=== PATIENT | female | born 1970 | race Caucasian/White ===

== ENCOUNTER 2017-04-13 13:30 | Emergency (ER) | payer BC, OTHER ==
[~2017-04-13] VITALS: Ht 180.3 cm; Wt 165.7 kg
[~2017-04-13 13:30] MED LIST: ACET-1311 PO; BUPR-79 PO; CHOL100010 PO; CYCL10TA6 PO; EFFSR150 PO; EFFSR75 PO; GABA-113 PO; GLUCTAB7 PO; HYDR-5688 PO; LRS10 PO; LSN/10125 PO; MELO15TA3 PO
[2017-04-13 13:42] VITALS: Ht 180.3 cm; Wt 165.7 kg
[2017-04-13] MEDS ORDERED: HYDROmorphone INJ 1 MG/ML SYR IV STA (14:22)
[2017-04-13] MEDS ORDERED: ONDANSETRON INJ 2 MG/ML 2 ML VIAL IV STA (14:22)
[2017-04-13 14:41] LABS: BASO % 1.3 %; BASO ABS # 0.14 K/uL (0-0.2); COMPLETE YES; EOS % 2.4 %; HEMATOCRIT 46.9 % (37-47); IG% 0.4 %; LYMPH % 29.2 %; LYMPH ABS # 3.15 K/uL (1.2-3.4); MEAN CELL VOLUME 90.4 fL (80-100); MEAN CORPUSCULAR HEMOGLOBIN 28.1 pg (25-34); MEAN CORPUSCULAR HGB CONC 31.1 g/dl (32-36); MEAN PLATELET VOLUME 10.6 fL (7.4-10.4); MONO % 7.7 %; PLATELET COUNT 297 K/uL (130-400); RED BLOOD COUNT 5.19 M/uL (4.2-5.4); WHITE BLOOD COUNT 10.79 K/uL (4.8-10.8)
[2017-04-13 14:58] LABS: INR 0.9 (0.9-1.1)
[2017-04-13 15:00] LABS: BLOOD UREA NITROGEN 20 mg/dl (7-18); BUN/CREATININE RATIO 19.7 (10-20); CALCIUM 9.1 mg/dl (8.5-10.1); CARBON DIOXIDE 25 mmol/L (21-32); CHLORIDE 104 mmol/L (98-107); CREATININE 0.99 mg/dl (0.60-1.20); GLUCOSE 103 mg/dl (70-99); MAGNESIUM 2.3 mg/dl (1.8-2.4); POTASSIUM 4.3 mmol/L (3.5-5.1); SODIUM 138 mmol/L (136-145)
[2017-04-13 15:05] LABS: ALKALINE PHOSPHATASE 79 U/L (45-117); ALT/SGPT 52 U/L (12-78); AST/SGOT 30 U/L (15-37); CKMB/CK RATIO 0.7 (0-3.0)
[2017-04-13 15:11] LABS: PREG INTERNAL NEGATIVE QC NEG CLEAR BACKGROUND; PREG INTERNAL POSITIVE QC POS CONTROL LINE
[2017-04-13] MEDS ORDERED: ULT50 PO (16:23)
[2017-04-13] MEDS ORDERED: RANI150T2 PO (16:23)
[2017-04-13] MEDS ORDERED: EFFSR150 PO (16:23)
[2017-04-13] MEDS ORDERED: BSP/10 PO (16:23)
[2017-04-13] MEDS ORDERED: CHOL2000 PO (16:23)
[2017-04-13] MEDS ORDERED: EFFSR75 PO (16:23)
[2017-04-13] MEDS ORDERED: ACET1TAB84 PO (16:23)
[2017-04-13] MEDS ORDERED: HYDR-4313 PO (16:23)
[2017-04-13] MEDS ORDERED: BIOT300T2 PO (16:23)
[2017-04-13] MEDS ORDERED: MELO15TA4 PO (16:23)
[2017-04-13] MEDS ORDERED: WLLXL300 PO (16:23)
[2017-04-13] MEDS ORDERED: LISI-788 PO (16:23)
--- NOTE | 2017-04-13 16:47 | DIAGNOSTIC IMAGING REPORT ---
GALLBLADDER-ABD LIMITED CLINICAL HISTORY: RUQ PAIN pain. Nausea. TECHNIQUE: Ultrasound COMPARISON STUDY: 05/19/2011 FINDINGS: Trace gallbladder sludge. No shadowing gallstones. Gallbladder wall 2 mm. Common bile duct 5 mm. Area fatty infiltration of liver. Limited visibility of the pancreas due to body habitus and overlying bowel content. Right kidney is negative for hydronephrosis. IMPRESSION: Trace gallbladder sludge. Otherwise negative study. Normal caliber bile ducts. The above report was generated using voice recognition software. It may contain grammatical, syntax or spelling errors. Electronically signed by: Jayant Garcia M.D. 04/13/2017 4:46 PM Dictated Date/Time: 04/13/2017 4:43 PM
--- NOTE | 2017-04-13 17:03 | DIAGNOSTIC IMAGING REPORT ---
ABDOMEN 2VIEW W/PA CHEST RTN CLINICAL HISTORY: RUQ PAIN, NAUSEA pain. Nausea. COMPARISON STUDY: 08/04/2015 FINDINGS: The soft tissues, psoas shadows, renal outlines and intestinal gas pattern appear normal. There is no evidence for bowel obstruction. There is no evidence for free intraperitoneal air. No abnormal abdominal calcifications are seen. A frontal view of the chest was performed and is unremarkable. IMPRESSION: Normal study. The above report was generated using voice recognition software. It may contain grammatical, syntax or spelling errors. Electronically signed by: Jayant Garcia M.D. 04/13/2017 5:01 PM Dictated Date/Time: 04/13/2017 5:01 PM
--- NOTE | 2017-04-13 17:28 | EMERGENCY ROOM VISIT NOTE ---
History First contact with patient: 14:10 Chief Complaint: ABDOMINAL PAIN Stated Complaint: GALLBLADDER PAIN/STOMACH PAIN Nursing Triage Summary: Pt presents with upper abd pain and pain in back x 2 hrs. "Second episode of similar sx". Nausea. History of Present Illness Patient is a 46-year-old white female who presents emergency department for evaluation of upper abdominal pain wrapping around through to her back. Her symptoms started about 2 hours ago after eating a S[employer] one hour prior. She notes pain in a band across her upper abdomen, primarily on the right that wraps through to her back. She noted associated dizziness, sweats and nausea. She states the pain is a 6/10 presently. She did not vomit. She had an episode of pain similar to this about a month or so ago. She was seen at an urgent care center where she was evaluated. They had set up an ultrasound as an outpatient which she was unable to make due to scheduling issues. She denies any chest pain, palpitations or shortness of breath. The pain is not pleuritic in nature. She is status post gastric bypass. She has had an EGD and colonoscopy in the past. She noted some cramping in her legs last night which she thought could be related to low potassium. She drink Gatorade and took a pain pill, still notes just some slight pain in the right thigh. She denies any swelling. She denies any family history of gallbladder disease. She is postmenopausal 2 years. She is chronically incontinent of urine, denies any changes in this. She has some chronic GI issues secondary to hemorrhoids and her gastric bypass status. Bowel movements have been normal. She denies fever. Review of Systems Review of systems as per HPI. All other systems reviewed were negative. 10 systems reviewed. Past Medical/Surgical History Medical Problems: (1) Anxiety disorder (2) Depressive disorder (3) GERD (gastroesophageal reflux disease) (4) Hypertension (5) Intractable back pain (6) Lumbago (7) Morbid obesity (8) Osteoarthritis (9) Sleep apnea Surgical Problems: (1) History of gastric bypass (2) History of lumbosacral spine surgery Electronic medical records are reviewed and summarized as above/below. See Problem List. Social History Smoking Status: Never Smoker Alcohol Use: none Drug Use: none Marital Status: Housing Status: lives with family Current/Historical Medications Scheduled Acetaminophen/Hydrocodone (Hydrocodone/Acetaminophen 5-325 mg), 1 TAB PO BID Biotin (Biotin), 1 TAB PO DAILY Bupropion HCl (Bupropion HCl Xl), 1 TAB PO DAILY Buspirone HCl (Buspirone HCl), 1 TAB PO BID Cholecalciferol (Vitamin D3), 1 CAP PO DAILY Lisinopril/Hctz (Zestoretic 20MG/25MG), 0.5 TAB PO DAILY Meloxicam (Meloxicam), 1 TAB PO DAILY Ranitidine HCl (Ranitidine HCl), 1 TAB PO DAILY Venlafaxine Hcl (Effexor Extended Rel), 1 TAB PO DAILY Venlafaxine Hcl (Effexor Extended Rel), 1 TAB PO DAILY Scheduled PRN Acetaminophen (Tylenol Arthritis Ext Rel), 2 TAB PO BID PRN for Mild Pain Tramadol HCl (Tramadol HCl), 1 TAB PO Q6H PRN for Pain Allergies Coded Allergies: No Known Allergies (Verified , 04/13/17) Physical Exam Vital Signs Date Time Temp Pulse Resp B/P (MAP) Pulse Ox O2 Delivery O2 Flow Rate FiO2 04/13/17 17:53 36.6 109 18 135/107 98 04/13/17 16:03 91 18 126/78 95 04/13/17 13:42 36.6 103 16 158/102 95 Room Air Physical Exam CONSTITUTIONAL: Patient is a morbidly obese 38-year-old white female who is awake and alert and in moderate distress due to her abdominal discomfort. EYES: Pupils equal, round, reactive to light and accommodation. EOMs intact without nystagmus. Sclera are anicteric. ENT: Tympanic membranes intact, with normal landmarks. External canals are clear. Oral and nasopharynx are clear. Mucous membranes are moist, no lesions , tongue and gums appear normal. CARDIOVASCULAR: Regular rate and rhythm, with normal S1 and S2, no murmur or gallop or rub is heard. No carotid bruits auscultated. No JVD. Peripheral pulses easy to palpable. RESPIRATORY: Breath sounds equal and clear to auscultation without wheezes, rales, or rhonchi heard. Full and equal chest expansion without accessory muscle use or retractions. GI: Bowel sounds are present. Well-healed surgical scars are noted. Abdomen is soft, obese, tender in the upper abdomen, primarily in the epigastric and the right upper quadrant. No organomegaly. No pulsatile masses. No guarding or rebound. MUSCULOSKELETAL: Full range of motion of extremities x 4 with good strength. No cyanosis, edema, joint tenderness or swelling. No deformity. INTEGUMENTARY: No lesions or rash, normal skin turgor. NEUROLOGICAL: Alert, oriented, and cooperative. Cranial nerves, sensation and strength grossly intact. Pupils round, equal, and react to light, EOMs are full. LYMPH: No lymphadenopathy. Medical Decision & Procedures ER Provider Diagnostic Interpretation: GALLBLADDER-ABD LIMITED CLINICAL HISTORY: RUQ PAIN pain. Nausea. TECHNIQUE: Ultrasound COMPARISON STUDY: 05/19/2011 FINDINGS: Trace gallbladder sludge. No shadowing gallstones. Gallbladder wall 2 mm. Common bile duct 5 mm. Area fatty infiltration of liver. Limited visibility of the pancreas due to body habitus and overlying bowel content. Right kidney is negative for hydronephrosis. IMPRESSION: Trace gallbladder sludge. Otherwise negative study. Normal caliber bile ducts. ABDOMEN 2VIEW W/PA CHEST RTN CLINICAL HISTORY: RUQ PAIN, NAUSEA pain. Nausea. COMPARISON STUDY: 08/04/2015 FINDINGS: The soft tissues, psoas shadows, renal outlines and intestinal gas pattern appear normal. There is no evidence for bowel obstruction. There is no evidence for free intraperitoneal air. No abnormal abdominal calcifications are seen. A frontal view of the chest was performed and is unremarkable. IMPRESSION: Normal study. Laboratory Results 04/13/17 14:30 Red Blood Count 5.19, Mean Corpuscular Volume 90.4, Mean Corpuscular Hemoglobin 28.1, Mean Corpuscular Hemoglobin Concent 31.1, Mean Platelet Volume 10.6, Neutrophils (%) (Auto) 59.0, Lymphocytes (%) (Auto) 29.2, Monocytes (%) (Auto) 7.7, Eosinophils (%) (Auto) 2.4, Basophils (%) (Auto) 1.3, Neutrophils # (Auto) 6.37, Lymphocytes # (Auto) 3.15, Monocytes # (Auto) 0.83, Eosinophils # (Auto) 0.26, Basophils # (Auto) 0.14 04/13/17 14:30 Test 04/13/17 14:30 White Blood Count 10.79 K/uL (4.8-10.8) Red Blood Count 5.19 M/uL (4.2-5.4) Hemoglobin 14.6 g/dL (12.0-16.0) Hematocrit 46.9 % (37-47) Mean Corpuscular Volume 90.4 fL (80-100) Mean Corpuscular Hemoglobin 28.1 pg (25-34) Mean Corpuscular Hemoglobin Concent 31.1 g/dl (32-36) Platelet Count 297 K/uL (130-400) Mean Platelet Volume 10.6 fL (7.4-10.4) Neutrophils (%) (Auto) 59.0 % Lymphocytes (%) (Auto) 29.2 % Monocytes (%) (Auto) 7.7 % Eosinophils (%) (Auto) 2.4 % Basophils (%) (Auto) 1.3 % Neutrophils # (Auto) 6.37 K/uL (1.4-6.5) Lymphocytes # (Auto) 3.15 K/uL (1.2-3.4) Monocytes # (Auto) 0.83 K/uL (0.11-0.59) Eosinophils # (Auto) 0.26 K/uL (0-0.5) Basophils # (Auto) 0.14 K/uL (0-0.2) RDW Standard Deviation 52.5 fL (36.4-46.3) RDW Coefficient of Variation 15.9 % (11.5-14.5) Immature Granulocyte % (Auto) 0.4 % Immature Granulocyte # (Auto) 0.04 K/uL (0.00-0.02) Prothrombin Time 10.0 SECONDS (9.0-12.0) Prothromb Time International Ratio 0.9 (0.9-1.1) Activated Partial Thromboplast Time 25.1 SECONDS (21.0-31.0) Partial Thromboplastin Ratio 1.0 Anion Gap 9.0 mmol/L (3-11) Est Creatinine Clear Calc Drug Dose 119.3 ml/min Estimated GFR () 78.1 Estimated GFR (Non- 67.4 BUN/Creatinine Ratio 19.7 (10-20) Calcium Level 9.1 mg/dl (8.5-10.1) Magnesium Level 2.3 mg/dl (1.8-2.4) Total Bilirubin 0.3 mg/dl (0.2-1) Aspartate Amino Transf (AST/SGOT) 30 U/L (15-37) Alanine Aminotransferase (ALT/SGPT) 52 U/L (12-78) Alkaline Phosphatase 79 U/L (45-117) Total Creatine Kinase 122 U/L (26-192) Creatine Kinase MB 0.9 ng/ml (0.5-3.6) Creatine Kinase MB Ratio 0.7 (0-3.0) Troponin I < 0.015 ng/ml (0-0.045) Total Protein 7.4 gm/dl (6.4-8.2) Albumin 3.7 gm/dl (3.4-5.0) Globulin 3.6 gm/dl (2.5-4.0) Albumin/Globulin Ratio 1.0 (0.9-2) Lipase 239 U/L (73-393) Human Chorionic Gonadotropin, Qual NEG (NEG) Medications Administered Medications (Trade) Dose Ordered Sig/Becka Route Start Time Stop Time Status Last Admin Dose Admin Ondansetron HCl (Zofran Inj) 4 mg NOW STAT IV 04/13/17 14:22 04/13/17 14:27 DC 04/13/17 14:52 4 MG Hydromorphone HCl (Dilaudid Inj) 1 mg NOW STAT IV 04/13/17 14:22 04/13/17 14:27 DC 04/13/17 14:55 1 MG ECG Indication: abdominal pain Rate (beats per minute): 83 Rhythm: sinus rhythm Findings: no acute ischemic change, other (AL interval 108 ms) Change: no significant change ED Course The patient was seen and evaluated as above. Her old records were reviewed. IV lock was initiated. She was medicated with Dilaudid 1 mg IV and Zofran 4 mg IV. Laboratory studies were collected including CBC with differential, coags, cardiac enzymes, CMP and lipase. Urine dip was clear. Serum hCG was negative. Laboratory studies noted a normal white count at 10,700. No left shift. No anemia. Coags are unremarkable. Electrolytes and renal function without gross abnormality. LFTs are not elevated. Cardiac enzymes are not indicative of cardiac ischemia. Lipase is not indicative of acute pancreatitis. Acute abdominal series was obtained and was unremarkable. There was no evidence for bowel obstruction. Right upper quadrant ultrasound noted trace biliary sludge, no evidence for cholelithiasis, no gallbladder wall thickening or ductal dilatation. The patient was reassessed frequently. She had good relief of her pain with the IV medications. Patient was made aware of the results of her laboratory and diagnostic imaging studies. Differential diagnoses entertained included GERD, gastritis, esophagitis, peptic ulcer disease, pancreatitis, cholelithiasis , biliary colic, acute cholecystitis, ascending cholangitis, choledocholithiasis , bowel section, perforation, among others. Pain does not appear consistent with cardiac or pulmonary etiology. The patient was encouraged to follow a clear liquid diet and advance as tolerated, avoiding fatty/greasy foods. She may require further workup for gallbladder pathology including HIDA scan. She also may need referral to GI for endoscopy. The patient was educated on the worrisome signs or symptoms for which she should return to the emergency department. The patient reported complete resolution of her pain at discharge, and rated her discomfort a 0/10. Medication reconciliation: I attest that I have personally reviewed the patient' s current medication list. Blood pressure screening: Patient was found to have a slightly elevated blood pressure due to circumstances. I do not believe that the patient requires hypertension monitoring. Medical Decision See Emergency Department course. Impression Primary Impression: Right upper quadrant abdominal pain Departure Information Referrals No Doctor, Assigned (PCP) Patient Instructions [facility] Additional Instructions DO NOT drive, drink alcohol, operate machinery, or perform dangerous activities today. You were given medications in the ER that can affect your ability to safely function or operate a vehicle. Acetaminophen(Tylenol) may be used for fever or pain. Use 1000mg every eight hours as needed. Avoid using more than 3000mg in a 24 hour period. This is available over the counter. Rest and drink plenty of fluids as tolerated. Slow sips of water or sports drinks are recommended instead of large amounts all at once. Continue current medications. Once your stomach is settled start with a clear liquid diet (jello, soup broth, etc.) and then advance as tolerated. You should avoid full, heavy meals for about 24 hrs from the time your symptoms resolved. Avoid greasy/fatty foods which may irritate the gallbladder. Return to the ER immediately for worsening or persistent abdominal pain, vomiting, fevers, chest pains, difficulty breathing, black or bloody stools, worsening of your condition, or as needed. Follow up with your primary physician in 1-2 days for a recheck of your current condition.
[2017-04-13 17:53] VITALS: BP 135/107; PULSE 109; TEMP 36.6; O2SAT 98
[2017-04-22] MEDS ORDERED: GLUCTAB7 PO (09:48)
[2017-04-22] MEDS ORDERED: BIOT1CAP8 PO (09:48)
== END 2017-04-13 17:54 | disposition home or self-care (01) ==
LOC: C.EDB 13:31 → C.EDA 17:54
DX: R10.11 Right upper quadrant pain (principal); F41.9 Anxiety disorder, unspecified; F32.9 Major depressive disorder, single episode, unspecified; K21.9 Gastro-esophageal reflux disease without esophagitis; I10 Essential (primary) hypertension; E66.01 Morbid (severe) obesity due to excess calories; M19.90 Unspecified osteoarthritis, unspecified site; G47.30 Sleep apnea, unspecified; Z98.84 Bariatric surgery status; Z79.899 Other long term (current) drug therapy

== ENCOUNTER → 2017-04-26 | Day surgery (SDC) | payer BC ==
[2017-04-22 09:49] VITALS: Ht 180.3 cm; Wt 163.6 kg
[~2017-04-26] VITALS: Ht 180.3 cm; Wt 163.6 kg
[~2017-04-26] MED LIST changes: -ACET-1311 PO; +ACET1TAB84 PO; +BIOT1CAP8 PO; -BUPR-79 PO; -CHOL100010 PO; -CYCL10TA6 PO; +FENTANYL CITRATE INJ 50 MCG/1 ML 2 ML VIAL ONE; -GABA-113 PO; -HYDR-5688 PO; +LIDOCAINE HCL 2% 2 ML VIAL (20MG/ML) ONE; +LISI-788 PO; -LRS10 PO; -LSN/10125 PO; -MELO15TA3 PO; +MELO15TA4 PO; +PROPOFOL IV EMULSION 10 MG/ML 20 ML VIAL IV ONE; +SODIUM CHLORIDE 0.9% 500ML 500 ML IV ONE; +WLLXL300 PO
--- NOTE | 2017-04-26 09:30 | Endo History and Physical ---
History & Physical Date of Service: Apr 26, 2017. Chief Complaint: Epigastric pain Referring Physician: Johnny Gomez History of Present Illness abdominal pain Past Medical History Arthritis, Anxiety, Reflux, Sleep Apnea, Hypertension, Depression Past Surgical History Hx Cardiac Surgery: No Hx Internal Defibrillator: No Hx Pacemaker: No Hx Abdominal Surgery: Yes (GASTRIC BYPASS) Hx of Implantable Prosthesis: No Hx Post-Op Nausea and Vomiting: No Hx Cancer Surgery: No Hx Thoracic Surgery: No Hx Orthopedic: Yes (LUMBAR DISCECTOMY, LEFT LUMBAR LAMINOTOMY) Hx Urinary Tract Surgery: No Family History Colon CA Social History Smoking Status: Never Smoker Hx Substance Use: No Hx Alcohol Use: Yes (RARELY) Allergies Coded Allergies: No Known Allergies (Verified , 04/22/17) Current Medications Reported Home Medications Medications Dose Route/Sig Max Daily Dose Days Date Category Biotin 1 Mg Cap 1 Cap PO QAM 04/22/17 Reported Glucosamine Chondroitin (Njkikjxesny-Xtqbfngihbh-Dca C-) 1 Tab Tab 2 Tab PO QAM 04/22/17 Reported Zestoretic 20MG/25MG (HCTZ/Lisinopril) Tab 0.5 Tab PO QAM 04/13/17 Reported Tylenol Arthritis Ext Rel (Acetaminophen) 650 Mg Cplt 2 Tab PO BID PRN 04/13/17 Reported Meloxicam 15 Mg Tab 1 Tab PO QAM 04/13/17 Reported Bupropion HCl Xl (Bupropion HCl) 300 Mg Tabcr 1 Tab PO QAM 04/13/17 Reported Effexor Extended Rel (Venlafaxine Hcl) 150 Mg Capcr 1 Tab PO QAM 04/13/17 Reported Effexor Extended Rel (Venlafaxine Hcl) 75 Mg Capcr 1 Tab PO QAM 04/13/17 Reported Vital Signs Weight (Kilograms): 163.64 Height (Feet): 5 Height (Inches): 11 Date Time Temp Pulse Resp B/P (MAP) Pulse Ox O2 Delivery O2 Flow Rate FiO2 04/26/17 09:05 36.5 81 18 128/63 (84) 96 Room Air Physical Exam General Appearance: no apparent distress Respiratory/Chest: Auscultation: breath sounds normal Cardiovascular: Heart Auscultation: RRR Abdomen: Inspection & Palpation: soft Liver: non-tender Assessment and Plan stable for EGD
--- NOTE | 2017-04-26 09:52 | Discharge Instructions ---
Endoscopy Patient Instructions Date / Procedure(s) Performed Apr 26, 2017. EGD Allergy Information Coded Allergies: No Known Allergies (Verified , 04/22/17) Discharge Date / Findings Apr 26, 2017. normal post gastric bypass anatomy. Provider Instructions Activity Restrictions - No exercising or heavy lifting for 24 hours. - Do not drink alcohol the day of the procedure. - Do not drive a car or operate machinery until the day after the procedure. - Do not make any important decisions or sign important papers in 24 hours after the procedure. Following Day: - Return to full activity which may include returning to work/school. Diet Start your diet with liquids and light foods (jello, soup, juice, toast). Then eat your usual diet if not nauseated. Treatment For Common After Affects For mild abdominal pain, bloating, or excessive gas: - Rest - Eat lightly - Lie on right side Follow-Up Information Follow-up with Johnny Gomez as scheduled Anesthesia Information What You Should Know You have had a procedure that required some medicine to reduce anxiety and discomfort. This treatment is called moderate sedation. After receiving the treatment, you may be sleepy, but you will be able to breathe on your own. The effects of the treatment may last for several hours. Follow these instructions along with Activity/Diet recommendations noted above: * Do NOT do anything where dizziness or clumsiness would be dangerous. * Rest quietly at home today, then you can be up and about tomorrow. * Have a responsible person stay with you the rest of today. * You may have had an I.V. today. If so, you may take the dressing off later today. Recommendations Call your doctor if: * Trouble breathing * Continuous vomiting for more than 24 hours * Temperature above 101 degrees * Severe abdominal pain or bloating * Pain not relieved by pain medicine ordered * There is increased drainage or redness from any incision * A large amount of rectal bleeding greater than 2-3 tablespoons. (If you had a polyp/s removed or have hemorrhoids, a small amount of blood - from the rectum is to be expected.) * You have any unanswered questions or concerns. IN THE EVENT OF A SERIOUS EMERGENCY, GO TO THE NEAREST EMERGENCY ROOM Your discharge instructions were prepared by provider Newton Morilol. Patient Instructions Signature Page Keyona Amador Patient (or Guardian) Signature/Date: I have read and understand the instructions given to me by my caregivers. Caregiver/RN/Doctor Signature/Date: The above-named patient and/or guardian has received patient instructions on this date. + Original Patient Signature Page (only) stays with chart. Please make copy for patient.
--- NOTE | 2017-04-26 09:58 | GI REPORT ---
Procedure Date: 04/26/2017 9:05 AM Procedure: Upper GI endoscopy Indications: Epigastric abdominal pain, Anemia Medicines: See the Anesthesia note for documentation of the administered medications Complications: No immediate complications. Estimated Blood Loss: Estimated blood loss: none. Procedure: Pre-Anesthesia Assessment: - Prior to the procedure, a History and Physical was performed, and patient medications, allergies and sensitivities were reviewed. The patient's tolerance of previous anesthesia was reviewed. - The risks and benefits of the procedure and the sedation options and risks were discussed with the patient. All questions were answered and informed consent was obtained. - Patient identification and proposed procedure were verified prior to the procedure by the physician and the nurse. The procedure was verified in the pre-procedure area. - Pre-procedure physical examination revealed no contraindications to sedation. - After reviewing the risks and benefits, the patient was deemed in satisfactory condition to undergo the procedure. After obtaining informed consent, the endoscope was passed under direct vision. Throughout the procedure, the patient's blood pressure, pulse, and oxygen saturations were monitored continuously. The On-site loaner was introduced through the mouth, and advanced to the afferent and efferent jejunal loops. The upper GI endoscopy was accomplished without difficulty. The patient tolerated the procedure well. Findings: The esophagus was normal. Evidence of a gastric bypass was found. A gastric pouch with a normal size was found. The gastrojejunal anastomosis was characterized by healthy appearing mucosa. The jejunojejunal anastomosis was characterized by healthy appearing mucosa. The examined jejunum was normal. Impression: - Normal esophagus. - Gastric bypass with a normal-sized pouch. Gastrojejunal anastomosis characterized by healthy appearing mucosa. - No ulcers seen. - Normal examined jejunum. - No specimens collected. Recommendation: - Discharge patient to home. Newton Morillo M.D. Newton Morillo MD 04/26/2017 9:58:10 AM This report has been signed electronically. Note Initiated On: 04/26/2017 9:05 AM I attest to the content of the Intraoperative Record and orders documented therein, exceptions below
[2017-04-26 10:23] VITALS: BP 116/44; PULSE 85; O2SAT 95
--- NOTE | 2017-04-26 10:23 | Anesthesiology Progress Note ---
Anesthesia Post Op Note Date & Time Apr 26, 2017 at 10:22 Vital Signs Pain Intensity: 0 Vital Signs Past 12 Hours Date Time Temp Pulse Resp B/P (MAP) Pulse Ox O2 Delivery O2 Flow Rate FiO2 04/26/17 10:09 82 18 129/60 (83) 95 Room Air 04/26/17 09:54 88 18 121/75 (90) 95 Room Air 04/26/17 09:05 36.5 81 18 128/63 (84) 96 Room Air Notes Mental Status: alert / awake / arousable, participated in evaluation Pt Amnestic to Procedure: Yes Nausea / Vomiting: adequately controlled Pain: adequately controlled Airway Patency, RR, SpO2: stable & adequate BP & HR: stable & adequate Hydration State: stable & adequate Anesthetic Complications: no major complications apparent
== END | disposition home or self-care (01) ==
LOC: C.GI 08:42
PROVIDERS: ATTEND Internal Medicine Gastroenterology
DX: R10.13 Epigastric pain (principal); D64.9 Anemia, unspecified; Z98.84 Bariatric surgery status; I10 Essential (primary) hypertension; F32.9 Major depressive disorder, single episode, unspecified; M19.90 Unspecified osteoarthritis, unspecified site; G47.33 Obstructive sleep apnea (adult) (pediatric); Z90.89 Acquired absence of other organs; Z98.890 Other specified postprocedural states; E66.01 Morbid (severe) obesity due to excess calories; Z68.43 Body mass index [BMI] 50.0-59.9, adult; Z80.0 Family history of malignant neoplasm of digestive organs

== ENCOUNTER → 2017-05-16 | Day surgery (SDC) | payer BC ==
[2017-05-09 10:28] VITALS: BMI 51.0
[~2017-05-16] VITALS: Ht 180.3 cm; Wt 167.7 kg
[~2017-05-16] MED LIST changes: +ATROPINE SULFATE 0.1 MG/ML 5ML SYR IV PRN; +BUPIVACAINE 0.5 % 5 MG/1 ML MPF 30ML VIAL ONE; +CEFAZOLIN 3000MG IV PUSH 15 ML IV SCH; +CEFAZOLIN SOD 1 GM VIAL ONE; +CONRAY 60% 50 ML VIAL ONE; +CYCL10TA6 PO; +DEXAMETHASONE SOD INJ 4 MG/ML VIAL ONE; +FENTANYL CITRATE INJ 50 MCG/1 ML 2 ML VIAL IV PRN; +GLYCOPYRROLATE INJ 0.2 MG/ML VIAL ONE; +HEPARIN SOD (PORCINE) 1000 UNIT/ML 10 ML VIAL ONE; +HYDR-5688 PO; +HYDROmorphone INJ 1 MG/ML SYR ONE; +KETOROLAC TROMETHAMINE 30 MG/ML VIAL IV. PRN; +KETOROLAC TROMETHAMINE 30 MG/ML VIAL ONE; +LABETALOL HCL IV 5 MG/ML 20ML IV PRN; +LACTATED RINGER'S 1000ML 1,000 ML IV SCH; +LARYING-O-JET KIT (LTA) ONE; +LIDOCAINE HCL 1% 20 ML VIAL ONE; +MIDAZOLAM HCL 1 MG/ML 2ML VIAL ONE; +MoRPHine SULFATE 2 MG/ML CARP IV PRN; +MoRPHine SULFATE 4 MG/ML 1 ML CARP\\VIAL IV PRN; +NEOSTIGMINE METHYLSULFATE 5 MG/5 ML SYR ONE; +ONDANSETRON INJ 2 MG/ML 2 ML VIAL IV PRN; +ONDANSETRON INJ 2 MG/ML 2 ML VIAL ONE; +OXYC-57 PO; +OXYCODONE/ACETAMINOPHEN 5-325 TAB PO PRN; +ROCURONIUM BROMIDE 10 MG/ML 5 ML VIAL IV ONE; -SODIUM CHLORIDE 0.9% 500ML 500 ML IV ONE; +flonase nasal NAE
[2017-05-16 11:00] VITALS: BP 153/66; PULSE 89; TEMP 36.8; O2SAT 95; Ht 180.3 cm; Wt 167.7 kg
--- NOTE | 2017-05-16 11:39 | History & Physical Bridge Note ---
H&P Re-Evaluation Bridge Note: I have examined the patient, reviewed the History & Physical and in the interval since the performance of the History & Physical I have noted the following changes of clinical significance: No changes noted
[2017-05-16] MEDS: HYDROmorphone INJ 2 MG/ML SYR/VIAL IV PRN ×6 (15:39→16:28)
--- NOTE | 2017-05-16 15:57 | Discharge Instructions ---
Discharge Instructions Date of Service May 16, 2017. Admission Reason for Admission: Gallbladder Sludge Discharge Discharge Diagnosis / Problem: same Discharge Goals Goal(s): Decrease discomfort, Improve function Activity Recommendations Activity Limitations: as noted below No heavy lifting over 10 pounds for 2 weeks No strenuous activity until cleared by surgeon No submerging incisions underwater for 2 weeks (no bathing, swimming, or hot tubs) No driving while taking narcotic pain medication or until you are pain free . Instructions / Follow-Up Instructions / Follow-Up You may shower in 24 hours. You have surgical glue on your incisions, do not pick it off, it will come off on its own You do not need to keep incision covered with any dressings Walking and light activity is encouraged Follow-up with Dr. Rasmussen in 2 weeks, please call office at [phone] if you do not already have an appointment Current Hospital Diet Patient's current hospital diet: Discharge Diet Recommended Diet: Regular Diet Procedures Procedures Performed: Laparoscopic Cholecystectomy Pending Studies Studies pending at discharge: yes List of pending studies: pathology of gallbladder. Will be reviewed at follow-up visit Medical Emergencies . Who to Call and When: Medical Emergencies: If at any time you feel your situation is an emergency, please call 911 immediately. . Non-Emergent Contact Non-Emergency issues call your: Primary Care Provider, Surgeon Call Non-Emergent contact if: you have a fever, temperature is above 101.5, your pain is not controlled, your pain is worsening, your pain is unusual for you, wound has increased drainage, wound has increased redness, wound has increased pain . "Provider Documentation" section prepared by Urmila Johnson. . VTE Core Measure Inpt VTE Proph given/why not?: [facility] [place] Drug Monitoring Program Search Results: patient reviewed within database, no issues identified
--- NOTE | 2017-05-16 15:59 | [facility] Operative Report ---
Operative Report Operative Date May 16, 2017. Pre-Operative Diagnosis Symptomatic gallbladder sludge Post-Operative Diagnosis Symptomatic gallbladder sludge Procedure(s) Performed Laparoscopic Cholecystectomy Surgeon Tori Rasmussen MD Cafeteria Server Surgeon(s) Jayant Wan MD Estimated Blood Loss 5cc Findings Edematous gallbladder with adhesions Fluids 1000cc Specimens A: Gallbladder and contents Drains None Anesthesia GETA, 20ml 1% Lidocaine + 0.25% Marcaine (50/50% mix) local anesthetic Complication(s) None Disposition Recovery Room / PACU Indications Keyona Amador is a 46 year old woman with symptomatic gallbladder sludge. Indications, risks, benefits and potential complications of laparoscopic, possible open cholecystectomy, possible intraoperative cholangiogram were discussed at length with the patient. All questions were answered to apparent satisfaction. Patient elected to proceed with the operation and freely signed the consent form. Description of Procedure Patient was brought to the operating room and identified as Keyona Amador, 66. She was placed on the operating table in supine position. Anesthesia was induced and the patient was intubated without difficulty. The abdomen was prepped and draped in the usual sterile fashion. A time-out was held, verifying correct patient, procedure, site, allergies, pre op antibiotics , equipment available, and personnel. A 12mm incision was made just superior to the umbilicus and carried down through subcutaneous tissue. Fascia was identified and two Luis clamps were placed for upward traction; the fascia was incised. The underlying peritoneum was identified, and two hemostats were placed for upward traction. Metzenbaum scissors were used to incise the peritoneum and enter the abdomen. A 12mm balloon port was placed, and insufflation was established. A 10mm endoscope was placed and the abdomen was explored. A moderate amount of adhesions were observed in the upper midline. A 5mm port was then placed just right of midline below the xiphoid under direct vision. Two more 5mm ports were placed in the right abdomen. A grasper was placed on the dome of the gallbladder and the gallbladder was retracted cranially. The neck of the gallbladder was grasped and retracted laterally. Adhesions were taken down with gentle blunt dissection to expose the area of dissection. The cystic duct was found to be directly anterior to the cystic artery. The cystic duct was dissected circumferentially until the critical view of safety was clearly visible. The cystic duct was clipped and cut. The immediately underlying cystic artery was clipped and cut. A second posterior branch of the cystic artery was identified, clipped and cut. The gallbladder was then taken off the liver bed using electrocautery. The 10mm scope was switched for a 5mm scope, which was inserted in the subxiphoid port. The 10mm endocatch bag was placed through the umbilical port, and the gallbladder was placed in the bag. The gallbladder was removed from the abdomen, and passed off the field to be taken to pathology. The liver bed was throroughly irrigated and evacuated of irrigation fluid. The liver bed was inspected for hemostasis, and hemostasis was achieved with electrocautery. At the end of the procedure, instrument and sponge counts were verified to be correct x 2 by the nurse in charge. Ports were removed under direct vision and port sites were found to be hemostatic. Fascia was closed at the umbilical incision using 0 Vicryl. Skin was closed at all ports using 4-0 Monocryl. Dermabond was applied. Patient was awakened from anesthesia, extubated without difficulty, and was taken to PACU in stable condition, having suffered no untoward events. I attest to the content of the Intraoperative Record and any orders documented therein. Any exceptions are noted below.
[2017-05-16] MEDS: FENTANYL CITRATE INJ 50 MCG/1 ML 2 ML VIAL ONE ×2 (16:08→16:11)
--- NOTE | 2017-05-16 16:15 | Anesthesiology Progress Note ---
Anesthesia Post Op Note Date & Time May 16, 2017 at 16:15 Vital Signs Pain Intensity: 10 Vital Signs Past 12 Hours Date Time Temp Pulse Resp B/P (MAP) Pulse Ox O2 Delivery O2 Flow Rate FiO2 05/16/17 15:54 82 26 05/16/17 15:54 81 26 100 05/16/17 15:52 168/69 05/16/17 15:49 88 19 05/16/17 15:49 89 19 100 05/16/17 15:47 109/84 05/16/17 15:44 91 10 05/16/17 15:44 91 10 99 05/16/17 15:39 90 10 98 05/16/17 15:39 92 10 05/16/17 15:36 100/68 05/16/17 15:34 36.7 100 20 100/68 95 Oxymask 10 05/16/17 11:00 36.8 89 18 153/66 (95) 95 Room Air Notes Mental Status: alert / awake / arousable, participated in evaluation Pt Amnestic to Procedure: Yes Nausea / Vomiting: adequately controlled Pain: adequately controlled Airway Patency, RR, SpO2: stable & adequate BP & HR: stable & adequate Hydration State: stable & adequate Anesthetic Complications: no major complications apparent
[2017-05-16 16:45] VITALS: BP 124/65; PULSE 91; TEMP 36.6; O2SAT 95
[2017-05-16 17:15] VITALS: BP 124/60; PULSE 98; TEMP 36.6; O2SAT 95
[2017-05-16 17:45] VITALS: BP 128/56; PULSE 108; TEMP 36.6; O2SAT 97
== END | disposition home or self-care (01) ==
LOC: C.ACU 10:38
PROVIDERS: ATTEND Student in an Organized Health Care Education/Training Program
DX: K81.1 Chronic cholecystitis (principal); K82.8 Other specified diseases of gallbladder; I10 Essential (primary) hypertension; F32.9 Major depressive disorder, single episode, unspecified; Z98.84 Bariatric surgery status; Z79.899 Other long term (current) drug therapy

== ENCOUNTER 2017-07-12 09:14 | Observation (INO) | payer BC ==
[~2017-07-12] VITALS: Ht 180.3 cm; Wt 162.0 kg
[~2017-07-12 09:14] MED LIST changes: -ATROPINE SULFATE 0.1 MG/ML 5ML SYR IV PRN; -BUPIVACAINE 0.5 % 5 MG/1 ML MPF 30ML VIAL ONE; -CEFAZOLIN 3000MG IV PUSH 15 ML IV SCH; -CEFAZOLIN SOD 1 GM VIAL ONE; -CONRAY 60% 50 ML VIAL ONE; -DEXAMETHASONE SOD INJ 4 MG/ML VIAL ONE; -FENTANYL CITRATE INJ 50 MCG/1 ML 2 ML VIAL IV PRN; -FENTANYL CITRATE INJ 50 MCG/1 ML 2 ML VIAL ONE; -GLYCOPYRROLATE INJ 0.2 MG/ML VIAL ONE; -HEPARIN SOD (PORCINE) 1000 UNIT/ML 10 ML VIAL ONE; -HYDR-5688 PO; -HYDROmorphone INJ 1 MG/ML SYR ONE; -KETOROLAC TROMETHAMINE 30 MG/ML VIAL IV. PRN; -KETOROLAC TROMETHAMINE 30 MG/ML VIAL ONE; -LABETALOL HCL IV 5 MG/ML 20ML IV PRN; -LACTATED RINGER'S 1000ML 1,000 ML IV SCH; -LARYING-O-JET KIT (LTA) ONE; -LIDOCAINE HCL 1% 20 ML VIAL ONE; -LIDOCAINE HCL 2% 2 ML VIAL (20MG/ML) ONE; +MELO-83 PO; -MELO15TA4 PO; -MIDAZOLAM HCL 1 MG/ML 2ML VIAL ONE; -MoRPHine SULFATE 2 MG/ML CARP IV PRN; -MoRPHine SULFATE 4 MG/ML 1 ML CARP\\VIAL IV PRN; -NEOSTIGMINE METHYLSULFATE 5 MG/5 ML SYR ONE; -ONDANSETRON INJ 2 MG/ML 2 ML VIAL IV PRN; -ONDANSETRON INJ 2 MG/ML 2 ML VIAL ONE; -OXYCODONE/ACETAMINOPHEN 5-325 TAB PO PRN; -PROPOFOL IV EMULSION 10 MG/ML 20 ML VIAL IV ONE; -ROCURONIUM BROMIDE 10 MG/ML 5 ML VIAL IV ONE
[2017-07-12] MEDS ORDERED: AMPICILLIN/SULBACTAM SOD INJ 3,000 MG in SODIUM CHLORIDE 0.9% 100ML 100 ML IV STA (09:34)
[2017-07-12] MEDS ORDERED: KETOROLAC TROMETHAMINE 30 MG/ML VIAL IV STA (09:34)
[2017-07-12] MEDS ORDERED: DIPHTHERIA/TETANUS/PERTUSSIS 0.5 ML SYR/VIAL IM. ONE (09:45)
[2017-07-12 10:09] LABS: BASO % 0.5 %; BASO ABS # 0.07 K/uL (0-0.2); EOS % 1.3 %; EOS ABS # 0.18 K/uL (0-0.5); HEMATOCRIT 43.8 % (37-47); HEMOGLOBIN 14.4 g/dL (12.0-16.0); IG# 0.04 K/uL (0.00-0.02); LYMPH % 23.4 %; LYMPH ABS # 3.26 K/uL (1.2-3.4); MEAN CELL VOLUME 89.2 fL (80-100); MEAN CORPUSCULAR HEMOGLOBIN 29.3 pg (25-34); MEAN CORPUSCULAR HGB CONC 32.9 g/dl (32-36); MEAN PLATELET VOLUME 11.3 fL (7.4-10.4); MONO % 9.4 %; MONO ABS # 1.31 K/uL (0.11-0.59); NEUT % 65.1 %; NEUT ABS # 9.09 K/uL (1.4-6.5); PLATELET COUNT 256 K/uL (130-400); RED CELL DISTRIBUTION WIDTH CV 15.4 % (11.5-14.5); WHITE BLOOD COUNT 13.95 K/uL (4.8-10.8)
--- NOTE | 2017-07-12 10:11 | DIAGNOSTIC IMAGING REPORT ---
RIGHT HAND 3 VIEWS CLINICAL HISTORY: Right hand infection. Cat bite injury. FINDINGS: 3 views of the right hand are obtained. No prior studies are available for comparison at the time of dictation. The skeletal structures are well mineralized. No fracture is seen. There is no bony erosion or periostitis. Minimal osteoarthritic change is noted involving the interphalangeal joints. There is diffuse soft tissue edema seen in the second digit. No subcutaneous gas or radiodense foreign body is seen. IMPRESSION: 1. No acute bony abnormality is identified in the right hand. 2. Soft tissue swelling is present in the second finger. Electronically signed by: Farshad Arrington M.D. 07/12/2017 10:10 AM Dictated Date/Time: 07/12/2017 10:06 AM
[2017-07-12 10:26] LABS: CALCIUM 8.7 mg/dl (8.5-10.1); CREATININE 0.82 mg/dl (0.60-1.20); POTASSIUM 4.1 mmol/L (3.5-5.1)
[2017-07-12] MEDS ORDERED: MoRPHine SULFATE 4 MG/ML 1 ML CARP\\VIAL IV STA (10:35)
[2017-07-12] MEDS ORDERED: ONDANSETRON INJ 2 MG/ML 2 ML VIAL IV STA (10:35)
[2017-07-12] MEDS ORDERED: HYDR-5688 PO (10:39)
[2017-07-12] MEDS ORDERED: FLUT0.15 NAE (10:39)
--- NOTE | 2017-07-12 11:32 | DIAGNOSTIC IMAGING REPORT ---
CHEST ONE VIEW PORTABLE HISTORY: Atypical CHEST PAIN COMPARISON: Chest 04/06/1717. FINDINGS: The lungs are clear. Cardiac silhouette is normal in size. No pleural effusions. No pneumothorax. Low lung volumes. IMPRESSION: No acute process. Electronically signed by: Parveen Maurice M.D. 07/12/2017 11:31 AM Dictated Date/Time: 07/12/2017 11:30 AM
[2017-07-12 12:10] VITALS: O2SAT 97; Ht 180.3 cm; Wt 162.0 kg
--- NOTE | 2017-07-12 12:10 | NUR ---
A/ID: 46 year old female in ED. s/o bite left hand, index finger. Red, warm, tender. Possible admission/observation. Admission Assessment done. Code Word/Fall Agreement reviewed with patient and completed. Continued care in ED by NOLAN Johnson.
[2017-07-12] MEDS ORDERED: ACETAMINOPHEN 325 MG TAB PO PRN (12:15)
[2017-07-12] MEDS ORDERED: ONDANSETRON INJ 2 MG/ML 2 ML VIAL IV PRN (12:15)
[2017-07-12] MEDS ORDERED: IV FLUIDS COMPLETED PRN (12:30)
[2017-07-12] MEDS ORDERED: ACETAMINOPHEN 500 MG TAB PO PRN (12:30)
[2017-07-12] MEDS ORDERED: CYCLOBENZAPRINE HCL 10 MG TAB PO PRN (12:30)
[2017-07-12 12:43] VITALS: O2SAT 97
--- NOTE | 2017-07-12 13:07 | NUR ---
pt arrived to room 262-2. Alert, oriented x4. able to make needs known. reporting pain right hand 01/24. see MAR. oriented pt to hospital environment, call rogers usage. pt ambulating independently in room. voided in toilet. meal requested from dietary. all needs met at this time
[2017-07-12] MEDS: HYDROCODONE/ACETAMIN 5/325MG TAB PO PRN ×3 (13:10→22:06)
[2017-07-12 13:16] VITALS: BP 133/97; PULSE 97; TEMP 36.7; O2SAT 97
--- NOTE | 2017-07-12 13:40 | HISTORY & PHYSICAL EXAMINATION ---
DATE OF ADMISSION: 07/12/2017 PRIMARY CARE PHYSICIAN: Dr. Gomez. CHIEF COMPLAINT: Cat bite, yesterday morning. HISTORY OF PRESENT COMPLAINT: She is a 46-year-old female with significant past medical history as mentioned below, apparently has had a cat bite around 9:00 a.m. yesterday morning. The cat belongs to her uncle and she was taking care of the cats including her own cat. The cat was not ill or aggressive and bit her at the right base of Index finger while she was trying to take the cat out from the case. The cat is otherwise healthy. She did have some pain at the local area and that bite including the right forearm got red since last evening and the condition got worse this morning with increasing redness along the upper part of the right arm as well with some pain. She did have feverish feeling and took a temperature, 99.1 degrees. She did not have any other symptoms whatsoever. She received morphine for pain control in the Emergency Room, and following that, she complained some chest tightness and chest compression, but the EKG and troponin were negative. She received Unasyn intravenously and she will be observed in the hospital for at least 24 hours or so. PAST MEDICAL HISTORY: Significant for major depression, chronic rhinitis, hypertension, obesity, history of muscle spasm and lumbago, and also a history of stress incontinence. PAST SURGICAL HISTORY: Significant for gastric bypass surgery; laminectomy, left lumbar area in 1990; laparoscopic cholecystectomy, tubal ligation, and tonsillectomy as a child. FAMILY HISTORY: Mother has hypertension and bipolar disorder and father did have some gastrointestinal disorder. SOCIAL HISTORY: She is . She does not have any child. She does not smoke. She uses alcohol occasionally and she has been reasonably ambulant. ALLERGIES: NKDA. MEDICATIONS: As an outpatient, she has been on Tylenol 50 mg 2 tablets p.o. b.i.d. for pain, Biotin 1 mg daily, bupropion 300 mg in the morning, Flexeril 10 mg at night, Flonase nasal spray 1 spray daily, glucosamine 2 tablets in the morning, hydrocodone/acetaminophen 5/325 one tablet q. 4 hourly p.r.n. for knee pain, lisinopril/HCTZ 20/25 half tablet in the morning, Meloxicam 15 mg in the morning, Effexor 75 mg q.a.m. and 150 mg q.a.m. REVIEW OF SYSTEMS: CENTRAL NERVOUS SYSTEM: No headache, no blurred vision, no numbness or tingling in the extremities. RESPIRATORY: No cough or phlegm. No shortness of breath. GASTROINTESTINAL: No abdominal pain, distension. No nausea or vomiting. GENITOURINARY: No problem with urine and/or bowel habits. MUSCULOSKELETAL: Does have some pain involving the cat bite area on the right upper extremity, otherwise unremarkable. GENERAL: She does have redness involving the bite area and along the upper part of the right upper extremity but no other rash. Generally, she did not have any weakness or tiredness. PHYSICAL EXAMINATION: GENERAL: In the ER, she was not having any acute distress. VITAL SIGNS: Temperature 36.8, pulse was 87, blood pressure 173/88, saturation 96% on room air. HEENT: Unremarkable. NECK: Supple. No JVD, no bruit. CHEST: Clear to auscultate bilaterally. HEART: S1, S2 regular. ABDOMEN: Soft, benign, nontender, no organomegaly. Bowel sounds present. EXTREMITIES: Negative for any edema. Examination of the right upper extremity did show bite area at the bases of index finger and on the medial aspect with some and a small puncture wound. There is a scratch chrissy medial base of the index finger adjoining reddened area involving the forearm and part of the lower part of the arm as well with some tenderness, no regional adenopathy. CENTRAL NERVOUS SYSTEM: She was alert, awake, oriented x3 and no focal sensory and/or motor deficit appreciated. LABORATORY DATA: Noted today white count was 13.95, H&H 14.4/43.8, platelet was 256. Sodium 136, potassium 4.1, chloride 105, carbon dioxide 27, BUN 18, creatinine 0.82, random glucose 80. Lactic acid was 1.30. Troponin was less that 0.030. C-reactive protein 1.53. IMAGING DATA: X-ray of the hand: Soft tissue swelling is present in the second finger. Otherwise, negative. Chest x-ray unremarkable. EKG was in sinus rhythm, rate of 73 per minute. Normal axis and no significant ST-T wave changes. IMPRESSION AND PLAN: 1. Cat bite involving the right hand with adjoining cellulitis. The patient received Unasyn, will be admitted to medical floor, continue with intravenous Unasyn. Elevate the hand as needed, pain control as needed. If the hands get better tomorrow and no white count elevation, she can be discharged on oral Augmentin for about 10 days of course. 2. Major depression. No acute symptoms at this time. Continue with the current medication. 3. Hypertension. Continue with her current medications for blood pressure control. 4. Chronic rhinitis. Continue with nasal spray. 5. Gastrointestinal prophylaxis: Maalox, Mylanta as needed. 6. Deep venous thrombosis prophylaxis with Lovenox. 7. Code status - she will be a full code. In my clinical assessment, the beneficiary meets criteria as per CMS for 2-midnight stay in the hospital. SABRINA
--- NOTE | 2017-07-12 16:00 | NUR ---
OBS note: Pt is alert and oriented x4. VS are stable. IV is saline locked with intermittent unasyn infusions. Tolerating AHA diet without difficulty. Pain is controlled with PO pain medications. right hand is reddened, slightly swollen, and tender to touch. Discharge plans are uncertain at this time.
[2017-07-12] MEDS: AMPICILLIN/SULBACTAM SOD INJ 3,000 MG in SODIUM CHLORIDE 0.9% 100ML 100 ML IV SCH ×2 (16:01→22:05)
[2017-07-12 16:21] VITALS: BP 115/74; PULSE 87; TEMP 36.8; O2SAT 95
--- NOTE | 2017-07-12 16:53 | EMERGENCY ROOM VISIT NOTE ---
History First contact with patient: 09:27 Chief Complaint: BITE Stated Complaint: CAT BITE ON POINTER FINGER OF RIGHT HAND History of Present Illness The patient is a 46 year old female who presents to the Emergency Room with complaints of a progressively worsening infection of the right hand. The patient reports that she was bitten by her cat last evening around 9:30 PM as she was trying to keep the cat from escaping a dog crate. The cat turned around and bit her in the hand. The patient reports that she noticed redness and swelling last evening, but elected to wait overnight to see if it improved. She awoke this morning not feeling well with significantly worsening redness, swelling and pain of the hand. The patient has not taken any medicines today for the pain. The patient is uncertain of her last tetanus immunization. Her cats are strictly indoor cats, and there are no other animals in the house that go outside. The patient rates her discomfort a 5 out of 10. The patient is [id number]. Review of Systems HEENT: Denies dizziness, visual problems, hearing loss, tinnitus. Denies difficulty swallowing or oral lesions. PULMONARY: Denies cough, shortness of breath, sputum production or hemoptysis. CARDIOVASCULAR: Denies chest pain, palpitations, dyspnea on exertion, orthopnea or peripheral edema. GASTROINTESTINAL: Denies diarrhea, constipation, nausea, vomiting, or abdominal pain. GENITOURINARY: Denies dysuria, frequency, urgency or nocturia. NEUROLOGIC: Denies history of epilepsy, CVA, TIA or chronic headaches. MUSCULOSKELETAL: Denies history of joint tenderness/swelling. SKIN: Denies rashes or lesions. PSYCHIATRIC: Denies history of depression or mental illness. ENDOCRINE: Denies history of diabetes or thyroid disorders. Past Medical/Surgical History Medical Problems: (1) Anxiety disorder (2) Cat bite (3) Depressive disorder (4) GERD (gastroesophageal reflux disease) (5) Hypertension (6) Intractable back pain (7) Lumbago (8) Morbid obesity (9) Osteoarthritis (10) Right forearm cellulitis (11) Sleep apnea Surgical Problems: (1) History of gastric bypass (2) History of lumbosacral spine surgery Family History Unremarkable Social History Smoking Status: Never Smoker Alcohol Use: none Drug Use: none Marital Status: Housing Status: lives with family Current/Historical Medications Scheduled Biotin (Biotin), 1 CAP PO QAM Bupropion HCl (Bupropion HCl Xl), 1 TAB PO QAM Cyclobenzaprine Hcl (Flexeril), 10 MG PO prn Fluticasone Propionate (Nasal) (Flonase Allergy Relief), 1 SPRAY DIXON DAILY Lhibcpigzth-Ukqbaqlzall-Rey C- (Glucosamine Chondroitin), 2 TAB PO QAM Lisinopril/Hctz (Zestoretic 20MG/25MG), 0.5 TAB PO QAM Meloxicam (Meloxicam), 1 TAB PO QAM Venlafaxine Hcl (Effexor Extended Rel), 1 TAB PO QAM Venlafaxine Hcl (Effexor Extended Rel), 1 TAB PO QAM Scheduled PRN Acetaminophen (Tylenol Arthritis Ext Rel), 2 TAB PO BID PRN for Mild Pain Hydrocodone/Acetaminophen 5MG/325MG ([place] 5MG/325MG), 1 TABLET PO Q4H PRN for KNEE PAIN Physical Exam Vital Signs Date Time Temp Pulse Resp B/P (MAP) Pulse Ox O2 Delivery O2 Flow Rate FiO2 07/12/17 12:10 97 Room Air 07/12/17 12:07 87 07/12/17 11:53 88 18 173/88 96 Room Air 07/12/17 11:14 79 18 161/98 96 Room Air 07/12/17 10:47 79 18 123/69 100 Room Air 07/12/17 09:19 36.8 85 22 135/94 97 Room Air Physical Exam CONSTITUTIONAL: Healthy and well nourished. Alert and oriented X 3 with positive affect. Patient appears in mild to moderate discomfort from pain. HEENT: Normocephalic, atraumatic. Pupils equal, round and reactive. NECK: Full active range of motion without discomfort. RESPIRATORY: Clear to auscultation bilaterally with no wheezing, crackles, rhonchi or stridor. CARDIOVASCULAR: Regular rate and rhythm with no murmurs, rubs or gallops. GASTROINTESTINAL: Bowel sounds present in all quadrants. Soft and nontender to palpation. MUSCULOSKELETAL: Examination of the right hand shows significant erythema and edema of the right index finger, with erythema extending all the way to near the fingertip, and across the dorsum of the hand. She also has erythema/ lymphangitic streaking of the dorsal forearm. Range of motion of the finger causes significant discomfort. The patient has 2 puncture wounds, one over the dorsal PIP joint, and one over the radial aspect of the proximal phalanx region. No purulent drainage noted. INTEGUMENTARY: No rash or other significant dermatologic conditions noted. NEUROLOGIC: Right index fingertip is sensory intact. Medical Decision & Procedures ER Provider Diagnostic Interpretation: My interpretation of right hand x-rays does not show any obvious radiopaque foreign bodies, fractures or evidence for osteomyelitis. Radiologist report is as follows: RIGHT HAND 3 VIEWS CLINICAL HISTORY: Right hand infection. Cat bite injury. FINDINGS: 3 views of the right hand are obtained. No prior studies are available for comparison at the time of dictation. The skeletal structures are well mineralized. No fracture is seen. There is no bony erosion or periostitis. Minimal osteoarthritic change is noted involving the interphalangeal joints. There is diffuse soft tissue edema seen in the second digit. No subcutaneous gas or radiodense foreign body is seen. IMPRESSION: 1. No acute bony abnormality is identified in the right hand. 2. Soft tissue swelling is present in the second finger. My interpretation of an ECG shows a normal sinus rhythm of 73 beats per med without ST elevation or other conduction abnormalities My interpretation of a portable chest x-ray does not show any consolidations, pneumothorax or cardiac prominence. Radiologist report is as follows: CHEST ONE VIEW PORTABLE HISTORY: Atypical CHEST PAIN COMPARISON: Chest 04/06/1717. FINDINGS: The lungs are clear. Cardiac silhouette is normal in size. No pleural effusions. No pneumothorax. Low lung volumes. IMPRESSION: No acute process. Laboratory Results 07/12/17 09:49 Red Blood Count 4.91, Mean Corpuscular Volume 89.2, Mean Corpuscular Hemoglobin 29.3, Mean Corpuscular Hemoglobin Concent 32.9, Mean Platelet Volume 11.3, Neutrophils (%) (Auto) 65.1, Lymphocytes (%) (Auto) 23.4, Monocytes (%) (Auto) 9.4, Eosinophils (%) (Auto) 1.3, Basophils (%) (Auto) 0.5, Neutrophils # (Auto) 9.09, Lymphocytes # (Auto) 3.26, Monocytes # (Auto) 1.31, Eosinophils # (Auto) 0.18, Basophils # (Auto) 0.07 07/12/17 09:49 Test 07/12/17 09:49 07/12/17 09:57 07/12/17 11:21 White Blood Count 13.95 K/uL (4.8-10.8) Red Blood Count 4.91 M/uL (4.2-5.4) Hemoglobin 14.4 g/dL (12.0-16.0) Hematocrit 43.8 % (37-47) Mean Corpuscular Volume 89.2 fL (80-100) Mean Corpuscular Hemoglobin 29.3 pg (25-34) Mean Corpuscular Hemoglobin Concent 32.9 g/dl (32-36) Platelet Count 256 K/uL (130-400) Mean Platelet Volume 11.3 fL (7.4-10.4) Neutrophils (%) (Auto) 65.1 % Lymphocytes (%) (Auto) 23.4 % Monocytes (%) (Auto) 9.4 % Eosinophils (%) (Auto) 1.3 % Basophils (%) (Auto) 0.5 % Neutrophils # (Auto) 9.09 K/uL (1.4-6.5) Lymphocytes # (Auto) 3.26 K/uL (1.2-3.4) Monocytes # (Auto) 1.31 K/uL (0.11-0.59) Eosinophils # (Auto) 0.18 K/uL (0-0.5) Basophils # (Auto) 0.07 K/uL (0-0.2) RDW Standard Deviation 50.0 fL (36.4-46.3) RDW Coefficient of Variation 15.4 % (11.5-14.5) Immature Granulocyte % (Auto) 0.3 % Immature Granulocyte # (Auto) 0.04 K/uL (0.00-0.02) Erythrocyte Sedimentation Rate 13 mm/hr (0-21) Anion Gap 4.0 mmol/L (3-11) Est Creatinine Clear Calc Drug Dose 142.1 ml/min Estimated GFR () 98.1 Estimated GFR (Non- 84.6 BUN/Creatinine Ratio 22.0 (10-20) Calcium Level 8.7 mg/dl (8.5-10.1) C-Reactive Protein 1.53 mg/dl (0-0.29) Bedside Lactic Acid Venous 1.30 mmol/L (0.90-1.70) Bedside Troponin I < 0.030 ng/ml (0-0.045) The above labs were reviewed. The patient has an elevated white count. Bedside lactate is normal. C-reactive protein is markedly elevated with a normal sedimentation rate. Bedside troponin was normal. Medications Administered Medications (Trade) Dose Ordered Sig/Becka Route Start Time Stop Time Status Last Admin Dose Admin Ketorolac Tromethamine (Toradol Inj) 30 mg NOW STAT IV 07/12/17 09:34 07/12/17 09:45 DC 07/12/17 10:01 30 MG Ampicillin Sodium/ Sulbactam Sodium 3000 mg/Sodium Chloride 108 ml @ 200 mls/hr NOW STAT IV 07/12/17 09:34 07/12/17 10:06 DC 07/12/17 10:23 200 MLS/HR Diphtheria/ Pertussis/Tetanus Vacc (Adacel Inj) 0.5 ml ONCE ONCE IM. 07/12/17 09:45 07/12/17 09:46 DC 07/12/17 09:45 0.5 ML Morphine Sulfate (MoRPHine SULFATE INJ) 4 mg NOW STAT IV 07/12/17 10:35 07/12/17 10:37 DC 07/12/17 10:41 4 MG Ondansetron HCl (Zofran Inj) 4 mg NOW STAT IV 07/12/17 10:35 07/12/17 10:37 DC 07/12/17 10:42 4 MG Acetaminophen (Tylenol Tab) 650 mg Q4H PRN PO 07/12/17 12:15 08/11/17 12:14 07/12/17 14:58 650 MG ED Course Patient history and physical exam were performed. Nurse's notes were reviewed. Vital signs were reviewed, showing that the patient is afebrile. Her blood pressure is elevated at 162/86. Pulse rate is normal. IV access was established, and labs were drawn, including a bedside lactate and blood cultures 2. The patient was administered Unasyn 3 g IV infusion. Review of labs shows a mild leukocytosis. Bedside lactate and remaining labs were otherwise normal. The patient did eventually request something for pain, and was administered morphine 4 mg and Zofran 4 mg IVP. X-rays of the right hand were normal. The patient then started to develop chest discomfort. At this point, an ECG and portable chest x-ray were performed and were normal. Bedside troponin was normal. The patient reports that the discomfort did subside. The case was also discussed with Dr. Romero, ED attending physician who also evaluated the patient and agrees with hospitalist consultation and admission. The case was discussed with the [facility] hospitalist group who came to the emergency department. Please see their dictation for further treatment and final disposition. Medical Decision Patient presents to the emergency department with complaint of a progressively and quickly worsening infection of the right hand after sustaining a cat bite less than 12 hours from time of the bite to presentation to the emergency department. I do feel that the patient's condition warrants admission for IV antibiotics given the severity of the infection in location on the hand. [place] Drug Monitoring Program Search Results: patient reviewed within database, no issues identified Medication Reconcilliation Current Medication List: was personally reviewed by me Blood Pressure Screening Patient's blood pressure: Elevated blood pressure Blood pressure disposition: Elevated BP felt to be situational Impression Primary Impression: Cat bite of right hand with infection Departure Information Referrals Johnny Gomez M.D. (PCP) Patient Instructions My [facility] Problem Qualifiers Primary Impression: Cat bite of right hand with infection Encounter type: initial encounter Qualified Codes: S61.451A - Open bite of right hand, initial encounter; L08.9 - Local infection of the skin and subcutaneous tissue, unspecified; W55.01XA - Bitten by cat, initial encounter
--- NOTE | 2017-07-12 20:00 | NUR ---
OBS/ID: Pt admitted with cellulites in R Hand related to cat bite. AAO x 4, VSS on RA. Independent with ADLs. Saline locked in RAC, receiving intermittent abx. Anticipate to return home when medically stable. Verbalized no other needs. Will monitor.
[2017-07-12] MEDS ORDERED: ENOXAPARIN 40 MG/0.4 ML SYR SQ SCH (21:00)
[2017-07-12 23:25] VITALS: BP 141/83; PULSE 74; TEMP 36.6; O2SAT 96
--- NOTE | 2017-07-13 | NUR ---
OBS: Remains AAO x 4, VSS on RA. C/o pain and swelling in R Hand and index finger, see eMAR for medication administration. Saline locked in R AC. Will monitor.
[2017-07-13] MEDS: AMPICILLIN/SULBACTAM SOD INJ 3,000 MG in SODIUM CHLORIDE 0.9% 100ML 100 ML IV SCH ×3 (03:22→15:47)
[2017-07-13] MEDS: HYDROCODONE/ACETAMIN 5/325MG TAB PO PRN ×2 (03:22→15:09)
--- NOTE | 2017-07-13 04:00 | NUR ---
OBS: Pt sleeping in bed, upon assessment. AAO x 4, VSS on RA. [place] q4h for R hand pain. Saline locked in R AC, intermittent abx. Will monitor.
[2017-07-13 06:30] LABS: HEMATOCRIT 40.4 % (37-47); HEMOGLOBIN 12.7 g/dL (12.0-16.0); MEAN CELL VOLUME 91.4 fL (80-100); MEAN CORPUSCULAR HEMOGLOBIN 28.7 pg (25-34); MEAN CORPUSCULAR HGB CONC 31.4 g/dl (32-36); MEAN PLATELET VOLUME 10.6 fL (7.4-10.4); PLATELET COUNT 203 K/uL (130-400); RED CELL DISTRIBUTION WIDTH CV 15.7 % (11.5-14.5); RED CELL DISTRIBUTION WIDTH SD 52.7 fL (36.4-46.3); WHITE BLOOD COUNT 8.39 K/uL (4.8-10.8)
[2017-07-13 06:58] LABS: CALCIUM 8.4 mg/dl (8.5-10.1); CREATININE 0.77 mg/dl (0.60-1.20); POTASSIUM 4.6 mmol/L (3.5-5.1)
[2017-07-13 07:34] VITALS: BP 132/83; PULSE 83; TEMP 36.6; O2SAT 98
--- NOTE | 2017-07-13 07:59 | NUR ---
OBS Note: Pt. A&Ox4. vss. reports pain that is tolerable. saline lock intermittent IV abx as ordered. OOB independently. Tolerates a regular diet well. D/C planning uncertain. Will continue to monitor patient.
[2017-07-13] MEDS ORDERED: MELOXICAM 7.5 MG TAB PO SCH (09:00)
[2017-07-13] MEDS ORDERED: NON-FORMULARY MEDICATION (Biotin 1 CAP) PO SCH (09:00)
[2017-07-13] MEDS ORDERED: FLUTICASONE PROPIONATE NA SPR 16 GM BTL NAE SCH (09:00)
[2017-07-13] MEDS ORDERED: VENLAFAXINE HCL XR 75 MG CAPXR PO SCH (09:00)
[2017-07-13] MEDS ORDERED: VENLAFAXINE HCL XR 150 MG CAPXR PO SCH (09:00)
[2017-07-13] MEDS ORDERED: BuPROPion XL 300 MG TABCR PO SCH (09:00)
[2017-07-13] MEDS ORDERED: GLUCOSAMINE CHONDROITIN VIT C PO SCH (09:00)
[2017-07-13] MEDS ORDERED: LISINOPRIL/HCTZ 20/25MG TAB PO SCH (09:00)
--- NOTE | 2017-07-13 12:00 | NUR ---
OBS Note: Assessment unchanged from previous OBS note.
--- NOTE | 2017-07-13 16:00 | NUR ---
Obs: Pt A&Ox4. Saline lock to right AC patent, site clear. Lungs clear to auscultation bilaterally on RA. OOB independently, gait steady. Voiding in toilet without difficulty. Bowel sounds x4 quads normoactive. Tolerating a regular diet. Call rogers in reach.
[2017-07-13 16:10] VITALS: BP 143/82; PULSE 81; TEMP 36.9; O2SAT 96
[2017-07-13] MEDS ORDERED: AMOX875T PO (16:22)
--- NOTE | 2017-07-13 16:25 | Discharge Instructions ---
Discharge Instructions Date of Service Jul 13, 2017. Admission Reason for Admission: Cat Bite,Right Forearm Cellulitis Discharge Discharge Diagnosis / Problem: Cat bite, cellulitis Discharge Goals Goal(s): Diagnostic testing Activity Recommendations Activity Limitations: as noted below Lifting Limitations: gradually increase as tolerated Exercise/Sports Limitations: gradually increase as tolerated . Instructions / Follow-Up Instructions / Follow-Up Please see Dr. Chung (covering for [facility]) on July 22 at 10: 45AM for hospital follow up Current Hospital Diet Patient's current hospital diet: Regular Diet Discharge Diet Recommended Diet: Regular Diet Pending Studies Studies pending at discharge: yes List of pending studies: Blood cultures not finalized, no growth at >24 hours Laboratory Results 07/13/17 06:06 07/13/17 06:06 Test 07/13/17 06:06 Red Blood Count 4.42 M/uL (4.2-5.4) Mean Corpuscular Volume 91.4 fL (80-100) Mean Corpuscular Hemoglobin 28.7 pg (25-34) Mean Corpuscular Hemoglobin Concent 31.4 g/dl (32-36) RDW Standard Deviation 52.7 fL (36.4-46.3) RDW Coefficient of Variation 15.7 % (11.5-14.5) Mean Platelet Volume 10.6 fL (7.4-10.4) Anion Gap 2.0 mmol/L (3-11) Est Creatinine Clear Calc Drug Dose 151.3 ml/min Estimated GFR () 105.8 Estimated GFR (Non- 91.3 BUN/Creatinine Ratio 23.5 (10-20) Calcium Level 8.4 mg/dl (8.5-10.1) Magnesium Level 2.6 mg/dl (1.8-2.4) Medical Emergencies . Who to Call and When: Medical Emergencies: If at any time you feel your situation is an emergency, please call 911 immediately. . Non-Emergent Contact Non-Emergency issues call your: Primary Care Provider . . "Provider Documentation" section prepared by Kylie Corley. . VTE Core Measure Inpt VTE Proph given/why not?: Enoxaparin (Lovenox)SQ
--- NOTE | 2017-07-13 16:34 | Discharge Summary ---
Discharge Summary Date of Service Jul 13, 2017. Discharge Summary Admission Date: Jul 12, 2017 at 12:15 Discharge Date: Jul 13, 2017 Discharge Disposition: Home Principal Diagnosis: Cat bite, surrounding right hand cellulitis Pending Studies/Follow-Up: Follow up final results of blood cultures from [facility] Medication Reconciliation New Medications: Amoxicillin & Pot Clavulanate (Augmentin 875-125 mg) 1 Tab Tab 1 TAB PO BID for 9 Days, #18 TAB Continued Medications: Acetaminophen (Tylenol Arthritis Ext Rel) 650 Mg Cplt 2 TAB PO BID PRN for Mild Pain, CAP Biotin (Biotin) 1 Mg Cap 1 CAP PO QAM Bupropion HCl (Bupropion HCl Xl) 300 Mg Tabcr 1 TAB PO QAM Cyclobenzaprine Hcl (Flexeril) 10 Mg Tab 10 MG PO prn Fluticasone Propionate (Nasal) (Flonase Allergy Relief) 50 Mcg/Act Spr 1 SPRAY DIXON DAILY Pjvmrzzythd-Hsbilbkrqdk-Mah C- (Glucosamine Chondroitin) 1 Tab Tab 2 TAB PO QAM Hydrocodone/Acetaminophen 5MG/325MG ([place] 5MG/325MG) Tab 1 TABLET PO Q4H PRN for KNEE PAIN PRN PAIN Lisinopril/Hctz (Zestoretic 20MG/25MG) Tab 0.5 TAB PO QAM, TAB Meloxicam (Meloxicam) 15 Mg Tab 1 TAB PO QAM Venlafaxine Hcl (Effexor Extended Rel) 75 Mg Capcr 1 TAB PO QAM WITH 150MG CAPSULE Venlafaxine Hcl (Effexor Extended Rel) 150 Mg Capcr 1 TAB PO QAM WITH 75MG CAPSULE Admission Information HPI (per Admitting provider): CHIEF COMPLAINT: Cat bite, yesterday morning. HISTORY OF PRESENT COMPLAINT: She is a 46-year-old female with significant past medical history as mentioned below, apparently has had a cat bite around 9:00 a.m. yesterday morning. The cat belongs to her uncle and she was taking care of the cats including her own cat. The cat was not ill or aggressive and bit her at the right base of Index finger while she was trying to take the cat out from the case. The cat is otherwise healthy. She did have some pain at the local area and that bite including the right forearm got red since last evening and the condition got worse this morning with increasing redness along the upper part of the right arm as well with some pain. She did have feverish feeling and took a temperature, 99.1 degrees. She did not have any other symptoms whatsoever. She received morphine for pain control in the Emergency Room, and following that, she complained some chest tightness and chest compression, but the EKG and troponin were negative. She received Unasyn intravenously and she will be observed in the hospital for at least 24 hours or so. PAST MEDICAL HISTORY: Significant for major depression, chronic rhinitis, hypertension, obesity, history of muscle spasm and lumbago, and also a history of stress incontinence. PAST SURGICAL HISTORY: Significant for gastric bypass surgery; laminectomy, left lumbar area in 1990; laparoscopic cholecystectomy, tubal ligation, and tonsillectomy as a child. FAMILY HISTORY: Mother has hypertension and bipolar disorder and father did have some gastrointestinal disorder. SOCIAL HISTORY: She is . She does not have any child. She does not smoke. She uses alcohol occasionally and she has been reasonably ambulant. ALLERGIES: NKDA. MEDICATIONS: As an outpatient, she has been on Tylenol 50 mg 2 tablets p.o. b.i.d. for pain, Biotin 1 mg daily, bupropion 300 mg in the morning, Flexeril 10 mg at night, Flonase nasal spray 1 spray daily, glucosamine 2 tablets in the morning, hydrocodone/acetaminophen 5/325 one tablet q. 4 hourly p.r.n. for knee pain, lisinopril/HCTZ 20/25 half tablet in the morning, Meloxicam 15 mg in the morning, Effexor 75 mg q.a.m. and 150 mg q.a.m. REVIEW OF SYSTEMS: CENTRAL NERVOUS SYSTEM: No headache, no blurred vision, no numbness or tingling in the extremities. RESPIRATORY: No cough or phlegm. No shortness of breath. GASTROINTESTINAL: No abdominal pain, distension. No nausea or vomiting. GENITOURINARY: No problem with urine and/or bowel habits. MUSCULOSKELETAL: Does have some pain involving the cat bite area on the right upper extremity, otherwise unremarkable. GENERAL: She does have redness involving the bite area and along the upper part of the right upper extremity but no other rash. Generally, she did not have any weakness or tiredness. PHYSICAL EXAMINATION: GENERAL: In the ER, she was not having any acute distress. VITAL SIGNS: Temperature 36.8, pulse was 87, blood pressure 173/88, saturation 96% on room air. HEENT: Unremarkable. NECK: Supple. No JVD, no bruit. CHEST: Clear to auscultate bilaterally. HEART: S1, S2 regular. ABDOMEN: Soft, benign, nontender, no organomegaly. Bowel sounds present. EXTREMITIES: Negative for any edema. Examination of the right upper extremity did show bite area at the bases of index finger and on the medial aspect with some and a small puncture wound. There is a scratch chrissy medial base of the index finger adjoining reddened area involving the forearm and part of the lower part of the arm as well with some tenderness, no regional adenopathy. CENTRAL NERVOUS SYSTEM: She was alert, awake, oriented x3 and no focal sensory and/or motor deficit appreciated. Hospital Course Right hand Cat bite with surrounding cellulitis: -presented with erythema, swelling, and pain to right hand with erythematous streak extending proximal to the hand -on Unasyn day#2 -encourage to elevate the hand when seated/resting -pain control PRN -improved, afebrile, no WBC, can be discharged on oral Augmentin for a total of 10 days course Major depression: -no acute symptoms at this time -continue with the home medications Hypertension: -controlled -continue with her home medications, lisinopril/HCTZ Chronic rhinitis: -continue with fluticasone nasal spray PHYSICAL EXAM ON DAY OF DISCHARGE: GENERAL: Patient is in no acute distress. HEENT: No acute trauma, normocephalic, mucous membranes moist, no nasal congestion, no scleral icterus, conjunctivae clear NECK: No stridor, trachea is midline. LUNGS: Clear to auscultation bilaterally, no wheeze, no rhonchi, breath sounds equal. HEART: Without murmurs gallops or rubs, regular rate and rhythm. ABDOMEN: Soft, nontender, bowel sounds positive EXTREMITIES: No cyanosis or edema, right hand swelling across the MCP with some pain when making a fist, no red streaks noted NEUROLOGIC: Oriented x 3, no acute motor or sensory deficits, no focal weakness. SKIN: No rash, no jaundice, no diaphoresis. Total time spent on discharge = 35 This includes examination of the patient, discharge planning, medication reconciliation, and communication with other providers. Discharge Instructions See patient instructions
[2017-07-13 17:00] VITALS: BP 143/82; PULSE 81; TEMP 36.9; O2SAT 96
[2017-09-16] MEDS ORDERED: BUPR-79 PO (12:38)
[2017-09-16] MEDS ORDERED: LIDOCAINE 5% TOP (12:39)
[2017-11-16] MEDS ORDERED: MELO-83 PO (11:13)
[2017-11-16] MEDS ORDERED: ACET-1256 PO (11:13)
[2017-11-16] MEDS ORDERED: BUSP15TA70 PO (11:13)
[2017-11-16] MEDS ORDERED: HYDR-5688 PO (11:13)
== END 2017-07-13 17:25 | disposition home or self-care (01) ==
LOC: C.EDB 09:16 → C.MS2W 12:15 → ENRESERV 12:35
PROVIDERS: ADMIT Internal Medicine; ATTEND Internal Medicine
DX: S61.451A Open bite of right hand, initial encounter (principal); L08.9 Local infection of the skin and subcutaneous tissue, unspecified; W55.01XA Bitten by cat, initial encounter; Y92.009 Unspecified place in unspecified non-institutional (private) residence as the place of occurrence of the external cause; F41.9 Anxiety disorder, unspecified; F32.9 Major depressive disorder, single episode, unspecified; K21.9 Gastro-esophageal reflux disease without esophagitis; I10 Essential (primary) hypertension; E66.01 Morbid (severe) obesity due to excess calories; M19.90 Unspecified osteoarthritis, unspecified site; Z98.84 Bariatric surgery status; Z90.49 Acquired absence of other specified parts of digestive tract; Z82.49 Family history of ischemic heart disease and other diseases of the circulatory system; Z81.8 Family history of other mental and behavioral disorders

== ENCOUNTER 2017-09-21 07:09 | Inpatient (IN) | payer BC ==
[2017-09-16 12:40] VITALS: BMI 53.0
--- NOTE | 2017-09-16 12:53 | PAT Medication Instructions ---
Service Date Sep 16, 2017. Current Home Medication List Acetaminophen (Tylenol Arthritis Ext Rel), 2 TAB PO BID PRN for Mild Pain Biotin (Biotin), 1 CAP PO QAM Bupropion (Wellbutrin Sr), 30 MG PO QAM Cyclobenzaprine Hcl (Flexeril), 10 MG PO prn Fluticasone Propionate (Nasal) (Flonase Allergy Relief), 1 SPRAY DIXON DAILY PRN for PRN Zhsfzirgavm-Nuyucvlssbm-Flj C- (Glucosamine Chondroitin), 2 TAB PO QAM Hydrocodone/Acetaminophen 5MG/325MG ([place] 5MG/325MG), 1 TABLET PO Q4H PRN for KNEE PAIN Lisinopril/Hctz (Zestoretic 20MG/25MG), 0.5 TAB PO QAM Meloxicam (Meloxicam), 1 TAB PO QAM Venlafaxine Hcl (Effexor Extended Rel), 1 TAB PO QAM Venlafaxine Hcl (Effexor Extended Rel), 1 TAB PO QAM [Lidocaine 5%], 1 DOSE TOP PRN Medication Instructions For Your Scheduled Surgery - Check with surgeon for instructions: Meloxicam (Meloxicam), 1 TAB PO QAM - Hold the following medications starting 09/17/17: Qmqjhybqvtt-Pebacsjsell-Anf C- (Glucosamine Chondroitin), 2 TAB PO QAM - Hold the following medications 24 hours prior to surgery: [Lidocaine 5%], 1 DOSE TOP PRN - Hold the following medications the morning of surgery: Biotin (Biotin), 1 CAP PO QAM Cyclobenzaprine Hcl (Flexeril), 10 MG PO prn Lisinopril/Hctz (Zestoretic 20MG/25MG), 0.5 TAB PO QAM - Take the following medications the morning of surgery with a sip of water: Acetaminophen (Tylenol Arthritis Ext Rel), 2 TAB PO BID PRN for Mild Pain (okay to take up to 4 hours prior to surgery if needed) Hydrocodone/Acetaminophen 5MG/325MG ([place] 5MG/325MG), 1 TABLET PO Q4H PRN for KNEE PAIN(okay to take up to 4 hours prior to surgery if needed) Venlafaxine Hcl (Effexor Extended Rel), 1 TAB PO QAM Venlafaxine Hcl (Effexor Extended Rel), 1 TAB PO QAM Fluticasone Propionate (Nasal) (Flonase Allergy Relief), 1 SPRAY DIXON DAILY PRN for PRN (if needed) Bupropion (Wellbutrin Sr), 30 MG PO QAM - Take the following medications as scheduled the night before surgery: Acetaminophen (Tylenol Arthritis Ext Rel), 2 TAB PO BID PRN for Mild Pain (if needed) Hydrocodone/Acetaminophen 5MG/325MG ([place] 5MG/325MG), 1 TABLET PO Q4H PRN for KNEE PAIN (if needed) Fluticasone Propionate (Nasal) (Flonase Allergy Relief), 1 SPRAY DIXON DAILY PRN for PRN (if needed) Cyclobenzaprine Hcl (Flexeril), 10 MG PO prn (if needed) If you have any questions please call us at [phone] or [phone] or [phone]
[2017-09-16 12:55] LABS: BASO % 0.8 %; BASO ABS # 0.06 K/uL (0-0.2); EOS % 2.9 %; EOS ABS # 0.21 K/uL (0-0.5); HEMATOCRIT 42.1 % (37-47); HEMOGLOBIN 13.6 g/dL (12.0-16.0); IG# 0.01 K/uL (0.00-0.02); LYMPH % 34.1 %; LYMPH ABS # 2.48 K/uL (1.2-3.4); MEAN CELL VOLUME 89.8 fL (80-100); MEAN CORPUSCULAR HGB CONC 32.3 g/dl (32-36); MEAN PLATELET VOLUME 10.7 fL (7.4-10.4); MONO % 6.7 %; MONO ABS # 0.49 K/uL (0.11-0.59); NEUT % 55.4 %; NEUT ABS # 4.02 K/uL (1.4-6.5); PLATELET COUNT 236 K/uL (130-400); RED CELL DISTRIBUTION WIDTH CV 15.4 % (11.5-14.5); RED CELL DISTRIBUTION WIDTH SD 50.4 fL (36.4-46.3); WHITE BLOOD COUNT 7.27 K/uL (4.8-10.8)
[2017-09-16 13:04] LABS: PTT PATIENT 24.3 SECONDS (21.0-31.0)
--- NOTE | 2017-09-20 18:13 | HISTORY & PHYSICAL EXAMINATION ---
DATE OF ADMISSION: 09/21/2017 CHIEF COMPLAINT: Chronic right knee pain. HISTORY OF PRESENT ILLNESS: This is a 47-year-old female patient of Dr. Sweeney, complaining of chronic right knee pain, longstanding, now progressively getting worse. The patient has failed conservative treatment including physical therapy, bracing, viscosupplementation, steroid injections and the use of a cane and a walker. She has been diagnosed with end-stage osteoarthritis per clinical and radiographic exams. The patient has increased pain with weightbearing activities and her pain does interfere with her activities of daily living. PAST MEDICAL HISTORY: Hypertension, sleep apnea, anxiety, spine problems, sciatica, osteoarthritis, obesity. SOCIAL HISTORY: Nonsmoker, nondrinker. SURGICAL HISTORY: Cholecystectomy. FAMILY HISTORY: Noncontributory. REVIEW OF SYSTEMS: The patient complains of chronic right knee pain, otherwise denies any shortness of breath, chest pain, nausea, vomiting or any other joint complaints. MEDICATIONS: Effexor daily, lisinopril daily, Wellbutrin 150 mg b.i.d., Mobic 15 mg daily. ALLERGIES: No known drug allergies. PHYSICAL EXAMINATION: GENERAL: Well-developed, well-nourished 47-year-old female in no acute distress. She is alert and oriented x3 and pleasant. HEENT: Normocephalic, atraumatic. Extraocular motions are intact. Pupils are equal and reactive to light. HEART: Regular rate and rhythm, no murmurs appreciated. LUNGS: Clear. ABDOMEN: Soft and nontender. Bowel sounds are present. EXTREMITIES: Right knee reveals obesity. Range of motion is negative 20 to 100. She has a neutral alignment with multiple varicosities. She has mild effusion. NEUROLOGIC: Neurovascularly, she is intact in her right lower extremity with 4/5 strength. DIAGNOSES: Right knee end-stage osteoarthritis, hypertension, sleep apnea, anxiety, osteoarthritis, spine problems, sciatica, obesity. PLAN: The patient was advised of her diagnosis. Indications, risks, benefits, postop course have all been reviewed. The patient wishes to proceed with right total knee arthroplasty. Necessary consent forms, preoperative testing and clearances will be obtained.
[2017-09-21] VITALS (9 sets, daily range): BP systolic 112–130; BP diastolic 66–77; PULSE 83–108; TEMP 36.6–37.1; O2SAT 93–96; Ht 177.8 cm; Wt 169.0 kg
[~2017-09-21] VITALS: Ht 177.8 cm; Wt 169.0 kg
[2017-09-21] MEDS: TRANEXAMIC ACID INJ 1,000 MG x 2 Bags IV SCH ×4 (06:30→09:14)
[~2017-09-21 07:09] MED LIST changes: +ACETAMINOPHEN 500 MG TAB PO SCH; +BUPIVACAINE 0.25% 30 ML VIAL ONE; +BUPIVACAINE 0.5 % 5 MG/1 ML PF 10ML VIAL ONE; +BUPR-79 PO; +CEFAZOLIN 3000MG IV PUSH 22.5 ML IV SCH; +CeleBREX 200 MG CAP PO SCH; +DEXAMETHASONE 4 MG TAB PO SCH; +FAMOTIDINE 20 MG TAB PO SCH; +FLUT0.15 NAE; +GABAPENTIN 900 MG PO SCH; +HYDR-5688 PO; +LACTATED RINGER'S 1000ML 1,000 ML IV SCH; +LACTATED RINGER'S 1000ML 500 ML IV SCH; +LIDOCAINE 5% TOP; +METOCLOPRAMIDE HCL 10 MG TAB PO SCH; -OXYC-57 PO; +ROPIVACAINE 5MG/ML 30 ML 150 MG, BUPIVACAINE 0.5% MPF INJ 30 ML, EpINEphrine HCL INJ 0.... INFIL SCH; -WLLXL300 PO; -flonase nasal NAE
[2017-09-21] MEDS ORDERED: MIDAZOLAM HCL 1 MG/ML 2ML VIAL ONE ×2 (08:42→10:04)
[2017-09-21] MEDS ORDERED: KETAMINE HCL INJ 50 MG/ML 10 ML VIAL ONE (09:11)
[2017-09-21] MEDS ORDERED: POVIDONE-IODINE OP SOLN 30 ML BTL ONE (09:20)
[2017-09-21] MEDS ORDERED: ORTHO JOINT ANESTHETIC ONE (09:20)
[2017-09-21] MEDS ORDERED: BACITRACIN 50000 UNIT VIAL ONE (09:20)
[2017-09-21] MEDS ORDERED: ONDANSETRON INJ 2 MG/ML 2 ML VIAL ONE (10:01)
[2017-09-21] MEDS ORDERED: DiphenhydrAMINE HCL 50 MG/ML VIAL ONE (10:01)
[2017-09-21] MEDS ORDERED: PROPOFOL IV EMULSION 10 MG/ML 20 ML VIAL IV ONE (10:01)
[2017-09-21] MEDS ORDERED: ONDANSETRON INJ 2 MG/ML 2 ML VIAL IV PRN ×2 (10:15→12:15)
[2017-09-21] MEDS ORDERED: EpHEDrine SULFATE INJ 50 MG/ML AMP IV PRN (10:15)
[2017-09-21] MEDS ORDERED: ATROPINE SULFATE 0.1 MG/ML 5ML SYR IV PRN (10:15)
[2017-09-21] MEDS ORDERED: EpHEDrine SULFATE 50MG/5ML SYR ONE (10:47)
[2017-09-21] MEDS ORDERED: PHENYLEPHRINE 100MCG/ML 5ML SYR ONE (10:47)
--- NOTE | 2017-09-21 11:41 | [facility] Post Operative Brief Note ---
Immediate Operative Summary Operative Date Sep 21, 2017. Pre-Operative Diagnosis Right knee end stage osteoarthritis Post-Operative Diagnosis Same as preoperative diagnosis Procedure(s) Performed Right Total Knee Arthroplasty Surgeon Dr. Andres Garnett Fixer Surgeon(s) Jayant Babin PA-C Estimated Blood Loss 5CC Findings Consistent with Post-Op Diagnosis Specimens A: Right Knee Bone and Tissue Drains 2 hemovac Anesthesia Type MAC Spinal Regional Complication(s) none
--- NOTE | 2017-09-21 11:51 | [facility] Operative Report ---
Operative Report Operative Date Sep 21, 2017. Pre-Operative Diagnosis Right knee end stage osteoarthritis, morbid obesity Post-Operative Diagnosis Same Procedure(s) Performed Right total knee arthroplasty, increased difficulty due to morbid obesity, application superficial wound VAC Surgeon Dr. Andres Timber Cutter Surgeon(s) Jayant Babin PA-C Estimated Blood Loss 5CC Findings Tricompartmental DJD grade 4 patellofemoral and medial compartment varus knee Specimens A: Right Knee Bone and Tissue Drains 2 hemovac Anesthesia Spinal sedation adductor nerve block Complication(s) None Disposition Recovery Room / PACU Indications 47 year female with severe bilateral knee osteoarthritis. She had extensive conservative management over the years. Patient is disabled. Does have morbid obesity. She seen a dietitian and consulted with them. She is working on weight loss program. Description of Procedure The patient was taken to the operating room and anesthetized under spinal anesthetic adductor nerve block. Patient was placed supine on the the operating table. A pneumatic tourniquet was placed about the right upper thigh. The knee exam demonstrated an obese leg increased varicose veins range of motion -15-90. Right lower extremity was prepped and draped with ChloraPrep usual sterile fashion. An anterior longitudinal incision was made across the knee. Skin flaps were elevated. An incision was made into the medial retinaculum and extended up into the mid third of the quadriceps tendon and extended down to the tibial tubercle. Intra-articular findings demonstrated tricompartmental DJD grade 4 DJD patella large patellar osteophytes grade 4 DJD medial compartment [id number] with tricompartmental osteophytes. The knee was exposed by excising cruciate ligaments and menisci. The infrapatellar fat pad was resected. The fat pad over the anterior femur at the upper aspect of the articular surface was resected for placement of the component in that area. A subperiosteal peel lateral release was performed around the patella The [employer] journey 2.0 total knee arthroplasty system was utilized for the procedure. Conventional cutting guides were used. Intramedullary drill hole made an alignment lorena placed the distal femoral cut was made resecting plus 2 more of femur at a 5 valgus cut. Drill holes are made to match the epicondylar axis and femur size for a 7. The size 7, 5 in 1 cutting block was placed. The anterior posterior and chamfer cuts were made. The knee was extended and a free hand cut technique was performed to the patella. The patella with was measured and the width was reproduced using a 32 patella component. 3 drill holes are made for the patella component pegs. The tibia was then subluxed. The external alignment guide was pinned in position and the proximal tibial cut was made with the oscillating saw. The size 5 tibial trial was externally rotated in line with the tibial tubercle and pinned in position. The punch for the stem was used and the collet was placed. Tibial trials were used for the insert. The size 12 trial gave balanced ligaments through full range of motion. Patella tracking was assessed with range of motion. The patella tracked centrally. The trials were removed. The Orthomix anesthetic cocktail was injected per protocol. The cut bone surfaces and soft tissue were copiously irrigated with antibiotic solution with bacitracin. The final components were cemented with Simplex cement. The final components were 7 posterior stabilized with navicular and 2.0 Oxinium femoral component right knee and 5 tibia component with 12 mm high flex polyethylene insert and 32 patella dome component. While the cement cured the Betadine soak was used per protocol. When the cement cured the knee was copiously irrigated with pulsatile lavage antibiotic solution with bacitracin. 2 drains were brought out laterally connected to Hemovac. The quadriceps tendon and medial retinaculum were closed with interrupted [id number] #1 Vicryl sutures. The knee was taken through full range of motion and repair was secure. The subcutaneous tissues were closed with 2-0 Vicryl sutures. The skin was closed with jaylen. A superficial wound VAC was applied. The tourniquet was let down and the patient had good capillary refill to the extremity. The patient tolerated the procedure well. My physician sales service assistant Jayant SMITH assisted in the procedure including prepping draping leg positioning soft tissue retraction instrument management and assisted in the closure ,dressings application and will participate in postoperative care the patient. Also of note there was increased difficulty throughout the procedure due to her morbid obesity size the patient. I attest to the content of the Intraoperative Record and any orders documented therein. Any exceptions are noted below.
[2017-09-21] MEDS ORDERED: ESMOLOL HCL 10 MG/ML 10 ML VIAL ONE (12:00)
[2017-09-21] MEDS ORDERED: MAGNESIUM HYDROXIDE SUSP 30 ML UDC PO PRN (12:15)
[2017-09-21] MEDS ORDERED: CYCLOBENZAPRINE HCL 10 MG TAB PO PRN (12:15)
[2017-09-21] MEDS ORDERED: BISACODYL 10 MG SUPP PR PRN (12:15)
[2017-09-21] MEDS ORDERED: ZOLPIDEM TARTRATE 5 MG TAB PO PRN (12:15)
[2017-09-21] MEDS ORDERED: FLUTICASONE PROPIONATE NA SPR 16 GM BTL NAE PRN (12:15)
[2017-09-21] MEDS ORDERED: SOD PHOSPHATE/SOD BIPHOSPHATE ENEMA 132 ML BTL PR PRN (12:15)
[2017-09-21] MEDS ORDERED: METOCLOPRAMIDE HCL INJ 5 MG/ML 2 ML VIAL IV PRN (12:15)
[2017-09-21] MEDS ORDERED: MoRPHine SULFATE 2 MG/ML CARP IV PRN (12:15)
--- NOTE | 2017-09-21 12:29 | Anesthesiology Progress Note ---
Anesthesia Post Op Note Date & Time Sep 21, 2017 at 12:29 Vital Signs Pain Intensity: 0 Vital Signs Past 12 Hours Date Time Temp Pulse Resp B/P (MAP) Pulse Ox O2 Delivery O2 Flow Rate FiO2 09/21/17 12:25 92 16 123/67 98 Oxymask 2 09/21/17 12:17 36.2 93 16 133/68 99 Oxymask 8 09/21/17 07:55 37 83 18 130/72 94 Room Air Notes Mental Status: alert / awake / arousable, participated in evaluation Pt Amnestic to Procedure: Yes Nausea / Vomiting: adequately controlled Pain: adequately controlled Airway Patency, RR, SpO2: stable & adequate BP & HR: stable & adequate Hydration State: stable & adequate Neuraxial Anesthesia: was administered, sensory block is resolving Anesthetic Complications: no major complications apparent
--- NOTE | 2017-09-21 12:40 | DIAGNOSTIC IMAGING REPORT ---
R KNEE 2 VIEWS ROUTINE CLINICAL HISTORY: Degenerative arthritis COMPARISON: None. DISCUSSION: There are postsurgical changes of a total right knee arthroplasty and patellar resurfacing. The femoral and tibial components appear well seated. Overlying skin jaylen and surgical drains are evident. There is air within the soft tissues consistent with recent surgery. IMPRESSION: Postsurgical changes of a total right knee arthroplasty Electronically signed by: Roland Pleitez M.D. 09/21/2017 12:39 PM Dictated Date/Time: 09/21/2017 12:38 PM
[2017-09-21] MEDS ORDERED: FENTANYL CITRATE INJ 50 MCG/1 ML 2 ML VIAL ONE (12:41)
[2017-09-21] MEDS ORDERED: FENTANYL CITRATE INJ 50 MCG/1 ML 2 ML VIAL IV PRN (12:45)
[2017-09-21] MEDS ORDERED: HYDROmorphone INJ 1 MG/ML SYR IV PRN (12:45)
[2017-09-21] MEDS ORDERED: WLLXL300 PO (13:49)
[2017-09-21] MEDS: D5W AND 1/2NSS + 20MEQ KCL 1,000 ML IV SCH ×2 (14:32→23:24)
[2017-09-21] MEDS: OXYCODONE HCL IR 5 MG TAB (IMMEDIATE RELEASE) PO PRN ×2 (14:32→20:09)
[2017-09-21] MEDS: ACETAMINOPHEN 500 MG TAB PO SCH ×2 (14:33→21:34)
[2017-09-21] MEDS: CEFAZOLIN IV 2,000 MG in SYRINGE 0 ML IV SCH ×2 (16:20→23:23)
[2017-09-21] MEDS: TRAMADOL HCL 50 MG TAB PO PRN ×2 (17:16→23:24)
[2017-09-21] MEDS: RIVAROXABAN 10 MG TAB PO SCH (20:43)
[2017-09-21] MEDS: DOCUSATE SODIUM 100 MG CAP PO SCH (20:43)
[2017-09-21] MEDS: CeleBREX 200 MG CAP PO SCH (20:43)
[2017-09-22 04:15] VITALS: BP 115/72; PULSE 72; TEMP 36.6; O2SAT 94
[2017-09-22] MEDS: OXYCODONE HCL IR 5 MG TAB (IMMEDIATE RELEASE) PO PRN ×4 (04:17→19:34)
[2017-09-22] MEDS: ACETAMINOPHEN 500 MG TAB PO SCH ×3 (05:29→22:19)
[2017-09-22 06:00] LABS: HEMOGLOBIN 10.9 g/dL (12.0-16.0); MEAN CELL VOLUME 87.2 fL (80-100); MEAN CORPUSCULAR HEMOGLOBIN 27.9 pg (25-34); MEAN CORPUSCULAR HGB CONC 32.1 g/dl (32-36); MEAN PLATELET VOLUME 10.3 fL (7.4-10.4); PLATELET COUNT 190 K/uL (130-400); RED CELL DISTRIBUTION WIDTH CV 15.1 % (11.5-14.5); RED CELL DISTRIBUTION WIDTH SD 48.3 fL (36.4-46.3); WHITE BLOOD COUNT 11.47 K/uL (4.8-10.8)
[2017-09-22 06:35] LABS: CALCIUM 8.3 mg/dl (8.5-10.1); CREATININE 0.76 mg/dl (0.60-1.20); POTASSIUM 4.2 mmol/L (3.5-5.1)
[2017-09-22 07:38] VITALS: BP 119/74; PULSE 77; TEMP 36.6; O2SAT 96
--- NOTE | 2017-09-22 07:55 | Anesthesiology Progress Note ---
Anesthesia Post Op Note Date & Time Sep 22, 2017 at 07:55 Vital Signs Pain Intensity: 8.0 Vital Signs Past 12 Hours Date Time Temp Pulse Resp B/P (MAP) Pulse Ox O2 Delivery O2 Flow Rate FiO2 09/22/17 07:38 36.6 77 16 119/74 (89) 96 Room Air 09/22/17 04:15 36.6 72 18 115/72 (86) 94 Room Air 09/21/17 23:16 Room Air 09/21/17 23:10 36.7 98 18 129/66 (87) 95 Room Air Notes Mental Status: alert / awake / arousable, participated in evaluation Pt Amnestic to Procedure: Yes Nausea / Vomiting: adequately controlled Pain: adequately controlled Airway Patency, RR, SpO2: stable & adequate BP & HR: stable & adequate Hydration State: stable & adequate Neuraxial Anesthesia: was administered, sensory block resolved Anesthetic Complications: no major complications apparent
[2017-09-22] MEDS: PANTOprazole SOD 40 MG TAB PO SCH (08:14)
[2017-09-22] MEDS: VENLAFAXINE HCL XR 150 MG CAPXR PO SCH (08:14)
[2017-09-22] MEDS: VENLAFAXINE HCL XR 75 MG CAPXR PO SCH (08:16)
[2017-09-22] MEDS: MULTIVITAMIN TAB PO SCH (08:16)
[2017-09-22] MEDS: BuPROPion XL 300 MG TABCR PO SCH (08:16)
[2017-09-22] MEDS: CeleBREX 200 MG CAP PO SCH ×2 (08:16→20:34)
[2017-09-22] MEDS: DOCUSATE SODIUM 100 MG CAP PO SCH ×2 (08:17→20:34)
[2017-09-22] MEDS ORDERED: LIDODERM (LIDOCAINE) PATCH 5% TD PRN (09:00)
[2017-09-22] MEDS ORDERED: NON-FORMULARY MEDICATION (Biotin 1 CAP) PO SCH (09:00)
[2017-09-22] MEDS ORDERED: LISINOPRIL/HCTZ 20/25MG TAB PO SCH (09:00)
[2017-09-22] MEDS: D5W AND 1/2NSS + 20MEQ KCL 1,000 ML IV SCH (09:43)
[2017-09-22 11:42] VITALS: BP 107/67; PULSE 76; TEMP 36.9; O2SAT 98
[2017-09-22] MEDS: TRAMADOL HCL 50 MG TAB PO PRN ×2 (11:49→18:00)
--- NOTE | 2017-09-22 14:55 | Orthopedic Progress Note ---
Orthopedic Progress Note Date of Service Sep 22, 2017. Subjective Post OP Day: 1 Reports: feeling well, pain controlled w PO medications, Denies: complaints, chest pain, SOB, nausea / vomiting, light headedness, calf pain Objective calves soft nontender, N/V intact, capillary refill less than 2 sec., dressing C /D/I, A&O x3, toes mobile + PRovena Date Time Temp Pulse Resp B/P (MAP) Pulse Ox O2 Delivery O2 Flow Rate FiO2 09/22/17 11:42 36.9 76 16 107/67 (80) 98 09/22/17 08:00 Room Air 09/22/17 07:38 36.6 77 16 119/74 (89) 96 Room Air 09/22/17 04:15 36.6 72 18 115/72 (86) 94 Room Air 09/21/17 23:16 Room Air 09/21/17 23:10 36.7 98 18 129/66 (87) 95 Room Air 09/21/17 19:07 37.0 98 20 112/71 (85) 93 Room Air 09/21/17 16:13 37.1 98 18 117/71 (86) 93 Room Air 09/21/17 15:30 Room Air 09/21/17 15:21 37.0 108 20 123/77 (92) 95 Room Air Laboratory Results 24 Hours: Test 09/22/17 05:44 Hematocrit 34.0 % Hemoglobin 10.9 g/dL Assessment & Plan Assessment: POD #1, Right TKA Plan: PT/ OT DVT proph- Xarelto D/C planning- Home w OPPT As per medicine Inhouse Planning Pain Management: Celebrex, Ultram, Morphine, PO Tylenol, Oxy IR DVT Prophylaxis: TEDs, SCDs, Xarelto Discharge Planning Discharge Planning: home with oppt Pain Management: Celebrex, Ultram, PO Tylenol, Oxy IR DVT Prophylaxis: TEDs, Xarelto Therapy: Physical Therapy, Occupational Therapy
[2017-09-22 15:42] VITALS: BP 112/70; PULSE 80; TEMP 36.8; O2SAT 95
[2017-09-22] MEDS: MoRPHine SULFATE 4 MG/ML 1 ML CARP\\VIAL IV PRN ×3 (19:03→23:49)
--- NOTE | 2017-09-22 19:44 | Medical Consult ---
Consultation Date of Consultation: Sep 22, 2017. Attending Physician: Isaias Andres M.D. Reason for Consultation: medical consult History of Present Illness Pt is 47 y/o F with PMH obesity, s/p gastric bypass, depression, HTN, OA seen in medical consult. Pt s/p R TKA by Dr Andres yesterday. Pt reports pain controlled, denies numbness/tingling to extremity. No BM yet today, is passing gas. Reports eating and drinking well. no N/V. Denies fever/chills, diaphoresis , N/V/D/C, QUINTEROS, dizziness, syncope, vision changes, neck pain, CP, SOB, orthopnea , palpitations, cough, sore throat, choking, otalgia, rhinorrhea, abdominal pain , paresthesias, extremity edema, rashes, urinary symptoms. Past Medical/Surgical History Medical Problems: (1) Anxiety disorder Status: Chronic (2) Cat bite of right hand with infection Status: Resolved (3) Depressive disorder Status: Chronic (4) GERD (gastroesophageal reflux disease) Status: Chronic (5) Hypertension Status: Chronic (6) Intractable back pain Status: Resolved (7) Lumbago Status: Chronic (8) Morbid obesity Status: Chronic (9) Osteoarthritis Status: Chronic (10) Right upper quadrant abdominal pain Status: Resolved (11) Sleep apnea Status: Chronic Surgical Problems: (1) History of gastric bypass Status: Resolved (2) History of lumbosacral spine surgery Status: Resolved (3) Hx of cholecystectomy Status: Resolved (4) Hx of gastric bypass Status: Resolved (5) Hx of tonsillectomy Status: Resolved Family History FH: colon cancer FH: ovarian cancer Hypertension Social History Smoking Status: Never Smoker Smokeless Tobacco Use: No Alcohol Use: occasionally Drug Use: none Marital Status: Housing Status: lives with family Allergies Coded Allergies: No Known Allergies (Verified , 09/21/17) Current Inpatient Medications Current Inpatient Medications Medications (Trade) Dose Ordered Sig/Becka Route Start Time Stop Time Status Last Admin Dose Admin Bupropion HCl (Wellbutrin-Xl Tab) 300 mg QAM PO 09/22/17 09:00 10/22/17 08:59 09/22/17 08:16 300 MG Cyclobenzaprine HCl (Flexeril Tab) 10 mg DAILY PRN PO 09/21/17 12:15 10/21/17 12:14 Fluticasone Propionate (Flonase Nasal [place]) 1 sprays DAILY PRN DIXON 09/21/17 12:15 10/21/17 12:14 HCTZ/Lisinopril (Prinzide 20-25MG Tab) 0.5 tab QAM PO 09/22/17 09:00 10/22/17 08:59 09/22/17 08:15 0.5 TAB Venlafaxine HCl (effeXOR EXTENDED REL CAP) 75 mg QAM PO 09/22/17 09:00 10/22/17 08:59 09/22/17 08:16 75 MG Venlafaxine HCl (effeXOR EXTENDED REL CAP) 150 mg QAM PO 09/22/17 09:00 10/22/17 08:59 09/22/17 08:14 150 MG Lidocaine (Lidoderm Patch 5%) 1 patch DAILY PRN TD 09/22/17 09:00 10/22/17 08:59 Potassium Chloride/Dextrose/ Sod Cl 1,000 ml @ 100 mls/hr Q10H IV 09/21/17 14:00 09/22/17 13:59 09/22/17 09:43 100 MLS/HR Celecoxib (CeleBREX CAP) 200 mg BID PO 09/21/17 21:00 10/21/17 20:59 09/22/17 08:16 200 MG Oxycodone HCl (Roxicodone Immediate Rel Tab) 1 TABLET FOR PAIN RATING... Q4H PRN PO 09/21/17 12:15 10/05/17 12:14 09/22/17 08:14 10 MG Morphine Sulfate (MoRPHine SULFATE INJ) 2 mg Q2H PRN IV 09/21/17 12:15 10/05/17 12:14 Acetaminophen (Tylenol Tab) 1,000 mg Q8 PO 09/21/17 15:00 10/21/17 14:59 09/22/17 05:29 1,000 MG Magnesium Hydroxide (Milk Of Magnesia Susp) 30 ml Q6H PRN PO 09/21/17 12:15 10/21/17 12:14 Bisacodyl (Dulcolax Supp) 10 mg DAILY PRN PA 09/21/17 12:15 10/21/17 12:14 Sodium Biphosphate/ Sodium Phosphate (Fleet Enema) 132 ml DAILY PRN PA 09/21/17 12:15 10/21/17 12:14 Docusate Sodium (coLACE CAP) 100 mg BID PO 09/21/17 21:00 10/21/17 20:59 09/22/17 08:17 100 MG Diphenhydramine HCl (Benadryl Cap) 25 mg Q8H PRN PO 09/21/17 12:15 10/21/17 12:14 Zolpidem Tartrate (Ambien Tab) 5 mg HSZ PRN PO 09/21/17 12:15 10/21/17 12:14 Multivitamins (Multivitamin Tab) 1 tab QAM PO 09/22/17 09:00 10/22/17 08:59 09/22/17 08:16 1 TAB Ondansetron HCl (Zofran Inj) 4 mg Q6H PRN IV 09/21/17 12:15 10/21/17 12:14 Metoclopramide HCl (Reglan Inj) 10 mg Q6H PRN IV 09/21/17 12:15 10/21/17 12:14 Pantoprazole Sodium (Protonix Tab) 40 mg QAM PO 09/22/17 09:00 09/25/17 09:01 09/22/17 08:14 40 MG Tramadol HCl (Ultram Tab) 1 tablet for pain rating... Q4H PRN PO 09/21/17 12:15 10/21/17 12:14 09/21/17 23:24 100 MG Rivaroxaban (Xarelto Tab) 10 mg Q24H PO 09/21/17 21:00 10/02/17 21:01 09/21/17 20:43 10 MG Morphine Sulfate (MoRPHine SULFATE INJ) 4 mg Q2H PRN IV 09/21/17 14:15 10/05/17 14:14 Review of Systems See HPI for pertinent positives & negatives. All other systems reviewed and were otherwise negative Physical Exam Date Time Temp Pulse Resp B/P (MAP) Pulse Ox O2 Delivery O2 Flow Rate FiO2 09/22/17 08:00 Room Air 09/22/17 07:38 36.6 77 16 119/74 (89) 96 Room Air 09/22/17 04:15 36.6 72 18 115/72 (86) 94 Room Air 09/21/17 23:16 Room Air 09/21/17 23:10 36.7 98 18 129/66 (87) 95 Room Air 09/21/17 19:07 37.0 98 20 112/71 (85) 93 Room Air 09/21/17 16:13 37.1 98 18 117/71 (86) 93 Room Air 09/21/17 15:30 Room Air 09/21/17 15:21 37.0 108 20 123/77 (92) 95 Room Air 09/21/17 14:18 104 18 113/71 (85) 96 Nasal Cannula 2.0 09/21/17 13:52 37.0 104 20 113/74 (87) 95 Nasal Cannula 2.0 107 09/21/17 13:15 95 Nasal Cannula 2.0 09/21/17 13:15 95 Nasal Cannula 2.0 09/21/17 13:13 36.6 104 15 120/74 (89) 96 Nasal Cannula 2.0 09/21/17 13:00 103 20 123/70 96 Oxymask 2 09/21/17 12:50 97 17 128/64 95 Oxymask 2 09/21/17 12:35 36.4 98 16 127/71 97 Oxymask 2 09/21/17 12:25 92 16 123/67 98 Oxymask 2 09/21/17 12:17 36.2 93 16 133/68 99 Oxymask 8 General Appearance: no apparent distress, + obese Head: normocephalic, atraumatic Eyes: normal inspection, PERRL, EOMI, sclerae normal ENT: hearing grossly normal, pharynx normal, + pertinent finding (mucous membranes moist) Neck: supple, no JVD, trachea midline Respiratory/Chest: lungs clear, normal breath sounds, no respiratory distress Cardiovascular: regular rate, rhythm, no murmur, normal peripheral pulses Abdomen/GI: normal bowel sounds, non tender, soft Extremities/Musculoskelatal: no calf tenderness, normal capillary refill, no pedal edema, + pertinent finding (R knee with dressing in place, limited active flexion, remaining extremities with ROM intact, non-tender. distal pulses intact , sensation to light touch intact) Neurologic/Psych: alert, normal mood/affect, oriented x 3 Skin: normal color, warm/dry Laboratory Results Last 24 Hours Test 09/22/17 05:44 White Blood Count 11.47 K/uL Red Blood Count 3.90 M/uL Hemoglobin 10.9 g/dL Hematocrit 34.0 % Mean Corpuscular Volume 87.2 fL Mean Corpuscular Hemoglobin 27.9 pg Mean Corpuscular Hemoglobin Concent 32.1 g/dl RDW Standard Deviation 48.3 fL RDW Coefficient of Variation 15.1 % Platelet Count 190 K/uL Mean Platelet Volume 10.3 fL Sodium Level 137 mmol/L Potassium Level 4.2 mmol/L Chloride Level 105 mmol/L Carbon Dioxide Level 28 mmol/L Anion Gap 4.0 mmol/L Blood Urea Nitrogen 15 mg/dl Creatinine 0.76 mg/dl Est Creatinine Clear Calc Drug Dose 153.7 ml/min Estimated GFR () 106.8 Estimated GFR (Non- 92.1 BUN/Creatinine Ratio 20.0 Random Glucose 159 mg/dl Calcium Level 8.3 mg/dl Assessment & Plan Pt post op day# 1 S/P R TKA by Dr Andres -pain management per ortho -wound management per ortho -PT/OT as appropriate -DVT prophylaxis per ortho -incentive spirometry -monitor H&H for acute blood loss anemia HTN stable -continue lisinopril DEPRESSION -continue wellbutrin, effexor DVT Prophylaxis -per ortho Disposition admitted med/surg Full Code Follows with Dr Gomez for routine care Pt was seen with Dr Stevens. See addendum ATTENDING ADDENDUM care coordinated with SARAH Espinoza please refer to her notes for full details, I agree with her notes patient seen and examined, records reviewed by myself as well on exam, patient seen resting in bed, states knee pain is increased today denies chest pain, dyspnea, palpitations, dizziness no other symptoms VS noted and reviewed oriented x 3 , not in distress, speaks in sentences with no effort nor accessory muscle use normal rate, regular rhythm, no murmurs clear breath sounds bilaterally non distended, soft, nontender no bipedal edema, erythema, warmth no neuro deficits Hg 10 ASSESSMENT/PLAN> RIGHT KNEE SURGERY stable overall HTN continue Lisinopril other diagnoses and plan of care as per SARAH Stevens MD
[2017-09-22] MEDS: RIVAROXABAN 10 MG TAB PO SCH (20:34)
[2017-09-22] MEDS ORDERED: NURSING VERBAL MED ORDER ONE (21:45)
[2017-09-22] MEDS ORDERED: KETOROLAC TROMETHAMINE 15 MG/ML VIAL IV. PRN (22:00)
[2017-09-22] MEDS ORDERED: KETOROLAC TROMETHAMINE 30 MG/ML VIAL IV. ONE (22:00)
[2017-09-22 23:10] VITALS: BP 107/66; PULSE 94; TEMP 36.8; O2SAT 95
[2017-09-23] MEDS: OXYCODONE HCL IR 5 MG TAB (IMMEDIATE RELEASE) PO PRN ×2 (03:37→08:53)
[2017-09-23] MEDS: MoRPHine SULFATE 4 MG/ML 1 ML CARP\\VIAL IV PRN (04:28)
[2017-09-23] MEDS: ACETAMINOPHEN 500 MG TAB PO SCH (05:27)
[2017-09-23 06:30] VITALS: BP 101/65; PULSE 94; TEMP 36.6; O2SAT 94
[2017-09-23 06:45] LABS: HEMOGLOBIN 9.9 g/dL (12.0-16.0); MEAN CELL VOLUME 88.6 fL (80-100); MEAN CORPUSCULAR HEMOGLOBIN 28.3 pg (25-34); MEAN CORPUSCULAR HGB CONC 31.9 g/dl (32-36); MEAN PLATELET VOLUME 10.9 fL (7.4-10.4); PLATELET COUNT 162 K/uL (130-400); RED CELL DISTRIBUTION WIDTH CV 15.5 % (11.5-14.5)
[2017-09-23 07:20] LABS: CALCIUM 8.2 mg/dl (8.5-10.1); CREATININE 0.8 mg/dl (0.60-1.20); POTASSIUM 4.2 mmol/L (3.5-5.1)
--- NOTE | 2017-09-23 08:39 | Orthopedic Progress Note ---
Orthopedic Progress Note Date of Service Sep 23, 2017. Subjective Post OP Day: 2 Reports: feeling well, pain controlled w PO medications, Denies: complaints, chest pain, SOB, nausea / vomiting, light headedness, calf pain Objective calves soft nontender, N/V intact, capillary refill less than 2 sec., dressing C /D/I, A&O x3, toes mobile [place] in tact. Date Time Temp Pulse Resp B/P (MAP) Pulse Ox O2 Delivery O2 Flow Rate FiO2 09/23/17 06:30 36.6 94 20 101/65 (77) 94 Room Air 09/22/17 23:38 Room Air 09/22/17 23:10 36.8 94 20 107/66 (80) 95 Room Air 09/22/17 15:50 Room Air 09/22/17 15:42 36.8 80 20 112/70 (84) 95 Room Air 09/22/17 11:42 36.9 76 16 107/67 (80) 98 Laboratory Results 24 Hours: Test 09/23/17 06:12 Hematocrit 31.0 % Hemoglobin 9.9 g/dL Assessment & Plan Assessment: POD #2, Right TKA Plan: PT/ OT DVT proph- Xarelto D/C planning- Home w OPPT today As per medicine Inhouse Planning Pain Management: Celebrex, Ultram, Morphine, PO Tylenol, Oxy IR DVT Prophylaxis: TEDs, SCDs, Xarelto Discharge Planning Discharge Planning: home with oppt Pain Management: Celebrex, Ultram, PO Tylenol, Oxy IR DVT Prophylaxis: TEDs, Xarelto Therapy: Physical Therapy, Occupational Therapy
[2017-09-23] MEDS ORDERED: XRL10 PO (08:42)
[2017-09-23] MEDS ORDERED: RXC5 PO (08:42)
[2017-09-23] MEDS ORDERED: CLB200 PO (08:42)
[2017-09-23] MEDS ORDERED: ACET-24 PO (08:42)
--- NOTE | 2017-09-23 08:44 | Discharge Instructions ---
Discharge Instructions Date of Service Sep 23, 2017. Admission Reason for Admission: Right Knee Degenerative Joint Disease Discharge Discharge Diagnosis / Problem: Right TKA Discharge Goals Goal(s): Improve function Activity Recommendations Activity Limitations: as noted below . Instructions / Follow-Up Instructions / Follow-Up ACTIVITY RECOMMENDATIONS: SELF CARE INSTRUCTIONS AFTER TOTAL KNEE REPLACEMENT A. You may need to continue a physical therapy program after discharge from the hospital. There are several options available to you. Your doctor will assist you in selecting the best one for you. 1. An out-patient facility 2 to 3 times a week for therapy or home therapy. 2. Continue working on all exercises taught to you in the hospital. Your goals should be to increase bending of your knee to 90 degrees and beyond and to fully straighten your knee. B. You may progress at your own pace from walking with a walker or crutches to a cane; then to no assistive devices. C. Make walking a part of your daily routine. Be up as much as comfortable with rest periods throughout the day. Rest with leg elevation is very important. Use the ice wrap frequently for the first 3-4 weeks. D. There are no restrictions on activities. You may ride in a car, shop, participate in well digger and all social activities. E. Wear the long elastic stockings (JAYANT hose) 20 hours a day for 2 weeks after surgery. They can be removed several times a day for laundering and for a bath. F. You may shower, no tub baths until cleared by your doctor. SPECIAL CARE INSTRUCTIONS: VERY IMPORTANT TO READ AND REVIEW A. There are a few signs you need to watch for after you are home. Call [facility] if you notice any of the followin. Increased severe knee pain. Some pain is expected especially when you exercise. 2. Increased swelling in your leg or knee; pain or swelling of the calf muscle in either lower leg. 3. Any fluid drainage from the incision. 4. Shortness of breath or chest pain. B. Please call [facility] at if you have any concerns or questions about your operation or recovery. The doctor or his nurse will return your call promptly. C. You must take antibiotics before dental work, bladder, bowel or other surgery. Your doctor will provide you with a permanent care to carry describing this precaution. IMPORTANT: * REMEMBER TO TAKE ASPIRIN, 81 MG, TWICE DAILY FOR 4 WEEKS UNLESS OTHERWISE DIRECTED. THIS IS YOUR BLOOD THINNER. * HIGH RISK PATIENTS MAY BE PRESCRIBED A STRONGER BLOOD THINNER. THIS WILL BE PROVIDED AT DISCHARGE. * CALL IF INCREASED PAIN, REDNESS, DRAINAGE OR FEVER GREATER THAT 101. * WEAR JAYANT HOSE 20 HOURS PER DAY FOR 2 WEEKS. * YOU MAY HAVE A LARGE BAND-AID LIKE DRESSING (SILVERON). THIS WILL REMAIN ON YOUR INCISION FOR 7 DAYS, THEN CAN BE REMOVED. IF INCISION IS LEAKING THROUGH DRESSING, CALL THE OFFICE . FOLLOW UP VISIT: If appointment is not already scheduled: Please call [facility] to make a follow-up appointment for 2 weeks after your surgery at . YOU HAVE A WOUND VAC OVER YOUR INCISION, REMOVE ALL PARTS AND DISCARD POST OP DAY #7, THEN REPLACE W STERILE DRESSINGS DAILY UNTIL FOLLOW UP. Current Hospital Diet Patient's current hospital diet: AHA Diet (Heart Healthy) Discharge Diet Recommended Diet: Regular Diet Procedures Procedures Performed: Right Total Knee Arthroplasty Pending Studies Studies pending at discharge: no Medical Emergencies . Who to Call and When: Medical Emergencies: If at any time you feel your situation is an emergency, please call [phone] immediately. . Non-Emergent Contact Non-Emergency issues call your: Primary Care Provider . "Provider Documentation" section prepared by Jayant Babin. . [place] Drug Monitoring Program Search Results: patient reviewed within database, no issues identified
[2017-09-23] MEDS: CeleBREX 200 MG CAP PO SCH (08:53)
[2017-09-23] MEDS: VENLAFAXINE HCL XR 150 MG CAPXR PO SCH (08:53)
[2017-09-23] MEDS: MULTIVITAMIN TAB PO SCH (08:53)
[2017-09-23] MEDS: DOCUSATE SODIUM 100 MG CAP PO SCH (08:53)
[2017-09-23] MEDS: VENLAFAXINE HCL XR 75 MG CAPXR PO SCH (08:53)
[2017-09-23] MEDS: BuPROPion XL 300 MG TABCR PO SCH (08:53)
[2017-09-23] MEDS: PANTOprazole SOD 40 MG TAB PO SCH (08:53)
[2017-09-23] MEDS ORDERED: LISINOPRIL 20 MG TAB PO SCH (09:00)
[2017-09-23] MEDS ORDERED: BuPROPion XL 300 MG TABCR PO SCH (09:00)
[2017-09-23 10:38] VITALS: BP 101/65; PULSE 94; TEMP 36.6; O2SAT 94
[2017-09-23] MEDS: TRAMADOL HCL 50 MG TAB PO PRN (11:19)
== END 2017-09-23 12:13 | disposition home health service (06) | DRG 470 ==
LOC: C.ACU 07:09 → C.3E 09:08 → ENRESERV 12:23
PROVIDERS: ADMIT Orthopaedic Surgery Sports Medicine; ATTEND Orthopaedic Surgery Sports Medicine
PROC: 0SRT0J9 Replacement of Right Knee Joint, Femoral Surface with Synthetic Substitute, Cemented, Open Approach (ICD-10-PCS; principal; 2017-09-21 09:30)
DX: M17.11 Unilateral primary osteoarthritis, right knee (principal); Z68.43 Body mass index [BMI] 50.0-59.9, adult; I10 Essential (primary) hypertension; G47.30 Sleep apnea, unspecified; F41.9 Anxiety disorder, unspecified; E66.01 Morbid (severe) obesity due to excess calories; Z90.49 Acquired absence of other specified parts of digestive tract

== ENCOUNTER 2018-02-23 09:39 | Emergency (ER) | payer BC ==
[~2018-02-23] VITALS: Ht 180.3 cm; Wt 167.2 kg
[~2018-02-23 09:39] MED LIST changes: +ACET-1256 PO; -ACET1TAB84 PO; -ACETAMINOPHEN 500 MG TAB PO SCH; -BUPIVACAINE 0.25% 30 ML VIAL ONE; -BUPIVACAINE 0.5 % 5 MG/1 ML PF 10ML VIAL ONE; -BUPR-79 PO; +BUSP15TA70 PO; -CEFAZOLIN 3000MG IV PUSH 22.5 ML IV SCH; -CeleBREX 200 MG CAP PO SCH; -DEXAMETHASONE 4 MG TAB PO SCH; -FAMOTIDINE 20 MG TAB PO SCH; -GABAPENTIN 900 MG PO SCH; -LACTATED RINGER'S 1000ML 1,000 ML IV SCH; -LACTATED RINGER'S 1000ML 500 ML IV SCH; -LISI-788 PO; -METOCLOPRAMIDE HCL 10 MG TAB PO SCH; -ROPIVACAINE 5MG/ML 30 ML 150 MG, BUPIVACAINE 0.5% MPF INJ 30 ML, EpINEphrine HCL INJ 0.... INFIL SCH; +WLLXL300 PO
[2018-02-23 09:43] VITALS: TEMP 36.8; Ht 180.3 cm; Wt 167.2 kg
[2018-02-23 10:00] VITALS: O2SAT 98
[2018-02-23] MEDS ORDERED: ONDANSETRON INJ 2 MG/ML 2 ML VIAL IV STA (10:38)
[2018-02-23] MEDS ORDERED: DiphenhydrAMINE HCL 50 MG/ML VIAL IV STA (10:38)
[2018-02-23] MEDS ORDERED: KETOROLAC TROMETHAMINE 30 MG/ML VIAL IV STA (10:38)
[2018-02-23] MEDS ORDERED: SODIUM CHLORIDE 0.9% 1000ML 1,000 ML IV STA (10:38)
[2018-02-23 11:00] LABS: BASO % 0.9 %; BASO ABS # 0.07 K/uL (0-0.2); EOS % 3.4 %; EOS ABS # 0.25 K/uL (0-0.5); HEMATOCRIT 39.3 % (37-47); LYMPH % 21.5 %; MEAN CELL VOLUME 81.7 fL (80-100); MEAN CORPUSCULAR HEMOGLOBIN 24.9 pg (25-34); MEAN CORPUSCULAR HGB CONC 30.5 g/dl (32-36); MONO % 7.9 %; MONO ABS # 0.59 K/uL (0.11-0.59); NEUT % 66.3 %; NEUT ABS # 4.92 K/uL (1.4-6.5); PLATELET COUNT 223 K/uL (130-400); RED CELL DISTRIBUTION WIDTH SD 53.4 fL (36.4-46.3); WHITE BLOOD COUNT 7.43 K/uL (4.8-10.8)
[2018-02-23 11:19] LABS: ALBUMIN 3.4 gm/dl (3.4-5.0); ALKALINE PHOSPHATASE 84 U/L (45-117); ALT/SGPT 41 U/L (12-78); AST/SGOT 26 U/L (15-37); BLOOD UREA NITROGEN 18 mg/dl (7-18); CALCIUM 8.1 mg/dl (8.5-10.1); CARBON DIOXIDE 27 mmol/L (21-32); CREATININE 0.78 mg/dl (0.60-1.20); GLUCOSE 94 mg/dl (70-99); POTASSIUM 4.5 mmol/L (3.5-5.1); SODIUM 138 mmol/L (136-145); TOTAL PROTEIN 6.8 gm/dl (6.4-8.2)
--- NOTE | 2018-02-23 11:32 | DIAGNOSTIC IMAGING REPORT ---
HEAD CT NONCONTRAST CT DOSE: 729.78 mGycm HISTORY: Altered mental status. Evaluate for hemorrhage or pathology TECHNIQUE: Multiaxial CT images of the head were performed without the use of intravenous contrast. Automated exposure control was utilized for this study. A dose lowering technique was utilized adhering to the principles of ALARA. Comparison: Head CT 03/25/2010. Findings: The paranasal sinuses and mastoid air cells are clear. The calvarium and skull base are intact. The ventricles and sulci are within normal limits. There is no mass, hematoma, midline shift, or acute infarct. Impression: No acute intracranial abnormality. Electronically signed by: Parveen Maurice M.D. 02/23/2018 11:31 AM Dictated Date/Time: 02/23/2018 11:27 AM
[2018-02-23] MEDS ORDERED: IBUP200C80 PO (11:38)
[2018-02-23] MEDS ORDERED: LDDP5 TOP (11:38)
--- NOTE | 2018-02-23 11:41 | DIAGNOSTIC IMAGING REPORT ---
CHEST ONE VIEW PORTABLE CLINICAL HISTORY: 47 years-old Female presenting with chest pain and headache. TECHNIQUE: Portable upright AP view of the chest was obtained. COMPARISON: 07/12/2017. FINDINGS: Cardiac silhouette mildly enlarged with mild pulmonary vascular prominence. Elevation of the bilateral hemidiaphragms. Mildly low lung volumes. No focal opacity. No large effusion or pneumothorax. Degenerative changes of the thoracic spine. Upper abdomen normal. IMPRESSION: 1. Mild volume overload overload suggested with mildly low lung volumes. Otherwise no convincing evidence of acute cardiopulmonary disease. Electronically signed by: Rodrigue Barboza M.D. 02/23/2018 11:40 AM Dictated Date/Time: 02/23/2018 11:39 AM
[2018-02-23] MEDS ORDERED: DEXAMETHASONE SOD INJ 4 MG/ML VIAL IV STA (12:00)
[2018-02-23] MEDS ORDERED: ACETAMINOPHEN IV 100 ML IV STA (12:00)
[2018-02-23] MEDS ORDERED: OPTIRAY 320 IV PRN (12:15)
--- NOTE | 2018-02-23 12:47 | DIAGNOSTIC IMAGING REPORT ---
(CHEST FOR PE) ANGIO WITH CLINICAL HISTORY: 47 years-old Female presenting with ^head ache, chest pain, recent surgery, elevated ddimer. TECHNIQUE: Multidetector CT angiography of the chest was performed after administration of intravenous contrast. 3-D volumetric and/or maximum intensity projection (MIP) images were subsequently reconstructed for review. IV contrast: 115 mL of Optiray 320. A dose lowering technique was used consistent with the principles of ALARA (as low as reasonably achievable). COMPARISON: Chest x-ray from 02/23/2018. CT DOSE (mGy.cm): The estimated cumulative dose is 733.23 mGy.cm. FINDINGS: Draw String Knotter topogram: Cholecystectomy clips noted. Pulmonary vasculature: The study is adequate for assessment of the pulmonary vascular tree. No filling defect within the pulmonary arteries to suggest embolus. Main pulmonary artery is not enlarged. No flattening of the interventricular septum. No intracardiac filling defect. No reflux of contrast into the hepatic veins. Remaining chest: On soft tissue windows, normal thyroid and thoracic inlet. Mediastinal and bilateral hilar lymphadenopathy. The right hilum contains a greater number of enlarged lymph nodes in comparison to the left. Normal aorta. Normal heart size. Coronary artery calcification. No pericardial or pleural effusion. Cholecystectomy clips noted. Post-surgical changes of antecolic Jayda-en-Y gastric bypass. On lung windows, minimal dependent changes likely atelectasis. No other focal nodule or infiltrate. Airways patent. On bone windows, degenerative changes of the spine. IMPRESSION: 1. No evidence of pulmonary embolus. 2. Mediastinal and hilar lymphadenopathy. In the setting of known malignancy, this raises concern for metastatic disease. Alternatively, this could represent sarcoidosis or lymphoproliferative disease. Correlate with patient's clinical history and consider endobronchial biopsy as appropriate. Electronically signed by: Rodrigue Barboza M.D. 02/23/2018 12:46 PM Dictated Date/Time: 02/23/2018 12:38 PM
[2018-02-23 13:24] VITALS: BP 146/76; PULSE 79; O2SAT 98
--- NOTE | 2018-02-24 06:17 | EMERGENCY ROOM VISIT NOTE ---
ED Visit Note First contact with patient: 09:55 Chief Complaint: Headache. History of Present Illness: Ms. Amador is a 47-year-old white female who ambulates into the ED complaining of a severe headache. Historically patient reports she has a history of lumbar back pain with lumbago and degenerative disc disease. She also reports she has a history of hypertension in which she was treated for until August when she was taken off her antihypertensive medicine by her PCP; no follow-up for her hypertension has taken place since August. Patient reports that she has been having and on going global headache that started approximately 1 week ago. She reports initially it was mild has gradually increased in severity; patient denies headache history. Since that time her pain has been constant. She describes a pressure and throbbing sensation throughout her head without a prominent location. She rates her discomfort 9/10. The pain is radiating down through her cervical spine and into her chest and into her thoracic back. Her pain worsens with all head movement. She has not identified any alleviating factors related to the pain. She reports she has been using her prescribed her prescribed narcotics and anti- inflammatory medications for her chronic back pain; hydrocodone and meloxicam, as well as hepf-rxy-kymzlky acetaminophen without relief of her discomfort. Associated with her pain she reports she is lightheadedness, she is having dizziness; room spinning sensation, tinnitus; ear fullness sensation, light sensitivity with prominence in the left eye and "seeing stars." As her discomfort radiates inferiorly into her neck her pain becomes an achiness sensation. She also rates this discomfort 9/10. Her discomfort worsens with head movements. She has had no relief from her medications. She denies chris stiffness and has not had any recent upper respiratory tract symptoms or fevers. She reports this is not the worst headache of her life. She reports she has had one previously that was more severe than her current. Additionally she complains of severe chest pain. Her pain started at 7 AM this morning while eating. She describes this as an achy over the anterior chest. She rates this discomfort 9/10. The pain is "shooting into the back". Her discomfort increases with palpation. She has not identified any alleviating factors related to the pain. Associated with the pain she reports she is feeling short of breath and is having intermittent palpitations. Historically she reports she had knee arthroplasty in September of this year. She does report this morning she took her medications including her narcotics and anti-inflammatory medications, drove to see her first client and her symptoms exacerbated. She then drove to the our office and reports that 1 of the nurses checked her blood pressure and it was 194/100; she does feel her symptoms are related to hypertension. She denies fevers, chills, sweats, skin eruptions, skin color changes, recent head trauma, difficulty speaking, difficulty ambulating/coordinating body movements, neck stiffness, upper respiratory tract symptoms, sore throat, voice changes, drooling, painful talking, cough, wheezing, hemoptysis, previous clots , claudication, abdominal pain, nausea, vomiting, diarrhea, constipation, urinary symptoms, hematuria, genital paresthesias, bowel and bladder dysfunction , upper and lower extremity weakness/numbness/tingling. Review of Systems: As noted above in history of present illness. All body systems were reviewed and found to be negative as noted above. Past Medical History: As noted above and anxiety, cat bite cellulitis, depression, GERD, obesity, osteoarthritis, sleep apnea, status post gastric bypass, unspecified spinal surgery, cholecystectomy, tonsillectomy. Current Medications: Medications Dose Route/Sig Max Daily Dose Days Date Category Dose Instructions Ibuprofen 200 Mg Cap 1 Dose PO UD PRN 02/23/18 Reported Lidocaine 1 Patch Tdsy 1 Patch TOP DAILY 02/23/18 Reported Buspar (Buspirone Hcl) 15 Mg Tab 15 Mg PO BID PRN 11/16/17 Reported Meloxicam 15 Mg Tab 15 Mg PO DAILY 11/16/17 Reported [place] 5MG/325MG (Acetaminophen/Hydrocodone Bitart) Tab 1 Tablet PO QD-BID PRN 11/16/17 Reported PRN PAIN Tylenol (Acetaminophen) 500 Mg Tab 1,000 Mg PO Q6 PRN 11/16/17 Reported Bupropion HCl Xl (Bupropion HCl) 300 Mg Tabcr 300 Mg PO DAILY 09/21/17 Reported Flonase Allergy Relief (Fluticasone Propionate (Nasal)) 50 Mcg/Act Spr 1 [place] DIXON DAILY PRN 07/12/17 Reported Flexeril (Cyclobenzaprine Hcl) 10 Mg Tab 10 Mg PO Q8 PRN 05/16/17 Reported Biotin 1 Mg Cap 1 Cap PO QAM 04/22/17 Reported Effexor Extended Rel (Venlafaxine Hcl) 150 Mg Capcr 1 Tab PO QAM 04/13/17 Reported WITH 75MG CAPSULE Effexor Extended Rel (Venlafaxine Hcl) 75 Mg Capcr 1 Tab PO QAM 04/13/17 Reported WITH 150MG CAPSULE Allergies to Medications: Patient denies. Social History: Patient is currently employed; she feels safe in her home environment; Physical Examination: Vital Signs: Date Time Temp Pulse Resp B/P (MAP) Pulse Ox O2 Delivery O2 Flow Rate FiO2 02/23/18 13:24 79 20 146/76 98 02/23/18 12:47 79 20 150/70 96 Room Air 02/23/18 12:02 147/68 02/23/18 12:00 90 20 100 Room Air 02/23/18 11:32 74 16 144/74 100 Room Air 02/23/18 11:12 70 20 104/59 98 Room Air 02/23/18 10:07 75 02/23/18 10:01 79 155/101 89 127/87 99 123/91 02/23/18 10:00 98 Room Air 02/23/18 09:43 36.8 82 20 151/82 98 Room Air GENERAL: 47-year-old female in mild to moderate distress due to symptoms, nontoxic-appearing, afebrile and hemodynamically stable. NEUROLOGICAL: Awake, alert and oriented to person, place and time. Answering questions appropriately and following commands. Normal gait. Good hand eye coordination. No focal motor or sensory deficits. Cranial nerves II through XII grossly intact. Normal rapid alternating movements of the hands and fingers. Normal heel garcía test. Good short-term and long-term recall. SKIN: Warm, dry and pink. No soft tissue eruptions or trauma noted. HEENT: Atraumatic and normocephalic. No tenderness or erythema over the frontal or maxillary sinuses. External ears are nontender. Auditory canals are pink and patent. Tympanic membranes were not erythematous or edematous. PERRLA. EOMI without nystagmus. Funduscopic examination was deferred due to light sensitivity. Sclera white and conjunctiva pink without drainage. No drainage from naris without audible congestion. Oral cavity moist and pink. Airway is patent. Uvula is midline and no abscesses were seen. Pharynx is nonerythematous or edematous. Speech normal and clear. No lymphadenopathy. Trachea midline. No jugular venous distention. No carotid bruits. BACK: No tenderness over the bony cervical and thoracic spine. Mild tenderness throughout the cervical length paramusculature without spasm. Full range of motion of the cervical spine. No CVA tenderness. THORAX: Lungs sounds are clear to auscultation and equal bilaterally with symmetrical chest wall. No wheezing, rales or rhonchi. Mild tenderness throughout the anterior chest wall without bony deformity, bony crepitus, swelling, erythema or subcutaneous air. No increased respiratory effort or rate. HEART: Regular rate and rhythm. No gallops, rubs or murmurs are appreciated. PMI was not displaced. ABDOMEN: Obese, soft and nontender. Positive bowel sounds in all quadrants. No guarding, rigidity or organomegaly. EXTREMITIES: Moves all extremities well on command and with purpose. All distal neurovascular statuses are intact and equal bilaterally. No calf tenderness or cords. 4/5 muscle strength in all movements of the upper and lower extremity joints. Minimal dependent edema. ED Course: Patient is assessed as noted above. Patient's medication list was reviewed. Laboratory Testing: Test 02/23/18 10:10 02/23/18 11:15 Range/Units White Blood Count 7.43 4.8-10.8 K/uL Red Blood Count 4.81 4.2-5.4 M/uL Hemoglobin 12.0 12.0-16.0 g/dL Hematocrit 39.3 37-47 % Mean Corpuscular Volume 81.7 80-100 fL Mean Corpuscular Hemoglobin 24.9 25-34 pg Mean Corpuscular Hemoglobin Concent 30.5 32-36 g/dl Platelet Count 223 130-400 K/uL Mean Platelet Volume 11.0 7.4-10.4 fL Neutrophils (%) (Auto) 66.3 % Lymphocytes (%) (Auto) 21.5 % Monocytes (%) (Auto) 7.9 % Eosinophils (%) (Auto) 3.4 % Basophils (%) (Auto) 0.9 % Neutrophils # (Auto) 4.92 1.4-6.5 K/uL Lymphocytes # (Auto) 1.60 1.2-3.4 K/uL Monocytes # (Auto) 0.59 0.11-0.59 K/uL Eosinophils # (Auto) 0.25 0-0.5 K/uL Basophils # (Auto) 0.07 0-0.2 K/uL RDW Standard Deviation 53.4 36.4-46.3 fL RDW Coefficient of Variation 18.0 11.5-14.5 % Immature Granulocyte % (Auto) 0.0 % Immature Granulocyte # (Auto) 0.00 0.00-0.02 K/uL Erythrocyte Sedimentation Rate 9 0-21 mm/hr D-Dimer 690 0-500 ug/L FEU Sodium Level 138 136-145 mmol/L Potassium Level 4.5 3.5-5.1 mmol/L Chloride Level 110 98-107 mmol/L Carbon Dioxide Level 27 21-32 mmol/L Anion Gap 1.0 3-11 mmol/L Blood Urea Nitrogen 18 7-18 mg/dl Creatinine 0.78 0.60-1.20 mg/dl Est Creatinine Clear Calc Drug Dose 150.6 ml/min Estimated GFR () 103.5 Estimated GFR (Non- 89.3 BUN/Creatinine Ratio 23.0 10-20 Random Glucose 94 70-99 mg/dl Calcium Level 8.1 8.5-10.1 mg/dl Total Bilirubin 0.5 0.2-1 mg/dl Direct Bilirubin 0.2 0-0.2 mg/dl Aspartate Amino Transf (AST/SGOT) 26 15-37 U/L Alanine Aminotransferase (ALT/SGPT) 41 12-78 U/L Alkaline Phosphatase 84 45-117 U/L Troponin I < 0.015 0-0.045 ng/ml Total Protein 6.8 6.4-8.2 gm/dl Albumin 3.4 3.4-5.0 gm/dl Thyroid Stimulating Hormone (TSH) 1.480 0.300-4.500 uIu/ml Human Chorionic Gonadotropin, Qual NEG NEG Lyme Disease IgG Antibody NEG NEG Lyme Disease IgM Antibody NEG NEG Urine Color YELLOW Urine Appearance CLOUDY CLEAR Urine pH 5.0 4.5-7.5 Urine Specific [place] 1.033 1.000-1.030 Urine Protein NEG NEG Urine Glucose (UA) NEG NEG Urine Ketones NEG NEG Urine Occult Blood NEG NEG Urine Nitrite NEG NEG Urine Bilirubin NEG NEG Urine Urobilinogen NEG NEG Urine Leukocyte Esterase NEG NEG Urine WBC (Auto) 1-5 0-5 /hpf Urine RBC (Auto) 0-4 0-4 /hpf Urine Hyaline Casts (Auto) 5-10 0-5 /lpf Urine Epithelial Cells (Auto) >30 0-5 /lpf Urine Bacteria (Auto) NEG NEG Urine Opiates Screen POS NEG Urine Methadone, Qualitative NEG NEG Urine Barbiturates NEG NEG Urine Phencyclidine (PCP) Level NEG NEG Ur Amphetamine/Methamphetamine NEG NEG MDMA (Ecstasy) Screen POS NEG Urine Benzodiazepines Screen NEG NEG Urine Cocaine Metabolite NEG NEG Urine Marijuana (THC) NEG NEG EKG: Was read by myself and shows normal sinus rhythm with a ventricular rate of 74 bpm. Normal axis, intervals and complexes. No acute ST changes indicating ischemia, injury or infarction. This was compared to a previous from June 2017 no acute changes were noted. Chest X-Ray: Was read by myself and the radiologist showing no acute infiltrates , effusions or pneumothorax. There was mild enlargement of the cardiac silhouette and mild pulmonary vascular prominence. Also radiologist noted that there was a mild low lung volume and degenerative changes to the thoracic spine. Head CT: Was reviewed by myself and read by the radiologist showing no acute intracranial abnormalities, skull fractures, masses, midline shift, acute infarction. Paranasal sinuses and mastoid air cells are clear. Chest CTA: Was reviewed by myself and read by the radiology showing no evidence of pulmonary emboli and mediastinal and hilar lymphadenopathy of questionable etiology. Radiologist also notes cholecystectomy clips present, normal- appearing thyroid normal heart size, coronary artery calcification, no pericardial or pleural effusion and postsurgical changes related to gastric bypass. Degenerative changes to the thoracic spine was also noted. Patient was hydrated with normal saline and she received 30 mg of Toradol IV, 4 mg of Zofran IV and 50 mg of Benadryl IV for her symptoms. Patient was reassessed multiple times and on secondary evaluation she reported she had mild relief of her headache but still rated her discomfort 7/10 and she was given 1 g of acetaminophen IV Decadron IV. Patient's case was reviewed with Dr. Dawson; we agreed on diagnostic approach, treatment, disposition and plan. Patient was educated about today's findings and instructed on her treatment plan ; she verbalized understanding and agreement with this plan. Clinical Impression: Severe headache. Chest pain. Mediastinum and hilar lymphadenopathy. Hypertension. Decision-Making: Initially my differential diagnosis for her headache I considered intracranial bleed, sinusitis, CVA, intracranial mass, mass-effect and others. For her chest pain I considered acute coronary syndrome, thoracic aneurysm, pneumothorax, pneumonia, pulmonary embolism, musculoskeletal disorder and other causes. Disposition: Patient discharged home in stable condition accompanied by her ; prior to departure she was reassessed and she reported resolution of her chest discomfort but still was having a headache that she rated 4/10. Plan: Patient was encouraged to continue your current medications as prescribed. Patient was encouraged to contact your family physician and request follow-up care and treatment for your symptoms tonight and referral to specialist for your lymphadenopathy. Patient was encouraged to return to the ED for worsening symptoms, fevers, shortness of breath, coughing up blood, worsening headaches, any new abnormal neurological symptoms or any new/concerning symptoms.
== END 2018-02-23 13:26 | disposition home or self-care (01) ==
LOC: C.EDB 09:41
DX: R51 Headache (principal); R07.9 Chest pain, unspecified; R59.0 Localized enlarged lymph nodes; I10 Essential (primary) hypertension; Z98.84 Bariatric surgery status; F41.9 Anxiety disorder, unspecified; F32.9 Major depressive disorder, single episode, unspecified; K21.9 Gastro-esophageal reflux disease without esophagitis; E66.9 Obesity, unspecified; M19.90 Unspecified osteoarthritis, unspecified site; G47.30 Sleep apnea, unspecified; Z79.899 Other long term (current) drug therapy

== ENCOUNTER 2018-03-03 08:06 | Emergency (ER) | payer BC ==
[~2018-03-03] VITALS: Ht 180.3 cm; Wt 147.7 kg
[~2018-03-03 08:06] MED LIST changes: -GLUCTAB7 PO; +IBUP200C80 PO; +LDDP5 TOP; -LIDOCAINE 5% TOP
[2018-03-03 08:23] VITALS: TEMP 36.5; Ht 180.3 cm; Wt 147.7 kg
[2018-03-03] MEDS ORDERED: LISI-788 PO (08:53)
[2018-03-03] MEDS ORDERED: PRED10TA PO (08:53)
[2018-03-03] MEDS ORDERED: ULT50 PO (08:53)
[2018-03-03] MEDS ORDERED: DEXAMETHASONE SOD INJ 4 MG/ML VIAL IV STA (08:55)
[2018-03-03] MEDS ORDERED: DiphenhydrAMINE HCL 50 MG/ML VIAL IV STA (08:55)
[2018-03-03] MEDS ORDERED: KETOROLAC TROMETHAMINE 30 MG/ML VIAL IV STA (08:55)
[2018-03-03] MEDS ORDERED: PROMETHAZINE HCL INJ 25 MG/ML 1 ML VIAL IV STA (08:55)
[2018-03-03] MEDS ORDERED: MoRPHine SULFATE 10 MG/ML CARP/VIAL IV STA (10:35)
[2018-03-03] MEDS ORDERED: MECLIZINE HCL 25 MG TAB PO STA (10:35)
[2018-03-03] MEDS ORDERED: ALUMINUM/MAGNESIUM SUSP 30 ML UDC PO STA (12:01)
[2018-03-03] MEDS ORDERED: LIDOCAINE HCL 2% VISC SOLN 20 ML UDC PO STA (12:01)
--- NOTE | 2018-03-03 12:52 | EMERGENCY ROOM VISIT NOTE ---
History First contact with patient: 08:21 Chief Complaint: HEADACHE Stated Complaint: 2 WEEK HEADACHE,HERE LAST TUESDAY FOR SAME THING History of Present Illness The patient is a 47 year old female who presents to the Emergency Room with complaints of a headache which she has had for the last 2 weeks. The patient states that she was seen here last for the same thing. She states that her headache has never gone away. States that she takes hydrocodone and may take it down to 5 but then goes right back up again. She describes the pain as being in in the back of her head sometimes is in the neck. She also admits to some photophobia. She denies any other visual changes. She denies any dizziness. The patient does admit to some nausea. The patient was seen at her family doctor 2 days ago and she was placed on steroids. The patient states that she did not set her up with a neurologist. The patient does admit to having a history of migraines years ago. She states she is currently not on any migraine medication. The patient is being seen by pulmonology this week for abnormal findings on a chest CT last week. Review of Systems 10 system review was performed and was negative unless stated otherwise history of present illness. 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 (13) Right upper quadrant abdominal pain (14) Sleep apnea Surgical Problems: (1) History of gastric bypass (2) History of lumbosacral spine surgery (3) Hx of cholecystectomy (4) Hx of gastric bypass (5) Hx of tonsillectomy Family History FH: colon cancer FH: ovarian cancer Hypertension Social History Smoking Status: Never Smoker Alcohol Use: none Drug Use: none Marital Status: Housing Status: lives with family Current/Historical Medications Scheduled Biotin (Biotin), 1 CAP PO QAM Bupropion HCl (Bupropion HCl Xl), 300 MG PO DAILY Lidocaine (Lidocaine), 1 PATCH TOP DAILY Lisinopril/Hctz (Zestoretic 20MG/25MG), 1 TAB PO DAILY Meloxicam (Meloxicam), 15 MG PO DAILY Prednisone (Prednisone), 1 DOSE PO UD Venlafaxine Hcl (Effexor Extended Rel), 1 TAB PO QAM Venlafaxine Hcl (Effexor Extended Rel), 1 TAB PO QAM Scheduled PRN Acetaminophen (Tylenol), 1,000 MG PO Q6 PRN for Pain Buspirone Hcl (Buspar), 15 MG PO BID PRN for UNDECIDED Cyclobenzaprine Hcl (Flexeril), 10 MG PO Q8 PRN for Muscle Spasms Hydrocodone/Acetaminophen 5MG/325MG ([place] 5MG/325MG), 1 TABLET PO qd-bid PRN for Pain Ibuprofen (Ibuprofen), 1 DOSE PO UD PRN for Pain Tramadol HCl (Tramadol HCl), 50 MG PO UD PRN for Pain Physical Exam Vital Signs Date Time Temp Pulse Resp B/P (MAP) Pulse Ox O2 Delivery O2 Flow Rate FiO2 03/03/18 12:23 80 16 118/72 03/03/18 08:23 36.5 124 17 147/72 97 Room Air Physical Exam GENERAL: 47-year-old female appears uncomfortable secondary to headache. MENTAL Status: Alert and oriented 3. EYES: PERRLA. EOMs intact. EARS: Canals clear. TMs without fluid level noted. NECK: Supple, no lymphadenopathy noted. No carotid bruits noted. LUNGS: Clear auscultation without wheezes rales or rhonchi. CARDIAC: Regular rate and rhythm without murmur. Pulses is full and equal throughout. NEURO:Cranial nerves two through 12 intact. Cerebellar function intact with [id number]. Fine motor intact with alternating finger motions. Medical Decision & Procedures Medications Administered Medications (Trade) Dose Ordered Sig/Becka Route Start Time Stop Time Status Last Admin Dose Admin Promethazine HCl (Phenergan Inj) 25 mg NOW STAT IV 03/03/18 08:55 03/03/18 08:58 DC 03/03/18 09:13 25 MG Diphenhydramine HCl (Benadryl Inj) 50 mg NOW STAT IV 03/03/18 08:55 03/03/18 08:58 DC 03/03/18 09:17 50 MG Dexamethasone Sodium Phosphate (Decadron Inj) 10 mg NOW STAT IV 03/03/18 08:55 03/03/18 08:58 DC 03/03/18 09:13 10 MG Ketorolac Tromethamine (Toradol Inj) 30 mg NOW STAT IV 03/03/18 08:55 03/03/18 08:58 DC 03/03/18 09:17 30 MG Meclizine HCl (Antivert Tab) 25 mg NOW STAT PO 03/03/18 10:35 03/03/18 10:36 DC 03/03/18 10:47 25 MG Morphine Sulfate (MoRPHine SULFATE INJ) 6 mg NOW STAT IV 03/03/18 10:35 03/03/18 10:36 DC 03/03/18 10:47 6 MG Lidocaine HCl (Viscous Lidocaine 2% Soln) 10 ml NOW STAT PO 03/03/18 12:01 03/03/18 12:03 DC 03/03/18 12:22 10 ML Al Hydroxide/Mg Hydroxide (Maalox Susp) 30 ml NOW STAT PO 03/03/18 12:01 03/03/18 12:03 DC 03/03/18 12:22 30 ML ED Course The patient was evaluated. The patient's EMR medication list were reviewed. The patient had CT of her head last week which did not reveal any abnormality. I do not feel that we have to repeat the CAT scan since this is a continued headache. IV access was obtained. The patient was given Phenergan 25 mg IV, Toradol 30 mg IV, Decadron 10 mg IV and Benadryl 50 mg IV. Patient was reevaluated and stated that her headache was still a 7 out of 10 and she was very dizzy. She was given meclizine 25 mg p.o. and morphine 6 mg IV. The patient was reevaluated and stated that the morphine was given giving her chest pains which it has done in the past but she did not inform the nurse prior to her receiving the morphine. The patient was reevaluated once again and stated that the pain was better in the chest but now she had epigastric pain. Her she states that her headache was tolerable and rated it at a 5 out of 10. The patient was given a GI cocktail. The patient was reevaluated was feeling better. The patient was discharged home with a family member driving. Medical Decision Differential includes: Acute intracranial bleed, trauma, meningitis, encephalitis, increased intracranial pressure, mass or mass effect, facial or dental infection, temporal arteritis, CVA, TIA, acute hypertensive emergency, sinusitis, carbon monoxide exposure. [place] Drug Monitoring Program Search Results: patient reviewed within database Medication Reconcilliation Current Medication List: was personally reviewed by me Blood Pressure Screening Patient's blood pressure: Elevated blood pressure Blood pressure disposition: Elevated BP felt to be situational Impression Primary Impression: Migraine Departure Information Dispostion Home / Self-Care Condition GOOD Referrals Johnny Gomez M.D. (PCP) Alexi Koenig M.D. (MEDICINE) Forms HOME CARE DOCUMENTATION FORM, IMPORTANT VISIT INFORMATION Patient Instructions ED Headache Migraine, [facility] Additional Instructions Home and rest in a dark room for the remainder of the day. Do not drive for the remainder of the day. Call Dr. Koenig for follow-up appointment. Continue prednisone as prescribed. Problem Qualifiers Primary Impression: Migraine Migraine type: with aura Status migrainosus presence: without status migrainosus Intractability: intractable Qualified Codes: G43.119 - Migraine with aura, intractable, without status migrainosus
[2018-03-03 13:04] VITALS: BP 119/68; PULSE 98; O2SAT 98
== END 2018-03-03 13:05 | disposition home or self-care (01) ==
LOC: C.EDB 08:08
DX: G43.119 Migraine with aura, intractable, without status migrainosus (principal); F41.9 Anxiety disorder, unspecified; F32.9 Major depressive disorder, single episode, unspecified; K21.9 Gastro-esophageal reflux disease without esophagitis; I10 Essential (primary) hypertension; E66.9 Obesity, unspecified; M19.90 Unspecified osteoarthritis, unspecified site; G47.30 Sleep apnea, unspecified; Z79.899 Other long term (current) drug therapy

== ENCOUNTER 2019-02-07 10:29 | Observation (INO) ==
--- OUTSIDE RECORDS SUMMARY | 2019-02-07 10:33 | External Medical Summary | Continuity of Care Document ---
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) Lumbago (724.2) (M54.5) Muscle spasm (728.85) (M62.838) Nonallergic rhinitis (472.0) (J31.0) Morbid obesity with BMI of 50.0-59.9, adult (278.01) (E66.01 ) Primary localized osteoarthritis of knees, bilateral (715.16 ) (M17.0) Generalized anxiety disorder (300.02) (F41.1) Rebound headache (339.3) (G44.40) Mediastinal adenopathy (785.6) (R59.0) Flu-like symptoms (780.99) (R68.89) Hilar adenopathy (785.6) (R59.0) Sarcoidosis (135) (D86.9) Dyspnea (786.09) (R06.00) Allergies and Adverse Reactions No Known Allergies (Allergy) Medications predniSONE 10 MG Oral Tablet; Take 5 tab s for 3 days then 4 tabs for 3 days then 3 tabs for 3 days then 2 tabs for 3 days then 1 tab for 3 days then stop. JUANITA Amador Start: 08-Mar-2018 Quantity: 45 Refills: 1 Symbicort 160-4.5 MCG/ACT Inhalation Aer osol; INHALE 1 PUFF TWICE DAILY. RINSE MOUTH AFTER USE JUANITA Amador Start: 18-Apr-2018 Quantity: 2 10.2 GM Inhaler Refills: 0 Effexor XR 75 MG Oral Capsule Extended R elease 24 Hour; TAKE 1 CAP PO DAILY WITH 150MG FOR TOTAL DOSE OF 225MG. Start: 08-Mar-2018 Refills: 0 Effexor XR 150 MG Oral Capsule Extended Release 24 Hour; TAKE 1 CAP PO ONCE DAILY ALONG WITH 75MG DOSE Start: 08-Mar-2018 Refills: 0 Lisinopril-hydroCHLOROthiazide 20-25 MG Oral Tablet; TAKE 0. 5 TABS PO DAILY. Start: 08-Mar-2018 Refills: 0 Virtussin A/C 100-10 MG/5ML Oral Solutio n; TAKE 5 - 10 ML EVERY 4 TO 6 HOURS NEEDED FOR COUGH. JUANITA Amador Start: 09-Aug-2018 Quantity: 1 473 ML Bottle Refills: 0 Iron TABS Refills: 0 Magnesium TABS Refills: 0 predniSONE 10 MG Oral Tablet; Take 5 pil ls daily for 3 weeks to start and then will slowly taper as dependent on response. JUANITA Amador Start: Quantity: 150 Refills: 2 Meloxicam 15 MG Oral Tablet; TAKE 1 TABLET DAILY. Start: 08-Mar-2018 Refills: 0 Acetaminophen 325 MG Oral Tablet; TAKE 2 TAB PO EVERY 8 HRS PRN FEVER Start: 08-Mar-2018 Refills: 0 Glucosamine Chondr 1500 Complx Oral Capsule; TAKE 1 TAB PO 2 TIMES A DAY Start: 08-Mar-2018 Refills: 0 Biotin 5000 MCG Oral Capsule; Take 1 PO Daily Start: 08-Mar-2018 Refills: 0 Lidocaine 5 % External Patch; APPLY 1 PATCH TO EACH KNEE TALIA LY Start: 08-Mar-2018 Refills: 0 Wellbutrin XL 300 MG Oral Tablet Extended Release 24 H our; TAKE 1 TABLET DAILY. Start: 08-Mar-2018 Refills: 0 traMADol HCl - 50 MG Oral Tablet; TAKE 1 TABLET 4 TIMES DAILY NEEDED FOR PAIN. Start: 08-Mar-2018 Refills: 0 HYDROcodone-Acetaminophen 5-325 MG Oral Tablet; TAKE 1 TABLET EVERY 4 TO 6 HOURS NEEDED FOR PAIN. Start: 08-Mar-2018 Refills: 0 Cyclobenzaprine HCl - 10 MG Oral Tablet; TAKE 1 TABLET 3 TIMES DAILY NEEDED. Start: 08-Mar-2018 Refills: 0 Procedures History of knee replacement Status: Comp leted History of Colonoscopy (Fiberoptic) Stat us: Completed History of Oral Surgery Tooth Extraction Status: Completed History of esophagogastroduodenoscopy St atus: Completed History of gastric bypass surgery Status : Completed History of Spinal Laminotomy Status: Com pleted History of Cholecystectomy Laparoscopic Status: Completed History of Tonsillectomy Status: Complet ed History of Mediastinoscopy Status: Compl eted 11-Apr-2018 0:00 Immunizations Fluzone Quadrivalent 0.5 ML Intramuscular Suspension On: 2-O 11:34 Lot #: [id number], [employer] Family History Mother Family history of hypertension (V17.49) (Z82.49) Status: Act gautam Family history of diabetes mellitus (V18.0) (Z83.3) Status: Active Grandmother Family history of hypertension (V17.49) (Z82.49) Status: Act gautam Family history of musculoskeletal disease (V17.89) (Z82.69) Status: Active aunt Family history of obesity (V18.19) (Z83.49) Status: Active Family history of mental disorder (V17.0) (Z81.8) Status: Ac tive Family history of malignant neoplasm of colon (V16.0) (Z80.0 ) Status: Active Father Family history of gastrointestinal disorder (V18.59) (Z83.79 ) Status: Active Family history of malignant neoplasm (V16.9) (Z80.9) Status: Active Unknown Family Member Family history of malignant neoplasm of colon Status: Active Comments: Family History (V16.0) (Z80.0) Grandfather Family history of malignant neoplasm of colon (V16.0) (Z80.0 ) Status: Active Grandfather Family history of malignant neoplasm of colon (V16.0) (Z80.0 ) Status: Active Social History - Smoking Status Never smoker Plan of Treatment Planned Observations Planned Goals not documented Results No Known Results Results not documented Encounters Appointment; Tello Amador PA-C 30-Aug-2018 14:30 Encounter Diagnosis: Problem not documented Appointment; Tello Amador PA-C 11-Aug-2018 11:00 Encounter Diagnosis: Problem not documented Appointment; Tello Amador PA-C 09-Aug-2018 8:45 Encounter Diagnosis: Problem not documented Appointment; Tello Amador PA-C 21-Jun-2018 8:45 Encounter Diagnosis: Problem not documented Appointment; Tello Amador PA-C 11-May-2018 10:00 Encounter Diagnosis: Problem not documented Appointment; Tello Amador PA-C 18-Apr-2018 9:15 Encounter Diagnosis: Problem not documented Appointment; Sacha Quinones M.D. 17-Apr-2018 9:30 Encounter Diagnosis: Problem not documented Appointment; Sacha Quinones M.D. 11-Apr-2018 13:00 Encounter Diagnosis: Problem not documented Appointment; Tello Amador PA-C 04-Apr-2018 15:45 Encounter Diagnosis: Problem not documented Appointment; Pulmonary, Funct Testing 04-Apr-2018 15:00 Encounter Diagnosis: Problem not documented Appointment; Sacha Quinones M.D. 04-Apr-2018 10:15 Encounter Diagnosis: Problem not documented Appointment; Tello Amador PA-C 09-Mar-2018 8:30 Encounter Diagnosis: Problem not documented
[2019-02-07] MEDS ORDERED: ACETAMINOPHEN 325 MG TAB PO STA (11:01)
[2019-02-07] MEDS ORDERED: SODIUM CHLORIDE 0.9% 1000ML 1,000 ML IV SCH (11:15)
[2019-02-07 11:20] LABS: Basophils # (auto) 0.06 K/uL (0-0.2); Basophils % (auto) 0.6 %; Eosinophils # (auto) 0.11 K/uL (0-0.5); Hematocrit (blood only) 47.1 % (37-47); Hemoglobin 15.5 g/dL (12.0-16.0); Immature Granulocytes # (auto) 0.03 K/uL (0.00-0.02); Immature Granulocytes % (auto) 0.3 %; Lymphocytes # (auto) 1.11 K/uL (1.2-3.4); Lymphocytes % (auto) 10.3 %; Mean Corpuscular Hgb Conc 32.9 g/dL (32-36); Mean Corpuscular Volume 88.4 fL (80-100); Mean Platelet Volume 11.3 fL (7.4-10.4); Monocytes % (auto) 4.6 %; Neutrophils # (auto) 8.97 K/uL (1.4-6.5); Neutrophils % (auto) 83.2 %; Platelet Count 272 K/uL (130-400); RDW Coefficient of Variation 15.9 % (11.5-14.5); RDW Standard Deviation 50.9 fL (36.4-46.3); Red Blood Count 5.33 M/uL (4.2-5.4); White Blood Count 10.78 K/uL (4.8-10.8)
--- NOTE | 2019-02-07 11:23 | XRay Report ---
XR chest 1V portable HISTORY: chest tightness COMPARISON: Chest 04/11/2018. FINDINGS: There are low lung volumes. No pleural effusions. No pneumothorax. The heart is normal in s ize. The lungs are clear. IMPRESSION: No significant change compared to the prior study. No acute process. Electronically signed by: Parveen Maurice M.D. 02/07/2019 11:21 AM
[2019-02-07 11:27] LABS: Albumin Level 3.9 gm/dl (3.4-5.0); Blood Urea Nitrogen 25 mg/dl (7-18); Carbon Dioxide 25 mmol/L (21-32); Chloride 106 mmol/L (98-107); Est GFR (Non-African American) 44.9; Glucose 106 mg/dl (70-99); Magnesium 2.1 mg/dl (1.8-2.4); Potassium 4.2 mmol/L (3.5-5.1); Sodium 139 mmol/L (136-145)
--- NOTE | 2019-02-07 11:29 | Emergency Department Note ---
History of Present Illness General Chief complaint: Cardiac Assessment Stated complaint: HEADACHE,SOB, CHEST TIGHTNESS Time Seen by Provider: 02/07/19 10:54 History of Present Illness Maximum Pain Intensity: 7 This is a 48-year-old female with a history of sarcoidosis that presents to the emergency department via private vehicle with complaints of "headache, shortness of breath, chest tightness". The patient states that for the past several days she has been experiencing a headache, neck pain, pain around the ears, back of the neck and into the chest. She states that there is also some shortness of breath. She rates the overall discomfort currently as a 7/10. She notes that she experienced similar symptoms about a year ago when she was diagnosed with sarcoidosis. She states that steroids generally help her for this. She denies any cardiac history personally. She does note a history of hypertension as well as family history of heart issues. No history of blood clots that she is aware of. Home Medications Home Medications Medication Instructions Recorded Confirmed Type biotin 5,000 mcg SUBLINGUAL QAM 04/06/18 02/07/19 History cyclobenzaprine 10 mg PO TID PRN 04/06/18 02/07/19 History hydrocodone-acetaminophen 1 tab PO Q6H PRN 04/06/18 02/07/19 History lisinopril-hydrochlorothiazide 0.5 tab PO QAM 04/06/18 02/07/19 History meloxicam 15 mg PO QAM 04/06/18 02/07/19 History venlafaxine [Effexor XR] 75 mg PO QAM 04/06/18 02/07/19 History venlafaxine [Effexor XR] 150 mg PO QAM 04/06/18 02/07/19 History tramadol [Ultram] 50 mg PO QID PRN #15 tab 04/11/18 02/07/19 Rx acetaminophen [Tylenol Arthritis 650 mg PO Q12H PRN 10/23/18 02/07/19 History Pain] buspirone 15 mg PO DAILY 10/23/18 02/07/19 History ferrous sulfate [Iron (ferrous 325 mg PO QAM 10/23/18 02/07/19 History sulfate)] fluticasone propionate [Flonase 2 spray INTRANASAL DAILY PRN 10/23/18 02/07/19 History Allergy Relief] lidocaine [Lidoderm] 1 patch TOPICAL DAILY PRN 10/23/18 02/07/19 History magnesium oxide 400 mg PO QAM 10/23/18 02/07/19 History metoclopramide HCl [Reglan] 10 mg PO Q8 PRN 10/23/18 02/07/19 History bupropion HCl 300 mg PO DAILY 02/07/19 02/07/19 History Allergies Allergy/AdvReac Type Severity Reaction Status Date / Time No Known Allergies Allergy Verified 10/30/18 09:18 Past Med/Surg History Medical History Anxiety (Chronic) Depression (Chronic) Pulmonary sarcoidosis (Chronic) Osteoarthritis (Chronic) Fatty liver (Chronic) Obesity (Chronic) Hypertension (Chronic) Surgical History S/P tonsillectomy (Chronic) H/O vein stripping (Chronic) History of cholecystectomy (Chronic) History of laminectomy (Chronic) History of total right knee replacement (Chronic) History of gastric bypass (Chronic) Family History Mother Family history of diabetes mellitus Grandfather (Paternal) Family hx of colon cancer Social History Preferred Language: Moldovan Communication Ability: Effective Beliefs That Will Affect Care: None Current Living Situation: Spouse Feels Safe at Home: Yes Smoking Status: Never smoker Second Hand Exposure: Yes (parents smoked) Hx Alcohol Use: Yes Alcohol type: beer, wine and hard liquor Alcohol Intake Frequency: Rarely Hx Substance Use: No Review of Systems A total of 10 systems reviewed and were otherwise negative Physical Exam Vital Signs Vital Signs - 24 hr 02/07/19 10:37 02/07/19 10:53 02/07/19 10:56 Temperature 36.5 C Temperature Source Oral Sepsis Recent Fever Within 48 Hours No Sepsis New/Unexplained Change in Mental Status No Sepsis Action Taken by Nursing No Action Required Pulse Rate 92 H 86 94 H Pulse Rate [Left Finger] Pulse Rate from SpO2 Sensor 86 88 Pulse Rhythm Pulse Rhythm [Left Finger] Pulse Strength [Left Finger] Respiratory Rate 16 17 21 Respiratory Effort / Characteristics Respiratory Depth Respiratory Pattern Blood Pressure 133/84 125/71 Blood Pressure [Right Arm] Blood Pressure Mean 100 89 Blood Pressure Mean [Right Arm] Blood Pressure Position [Right Arm] Pulse Oximetry 98 95 97 Oxygen Delivery Method Room Air 02/07/19 11:00 02/07/19 11:01 02/07/19 11:10 Temperature Temperature Source Sepsis Recent Fever Within 48 Hours Sepsis New/Unexplained Change in Mental Status Sepsis Action Taken by Nursing Pulse Rate 88 90 92 H Pulse Rate [Left Finger] Pulse Rate from SpO2 Sensor 78 88 92 H Pulse Rhythm Pulse Rhythm [Left Finger] Pulse Strength [Left Finger] Respiratory Rate 16 14 21 Respiratory Effort / Characteristics Respiratory Depth Respiratory Pattern Blood Pressure 129/77 Blood Pressure [Right Arm] Blood Pressure Mean 94 Blood Pressure Mean [Right Arm] Blood Pressure Position [Right Arm] Pulse Oximetry 95 93 97 Oxygen Delivery Method 02/07/19 11:20 02/07/19 11:30 02/07/19 11:31 Temperature Temperature Source Sepsis Recent Fever Within 48 Hours Sepsis New/Unexplained Change in Mental Status Sepsis Action Taken by Nursing Pulse Rate 89 86 90 Pulse Rate [Left Finger] Pulse Rate from SpO2 Sensor 78 86 78 Pulse Rhythm Pulse Rhythm [Left Finger] Pulse Strength [Left Finger] Respiratory Rate 23 28 H 21 Respiratory Effort / Characteristics Respiratory Depth Respiratory Pattern Blood Pressure 136/81 Blood Pressure [Right Arm] Blood Pressure Mean 99 Blood Pressure Mean [Right Arm] Blood Pressure Position [Right Arm] Pulse Oximetry 91 92 92 Oxygen Delivery Method 02/07/19 11:38 02/07/19 11:40 02/07/19 11:50 Temperature Temperature Source Sepsis Recent Fever Within 48 Hours Sepsis New/Unexplained Change in Mental Status Sepsis Action Taken by Nursing Pulse Rate 110 H 94 H Pulse Rate [Left Finger] Pulse Rate from SpO2 Sensor 85 Pulse Rhythm Pulse Rhythm [Left Finger] Pulse Strength [Left Finger] Respiratory Rate 23 17 Respiratory Effort / Characteristics Respiratory Depth Respiratory Pattern Blood Pressure Blood Pressure [Right Arm] Blood Pressure Mean Blood Pressure Mean [Right Arm] Blood Pressure Position [Right Arm] Pulse Oximetry 99 92 Oxygen Delivery Method Room Air 02/07/19 12:00 02/07/19 12:01 02/07/19 12:10 Temperature Temperature Source Sepsis Recent Fever Within 48 Hours Sepsis New/Unexplained Change in Mental Status Sepsis Action Taken by Nursing Pulse Rate 87 90 88 Pulse Rate [Left Finger] Pulse Rate from SpO2 Sensor 84 92 H 88 Pulse Rhythm Pulse Rhythm [Left Finger] Pulse Strength [Left Finger] Respiratory Rate 17 19 19 Respiratory Effort / Characteristics Respiratory Depth Respiratory Pattern Blood Pressure Blood Pressure [Right Arm] Blood Pressure Mean 99 Blood Pressure Mean [Right Arm] Blood Pressure Position [Right Arm] Pulse Oximetry 95 96 93 Oxygen Delivery Method 02/07/19 12:20 02/07/19 12:30 02/07/19 12:31 Temperature Temperature Source Sepsis Recent Fever Within 48 Hours Sepsis New/Unexplained Change in Mental Status Sepsis Action Taken by Nursing Pulse Rate 89 87 93 H Pulse Rate [Left Finger] Pulse Rate from SpO2 Sensor 88 88 92 H Pulse Rhythm Pulse Rhythm [Left Finger] Pulse Strength [Left Finger] Respiratory Rate 19 17 17 Respiratory Effort / Characteristics Respiratory Depth Respiratory Pattern Blood Pressure 158/88 H Blood Pressure [Right Arm] Blood Pressure Mean 111 Blood Pressure Mean [Right Arm] Blood Pressure Position [Right Arm] Pulse Oximetry 96 96 96 Oxygen Delivery Method 02/07/19 13:00 02/07/19 13:30 02/07/19 13:54 Temperature Temperature Source Sepsis Recent Fever Within 48 Hours Sepsis New/Unexplained Change in Mental Status Sepsis Action Taken by Nursing Pulse Rate 85 87 82 Pulse Rate [Left Finger] Pulse Rate from SpO2 Sensor 83 87 82 Pulse Rhythm Pulse Rhythm [Left Finger] Pulse Strength [Left Finger] Respiratory Rate 18 14 16 Respiratory Effort / Characteristics Respiratory Depth Respiratory Pattern Blood Pressure 136/57 L Blood Pressure [Right Arm] Blood Pressure Mean 83 Blood Pressure Mean [Right Arm] Blood Pressure Position [Right Arm] Pulse Oximetry 97 95 98 Oxygen Delivery Method 02/07/19 13:57 02/07/19 14:00 02/07/19 14:01 Temperature Temperature Source Sepsis Recent Fever Within 48 Hours Sepsis New/Unexplained Change in Mental Status Sepsis Action Taken by Nursing Pulse Rate 80 80 Pulse Rate [Left Finger] 80 Pulse Rate from SpO2 Sensor 81 81 Pulse Rhythm Pulse Rhythm [Left Finger] Regular Pulse Strength [Left Finger] Normal Respiratory Rate 20 14 15 Respiratory Effort / Characteristics Non-Labored Spontaneous Respiratory Depth Normal Respiratory Pattern Regular Blood Pressure 145/57 H Blood Pressure [Right Arm] 136/57 L Blood Pressure Mean 86 Blood Pressure Mean [Right Arm] 83 Blood Pressure Position [Right Arm] Sitting Pulse Oximetry 96 98 98 Oxygen Delivery Method Room Air 02/07/19 14:30 02/07/19 14:31 02/07/19 15:00 Temperature Temperature Source Sepsis Recent Fever Within 48 Hours Sepsis New/Unexplained Change in Mental Status Sepsis Action Taken by Nursing Pulse Rate 82 82 82 Pulse Rate [Left Finger] Pulse Rate from SpO2 Sensor 78 82 83 Pulse Rhythm Pulse Rhythm [Left Finger] Pulse Strength [Left Finger] Respiratory Rate 14 12 15 Respiratory Effort / Characteristics Respiratory Depth Respiratory Pattern Blood Pressure 166/108 H 143/88 H Blood Pressure [Right Arm] Blood Pressure Mean 127 106 Blood Pressure Mean [Right Arm] Blood Pressure Position [Right Arm] Pulse Oximetry 99 98 97 Oxygen Delivery Method 02/07/19 15:30 Temperature Temperature Source Sepsis Recent Fever Within 48 Hours Sepsis New/Unexplained Change in Mental Status Sepsis Action Taken by Nursing Pulse Rate 74 Pulse Rate [Left Finger] Pulse Rate from SpO2 Sensor Pulse Rhythm Regular Pulse Rhythm [Left Finger] Pulse Strength [Left Finger] Respiratory Rate Respiratory Effort / Characteristics Respiratory Depth Respiratory Pattern Blood Pressure Blood Pressure [Right Arm] Blood Pressure Mean Blood Pressure Mean [Right Arm] Blood Pressure Position [Right Arm] Pulse Oximetry 97 Oxygen Delivery Method Room Air VITAL SIGNS - Vital signs and nursing notes were reviewed. Stable and afebrile. GENERAL -48-year-old female appearing his stated age who is in no acute distress. Communicates well with provider and answers questions appropriately. SKIN - Without rashes. HEAD - NC/AT. EYES - PERRL with EOMI bilaterally. Sclera anicteric. EARS - No deformities of external structures noted on gross examination bilaterally. NOSE - Midline and without cyanosis. No epistaxis or purulent drainage noted. MOUTH/OROPHARYNX - Without perioral cyanosis. NECK - Neck with FROM. Supple to palpation. No nuchal rigidity. LUNGS - Chest wall symmetric without accessory muscle use, intercostals retractions, or central cyanosis. Normal vesicular breath sounds CTA B/L. No wheezes, rales, or rhonchi appreciated. CARDIAC - RRR with S1/S2. No murmur, rubs, or gallops appreciated. ABDOMEN - Abdominal contour normal without pulsations or visible masses. BS normoactive all four quadrants. No tenderness, palpable masses, hepatosplenomegaly, or ascites noted. EXTREMITIES - No clubbing or peripheral cyanosis. No pretibial edema present. +5/5 strength noted in UE/LE bilaterally. NEUROLOGIC - Cranial nerves II through XII grossly intact. PSYCH - A&Ox3 and cooperates fully with examiner. Pt is very pleasant and interacts well with examiner. Course Administered Medications Ioversol (Optiray 320 125ml) 118 ml IV ONCE PRN PRN Reason: Interaction Checking Stop: 02/11/19 12:43 Last Admin: 02/07/19 12:48 Dose: 118 ml Documented by: [id number] Discontinued Medications Acetaminophen (Tylenol) 650 mg PO NOW STA Stop: 02/07/19 11:02 Last Admin: 02/07/19 11:35 Dose: 650 mg Documented by: [id number] Sodium Chloride (Nss 1000ml) 1,000 mls @ 999 mls/hr IV .Q1H1M NAVI Stop: 02/07/19 12:15 Last Infusion: 02/07/19 12:39 Dose: 0 mls/hr Documented by: [id number] Admin: 02/07/19 11:36 Dose: 999 mls/hr Documented by: [id number] Methylprednisolone (Solumedrol) 40 mg IV NOW STA Stop: 02/07/19 16:00 Last Admin: 02/07/19 16:09 Dose: Not Given Documented by: [id number] Methylprednisolone (Solumedrol) Confirm Administered Dose 40 mg .ROUTE .STK-MED ONE Stop: 02/07/19 16:05 Last Admin: 02/07/19 16:06 Dose: 40 mg Documented by: [id number] Morphine Sulfate (Morphine Sulfate) 4 mg IV NOW STA Stop: 02/07/19 16:00 Last Admin: 02/07/19 16:09 Dose: Not Given Documented by: [id number] Morphine Sulfate (Morphine Sulfate) Confirm Administered Dose 4 mg .ROUTE .STK- MED ONE Stop: 02/07/19 16:05 Last Admin: 02/07/19 16:06 Dose: 4 mg Documented by: [id number] Medical Decision Making Laboratory Data Result diagrams: 02/07/19 10:54 02/07/19 10:54 Lab Results 02/07/19 02/07/19 02/07/19 Range/Units 10:54 10:54 11:41 WBC 10.78 (4.8-10.8) K/uL RBC 5.33 (4.2-5.4) M/uL Hgb 15.5 (12.0-16.0) g/dL Hct 47.1 H (37-47) % MCV 88.4 (80-100) fL MCH 29.1 (25-34) pg MCHC 32.9 (32-36) g/dL RDW Std Deviation 50.9 H (36.4-46.3) fL RDW Coeff of Wally 15.9 H (11.5-14.5) % Plt Count 272 (130-400) K/uL MPV 11.3 H (7.4-10.4) fL Immature Gran % (Auto) 0.3 % Neut % (Auto) 83.2 % Lymph % (Auto) 10.3 % Hyde % (Auto) 4.6 % Eos % (Auto) 1.0 % Baso % (Auto) 0.6 % Immature Gran # (Auto) 0.03 H (0.00-0.02) K/uL Neut # (Auto) 8.97 H (1.4-6.5) K/uL Lymph # (Auto) 1.11 L (1.2-3.4) K/uL Hyde # (Auto) 0.50 (0.11-0.59) K/uL Eos # (Auto) 0.11 (0-0.5) K/uL Baso # (Auto) 0.06 (0-0.2) K/uL Sodium 139 (136-145) mmol/L Potassium 4.2 (3.5-5.1) mmol/L Chloride 106 (98-107) mmol/L Carbon Dioxide 25 (21-32) mmol/L Anion Gap 8.0 (3-11) BUN 25 H (7-18) mg/dl Creatinine 1.37 H (0.6-1.2) mg/dl Est Cr Clr Drug Dosing 86.0 ml/min Est GFR ( Amer) 52.0 Est GFR (Non-Af Amer) 44.9 BUN/Creatinine Ratio 18.0 (10-20) Glucose 106 H (70-99) mg/dl Calcium 9.0 (8.5-10.1) mg/dl Magnesium 2.1 (1.8-2.4) mg/dl Total Bilirubin 0.3 (0.2-1) mg/dl AST 27 (15-37) U/L ALT 39 (12-78) U/L Alkaline Phosphatase 92 (45-117) U/L Troponin I < 0.015 (0-0.045) ng/ml Total Protein 7.5 (6.4-8.2) gm/dl Albumin 3.9 (3.4-5.0) gm/dl Globulin 3.6 (2.5-4.0) gm/dl Albumin/Globulin Ratio 1.1 (0.9-2) Lipase 165 (73-393) U/L TSH 1.590 (0.300-4.500) uIu/ml Urine Color Yellow Urine Appearance Cloudy A (Clear) Urine pH 5.0 (4.5-7.5) Ur Specific Mobile 1.024 (1.000-1.030) Urine Protein Negative (Negative) Urine Glucose (UA) Negative (Negative) Urine Ketones 2+ H (Negative) Urine Blood Negative (Negative) Urine Nitrite Negative (Negative) Urine Bilirubin Negative (Negative) Urine Urobilinogen Negative (Negative) Ur Leukocyte Esterase Negative (Negative) Urine WBC (Auto) 5-10 H (0-5) /hpf Urine RBC (Auto) 10-30 H (0-4) /hpf U Hyaline Cast (Auto) 5-10 H (0-5) /lpf U Epithel Cells (Auto) >30 H (0-5) /lpf Urine Bacteria (Auto) Negative (Negative) POC Ur Test (NEG) 02/07/19 02/07/19 Range/Units 11:48 14:53 WBC (4.8-10.8) K/uL RBC (4.2-5.4) M/uL Hgb (12.0-16.0) g/dL Hct (37-47) % MCV (80-100) fL MCH (25-34) pg MCHC (32-36) g/dL RDW Std Deviation (36.4-46.3) fL RDW Coeff of Wally (11.5-14.5) % Plt Count (130-400) K/uL MPV (7.4-10.4) fL Immature Gran % (Auto) % Neut % (Auto) % Lymph % (Auto) % Hyde % (Auto) % Eos % (Auto) % Baso % (Auto) % Immature Gran # (Auto) (0.00-0.02) K/uL Neut # (Auto) (1.4-6.5) K/uL Lymph # (Auto) (1.2-3.4) K/uL Hyde # (Auto) (0.11-0.59) K/uL Eos # (Auto) (0-0.5) K/uL Baso # (Auto) (0-0.2) K/uL Sodium (136-145) mmol/L Potassium (3.5-5.1) mmol/L Chloride (98-107) mmol/L Carbon Dioxide (21-32) mmol/L Anion Gap (3-11) BUN (7-18) mg/dl Creatinine (0.6-1.2) mg/dl Est Cr Clr Drug Dosing ml/min Est GFR ( Amer) Est GFR (Non-Af Amer) BUN/Creatinine Ratio (10-20) Glucose (70-99) mg/dl Calcium (8.5-10.1) mg/dl Magnesium (1.8-2.4) mg/dl Total Bilirubin (0.2-1) mg/dl AST (15-37) U/L ALT (12-78) U/L Alkaline Phosphatase (45-117) U/L Troponin I < 0.015 (0-0.045) ng/ml Total Protein (6.4-8.2) gm/dl Albumin (3.4-5.0) gm/dl Globulin (2.5-4.0) gm/dl Albumin/Globulin Ratio (0.9-2) Lipase (73-393) U/L TSH (0.300-4.500) uIu/ml Urine Color Urine Appearance (Clear) Urine pH (4.5-7.5) Ur Specific Mobile (1.000-1.030) Urine Protein (Negative) Urine Glucose (UA) (Negative) Urine Ketones (Negative) Urine Blood (Negative) Urine Nitrite (Negative) Urine Bilirubin (Negative) Urine Urobilinogen (Negative) Ur Leukocyte Esterase (Negative) Urine WBC (Auto) (0-5) /hpf Urine RBC (Auto) (0-4) /hpf U Hyaline Cast (Auto) (0-5) /lpf U Epithel Cells (Auto) (0-5) /lpf Urine Bacteria (Auto) (Negative) POC Ur Test NEG (NEG) Imaging Data Radiologist's Impression: XR chest 1V portable HISTORY: chest tightness COMPARISON: Chest 04/11/2018. FINDINGS: There are low lung volumes. No pleural effusions. No pneumothorax. The heart is normal in size. The lungs are clear. IMPRESSION: No significant change compared to the prior study. No acute process. Electronically signed by: Parveen Maurice M.D. 02/07/2019 11:[address] angio chest PE protocol CT DOSE: 901.74 mGy.cm HISTORY: 48 years-old Female with chest discomfort, hx sarcoid. Acute chest discomfort was history of sarcoidosis TECHNIQUE: Multiple CTA images of the chest were obtained after the intravenous administration of 118 ml Optiray 320. Coronal and sagittal MIPS were obtained from the axial data set and were submitted for review. All measurements were obtained according to NASCET criteria. A dose lowering technique was utilized adhering to the principles of ALARA. COMPARISON: CTA of the chest 02/23/2018 FINDINGS: CTA: Heart is normal in size without pericardial effusion. Mitral annular and mild coronary arterial calcifications are noted. There is no thoracic aortic aneurysm or dissection. There is patency of the imaged great vessels. There is suboptimal contrast opacification of the pulmonary arterial tree secondary to contrast bolus timing. No central pulmonary emboli identified. CT CHEST: No focal thyroid nodule identified. Mildly enlarged mediastinal and hilar lymph nodes redemonstrated. Subcarinal lymph nodes are seen measuring up to 1.1 x 2.6 cm., Slightly decreased from comparison. Right hilar lymph nodes measure up to 1.3 cm in short axis, previously 1.7 cm. Right paratracheal lymph nodes measure up to 1.1 cm, previously 1.5 cm. No new or progressive adenopathy. Inferior lung bases are excluded from the [id number]. No pneumothorax, pleural effusion, overt pulmonary edema or focal airspace consolidation typical for pneumonia. There are no suspicious pulmonary nodules or masses. 6 mm fissural nodule on the right on image 129 series 4 is suggestive of a probable lymph node, unchanged. Central airways appear patent. Prior gastric bypass. Hepatic steatosis. Soft tissues are unremarkable. Bones appear intact. Multilevel spondylitic spurring of the spine. IMPRESSION: 1. Suboptimal opacification of the pulmonary tree all tree secondary to contrast bolus timing. No central pulmonary emboli identified. 2. Mildly decreased size of the mediastinal and hilar adenopathy. 3. Coronary arterial calcifications. 4. Hepatic steatosis. 5. Prior gastric bypass. The above report was generated using voice recognition software. It may contain grammatical, syntax or spelling errors. Electronically signed by: Paul Garcia M.D. 02/07/2019 1:05 PM MDM Narrative Patient was seen and evaluated as above in room C8. Review was performed of nursing notes and vital signs. After obtaining a thorough history and physical examination the above work up was performed. She presents to us today with a headache, shortness of breath and chest tightness. She has a history of sarcoidosis. She is nontoxic on exam. IV access was established. Chest x-ray with results as above. This was negative. Decision was made to obtain a CTA given the patient's presentation here today with results as above as well. This was essentially negative and there was mild decrease in size of the mediastinal and hilar adenopathy. There is coronary artery calcifications. CBC reveals no leukocytosis or anemia. No emergent metabolic abnormality other than an interval elevation of her BUN and creatinine. Fluids were ordered. Troponin negative x1. Urinalysis suggest contaminated sample. UPT negative. Patient has a heart score of at least 3 given her presentation here today. I did discuss this with the on-call net maker, Dr. Slaughter. Through discussion of the case with him he was it recommended to have the patient observed here rather than discharge home which I agree with noting the patient has an elevated BMI 52.6, history of hypertension, coronary artery calcifications on the CTA, family history of heart problems and her subjective complaints today. She is certainly at risk for possible heart etiology. I presented the patient with the recommendation but also noted that if she would like to be discharged we could arrange that. She was in agreement with observation here in the hospital for further evaluation and management of her chest discomfort. This will be for cardiac rule out. In addition, I would like to start steroids given her history of sarcoidosis and certainly likely could be causing some of her symptoms here today. I discussed this with Dr. Ford, hospice home care coordinator. While here in the hospital we will start Solu-Medrol 40 mg IV every 12 and then she can be trans itioned to either 20 or 40 mg of prednisone in the outpatient setting with prompt follow-up with pulmonology for potential tapering of this. Case then discussed with the hospitalist. Please refer to further documentation regarding her stay. Case was discussed with the attending physician. GCS: 15 In the evaluation and treatment of this patient, the following differential diagnoses were considered: IA, ASC, Dysrhythmia, Angina, Mediastinitis, GERD, Esophagitis, PE, Pneumonia, Bronchitis, Costochondritis, Rib Fracture, Zoster. Impression & Plan Chest pain, JOHN (acute kidney injury), Sarcoidosis Discharge Plan Visit Data Chief Complaint: Cardiac Assessment Stated Complaint: HEADACHE,SOB, CHEST TIGHTNESS ED Provider: Farshad Romero ED Midlevel Provider: Shane Messina Discharge Problem: Chest pain, JOHN (acute kidney injury), Sarcoidosis Patient Disposition: Admitted As Inpatient Condition: Good Forms Stand Alone Forms: [facility], Important Visit Information Prescriptions Prescriptions: No Action venlafaxine [Effexor XR] 75 mg Capsule,Extended Release 24hr 75 mg PO QAM RF: 0 hydrocodone-acetaminophen 5-325 mg Tablet 1 tab PO Q6H PRN (Reason: Pain) RF: 0 meloxicam 15 mg Tablet 15 mg PO QAM RF: 0 venlafaxine [Effexor XR] 150 mg Capsule,Extended Release 24hr 150 mg PO QAM RF: 0 biotin 5,000 mcg Tablet, Sublingual 5,000 mcg Sublingual QAM RF: 0 cyclobenzaprine 10 mg Tablet 10 mg PO TID PRN (Reason: Pain) RF: 0 lisinopril-hydrochlorothiazide 20-25 mg Tablet 0.5 tab PO QAM RF: 0 tramadol [Ultram] 50 mg tablet 50 mg PO QID PRN (Reason: pain) Qty: 15 RF: 0 acetaminophen [Tylenol Arthritis Pain] 650 mg Tablet Extended Release 650 mg PO Q12H PRN (Reason: Pain) RF: 0 ferrous sulfate [Iron (ferrous sulfate)] 325 mg (65 mg iron) Tablet 325 mg PO QAM RF: 0 lidocaine [Lidoderm] 5 % Adhesive Patch,Medicated 1 patch TOPICAL DAILY PRN (Reason: Pain) RF: 0 fluticasone propionate [Flonase Allergy Relief] 50 mcg/actuation [place],Suspension 2 spray INTRANASAL DAILY PRN (Reason: Nasal Congestion) RF: 0 metoclopramide HCl [Reglan] 10 mg Tablet 10 mg PO Q8 PRN (Reason: Nausea) RF: 0 buspirone 15 mg Tablet 15 mg PO DAILY RF: 0 magnesium oxide 400 mg Capsule 400 mg PO QAM RF: 0 bupropion HCl 300 mg tablet extended release 24 hr 300 mg PO DAILY RF: 0 Referrals Referrals: Johnny Gomez MD [Primary Care Provider] -
[2019-02-07 11:38] LABS: Alanine Aminotransferase 39 U/L (12-78); Albumin Globulin Ratio 1.1 (0.9-2); Alkaline Phosphatase 92 U/L (45-117); Aspartate Aminotransferase 27 U/L (15-37); Bilirubin,Total 0.3 mg/dl (0.2-1); Globulin 3.6 gm/dl (2.5-4.0); Total Protein 7.5 gm/dl (6.4-8.2); Troponin I < 0.015 ng/ml (0-0.045)
[2019-02-07 11:55] LABS: Appearance Urine Cloudy (Clear); Bacteria Urine Automated Negative (Negative); Bilirubin Urine Negative (Negative); Color Urine Yellow; Epithelial Cell Urine Auto >30 /lpf (0-5); Glucose Urine UA Negative (Negative); Ketones Urine 2+ (Negative); Leukocyte Esterase Urine Negative (Negative); Nitrite Urine Negative (Negative); Protein Urine Negative (Negative); Specific Gravity Urine 1.024 (1.000-1.030); Urobilinogen Urine Negative (Negative)
[2019-02-07] MEDS ORDERED: OPTIRAY 320 125ml IV PRN (12:44)
--- NOTE | 2019-02-07 13:06 | CT Scan Report ---
CT angio chest PE protocol CT DOSE: 901.74 mGy.cm HISTORY: 48 years-old Female with chest discomfort, hx sarcoid. Acute chest discomfort was history of sarcoidosis TECHNIQUE: Multiple CTA images of the chest were obtained after the intravenous administration of 118 ml Optiray 320. Coronal and sagittal MIPS were obtained from the axial data set and were submitted for review. All measurements were obtained according to NASCET criteria. A dose lowering technique w as utilized adhering to the principles of ALARA. COMPARISON: CTA of the chest 02/23/2018 FINDINGS: CTA: Heart is normal in size without pericardial effusion. Mitral annular and mild coronary arterial calci fications are noted. There is no thoracic aortic aneurysm or dissection. There is patency of the imag ed great vessels. There is suboptimal contrast opacification of the pulmonary arterial tree secondary to contrast bolus timing. No central pulmonary emboli identified. CT CHEST: No focal thyroid nodule identified. Mildly enlarged mediastinal and hilar lymph nodes redemonstrated. Subcarinal lymph nodes are seen measuring up to 1.1 x 2.6 cm., Slightly decreased from comparison. R ight hilar lymph nodes measure up to 1.3 cm in short axis, previously 1.7 cm. Right paratracheal lymp h nodes measure up to 1.1 cm, previously 1.5 cm. No new or progressive adenopathy. Inferior lung base s are excluded from the [id number]. No pneumothorax, pleural effusion, overt pulmonary edema or fo rosalba airspace consolidation typical for pneumonia. There are no suspicious pulmonary nodules or masses . 6 mm fissural nodule on the right on image 129 series 4 is suggestive of a probable lymph node, unc hanged. Central airways appear patent. Prior gastric bypass. Hepatic steatosis. Soft tissues are unremarkable. Bones appear intact. Multilev el spondylitic spurring of the spine. IMPRESSION: 1. Suboptimal opacification of the pulmonary tree all tree secondary to contrast bolus timing. No kylie tral pulmonary emboli identified. 2. Mildly decreased size of the mediastinal and hilar adenopathy. 3. Coronary arterial calcifications. 4. Hepatic steatosis. 5. Prior gastric bypass. The above report was generated using voice recognition software. It may contain grammatical, syntax o r spelling errors. Electronically signed by: Paul Garcia M.D. 02/07/2019 1:05 PM
[2019-02-07] MEDS ORDERED: MoRPHine SULFATE 4 MG/ML 1 ML CARP\\VIAL IV STA (15:59)
[2019-02-07] MEDS ORDERED: MoRPHine SULFATE 4 MG/ML 1 ML CARP\\VIAL ONE (16:04)
--- NOTE | 2019-02-07 16:30 | History & Physical Report ---
Date of Service February 07, 2019 Assessment & Plan (1) Chest pain: (2) Pulmonary sarcoidosis: -Admit to [facility] w/ telemetry -Patient presenting from home with reports of left-sided headache, exertional shortness of breath, chest tightness -In the ED, initial troponin negative and EKG without acute ST changes -CTA chest negative for pulmonary embolism however does show coronary artery calcifications -Suspect that symptoms are due to flare of pulmonary sarcoidosis however will observe overnight to r/o ACS -Risk factors: HTN, obesity; will check lipid panel and Hgb A1c with morning labs -Serial cardiac enzymes, resting echo -ED discussed with Dr. Ford recommendations for pulmonary sarcoidosis flare - he recommends Solu-Medrol 40 mg every 12 hours while inpatient and discharged home on prednisone 20 to 40 mg daily with pulmonary follow-up (3) JOHN (acute kidney injury): -Mild, creatinine 1.3 -Likely prerenal nature -IVF, hold home lisinopril/hydrochlorothiazide, meloxicam (4) Hypertension: -BP intermittently and mildly elevated, likely situational -Holding lisinopril/hydrochlorothiazide for now due to JOHN -Monitor BP, provide alternative antihypertensive if needed (5) Depression: (6) Anxiety: -Continue bupropion, venlafaxine, buspirone (7) DVT prophylaxis: -SQ Lovenox History of Present Illness Chief Complaint: Chest pain, headache Primary Care Provider: Johnny Gomez MD 48-year-old female who presents to the ED with complaints of headache and chest pain. Patient reports that a couple of days ago, she noted that she started to develop some exertional shortness of breath. Patient has history of pulmonary sarcoidosis and reports this is typically how her flares have presented in the past. Yesterday, she developed a left-sided headache that was radiating into her jaw, neck, shoulder, left axilla. She also reports some associated chest tightness. She also reports that her entire trunk is aching from her hips up. She reports that in the past, she has not had the jaw or left axilla pain. Today, she reports she felt chilled however did not take her temperature. She denies lightheadedness, dizziness, diaphoresis, syncopal events. Reports some nausea from the headache however denies abdominal pain, vomiting, diarrhea. No urinary symptoms. In the ED, initial troponin is negative and EKG does not show any acute ST changes. Negative for pulmonary embolism however showing coronary artery calcifications. Labs show a mildly elevated creatinine at 1.3 but are otherwise unremarkable. She was given IVF and Tylenol. Allergies Allergy/AdvReac Type Severity Reaction Status Date / Time No Known Allergies Allergy Verified 10/30/18 09:18 Home Medications Home Medications Medication Instructions Recorded Confirmed Type biotin 5,000 mcg SUBLINGUAL QAM 04/06/18 02/07/19 History cyclobenzaprine 10 mg PO TID PRN 04/06/18 02/07/19 History hydrocodone-acetaminophen 1 tab PO Q6H PRN 04/06/18 02/07/19 History lisinopril-hydrochlorothiazide 0.5 tab PO QAM 04/06/18 02/07/19 History meloxicam 15 mg PO QAM 04/06/18 02/07/19 History venlafaxine [Effexor XR] 75 mg PO QAM 04/06/18 02/07/19 History venlafaxine [Effexor XR] 150 mg PO QAM 04/06/18 02/07/19 History tramadol [Ultram] 50 mg PO QID PRN #15 tab 04/11/18 02/07/19 Rx acetaminophen [Tylenol Arthritis 650 mg PO Q12H PRN 10/23/18 02/07/19 History Pain] buspirone 15 mg PO DAILY 10/23/18 02/07/19 History ferrous sulfate [Iron (ferrous 325 mg PO QAM 10/23/18 02/07/19 History sulfate)] fluticasone propionate [Flonase 2 spray INTRANASAL DAILY PRN 10/23/18 02/07/19 History Allergy Relief] lidocaine [Lidoderm] 1 patch TOPICAL DAILY PRN 10/23/18 02/07/19 History magnesium oxide 400 mg PO QAM 10/23/18 02/07/19 History metoclopramide HCl [Reglan] 10 mg PO Q8 PRN 10/23/18 02/07/19 History bupropion HCl 300 mg PO DAILY 02/07/19 02/07/19 History Past Med/Surg History Medical History Anxiety (Chronic) Depression (Chronic) Pulmonary sarcoidosis (Chronic) Osteoarthritis (Chronic) Fatty liver (Chronic) Obesity (Chronic) Hypertension (Chronic) Surgical History S/P tonsillectomy (Chronic) H/O vein stripping (Chronic) History of cholecystectomy (Chronic) History of laminectomy (Chronic) History of total right knee replacement (Chronic) History of gastric bypass (Chronic) Family History Mother Family history of diabetes mellitus Grandfather (Paternal) Family hx of colon cancer Social History Preferred Language: Yakut Communication Ability: Effective Beliefs That Will Affect Care: None Current Living Situation: Spouse Feels Safe at Home: Yes Smoking Status: Never smoker Second Hand Exposure: Yes (parents smoked) Hx Alcohol Use: Yes Alcohol type: beer, wine and hard liquor Alcohol Intake Frequency: Rarely Hx Substance Use: No Review of Systems Review of Systems: ROS per HPI, all other systems reviewed and negative Physical Exam Constitutional: WD/WN, vitals as above + obese Eyes: PERRL, conjunctivae normal, anicteric sclerae ENMT: external ear and nose normal, oropharynx normal Respiratory: normal respiratory effort; no respiratory distress Auscultation: + diminished lung sounds Cardiovascular: Rate/Rhythm: regular rate and regular rhythm Vessels: normal peripheral pulses Extremities: no edema Gastrointestinal (Abdomen): normal bowel sounds, soft, nontender, no hepatosplenomegaly Musculoskeletal: no cyanosis or clubbing, extremities motor strength 5/5 Skin: no rashes, warm and dry Neurologic: PERRL, EOMI, accommodation nl, no face palsy, no dysarthria Psychiatric: A+Ox3, euthymic affect Results & Data Vital Signs (Past 12 Hours) Vital Signs Temp Pulse Pulse Resp BP BP Pulse Ox 02/07/19 15:30 74 97 02/07/19 15:00 82 15 143/88 H 97 02/07/19 14:31 82 12 166/108 H 98 02/07/19 14:30 82 14 99 02/07/19 14:01 80 15 98 02/07/19 14:00 80 14 145/57 H 98 02/07/19 13:57 80 20 136/57 L 96 02/07/19 13:54 82 16 136/57 L 98 02/07/19 13:30 87 14 95 02/07/19 13:00 85 18 97 02/07/19 12:31 93 H 17 96 02/07/19 12:30 87 17 158/88 H 96 02/07/19 12:20 89 19 96 02/07/19 12:10 88 19 93 02/07/19 12:01 90 19 96 02/07/19 12:00 87 17 95 02/07/19 11:50 94 H 17 92 02/07/19 11:40 110 H 23 02/07/19 11:38 99 02/07/19 11:31 90 21 92 02/07/19 11:30 86 28 H 136/81 92 02/07/19 11:20 89 23 91 02/07/19 11:10 92 H 21 97 02/07/19 11:01 90 14 93 02/07/19 11:00 88 16 129/77 95 02/07/19 10:56 94 H 21 97 02/07/19 10:53 86 17 125/71 95 02/07/19 10:37 36.5 C 92 H 16 133/84 98 Laboratory Results Short CBC 02/07/19 Range/Units 10:54 WBC 10.78 (4.8-10.8) K/uL Hgb 15.5 (12.0-16.0) g/dL Hct 47.1 H (37-47) % Plt Count 272 (130-400) K/uL BMP 02/07/19 10:54 Sodium 139 Potassium 4.2 Chloride 106 Carbon Dioxide 25 BUN 25 H Creatinine 1.37 H Glucose 106 H Calcium 9.0 Cardiac Enzymes 02/07/19 02/07/19 Range/Units 10:54 14:53 Troponin I < 0.015 < 0.015 (0-0.045) ng/ml Liver Function 02/07/19 Range/Units 10:54 Total Bilirubin 0.3 (0.2-1) mg/dl AST 27 (15-37) U/L ALT 39 (12-78) U/L Alkaline Phosphatase 92 (45-117) U/L Albumin 3.9 (3.4-5.0) gm/dl Urine 02/07/19 Range/Units 11:41 Urine Color Yellow Urine Appearance Cloudy A (Clear) Urine pH 5.0 (4.5-7.5) Ur Specific [place] 1.024 (1.000-1.030) Urine Protein Negative (Negative) Urine Glucose (UA) Negative (Negative) Diagnostic Findings CXR IMPRESSION: No significant change compared to the prior study. No acute process. CTA CHEST IMPRESSION: 1. Suboptimal opacification of the pulmonary tree all tree secondary to contrast bolus timing. No central pulmonary emboli identified. 2. Mildly decreased size of the mediastinal and hilar adenopathy. 3. Coronary arterial calcifications. 4. Hepatic steatosis. 5. Prior gastric bypass. Code Status & VTE Plan VTE Prophylaxis Plan VTE Prophylaxis will be ordered: Yes Supervising Physician Co-Signing Physician Notes I saw this patient with the Nurse Practitioner, I participated in the history, physical, review of systems, and physical exam. I reviewed the medications with the patient and the Nurse Practitioner and helped reconcile the medications. I helped take a detailed family and social history as well. I formulated the assessment and plan personally with the Nurse Practitioner went over it with the patient. ROS-No Headache, No Visual Changes, No Nausea, No Vomiting, No Fever, No Chills, No Neck Pain or Stiffness, No Chest Pain, No Palpitations, + SOB, + SU, No Cough, No Sputum, No Wheezing, No Abdominal Pain, No Diarrhea, No Hematemesis, No Hemoptysis, No Unexpected Weight Loss, No Flank pain, No Melena, No Hematochezia, No Frequency, No Urgency, No Burning, No Hematuria, No Rashes, No Diaphoresis. Appetite is Normal Physical Exam Gen-AAO x 3, NAD, Afebrile, Obese Head-NCAT, EOMI, PERRLA, Anicteric Sclera, No Posterior Pharyngeal Erythema Neck-Supple, No JVD, No Thyromegaly, No Masses, No LAD, No Bruits Lungs-Clear to Auscultation Bilaterally, No Rales, No Rhonchi, No Wheezing, No Crepitus Chest-No S4, +S1, +S2, No S3, No Murmurs, No Rubs, No Gallops, No Ectopy Abdomen-Soft, Bowel Sounds Present, Non Tender, Non Distended, No Hepatomegaly, No Splenomegaly, No Palpable Masses, No Rebound, No Rigidity, No Guarding Musculoskeletal-Full Range of Motion Bilaterally, No CVAT Extremities-No Cyanosis, No Clubbing, No Edema Nuero-Cranial Nerves II-XII grossly intact, Motor WNL, DTRs WNL, Strength WNL, Non Focal Psych-Normal Mood
[2019-02-07] MEDS ORDERED: ACETAMINOPHEN 325 MG TAB PO PRN (17:59)
[2019-02-07] MEDS ORDERED: CYCLOBENZAPRINE HCL 10 MG TAB PO PRN (17:59)
[2019-02-07] MEDS ORDERED: MoRPHine SULFATE 4 MG/ML 1 ML CARP\\VIAL IV PRN (17:59)
[2019-02-07] MEDS ORDERED: ENOXAPARIN INJ 40 MG/0.4 ML SYR SQ SCH ×2 (17:59→21:00)
[2019-02-07] MEDS ORDERED: HYDROCODONE/ACETAMOPHEN 5/325MG TAB PO PRN (17:59)
[2019-02-07] MEDS ORDERED: TRAMADOL HCL 50 MG TABLET ONE (18:15)
[2019-02-07] MEDS: TRAMADOL HCL 50 MG TABLET PO PRN (18:16)
[2019-02-07] MEDS: SODIUM CHLORIDE 0.9% 1000ML 1,000 ML IV SCH (19:12)
[2019-02-07 20:31] LABS: Partial Thromboplastin Time 27.3 Seconds (21.0-31.0); Prothrombin Time 10.3 Seconds (9.0-12.0)
[2019-02-08 02:51] LABS: Hematocrit (blood only) 42.2 % (37-47); Hemoglobin 13.8 g/dL (12.0-16.0); Mean Corpuscular Hgb Conc 32.7 g/dL (32-36); Mean Corpuscular Volume 86.5 fL (80-100); Mean Platelet Volume 11.4 fL (7.4-10.4); Platelet Count 237 K/uL (130-400); RDW Coefficient of Variation 15.8 % (11.5-14.5); RDW Standard Deviation 50.2 fL (36.4-46.3); Red Blood Count 4.88 M/uL (4.2-5.4); White Blood Count 6.13 K/uL (4.8-10.8)
[2019-02-08 03:19] LABS: Blood Urea Nitrogen 13 mg/dl (7-18); Calcium 8.6 mg/dl (8.5-10.1); Carbon Dioxide 24 mmol/L (21-32); Chloride 107 mmol/L (98-107); Creatinine Clr Calc Pharmacy 178.5 ml/min; Est GFR (African American) 119.4; Glucose 125 mg/dl (70-99); Potassium 4.3 mmol/L (3.5-5.1); Sodium 138 mmol/L (136-145)
[2019-02-08 03:28] LABS: Chol HDL Ratio 3; Cholesterol 150 mg/dl (0-200); HDL Cholesterol 52 mg/dl; LDL Cholesterol Calculated 87 mg/dl; Triglycerides 53 mg/dl (0-150); Troponin I < 0.015 ng/ml (0-0.045); VLDL Cholesterol 11 mg/dl
[2019-02-08] MEDS ORDERED: methylPREDNISolone 40 MG in SYRINGE 0 ML IV SCH (04:00)
[2019-02-08] MEDS: SODIUM CHLORIDE 0.9% 1000ML 1,000 ML IV SCH (05:09)
[2019-02-08 08:18] LABS: Estimated Average Glucose 120 mg/dl
[2019-02-08] MEDS ORDERED: MAGNESIUM OXIDE 400 MG TAB PO SCH (09:00)
[2019-02-08] MEDS ORDERED: BusPIRone 15 MG TAB PO SCH (09:00)
[2019-02-08] MEDS ORDERED: BuPROPion XL 300 MG TABCR PO SCH (09:00)
[2019-02-08] MEDS ORDERED: VENLAFAXINE HCL XR 150 MG CAPXR PO SCH (09:00)
[2019-02-08] MEDS ORDERED: FERROUS SULFATE 325 MG TAB PO SCH (09:00)
[2019-02-08] MEDS ORDERED: NON-FORMULARY MEDICATION (Biotin 5,000 MCG) SL SCH (09:00)
[2019-02-08] MEDS ORDERED: VENLAFAXINE HCL XR 75 MG CAPXR PO SCH (09:00)
--- NOTE | 2019-02-08 09:15 | Hospitalist Progress Note ---
Date of Service February 08, 2019 Assessment & Plan (1) Chest pain: (2) Pulmonary sarcoidosis: Patient presenting from home with reports of left-sided headache, exertional shortness of breath x 2 days which felt like her sarcoidosis flare. Had an episode of chest tightness yesterday which brought her to ED. Does have hx of pulmonary sarcoidosis but not on steroids at baseline and CT shows decrease in size of mediastinal and hilar adenopathy -D/D : Cardiac etiology less likely given presentation, EKGno acute ischemic changes, troponin x3-negative -ED physician discussed with Dr. Ford about recommendationsrecommended IV Solu-Medrol 40 mg every 12 hours while inpatient and discharged home on prednisone 20 mg daily with pulmonary follow-up. -Work up-CTA chestno central PE, mildly decreased size of mediastinal and hilar adenopathy, hemoglobin A1c5.8, LDL 87 (3) JOHN (acute kidney injury): Mild, creatinine 1.3 on presentation Resolved -Likely prerenal nature -IVF - Discontinue -Held home lisinopril/hydrochlorothiazide, meloxicam--> Ok to resume today (4) Hypertension: -BP intermittently and mildly elevated, likely situational -Holding lisinopril/hydrochlorothiazide due to JOHN- Ok to restart (5) Depression: (6) Anxiety: -Continue bupropion, venlafaxine, buspirone (7) DVT prophylaxis: -SQ Lovenox Disposition Okay to discharge home today Subjective Patient did have some shortness of breath 2 days ago, mainly on exertion and per her it felt like her sarcoidosis flare. Yesterday she had an episode of chest tightness associated with worsening of shortness of breath which resolved by the time she came to ED. Shortness of breath has improved after steroids. Denies any significant cough, fever, chills. Saturating 97% on room air. Tolerating activity better today. Denies any wheezing Physical Exam Physical Exam: GENERAL- AAOX3, No acute distress, OBESE NECK- Supple, no JVD LUNGS- Air entry bilaterally equal. No rales, rhonchi, crackles, wheezes heard. HEART- Regular rate and rhythm. No murmurs ABDOMEN- Soft, non tender, non distended, Bowel sounds heard. EXTREMITIES- Good peripheral pulses, no edema NEUROMUSCULAR- AAOX3, Grossly no focal deficits Results & Data Vital Signs (Past 12 Hours) Vital Signs Temp Pulse Pulse Resp BP Pulse Ox 02/08/19 09:01 78 02/08/19 08:15 36.5 C 81 18 137/83 97 02/08/19 04:00 36.5 C 75 20 127/65 95 02/08/19 00:00 36.5 C 86 20 123/68 93
[2019-02-08] MEDS: TRAMADOL HCL 50 MG TABLET PO PRN (10:37)
--- NOTE | 2019-02-08 11:47 | Discharge Summary ---
Date of Service February 08, 2019 Admission HPI Per Admitting Provider 48-year-old female who presents to the ED with complaints of headache and chest pain. Patient reports that a couple of days ago, she noted that she started to develop some exertional shortness of breath. Patient has history of pulmonary sarcoidosis and reports this is typically how her flares have presented in the past. Yesterday, she developed a left-sided headache that was radiating into her jaw, neck, shoulder, left axilla. She also reports some associated chest tightness. She also reports that her entire trunk is aching from her hips up. She reports that in the past, she has not had the jaw or left axilla pain. Today, she reports she felt chilled however did not take her temperature. She denies lightheadedness, dizziness, diaphoresis, syncopal events. Reports some nausea from the headache however denies abdominal pain, vomiting, diarrhea. No urinary symptoms. In the ED, initial troponin is negative and EKG does not show any acute ST changes. Negative for pulmonary embolism however showing coronary artery calcifications. Labs show a mildly elevated creatinine at 1.3 but are otherwise unremarkable. She was given IVF and Tylenol. Principal Diagnosis 1. Pulmonary sarcoidosis flare 2. Mild acute kidney injury, resolved Secondary diagnoses on discharge 1. Hypertension 2. Depression 3. Anxiety 4. Obesity Discharge Exam GENERAL- AAOX3, No acute distress, OBESE NECK- Supple, no JVD LUNGS- Air entry bilaterally equal. No rales, rhonchi, crackles, wheezes heard. HEART- Regular rate and rhythm. No murmurs ABDOMEN- Soft, non tender, non distended, Bowel sounds heard. EXTREMITIES- Good peripheral pulses, no edema NEUROMUSCULAR- AAOX3, Grossly no focal deficits Discharge Data Allergies Allergy/AdvReac Type Severity Reaction Status Date / Time No Known Allergies Allergy Verified 10/30/18 09:18 Consultations 02/07/19 15:15 ED Decision to Admit Stat Ordered Studies 02/07/19 12:20 CT angio chest PE protocol Stat Hospital Course (1) Chest pain: (2) Pulmonary sarcoidosis: Patient presenting from home with reports of left-sided headache, exertional shortness of breath x 2 days which felt like her sarcoidosis flare. Had an episode of chest tightness yesterday which brought her to ED. Does have hx of pulmonary sarcoidosis but not on steroids at baseline and CT shows decrease in size of mediastinal and hilar adenopathy -D/D : Cardiac etiology less likely given presentation, EKGno acute ischemic changes, troponin x3-negative -ED physician discussed with Dr. Ford about recommendationsrecommended IV Solu-Medrol 40 mg every 12 hours while inpatient and discharged home on predn isone 20 mg daily with pulmonary follow-up. -Work up-CTA chestno central PE, mildly decreased size of mediastinal and hilar adenopathy, hemoglobin A1c5.8, LDL 87 (3) JOHN (acute kidney injury): Mild, creatinine 1.3 on presentation Resolved -Likely prerenal nature -IVF - Discontinue -Held home lisinopril/hydrochlorothiazide, meloxicam--> Ok to resume today (4) Hypertension: -BP intermittently and mildly elevated, likely situational -Holding lisinopril/hydrochlorothiazide due to JOHN- Ok to restart (5) Depression: (6) Anxiety: -Continue bupropion, venlafaxine, buspirone (7) DVT prophylaxis: -SQ Lovenox Disposition Okay to discharge home today Total Time Total Time Spent Total Time Spent (In Minutes): 35 minutes Discharge Plan Discharge Items Patient Disposition: Home - Self-Care Reason For Visit: CHEST PAIN Discharge Diagnosis: Pulmonary sarcoidosis flare Acute kidney injury Condition: Good Discharge Goals: Improve disease control Activity: Resume your previous activity Non-emergency contact: Primary Care Provider Call non-emergency contact if: your symptoms worsen Follow-up/Referrals: Franchesca Chung [Other] [facility] [Provider Group] - 02/13/19 12:45 pm Ismael Ford MD [Physician] - (Please call for appt follow up within 7 days ) Diet: Low Fat Addtl Provider Instructions: MEDICATION CHANGES New medication- prednisone 20 mg daily till you follow up with Pulmonary outpatient. New medication- Omeprazole while you are on prednisone Prescriptions: New prednisone 20 mg tablet 20 mg PO DAILY 11 Days Qty: 11 RF: 0 omeprazole 20 mg capsule,delayed release(DR/EC) 20 mg PO DAILY Qty: 30 RF: 0 Continued venlafaxine [Effexor XR] 75 mg Capsule,Extended Release 24hr 75 mg PO QAM RF: 0 hydrocodone-acetaminophen 5-325 mg Tablet 1 tab PO Q6H PRN (Reason: Pain) RF: 0 meloxicam 15 mg Tablet 15 mg PO QAM RF: 0 venlafaxine [Effexor XR] 150 mg Capsule,Extended Release 24hr 150 mg PO QAM RF: 0 biotin 5,000 mcg Tablet, Sublingual 5,000 mcg Sublingual QAM RF: 0 cyclobenzaprine 10 mg Tablet 10 mg PO TID PRN (Reason: Pain) RF: 0 lisinopril-hydrochlorothiazide 20-25 mg Tablet 0.5 tab PO QAM RF: 0 tramadol [Ultram] 50 mg tablet 50 mg PO QID PRN (Reason: pain) Qty: 15 RF: 0 acetaminophen [Tylenol Arthritis Pain] 650 mg Tablet Extended Release 650 mg PO Q12H PRN (Reason: Pain) RF: 0 ferrous sulfate [Iron (ferrous sulfate)] 325 mg (65 mg iron) Tablet 325 mg PO QAM RF: 0 lidocaine [Lidoderm] 5 % Adhesive Patch,Medicated 1 patch TOPICAL DAILY PRN (Reason: Pain) RF: 0 fluticasone propionate [Flonase Allergy Relief] 50 mcg/actuation [place],Suspension 2 spray INTRANASAL DAILY PRN (Reason: Nasal Congestion) RF: 0 metoclopramide HCl [Reglan] 10 mg Tablet 10 mg PO Q8 PRN (Reason: Nausea) RF: 0 buspirone 15 mg Tablet 15 mg PO DAILY RF: 0 magnesium oxide 400 mg Capsule 400 mg PO QAM RF: 0 bupropion HCl 300 mg tablet extended release 24 hr 300 mg PO DAILY RF: 0 Stand-Alone Forms: [facility], Work/School Release (Inpt) Discharge Orders: Discharge Order (Routine); Ordered 02/08/19 Ordered By: Eugenia Resendez Admission Data Admit Date/Time: 02/07/19 16:10 Attending Provider: Eugenia Resendez Admit Provider: Giovani Pitts Primary Care Provider: Johnny Gomez Other Providers: Giovani Pitts Service: Telemetry Medical
== END 2019-02-08 12:56 | disposition home or self-care (01) ==
LOC: ED 10:29 → 2N 10:29

== ENCOUNTER 2019-03-13 23:02 | Inpatient (IN) ==
[2019-03-13] MEDS ORDERED: ONDANSETRON INJ 2 MG/ML 2 ML VIAL IV STA (23:36)
[2019-03-13] MEDS ORDERED: DAPTOmycin 600 MG in SYRINGE 0 ML IV STA (23:36)
[2019-03-13] MEDS ORDERED: ACETAMINOPHEN 500 MG TAB PO STA (23:36)
[2019-03-13] MEDS ORDERED: PIPERACILLIN/TAZOBACTAM 4.5 GM/120 ML BAG IV STA (23:36)
[2019-03-13] MEDS ORDERED: SODIUM CHLORIDE 0.9% 1000ML 1,000 ML IV STA (23:36)
[2019-03-13] MEDS ORDERED: SODIUM CHLORIDE 0.9% 1000ML 1,000 ML IV SCH (23:45)
[2019-03-14 00:03] LABS: Basophils # (auto) 0.04 K/uL (0-0.2); Basophils % (auto) 0.3 %; Eosinophils # (auto) 0.08 K/uL (0-0.5); Eosinophils % (auto) 0.7 %; Hematocrit (blood only) 42.4 % (37-47); Hemoglobin 13.9 g/dL (12.0-16.0); Immature Granulocytes # (auto) 0.03 K/uL (0.00-0.02); Immature Granulocytes % (auto) 0.3 %; Lymphocytes # (auto) 1.09 K/uL (1.2-3.4); Lymphocytes % (auto) 9.4 %; Mean Corpuscular Hemoglobin 28.5 pg (25-34); Mean Corpuscular Hgb Conc 32.8 g/dL (32-36); Mean Corpuscular Volume 86.9 fL (80-100); Mean Platelet Volume 10.8 fL (7.4-10.4); Monocytes # (auto) 0.93 K/uL (0.11-0.59); Monocytes % (auto) 8.1 %; Neutrophils # (auto) 9.37 K/uL (1.4-6.5); Neutrophils % (auto) 81.2 %; Platelet Count 205 K/uL (130-400); RDW Coefficient of Variation 16.7 % (11.5-14.5); RDW Standard Deviation 52.8 fL (36.4-46.3); Red Blood Count 4.88 M/uL (4.2-5.4); White Blood Count 11.54 K/uL (4.8-10.8)
[2019-03-14] MEDS: HYDROmorphone INJ 0.5 MG/0.5 ML SYR IV PRN ×4 (00:16→23:31)
[2019-03-14 00:27] LABS: Alanine Aminotransferase 49 U/L (12-78); Albumin Level 3.5 gm/dl (3.4-5.0); Alkaline Phosphatase 78 U/L (45-117); BUN Creatinine Ratio 22.6 (10-20); Bilirubin,Total 0.5 mg/dl (0.2-1); Blood Urea Nitrogen 20 mg/dl (7-18); Carbon Dioxide 28 mmol/L (21-32); Chloride 104 mmol/L (98-107); Est GFR (African American) 86.4; Est GFR (Non-African American) 74.6; Globulin 3.7 gm/dl (2.5-4.0); Glucose 114 mg/dl (70-99); Sodium 137 mmol/L (136-145); Total Protein 7.2 gm/dl (6.4-8.2)
[2019-03-14] MEDS ORDERED: OPTIRAY 320 125ml IV PRN (01:03)
[2019-03-14 01:04] LABS: Potassium 3.8 mmol/L (3.5-5.1)
[2019-03-14] MEDS ORDERED: KETOROLAC TROMETHAMINE 15 MG/ML VIAL IV ONE (01:12)
[2019-03-14 01:46] LABS: Appearance Urine Cloudy (Clear); Bacteria Urine Automated Negative (Negative); Bilirubin Urine Negative (Negative); Blood Urine Negative (Negative); Color Urine Yellow; Epithelial Cell Urine Auto 20-30 /lpf (0-5); Glucose Urine UA Negative (Negative); Ketones Urine Negative (Negative); Leukocyte Esterase Urine Trace (Negative); Nitrite Urine Negative (Negative); Protein Urine Negative (Negative); RBC Urine Automated 0-4 /hpf (0-4); Specific Gravity Urine 1.024 (1.000-1.030); Urobilinogen Urine Negative (Negative)
--- NOTE | 2019-03-14 03:07 | Emergency Department Note ---
Entered by Sonam Vergara acting as a scribe for Alexi Rush MD ED Provider Note CHIEF COMPLAINT: Abdominal wall infection HISTORY OF PRESENT ILLNESS: The patient is a 48 year old female who presents to the Emergency Room with complaints of abdominal pain that started this morning afte bending over. The patient believes she had a cyst on her abdomen, and when she bent over it popped. She states that more symptoms appeared around 30 minutes after the incident, including fever, chills, lightheadedness, headache, cough and ringing in the ears. She rates the pain at an 8. The patient has no history of abscesses or boils on her skin. She has a medical history of sarcoidosis. Pt denies LOC, diaphoresis, visual changes, neck pain, chest pain, breathing difficulties, nausea, vomiting, back pain, melena, hematochezia, urinary symptoms, numbness, lymphadenopathy, rash, or other complaints. REVIEW OF SYSTEMS: See HPI for pertinent positives and negatives. A total of ten systems were reviewed and were otherwise negative. PMHx/PSHx: Sarcoidosis Anxiety SOCIAL HISTORY: Patient lives at home. PHYSICAL EXAM: GENERAL: Awake, alert, uncomfortable-appearing, mild distress HENT: Normocephalic, atraumatic. Oropharynx unremarkable. EYES: PERRL. Normal conjunctiva. Sclera non-icteric. NECK: Inspection normal. Non-tender. Supple. No nuchal rigidity. FROM. No masses. RESPIRATORY: Clear to auscultation. No wheezes. No rales. Normal respiratory effort. CARDIAC: Tachycardic. Normal rhythm. No murmurs. No rubs. Extremities warm and well perfused. Pulses equal. No JVD. GI: Redness and induration to the lower central abdominal wall in the suprapubic region. Right lower quadrant tenderness. Right CVA tenderness. Soft, non- distended. No rebound or guarding. No masses. RECTAL: Deferred. MUSCULOSKELETAL: Atraumatic. Chest examination reveals no tenderness. The back is symmetrical on inspection without obvious abnormality. There is no CVA tenderness to palpation. No joint edema. LOWER EXTREMITIES: Calves are equal size bilaterally and non-tender. No edema. No discoloration. NEURO: Normal sensorium. No sensory or motor deficits noted. SKIN: No rash or jaundice noted. EMERGENCY DEPARTMENT COURSE: 2335: The patient was evaluated in room B02, and a complete history and physical examination were performed. MEDICAL DECISION MAKING: B2 Prior records/ancillary studies reviewed. Triage Nursing notes reviewed and agree them. Additional history obtained from the family. The patient's history was concerning for possible infection. Differential diagnosis: Etiologies such as cellulitis, abscess, panniculitis, sepsis, UTI, pneumonia, electrolyte abnormalities, cardiac sources, intracerebral event, toxicologic, neurologic, as well as others were entertained. Physical examination: Concerning for abdominal wall cellulitis in the lower pannus. ER treatment provided: IV normal saline Oral Tylenol Blood cultures Antibiotics: IV Zosyn and IV daptomycin IV Dilaudid IV Zofran IV Toradol On reassessment the patient had an increase of her temperature. She was still tachycardic. Diagnostics interpretation by me: The labs revealed a leukocytosis on CBC. Chemistry panel and LFTs unremarkable. Lactate at the high end of normal. Imaging studies: CT scan of the abdomen pelvis was performed as noted below. Abdominal wall cellulitis. Questionable deep fluid collection as well as a very superficial fluid collection. Consultation: A consultation was placed with the hospitalist. The case was discussed and diagnostics were reviewed. The patient was evaluated in the ER for further treatment. IMPRESSION: Sepsis Abdominal wall cellulitis Abdominal wall abscess Leukocytosis PLAN: Admit The scribe's documentation has been prepared under my direction and personally reviewed by me in its entirety. I confirm that the note above accurately reflects all work, treatment, procedures, and medical decision making performed by me. Impression & Plan Sepsis, Abdominal wall cellulitis, Abdominal wall abscess, Leukocytosis Past Med/Surg History Medical History Anxiety (Chronic) Depression (Chronic) Pulmonary sarcoidosis (Chronic) Osteoarthritis (Chronic) Fatty liver (Chronic) Obesity (Chronic) Hypertension (Chronic) Surgical History S/P tonsillectomy (Chronic) H/O vein stripping (Chronic) History of cholecystectomy (Chronic) History of laminectomy (Chronic) History of total right knee replacement (Chronic) History of gastric bypass (Chronic) Family History Mother Family history of diabetes mellitus Grandfather (Paternal) Family hx of colon cancer Social History Preferred Language: Azeri Communication Ability: Effective Material Planning Analyst Required: No Beliefs That Will Affect Care: None Current Living Situation: Spouse Feels Safe at Home: Yes Smoking Status: Never smoker Second Hand Exposure: Yes (parents smoked) ; Hx Alcohol Use: Yes Alcohol type: beer, wine and hard liquor Alcohol Intake Frequency: Rarely Hx Substance Use: No Results & Data Vital Signs Vital Signs - 24 hr 03/13/19 23:06 03/14/19 00:44 03/14/19 01:34 Temperature 38.3 C H 39.3 C H Temperature Source Oral Oral Sepsis Recent Fever Within 48 Hours Yes Sepsis New/Unexplained Change in Mental Status No Sepsis Action Taken by Nursing No Action Required Pulse Rate 123 H Pulse Rate [Apical] 115 H Pulse Rhythm [Apical] Regular Pulse Strength [Apical] Normal Respiratory Rate 20 24 Respiratory Effort / Characteristics Non-Labored Respiratory Depth Normal Blood Pressure 118/61 Blood Pressure [Left Arm] Blood Pressure Mean 80 Blood Pressure Mean [Left Arm] Blood Pressure Position Sitting Pulse Oximetry 98 94 Oxygen Delivery Method Room Air Room Air 03/14/19 01:35 03/14/19 02:51 Temperature 39.3 C H 38.7 C H Temperature Source Oral Oral Sepsis Recent Fever Within 48 Hours Sepsis New/Unexplained Change in Mental Status Sepsis Action Taken by Nursing Pulse Rate Pulse Rate [Apical] 118 H 109 H Pulse Rhythm [Apical] Pulse Strength [Apical] Respiratory Rate 22 20 Respiratory Effort / Characteristics Non-Labored Non-Labored Spontaneous Respiratory Depth Normal Normal Blood Pressure Blood Pressure [Left Arm] 133/71 121/67 Blood Pressure Mean Blood Pressure Mean [Left Arm] 91 85 Blood Pressure Position Pulse Oximetry 93 95 Oxygen Delivery Method Room Air Room Air Home Medications Current Medication List: was personally reviewed by me Laboratory Data Attestation: I reviewed the patient's lab results. Result diagrams: 03/13/19 23:47 03/14/19 00:37 Lab Results 03/13/19 03/13/19 03/14/19 Range/Units 23:47 23:47 00:00 WBC 11.54 H (4.8-10.8) K/uL RBC 4.88 (4.2-5.4) M/uL Hgb 13.9 (12.0-16.0) g/dL Hct 42.4 (37-47) % MCV 86.9 (80-100) fL MCH 28.5 (25-34) pg MCHC 32.8 (32-36) g/dL RDW Std Deviation 52.8 H (36.4-46.3) fL RDW Coeff of Wally 16.7 H (11.5-14.5) % Plt Count 205 (130-400) K/uL MPV 10.8 H (7.4-10.4) fL Immature Gran % (Auto) 0.3 % Neut % (Auto) 81.2 % Lymph % (Auto) 9.4 % [place] % (Auto) 8.1 % Eos % (Auto) 0.7 % Baso % (Auto) 0.3 % Immature Gran # (Auto) 0.03 H (0.00-0.02) K/uL Neut # (Auto) 9.37 H (1.4-6.5) K/uL Lymph # (Auto) 1.09 L (1.2-3.4) K/uL [place] # (Auto) 0.93 H (0.11-0.59) K/uL Eos # (Auto) 0.08 (0-0.5) K/uL Baso # (Auto) 0.04 (0-0.2) K/uL Sodium 137 (136-145) mmol/L Potassium (3.5-5.1) mmol/L Chloride 104 (98-107) mmol/L Carbon Dioxide 28 (21-32) mmol/L Anion Gap 6.0 (3-11) BUN 20 H (7-18) mg/dl Creatinine 0.90 (0.6-1.2) mg/dl Est Cr Clr Drug Dosing Not Reportable Est GFR ( Amer) 86.4 Est GFR (Non-Af Amer) 74.6 BUN/Creatinine Ratio 22.6 H (10-20) Glucose 114 H (70-99) mg/dl POC Lactic Acid Yosvany 1.64 (0.90-1.70) mmol/L Calcium 9.0 (8.5-10.1) mg/dl Total Bilirubin 0.5 (0.2-1) mg/dl AST (15-37) U/L ALT 49 (12-78) U/L Alkaline Phosphatase 78 (45-117) U/L Total Protein 7.2 (6.4-8.2) gm/dl Albumin 3.5 (3.4-5.0) gm/dl Globulin 3.7 (2.5-4.0) gm/dl Albumin/Globulin Ratio 1.0 (0.9-2) Urine Color Urine Appearance (Clear) Urine pH (4.5-7.5) Ur Specific [place] (1.000-1.030) Urine Protein (Negative) Urine Glucose (UA) (Negative) Urine Ketones (Negative) Urine Blood (Negative) Urine Nitrite (Negative) Urine Bilirubin (Negative) Urine Urobilinogen (Negative) Ur Leukocyte Esterase (Negative) Urine WBC (Auto) (0-5) /hpf Urine RBC (Auto) (0-4) /hpf U Hyaline Cast (Auto) (0-5) /lpf U Epithel Cells (Auto) (0-5) /lpf Urine Bacteria (Auto) (Negative) Urine Crystals Other Crystals (None Prsent) 03/14/19 03/14/19 Range/Units 00:37 01:15 WBC (4.8-10.8) K/uL RBC (4.2-5.4) M/uL Hgb (12.0-16.0) g/dL Hct (37-47) % MCV (80-100) fL MCH (25-34) pg MCHC (32-36) g/dL RDW Std Deviation (36.4-46.3) fL RDW Coeff of Wally (11.5-14.5) % Plt Count (130-400) K/uL MPV (7.4-10.4) fL Immature Gran % (Auto) % Neut % (Auto) % Lymph % (Auto) % [place] % (Auto) % Eos % (Auto) % Baso % (Auto) % Immature Gran # (Auto) (0.00-0.02) K/uL Neut # (Auto) (1.4-6.5) K/uL Lymph # (Auto) (1.2-3.4) K/uL [place] # (Auto) (0.11-0.59) K/uL Eos # (Auto) (0-0.5) K/uL Baso # (Auto) (0-0.2) K/uL Sodium (136-145) mmol/L Potassium 3.8 (3.5-5.1) mmol/L Chloride (98-107) mmol/L Carbon Dioxide (21-32) mmol/L Anion Gap (3-11) BUN (7-18) mg/dl Creatinine (0.6-1.2) mg/dl Est Cr Clr Drug Dosing Est GFR ( Amer) Est GFR (Non-Af Amer) BUN/Creatinine Ratio (10-20) Glucose (70-99) mg/dl POC Lactic Acid Yosvany (0.90-1.70) mmol/L Calcium (8.5-10.1) mg/dl Total Bilirubin (0.2-1) mg/dl AST 20 (15-37) U/L ALT (12-78) U/L Alkaline Phosphatase (45-117) U/L Total Protein (6.4-8.2) gm/dl Albumin (3.4-5.0) gm/dl Globulin (2.5-4.0) gm/dl Albumin/Globulin Ratio (0.9-2) Urine Color Yellow Urine Appearance Cloudy A (Clear) Urine pH 5.0 (4.5-7.5) Ur Specific [place] 1.024 (1.000-1.030) Urine Protein Negative (Negative) Urine Glucose (UA) Negative (Negative) Urine Ketones Negative (Negative) Urine Blood Negative (Negative) Urine Nitrite Negative (Negative) Urine Bilirubin Negative (Negative) Urine Urobilinogen Negative (Negative) Ur Leukocyte Esterase Trace H (Negative) Urine WBC (Auto) 1-5 (0-5) /hpf Urine RBC (Auto) 0-4 (0-4) /hpf U Hyaline Cast (Auto) 1-5 (0-5) /lpf U Epithel Cells (Auto) 20-30 H (0-5) /lpf Urine Bacteria (Auto) Negative (Negative) Urine Crystals Not Reportable Other Crystals [place] (None Prsent) Administered Medications Hydromorphone HCl (Dilaudid) 0.5 mg IV Q15M PRN PRN Reason: Pain Stop: 03/27/19 23:35 Last Admin: 03/14/19 02:45 Dose: 0.5 mg Documented by: [id number] Admin: 03/14/19 00:16 Dose: 0.5 mg Documented by: [id number] Sodium Chloride (Nss 1000ml) 1,000 mls @ 125 mls/hr IV .Q8H STA Stop: 03/14/19 07:35 Last Admin: 03/14/19 01:47 Dose: 125 mls/hr Documented by: [id number] Ioversol (Optiray 320 125ml) 125 ml IV ONCE PRN PRN Reason: Interaction Checking Stop: 03/18/19 01:02 Last Admin: 03/14/19 01:03 Dose: 93 ml Documented by: [id number] Discontinued Medications Acetaminophen (Tylenol) 1,000 mg PO ONE STA Stop: 03/13/19 23:37 Last Admin: 03/14/19 00:22 Dose: 1,000 mg Documented by: [id number] Daptomycin 600 mg/ Syringe 12 mls @ 0 mls/min IV NOW STA; Protocol Stop: 03/13/19 23:37 Last Admin: 03/14/19 01:25 Dose: 2 mls/min Documented by: [id number] Piperacillin Sod/Tazobactam Sod (Zosyn) 4.5 gm in 120 mls @ 200 mls/hr IV NOW STA Stop: 03/14/19 00:11 Last Infusion: 03/14/19 01:36 Dose: 0 mls/hr Documented by: [id number] Admin: 03/14/19 00:15 Dose: 200 mls/hr Documented by: [id number] Sodium Chloride (Nss 1000ml) 1,000 mls @ 999 mls/hr IV .Q1H1M NAVI Stop: 03/14/19 00:45 Last Infusion: 03/14/19 01:47 Dose: 0 mls/hr Documented by: [id number] Admin: 03/14/19 00:15 Dose: 999 mls/hr Documented by: [id number] Ketorolac Tromethamine (Toradol) 10 mg IV NOW ONE Stop: 03/14/19 01:13 Last Admin: 03/14/19 01:25 Dose: 10 mg Documented by: [id number] Ondansetron HCl (Zofran) 4 mg IV NOW STA Stop: 03/13/19 23:37 Last Admin: 03/14/19 00:16 Dose: 4 mg Documented by: [id number] Imaging Data Radiologist's Impression: Radiology results as stated below per my review and the radiologist's interpretation: CT ABDOMEN & PELVIS WITH CONTRAST: No priors In the ventral body ball in region of pannus underlying skin markers is a small subcutaneous fluid collection measuring about 3 cm transverse and 1.5 cm AP image 460/3. This may represent a small abscess. Additional area of focal fluid is in the deeper subcutaneous fa image 441/3. May also represent a small abscess. The transverse dimensionofthis focal area of fluid is about 4.6 cm, but it is very thin in AP dimension measuring about 1 cm. Difficult to tell whether this deeper area of focal fluid is a discrete collection or focal area of edema with some artifcat on the exam limiting evaluation. More diffuse skin thickening and subcutaneous infiltration in the ventral body wall/pannus may represent cellulitis. Focused ultrasound could be obtained to evaluate for drainable collection, as indicated. No intra-abdominal or intrapelvic collections. Fatty involution of thte pancreas. No evidence for acute pancreatitis. No appendicitis. No bowel obstruction. Postop changes with gastric bypass. Suspected hepatic steatosis, cholecystectomy and other incidental findings. Radiologist: Anupam Shi M.D. Study read at 01:07 and initial results transmitted at 01:37 Blood Pressure Blood Pressure Findings: Elevated blood pressure Blood Pressure Disposition: further management by hospitalist Discharge Plan Visit Data Chief Complaint: Wound Stated Complaint: CYST/SORE UNDER BELLY BROKE, CHILLS,PAIN NEAR SORE ED Provider: Alexi Rush Discharge Problem: Sepsis, Abdominal wall cellulitis, Abdominal wall abscess, Leukocytosis Forms Stand Alone Forms: [facility] Prescriptions Prescriptions: No Action venlafaxine [Effexor XR] 75 mg Capsule,Extended Release 24hr 75 mg PO QAM RF: 0 hydrocodone-acetaminophen 5-325 mg Tablet 1 tab PO Q6H PRN (Reason: Pain) RF: 0 meloxicam 15 mg Tablet 15 mg PO QAM RF: 0 venlafaxine [Effexor XR] 150 mg Capsule,Extended Release 24hr 150 mg PO QAM RF: 0 biotin 5,000 mcg Tablet, Sublingual 5,000 mcg Sublingual QAM RF: 0 cyclobenzaprine 10 mg Tablet 10 mg PO TID PRN (Reason: Pain) RF: 0 lisinopril-hydrochlorothiazide 20-25 mg Tablet 0.5 tab PO QAM RF: 0 tramadol [Ultram] 50 mg tablet 50 mg PO QID PRN (Reason: pain) Qty: 15 RF: 0 acetaminophen [Tylenol Arthritis Pain] 650 mg Tablet Extended Release 650 mg PO Q12H PRN (Reason: Pain) RF: 0 ferrous sulfate [Iron (ferrous sulfate)] 325 mg (65 mg iron) Tablet 325 mg PO QAM RF: 0 lidocaine [Lidoderm] 5 % Adhesive Patch,Medicated 1 patch TOPICAL DAILY PRN (Reason: Pain) RF: 0 fluticasone propionate [Flonase Allergy Relief] 50 mcg/actuation [place],Suspension 2 spray INTRANASAL DAILY PRN (Reason: Nasal Congestion) RF: 0 metoclopramide HCl [Reglan] 10 mg Tablet 10 mg PO Q8 PRN (Reason: Nausea) RF: 0 buspirone 15 mg Tablet 15 mg PO DAILY RF: 0 bupropion HCl 300 mg tablet extended release 24 hr 300 mg PO DAILY RF: 0 omeprazole 20 mg capsule,delayed release(DR/EC) 20 mg PO DAILY Qty: 30 RF: 0 Discharge Problem: Sepsis Qualifiers: Sepsis type: sepsis due to unspecified organism Sepsis acute organ dysfunction status: unspecified Qualified Code(s): A41.9 - Sepsis, unspecified organism Leukocytosis Qualifiers: Leukocytosis type: unspecified Qualified Code(s): D72.829 - Elevated white blood cell count, unspecified The scribe's documentation has been prepared under my direction and personally reviewed by me in its entirety. I confirm that the note above accurately reflec ts all work, treatment, procedures, and medical decision making performed by me.
[2019-03-14] MEDS ORDERED: ONDANSETRON INJ 2 MG/ML 2 ML VIAL IV PRN (04:35)
[2019-03-14] MEDS ORDERED: CYCLOBENZAPRINE HCL 10 MG TAB PO PRN (04:35)
[2019-03-14] MEDS ORDERED: NITROGLYCERIN SL 0.4 MG/TAB TAB SL PRN (04:35)
[2019-03-14] MEDS ORDERED: PIPERACILL/TAZOBAC CONSULT ACTIVE PRN (04:35)
[2019-03-14] MEDS ORDERED: POLYETHYLENE (MIRALAX) 17 GM PACK PO PRN (04:35)
[2019-03-14] MEDS ORDERED: LIDOCAINE 5% 1 PATCH TD PRN (04:35)
[2019-03-14] MEDS ORDERED: FLUTICASONE PROPIONATE NA SPR 16 GM BTL PRN (04:35)
[2019-03-14] MEDS ORDERED: DAPTOMYCIN CONSULT ACTIVE PRN (04:42)
[2019-03-14] MEDS: SODIUM CHLORIDE 0.9% 1000ML 1,000 ML IV SCH ×3 (04:48→23:26)
[2019-03-14] MEDS: HYDROCODONE/ACETAMOPHEN 5/325MG TAB PO PRN ×2 (04:50→11:05)
--- NOTE | 2019-03-14 05:17 | History and Physical Report ---
DATE OF ADMISSION: 03/13/2019 CHIEF COMPLAINT: Abdominal wall infection. HISTORY OF PRESENT ILLNESS: A 48-year-old female with past medical history significant for morbid obesity, fatty liver, post-gastric surgery syndrome, hypertension, allergic rhinitis, osteoarthritis of both knees, sarcoidosis, depression, generalized anxiety disorder, family history of colon cancer, presents with abdominal wall infection. The patient says she started to notice pimple like thing on her pannus about a week ago. It seemed to become bigger and painful, so she went to see a family doctor, they tried to valdo the lesion, but when she bent down, it spontaneously opened up though didnot draining much, her PCP prescribed Keflex, but she did start to develop chills, not feeling well, so she came to the ER. In the ER, she spiked temperatures, recorded T-max 39.3, required Tylenol and also given Toradol. Currently sweating, seems to be temperature coming down and she was tachycardic. White count 11,000. Point of lactic acid was 1.64. CAT scan of the abdomen and pelvis was done which showed cellulitis and possible superficial versus deep, small amount of fluid collection, official report pending. The patient was given Zosyn and daptomycin in the ER. Currently hemodynamically stable, has some headache, some blurred visions. Denies any runny nose, some sore throat from dryness of the mouth. No cough, no chest pain, no shortness of breath. No nausea, has abdominal pain around the lesion. Appetite is okay. Lives with her . Ambulates okay, sleeping okay. No diarrhea or constipation. Denies any blood in stools or black stools. No hematuria or dysuria. No swelling in the legs, no rash. ALLERGIES: No known drug allergies. PAST MEDICAL HISTORY: As mentioned above. PAST SURGICAL HISTORY: Right total knee arthroplasty, colonoscopy with biopsy, EGD with biopsy, gastric bypass for obesity, lumbar spine injections, left lumbar single laminectomy, laparoscopic cholecystectomy, ligation and stripping of the right lower leg veins, tonsillectomy. MEDICATIONS: The patient is on venlafaxine XR 225 mg p.o. daily, hydrocodone/acetaminophen 5/325 mg one tablet every 4-6 hours p.r.n., lisinopril/hydrochlorothiazide 20/12.5 0.5 tablets daily, Wellbutrin-XL 300 mg p.o. daily, cyclobenzaprine 10 mg p.o. t.i.d. p.r.n., tramadol 50 mg p.o. q. 6 hours p.r.n., oxybutynin 5 mg p.o. daily, ferrous sulfate 325 mg p.o. daily with breakfast, buspirone 15 mg p.o. daily, Flonase 2 sprays into each nostril daily, magnesium oxide 400 mg p.o. daily, biotin 5000 mcg daily, lidocaine patch to each knee daily, Tylenol ER 650 mg p.o. 8 hours p.r.n., meloxicam 15 mg p.o. daily for pain. FAMILY HISTORY: Significant for: Aunt had colon cancer, bipolar disorder, obesity. Paternal grandfather had colon cancer. Father had benign colonic polyps. Mother has hypertension. SOCIAL HISTORY: , lives with her . No smoking, alcohol rarely. No drug use. REVIEW OF SYMPTOMS: As per HPI. Rest of review of systems is negative. PHYSICAL EXAMINATION: GENERAL: The patient is morbidly obese, currently not in acute distress. VITAL SIGNS: Temperature 13.3, pulse 180, respiratory rate 22, blood pressure 121/67, oxygen 93% room air. HEENT: No pallor, no icterus. Pupils equal, round, reactive to light. NECK: No JVD, no neck masses, no carotid bruits. CARDIOVASCULAR: S1, S2, regular rate and rhythm. Tachycardia. No murmurs. RESPIRATORY SYSTEM: Normal AP diameter. No accessory muscle use. No wheezing, no crackles. ABDOMEN: Soft, bowel sounds present. Open wounds seen in the pannus and also swelling and erythematous changes around the open wound. Mild guarding, no rigidity. CENTRAL NERVOUS SYSTEM: Cranial nerves II-XII grossly nonfocal. EXTREMITIES: No edema, no erythema. LABORATORY DATA: WBC 11.5, hemoglobin 13.9, hematocrit 42.4, platelets 205. Sodium 137, potassium 3.8, chloride 104, bicarbonate 28, BUN 20, creatinine 0.9, serum glucose 114. Point of lactic acid 1.64, calcium 9, total bilirubin 0.5, AST 20, ALT 49, alkaline phosphatase 78. Urinalysis, cloudy, trace leukocyte esterase. Chest x-ray, no acute findings seen. ASSESSMENT AND PLAN: This is a 48-year-old female who presents with abdominal wall infection, possible sepsis. 1. Panniculitis CAT scan showing small amount of fluid collection, possible abscess. The open wound in the pannus with erythematous changes surrounding, which started as a pimple about a week ago and rapidly progressed, possible early sepsis with tachycardia, temperature spike and white count, point of lactic acid is normal. Blood pressure is okay. In the ER, was given daptomycin and Zosyn, which we will continue. We will follow the wound cultures. We will consult surgery for possible role of I and D. We will keep her n.p.o. until seen by surgery. We will continue IV normal saline at 125 mL per hour. Closely monitor in the med/surg tele. 2. History of hypertension. Continue her home medication of lisinopril/hydrochlorothiazide with holding parameters. 3. History of morbid obesity, status post gastric bypass surgery, fatty liver. Needs counseling. 4. History of depression. Continue Wellbutrin and Effexor XR. 5. History of generalized anxiety disorder. Continue BuSpar. 6. History of osteoarthritis of both knees. Continue her home pain medications and lidocaine patch. 7. Deep venous thrombosis prophylaxis, sequential compression devices for now. 8. Disposition: Close monitoring in the med/surg tele. Level 1 full code. Social Service to help with discharge planning. MTDD
[2019-03-14] MEDS: PIPERACILLIN/TAZOBACTAM 4.5 GM in DEXTROSE 5% 100 ML IV SCH ×3 (05:26→22:42)
[2019-03-14] MEDS ORDERED: SODIUM CHLORIDE 0.9% 500 ML IV SCH (06:45)
--- NOTE | 2019-03-14 07:01 | XRay Report ---
XR chest 1V portable CLINICAL HISTORY: fever dyspnea COMPARISON STUDY: 02/07/2019 FINDINGS: The bones soft tissues and hemidiaphragms are normal. The cardiomediastinal silhouette is n ormal. The lungs are clear. The pulmonary vasculature is normal. IMPRESSION: Negative chest. The above report was generated using voice recognition software. It may contain grammatical, syntax or spelling errors. Electronically signed by: Jayant Garcia M.D. 03/14/2019 7:00 AM
--- NOTE | 2019-03-14 07:22 | CT Scan Report ---
CT abd pelvis IV con only CLINICAL HISTORY: 48 years-old Female presenting with lower abd wall cellulitis vs abscess. Right fl ank. TECHNIQUE: Multidetector CT of the abdomen and pelvis was performed after the administration of intra venous contrast. IV contrast: 93 mL of Optiray 320. One or more dose lowering techniques were used co nsistent with the principles of ALARA (as low as reasonably achievable), including automatic exposure control, mA or kV adjustment to individual patient size, and/or use of iterative reconstruction. COMPARISON: None. CT DOSE (mGy.cm): The estimated cumulative dose is 2502.55 mGy.cm. FINDINGS: Brim Molder topogram: Cholecystectomy clips. Lung bases: Normal heart size. Coronary artery calcification. No pericardial or pleural effusion. Min imal dependent changes likely atelectasis. Liver: Normal morphology. Density suggestive of hepatic steatosis. No focal lesion. Patent hepatic va sculature. Biliary: No intrahepatic or extrahepatic biliary ductal dilatation. Gallbladder surgically absent. Pancreas: Moderate parenchymal atrophy. Spleen: Normal. Adrenal glands: Normal. Kidneys and ureters: Subcentimeter macroscopic fat-containing lesion in the anterior aspect of the in terpolar region of the left kidney consistent with angiomyolipoma. Renal parenchyma otherwise normal. No nephrolithiasis or hydronephrosis. Ureters nondistended. Bladder: Normal. Pelvic organs: Uterus and ovaries normal. Bowel: Normal appendix. No bowel obstruction. Postsurgical changes of antecolic Jayda-en-Y gastric byp ass. Widely patent distal anastomosis. Peritoneal cavity: No free fluid or intraperitoneal gas. Lymph nodes: No enlarged lymph nodes in the abdomen or pelvis. Vasculature: Aorta and IVC patent and normal in caliber. Abdominal wall: Skin thickening and subcutaneous infiltration in the lower right anterior abdominal w all. A marker is in place at the site. There is poorly delineated fluid and infiltration subjacent to the marker associated with the cutis (series 3 image 461). A laminar deeper poorly defined fluid and inflammatory region is noted slightly more superiorly (series 3 images 438). No well-defined rim-enh ancing fluid collection. Musculoskeletal: Degenerative changes of the spine. IMPRESSION: 1. Inflammatory changes of the skin and subcutaneous fat in the right lower anterior abdominal wall compatible with cellulitis. The poorly delineated fluid and inflammatory change associated with the c utis and separately in the slightly deeper subcutaneous tissue consistent with phlegmon. No drainable abscess evident. 2. No acute intra-abdominal pathology. 3. Jayda-en-Y gastric bypass. 4. Hepatic steatosis. Electronically signed by: Rodrigue Barboza M.D. 03/14/2019 7:21 AM
[2019-03-14] MEDS: BuPROPion XL 300 MG TABCR PO SCH (07:56)
[2019-03-14] MEDS: PANTOprazole 40 MG TAB PO SCH (07:56)
[2019-03-14] MEDS: ACETAMINOPHEN 325 MG TAB PO PRN ×2 (07:56→17:54)
[2019-03-14] MEDS: VENLAFAXINE HCL XR 75 MG CAPXR PO SCH (07:57)
[2019-03-14] MEDS: BusPIRone 15 MG TAB PO SCH (07:57)
[2019-03-14] MEDS: LISINOPRIL/HCTZ 20/25MG 1 TAB PO SCH (07:57)
[2019-03-14] MEDS: FERROUS SULFATE 325 MG TAB PO SCH (07:57)
[2019-03-14] MEDS: VENLAFAXINE HCL XR 150 MG CAPXR PO SCH (07:57)
[2019-03-14] MEDS ORDERED: DAPTOmycin 500 MG VIAL IV SCH (09:00)
[2019-03-14] MEDS ORDERED: NON-FORMULARY MEDICATION (Biotin 5,000 MCG) SL SCH (09:00)
--- NOTE | 2019-03-14 10:29 | Surgery Consultation ---
Date of Consultation March 14, 2019 Assessment & Plan (1) Sepsis: pt is a 48 year old female who was admitted to hospital for sepsis with lower abdominal infection with abscess, IMP: sepsis, lower abdominal wall cellulitis with abscess, Plan, I recommend to do I/D lower abdominal wall abscess. D/W benefits, risks and alternatives of the surgery, the risks - infection, bleeding, unhealing wound, sepsis, pt understood, she agrees with the surgery, I answered all questions, (2) Abdominal wall cellulitis: History of Present Illness Attending Physician: Natalie Solorio DO CHIEF COMPLAINT: Abdominal wall infection. HISTORY OF PRESENT ILLNESS: A 48-year-old female with past medical history significant for morbid obesity, fatty liver, post-gastric surgery syndrome, hypertension, allergic rhinitis, osteoarthritis of both knees, sarcoidosis, depression, generalized anxiety disorder, family history of colon cancer, presents with abdominal wall infection. The patient says she started to notice pimple like thing on her pannus about a week ago. It seemed to become bigger and painful, so she went to see a family doctor, they tried to valdo the lesion, but when she bent down, it spontaneously opened up though didnot draining much, her PCP prescribed Keflex, but she did start to develop chills, not feeling well, so she came to the ER. In the ER, she spiked temperatures, recorded T-max 39.3, required Tylenol and also given Toradol. Currently sweating, seems to be temperature coming down and she was tachycardic. White count 11,000. Point of lactic acid was 1.64. CAT scan of the abdomen and pelvis was done which showed cellulitis and possible superficial versus deep, small amount of fluid collection, official report pending. The patient was given Zosyn and daptomycin in the ER. Currently hemodynamically stable, has some headache, some blurred visions. Denies any runny nose, some sore throat from dryness of the mouth. No cough, no chest pain, no shortness of breath. No nausea, has abdominal pain around the lesion. Appetite is okay. Lives with her . Ambulates okay, sleeping okay. No diarrhea or constipation. Denies any blood in stools or black stools. No hematuria or dysuria. No swelling in the legs, no rash. I ( Britton Luis MD ) got a call for consult abdominal wall infection/abscess, I reviewed pt's H/P with pt, pt is still feel chill, and lower abdominal wall pain with drainage, Allergies Allergy/AdvReac Type Severity Reaction Status Date / Time No Known Allergies Allergy Verified 03/13/19 23:46 Home Medications Home Medications Medication Instructions Recorded Confirmed Type biotin 5,000 mcg SUBLINGUAL QAM 04/06/18 03/13/19 History cyclobenzaprine 10 mg PO TID PRN 04/06/18 03/13/19 History hydrocodone-acetaminophen 1 tab PO Q6H PRN 04/06/18 03/13/19 History lisinopril-hydrochlorothiazide 0.5 tab PO QAM 04/06/18 03/13/19 History meloxicam 15 mg PO QAM 04/06/18 03/13/19 History venlafaxine [Effexor XR] 75 mg PO QAM 04/06/18 03/13/19 History venlafaxine [Effexor XR] 150 mg PO QAM 04/06/18 03/13/19 History tramadol [Ultram] 50 mg PO QID PRN #15 tab 04/11/18 03/13/19 Rx acetaminophen [Tylenol Arthritis 650 mg PO Q12H PRN 10/23/18 03/13/19 History Pain] buspirone 15 mg PO DAILY 10/23/18 03/13/19 History ferrous sulfate [Iron (ferrous 325 mg PO QAM 10/23/18 03/13/19 History sulfate)] fluticasone propionate [Flonase 2 spray INTRANASAL DAILY PRN 10/23/18 03/13/19 History Allergy Relief] lidocaine [Lidoderm] 1 patch TOPICAL DAILY PRN 10/23/18 03/13/19 History metoclopramide HCl [Reglan] 10 mg PO Q8 PRN 10/23/18 03/13/19 History bupropion HCl 300 mg PO DAILY 02/07/19 03/13/19 History omeprazole 20 mg PO DAILY #30 cap 02/08/19 03/13/19 Rx Patient History Medical History Anxiety (Chronic) Depression (Chronic) Pulmonary sarcoidosis (Chronic) Osteoarthritis (Chronic) Fatty liver (Chronic) Obesity (Chronic) Hypertension (Chronic) Surgical History S/P tonsillectomy (Chronic) H/O vein stripping (Chronic) History of cholecystectomy (Chronic) History of laminectomy (Chronic) History of total right knee replacement (Chronic) History of gastric bypass (Chronic) Family History Mother Family history of diabetes mellitus Grandfather (Paternal) Family hx of colon cancer Social History Preferred Language: [place]otho Communication Ability: Effective Torch Burner Required: No Beliefs That Will Affect Care: None Current Living Situation: Spouse Other Information That Helps Us Care for You: No Feels Safe at Home: Yes Safety Concerns: Feels Safe At This Time Smoking Status: Never smoker Second Hand Exposure: Yes (parents smoked) ; Hx Alcohol Use: Yes Alcohol type: beer, wine and hard liquor Alcohol Intake Frequency: Rarely Hx Substance Use: No Review of Systems Review of Systems: All systems reviewed & are unremarkable except as noted in HPI & below Physical Exam Constitutional: WD/WN, vitals as above well developed and well nourished ENMT: external ear and nose normal, oropharynx normal Neck: trachea midline, no thyromegaly Respiratory: normal respiratory effort, lungs clear to auscultation Cardiovascular: RRR, no murmur, no edema Rate/Rhythm: regular rate and regular rhythm Gastrointestinal (Abdomen): Percussion/Palpation: abdomen soft some redness, tenderness with drainage on lower abdominal wall, Musculoskeletal: no cyanosis or clubbing, extremities motor strength 5/5 Skin: some redness tenderness and drainage on lower abdominal wall, the redness size about 3x4cm, some pus drainage from infected wound Neurologic: patellar DTR's 2+ bilat, sensation intact Psychiatric: A+Ox3, euthymic affect Orientation: alert and oriented x 3 Results & Data Vital Signs (Past 12 Hours) Vital Signs Temp Pulse Pulse Resp BP BP Pulse Ox 03/14/19 07:14 36.7 C 99 H 18 101/65 95 03/14/19 04:43 36.8 C 117 H 24 98/67 L 96 03/14/19 03:42 37.6 C H 114 H 20 129/50 L 92 03/14/19 02:51 38.7 C H 109 H 20 121/67 95 03/14/19 01:35 39.3 C H 118 H 22 133/71 93 03/14/19 01:34 39.3 C H 03/14/19 00:44 115 H 24 94 03/13/19 23:06 38.3 C H 123 H 20 118/61 98 Laboratory Results Abnormal lab results 03/13/19 03/13/19 03/14/19 Range/Units 23:47 23:47 01:15 WBC 11.54 H (4.8-10.8) K/uL RDW Std Deviation 52.8 H (36.4-46.3) fL RDW Coeff of Wally 16.7 H (11.5-14.5) % MPV 10.8 H (7.4-10.4) fL Immature Gran # (Auto) 0.03 H (0.00-0.02) K/uL Neut # (Auto) 9.37 H (1.4-6.5) K/uL Lymph # (Auto) 1.09 L (1.2-3.4) K/uL Real # (Auto) 0.93 H (0.11-0.59) K/uL BUN 20 H (7-18) mg/dl BUN/Creatinine Ratio 22.6 H (10-20) Glucose 114 H (70-99) mg/dl Urine Appearance Cloudy A (Clear) Ur Leukocyte Esterase Trace H (Negative) U Epithel Cells (Auto) 20-30 H (0-5) /lpf Diagnostic Findings CT abd pelvis IV con only CLINICAL HISTORY: 48 years-old Female presenting with lower abd wall cellulitis vs abscess. Right flank. TECHNIQUE: Multidetector CT of the abdomen and pelvis was performed after the administration of intravenous contrast. IV contrast: 93 mL of Optiray 320. One or more dose lowering techniques were used consistent with the principles of ALARA (as low as reasonably achievable), including automatic exposure control, mA or kV adjustment to individual patient size, and/or use of iterative reconstruction. COMPARISON: None. CT DOSE (mGy.cm): The estimated cumulative dose is 2502.55 mGy.cm. FINDINGS: Curriculum Coordinator topogram: Cholecystectomy clips. Lung bases: Normal heart size. Coronary artery calcification. No pericardial or pleural effusion. Minimal dependent changes likely atelectasis. Liver: Normal morphology. Density suggestive of hepatic steatosis. No focal lesion. Patent hepatic vasculature. Biliary: No intrahepatic or extrahepatic biliary ductal dilatation. Gallbladder surgically absent. Pancreas: Moderate parenchymal atrophy. Spleen: Normal. Adrenal glands: Normal. Kidneys and ureters: Subcentimeter macroscopic fat-containing lesion in the anterior aspect of the interpolar region of the left kidney consistent with angiomyolipoma. Renal parenchyma otherwise normal. No nephrolithiasis or hydronephrosis. Ureters nondistended. Bladder: Normal. Pelvic organs: Uterus and ovaries normal. Bowel: Normal appendix. No bowel obstruction. Postsurgical changes of antecolic Jayda-en-Y gastric bypass. Widely patent distal anastomosis. Peritoneal cavity: No free fluid or intraperitoneal gas. Lymph nodes: No enlarged lymph nodes in the abdomen or pelvis. Vasculature: Aorta and IVC patent and normal in caliber. Abdominal wall: Skin thickening and subcutaneous infiltration in the lower right anterior abdominal wall. A marker is in place at the site. There is poorly delineated fluid and infiltration subjacent to the marker associated with the cutis (series 3 image 461). A laminar deeper poorly defined fluid and inflammatory region is noted slightly more superiorly (series 3 images 438). No well-defined rim-enhancing fluid collection. Musculoskeletal: Degenerative changes of the spine. IMPRESSION: 1. Inflammatory changes of the skin and subcutaneous fat in the right lower anterior abdominal wall compatible with cellulitis. The poorly delineated fluid and inflammatory change associated with the cutis and separately in the slightly deeper subcutaneous tissue consistent with phlegmon. No drainable abscess evident. 2. No acute intra-abdominal pathology. 3. Jayda-en-Y gastric bypass. 4. Hepatic steatosis. (1) Sepsis Sepsis acute organ dysfunction status: unspecified Sepsis type: sepsis due to unspecified organism Qualified Code(s): A41.9 - Sepsis, unspecified organism
[2019-03-14] MEDS ORDERED: DEXAMETHASONE SOD INJ 4 MG/ML VIAL ONE (12:30)
[2019-03-14] MEDS ORDERED: GLYCOPYRROLATE 0.2 MG/ML VIAL ONE (12:30)
[2019-03-14] MEDS ORDERED: PROPOFOL IV EMULSION 10 MG/ML 20 ML VIAL IV ONE (12:30)
[2019-03-14] MEDS ORDERED: ONDANSETRON INJ 2 MG/ML 2 ML VIAL ONE (12:30)
[2019-03-14] MEDS ORDERED: NEOSTIGMINE METHYLSULFATE 5 MG/5 ML SYR ONE (12:30)
[2019-03-14] MEDS ORDERED: PHENYLEPHRINE HCL 10 MG/ML VIAL ONE (12:30)
[2019-03-14] MEDS ORDERED: MIDAZOLAM HCL 1 MG/ML 2ML VIAL ONE (12:30)
[2019-03-14] MEDS ORDERED: SUCCINYLCHOLINE CHLORIDE 20 MG/ML 10 ML VIAL ONE (12:30)
[2019-03-14] MEDS ORDERED: LIDOCAINE HCL 2% 2 ML VIAL/AMP(20MG/ML) INFIL ONE (12:30)
[2019-03-14] MEDS ORDERED: ePHEDrine sulfate 50 MG/ML AMP ONE (12:30)
[2019-03-14] MEDS ORDERED: fentaNYL citrate 100 MCG/2 ML VIAL ONE ×2 (12:31→13:48)
--- NOTE | 2019-03-14 12:40 | Anesthesiology Consultation ---
Date of Service March 14, 2019 Assessment & Plan (1) Encounter for pre-operative examination: Chart Review Chart Review: Acceptable Risk for Surgery and Patient NOT seen in Pre Admission Testing Consults Requested none History Surgery Operation Date: 03/14/19 10:10 Proposed Procedures p Incision and Drainage Abdominal Wall Abscess - Britton Luis MD Height/Weight Height: 5 ft 11 in Weight: 174 kg Allergies Allergy/AdvReac Type Severity Reaction Status Date / Time No Known Allergies Allergy Verified 03/13/19 23:46 Medications Home Medications Medication Instructions Recorded Confirmed Last Taken biotin 5,000 mcg SUBLINGUAL QAM 04/06/18 03/13/19 02/07/19 cyclobenzaprine 10 mg PO TID PRN 04/06/18 03/13/19 10/16/18 hydrocodone-acetaminophen 1 tab PO Q6H PRN 04/06/18 03/13/19 03/13/19 17:30 2 tabs lisinopril-hydrochlorothiazide 0.5 tab PO QAM 04/06/18 03/13/19 02/07/19 meloxicam 15 mg PO QAM 04/06/18 03/13/19 10/29/18 09:00 venlafaxine [Effexor XR] 75 mg PO QAM 04/06/18 03/13/19 10/29/18 09:00 venlafaxine [Effexor XR] 150 mg PO QAM 04/06/18 03/13/19 10/29/18 09:00 tramadol [Ultram] 50 mg PO QID PRN #15 tab 04/11/18 03/13/19 Unknown acetaminophen [Tylenol Arthritis 650 mg PO Q12H PRN 10/23/18 03/13/19 10/23/18 Pain] buspirone 15 mg PO DAILY 10/23/18 03/13/19 Unknown ferrous sulfate [Iron (ferrous 325 mg PO QAM 10/23/18 03/13/19 10/29/18 09:00 sulfate)] fluticasone propionate [Flonase 2 spray INTRANASAL DAILY PRN 10/23/18 03/13/19 Unknown Allergy Relief] lidocaine [Lidoderm] 1 patch TOPICAL DAILY PRN 10/23/18 03/13/19 Unknown metoclopramide HCl [Reglan] 10 mg PO Q8 PRN 10/23/18 03/13/19 Unknown bupropion HCl 300 mg PO DAILY 02/07/19 03/13/19 Unknown omeprazole 20 mg PO DAILY #30 cap 02/08/19 03/13/19 Unknown Active Medications Generic Name Dose Route Start Last Admin Trade Name Freq PRN Reason Stop Dose Admin Acetaminophen 650 mg 03/14/19 04:35 03/14/19 07:56 Tylenol PO 04/13/19 04:34 650 mg Q4H PRN Administration Pain or Fever Hydrocodone Bitart/Acetaminophen 1 tab 03/14/19 04:35 03/14/19 11:05 [place] 5/325 PO 03/28/19 04:34 1 tab Q6H PRN Administration Pain Bupropion HCl 300 mg 03/14/19 09:00 03/14/19 07:56 Wellbutrin-Xl PO 04/13/19 08:59 300 mg DAILY NAVI Administration Buspirone HCl 15 mg 03/14/19 09:00 03/14/19 07:57 Buspar PO 04/13/19 08:59 15 mg DAILY NAVI Administration Ferrous Sulfate 325 mg 03/14/19 09:00 03/14/19 07:57 Feosol PO 04/13/19 08:59 325 mg QAM NAVI Administration Lisinopril/HCTZ 0.5 tab 03/14/19 09:00 03/14/19 07:57 Prinzide 20/25mg PO 04/13/19 08:59 0.5 tab QAM NAVI Administration Sodium Chloride 1,000 mls @ 125 mls/hr 03/14/19 04:35 03/14/19 04:48 Nss 1000ml IV 04/13/19 04:34 125 mls/hr .Q8H NAVI Administration Piperacillin Sod/Tazobactam 120 mls @ 30 mls/hr 03/14/19 06:00 03/14/19 09:26 Sod 4.5 gm/ Dextrose IV 03/24/19 05:59 Infused Q8H NAVI Infusion Protocol Pantoprazole Sodium 40 mg 03/14/19 09:00 03/14/19 07:56 Protonix PO 04/13/19 08:59 40 mg DAILY NAVI Administration Venlafaxine HCl 75 mg 03/14/19 09:00 03/14/19 07:57 Effexor Extended Release PO 04/13/19 08:59 75 mg QAM NAVI Administration Venlafaxine HCl 150 mg 03/14/19 09:00 03/14/19 07:57 Effexor Extended Release PO 04/13/19 08:59 150 mg QAM NAVI Administration NPO Date Last Intake of Fluids: 03/14/19 Time Last Intake of Fluids: 00:00 Date Last Intake of Solids: 03/14/19 Time Last Intake of Solids: 00:00 Past Medical History Medical History Sepsis (Acute) Abdominal wall cellulitis (Acute) Anxiety (Chronic) Depression (Chronic) Pulmonary sarcoidosis (Chronic) Osteoarthritis (Chronic) Fatty liver (Chronic) Obesity (Chronic) Hypertension (Chronic) Past Family History Family History Mother Family history of diabetes mellitus Grandfather (Paternal) Family hx of colon cancer Past Surgical History Surgical History S/P tonsillectomy (Chronic) H/O vein stripping (Chronic) History of cholecystectomy (Chronic) History of laminectomy (Chronic) History of total right knee replacement (Chronic) History of gastric bypass (Chronic) Social History Smoking Status: Never smoker Hx Alcohol Use: Yes Alcohol type: beer, wine and hard liquor alcohol intake frequency: holidays/special occasions only Hx Substance Use: No substance use type: does not use Physical Exam Vital Signs Last Vital Signs Temp 37.3 C 03/14/19 11:04 Pulse 103 H 03/14/19 11:04 Resp 20 03/14/19 11:04 BP 104/68 03/14/19 11:04 Pulse Ox 98 03/14/19 11:04 Testing Laboratory Results 03/13/19 23:47 03/14/19 00:37 Urine Color Yellow 03/14/19 01:15 Urine Appearance Cloudy (Clear) A 03/14/19 01:15 Urine pH 5.0 (4.5-7.5) 03/14/19 01:15 Ur Specific [place] 1.024 (1.000-1.030) 03/14/19 01:15 Urine Protein Negative (Negative) 03/14/19 01:15 Urine Glucose (UA) Negative (Negative) 03/14/19 01:15 Urine Ketones Negative (Negative) 03/14/19 01:15 Urine Nitrite Negative (Negative) 03/14/19 01:15 Ur Leukocyte Esterase Trace (Negative) H 03/14/19 01:15 Urine WBC (Auto) 1-5 /hpf (0-5) 03/14/19 01:15 Urine RBC (Auto) 0-4 /hpf (0-4) 03/14/19 01:15 U Hyaline Cast (Auto) 1-5 /lpf (0-5) 03/14/19 01:15 U Epithel Cells (Auto) 20-30 /lpf (0-5) H 03/14/19 01:15 Urine Bacteria (Auto) Negative (Negative) 03/14/19 01:15 03/14/19 04:42 Gram Stain - Final Abdomen
--- NOTE | 2019-03-14 12:52 | History & Physical Bridge Note ---
Date of Service March 14, 2019 History & Physical Bridge Note I have examined the patient, reviewed the History & Physical and in the interval since the performance of the History & Physical I have noted the following changes of clinical significance: no changes noted
[2019-03-14] MEDS ORDERED: ePHEDrine sulfate 50 MG/ML AMP IV PRN (12:54)
[2019-03-14] MEDS ORDERED: ATROPINE SULFATE 0.1 MG/ML 10ML SYR IV PRN (12:54)
[2019-03-14] MEDS ORDERED: CEFAZOLIN 2000MG 2,000 MG/15 ML SYR IV ONE (13:13)
[2019-03-14] MEDS ORDERED: CEFAZOLIN 2,000 MG/15 ML IV PUSH IV ONE (13:18)
[2019-03-14] MEDS ORDERED: BUPIVACAINE 0.5 % 5 MG/1 ML MPF 30ML VIAL ONE (13:22)
[2019-03-14] MEDS ORDERED: LIDOCAINE HCL 1% 20 ML VIAL ONE (13:22)
[2019-03-14] MEDS ORDERED: BACITRACIN OINT 15 GM TUBE ONE (13:50)
[2019-03-14] MEDS ORDERED: BACITRACIN INJ 50,000 UNIT VIAL ONE (13:50)
--- NOTE | 2019-03-14 14:02 | Post Operative Brief Note ---
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
[2019-03-14] MEDS: HYDROmorphone INJ 2 MG/ML SYR/VIAL IV PRN ×3 (14:23→15:03)
[2019-03-14] MEDS ORDERED: ACETAMINOPHEN 1000 MG/100 ML IV IV ONE (14:48)
[2019-03-14] MEDS ORDERED: ACETAMINOPHEN 1,000 MG/100 ML VIAL IV STA (14:48)
--- NOTE | 2019-03-14 15:10 | Operative Report ---
DATE OF OPERATION: 03/14/2019 PREOPERATIVE DIAGNOSIS: Lower abdominal wall abscess. POSTOPERATIVE DIAGNOSIS: Lower abdominal wall abscess. PROCEDURE: I and D lower abdominal wall abscess. SURGEON: Britton Luis MD. ANESTHESIA: General. ESTIMATED BLOOD LOSS: About 5 mL. FINDINGS: Lower abdominal wall abscess size about 10 x 15 cm, 10 mL pus come out. Wound culture sent packing the wound. COMPLICATIONS: None. INDICATIONS FOR THE PROCEDURE: This is a 48-year-old female who was admitted to hospital for sepsis and lower abdominal wound cellulitis with abscess and the patient will be required to do the I and D lower abdominal wall abscess. I did talk to the patient about the benefit and risk, alternate procedure. I indicated the risks may include but not limited such as bleeding, infection, recurrence, sepsis and healing wound. The patient understands. She signed informed consent and I answered all questions. DETAILS OF PROCEDURE: We brought the patient to the OR, put the patient in the supine position. The patient received SCD on bilateral legs to prevent DVT. Also, patient received 2 grams Ancef IV for prophylactic antibiotic. The patient received general anesthesia without difficulty. The abdomen was appropriately draped in routine sterile fashion. After timeout, to make incision to open wound on the lower abdomen to open wound size about 1 x 2 cm. There was some drainage of pus came out and then we made an incision a bit larger about 4 cm incision transverse on the wound and there was some pus come out immediately. Then we dissected the abscess, found the patient had at least 10 x 15 cm abscess. We had 10 mL of pus come out, so we used the normal saline with bacitracin to flush the abscess and hemostasis obtained, and packing quarter inch Kerlix packing the wound. No active bleeding. Then we put the dressing on. The patient tolerated the procedure well. We also sent the wound culture during procedure. All instrument, needle, sponge count were correct x2 at the end of the case. The patient transferred to recovery room in stable condition. I attest to the content of the Intraoperative Record and any orders documented therein. Any exceptions are noted below. MTDD
[2019-03-14] MEDS ORDERED: TRAMADOL HCL 50 MG TABLET PO PRN (15:38)
[2019-03-14] MEDS ORDERED: METOCLOPRAMIDE HCL 10 MG TABLET PO PRN (15:38)
[2019-03-14] MEDS ORDERED: NON-FORMULARY MEDICATION (Acetaminophen [Tylenol Arthritis Pain] 650 MG) PO PRN (15:38)
--- NOTE | 2019-03-14 15:53 | Hospitalist Progress Note ---
Date of Service March 14, 2019 Assessment & Plan (1) Sepsis: 2/2 abscess with source control after I&D today. Cont broad spectrum antibiotics pending culture results and clinical improvement. (2) Abdominal wall abscess: s/p I&D by general surgery today. Post-op wound management per surgery. (3) HTN (hypertension): controlled, cont Lis/HCTZ per home regimen. (4) Morbid obesity: (5) Depression: h/o depression and anxiety. Cont home medication including Effexor and Buspar. (6) DVT prophylaxis: SCDs in light of procedure today. Full Code Dispo-plan home when medically stable. Natalie Osmin, DO [facility] Hospitalist Subjective 48 yo F with sepsis after manipulating a "pimple" on her abdomen. Has large pannus. She is s/p I&D of 10 x 15 cm abscess in her abdominal soft tissue today. She is lucid and recovering well. She is slightly warm and diaphoretic and just received some Tylenol. Denies nausea, uncontrolled pain, shortness of breath or other issue at this time. Review of Systems Review of Systems: All systems reviewed & are unremarkable except as noted in HPI & below Physical Exam Physical Exam: CONSTITUTIONAL: obese, vitals as above, generally well- appearing EYES: normal conjunctivae, no scleral icterus ENT: MMM RESPIRATORY: clear to auscultation bilaterally, no crackles, rales or wheezes, normal respiratory effort CARDIOVASCULAR: regular rate and rhythm, S1 and 2 heard without murmurs, gallops or rubs, no JVD, no peripheral edema GASTROINTESTINAL: large pannus, multiple abdominal folds, incision site covered with gauze that has expected bloody drainage. No drain in place. Soft, nondistended MUSCULOSKELETAL: head is normocephalic and atraumatic SKIN: warm and dry with some sweating on back of neck area. NEUROLOGIC: CN 2-12 grossly intact, normal cognition, no gross focal deficits. PSYCHIATRIC: alert cooperative and oriented to person, place and time. Results & Data Vital Signs (Past 12 Hours) Vital Signs Temp Pulse Pulse Resp BP Pulse Ox 03/14/19 15:40 37.1 C 96 H 20 121/77 95 03/14/19 15:10 98 H 18 115/74 96 03/14/19 15:00 99 H 12 131/66 95 03/14/19 14:50 104 H 21 134/63 97 03/14/19 14:40 105 H 22 111/53 L 91 03/14/19 14:30 109 H 21 121/67 94 03/14/19 14:20 107 H 16 125/81 98 03/14/19 14:14 36.8 C 113 H 18 128/63 98 03/14/19 12:46 37.7 C H 101 H 20 114/57 L 94 03/14/19 11:04 37.3 C 103 H 20 104/68 98 03/14/19 07:14 36.7 C 99 H 18 101/65 95 03/14/19 04:43 36.8 C 117 H 24 98/67 L 96 Laboratory Results Short CBC 03/13/19 Range/Units 23:47 WBC 11.54 H (4.8-10.8) K/uL Hgb 13.9 (12.0-16.0) g/dL Hct 42.4 (37-47) % Plt Count 205 (130-400) K/uL BMP 03/13/19 03/14/19 23:47 00:37 Sodium 137 Potassium 3.8 Chloride 104 Carbon Dioxide 28 BUN 20 H Creatinine 0.90 Glucose 114 H Calcium 9.0 Liver Function 03/13/19 03/14/19 Range/Units 23:47 00:37 Total Bilirubin 0.5 (0.2-1) mg/dl AST 20 (15-37) U/L ALT 49 (12-78) U/L Alkaline Phosphatase 78 (45-117) U/L Albumin 3.5 (3.4-5.0) gm/dl Urine 03/14/19 Range/Units 01:15 Urine Color Yellow Urine Appearance Cloudy A (Clear) Urine pH 5.0 (4.5-7.5) Ur Specific [place] 1.024 (1.000-1.030) Urine Protein Negative (Negative) Urine Glucose (UA) Negative (Negative) Diagnostic Findings CT abd pelvis IV con only CLINICAL HISTORY: 48 years-old Female presenting with lower abd wall cellulitis vs abscess. Right flank. TECHNIQUE: Multidetector CT of the abdomen and pelvis was performed after the administration of intravenous contrast. IV contrast: 93 mL of Optiray 320. One or more dose lowering techniques were used consistent with the principles of ALARA (as low as reasonably achievable), including automatic exposure control, mA or kV adjustment to individual patient size, and/or use of iterative reconstruction. COMPARISON: None. CT DOSE (mGy.cm): The estimated cumulative dose is 2502.55 mGy.cm. FINDINGS: [employer] topogram: Cholecystectomy clips. Lung bases: Normal heart size. Coronary artery calcification. No pericardial or pleural effusion. Minimal dependent changes likely atelectasis. Liver: Normal morphology. Density suggestive of hepatic steatosis. No focal lesion. Patent hepatic vasculature. Biliary: No intrahepatic or extrahepatic biliary ductal dilatation. Gallbladder surgically absent. Pancreas: Moderate parenchymal atrophy. Spleen: Normal. Adrenal glands: Normal. Kidneys and ureters: Subcentimeter macroscopic fat-containing lesion in the anterior aspect of the interpolar region of the left kidney consistent with angiomyolipoma. Renal parenchyma otherwise normal. No nephrolithiasis or hydronephrosis. Ureters nondistended. Bladder: Normal. Pelvic organs: Uterus and ovaries normal. Bowel: Normal appendix. No bowel obstruction. Postsurgical changes of antecolic Jayda-en-Y gastric bypass. Widely patent distal anastomosis. Peritoneal cavity: No free fluid or intraperitoneal gas. Lymph nodes: No enlarged lymph nodes in the abdomen or pelvis. Vasculature: Aorta and IVC patent and normal in caliber. Abdominal wall: Skin thickening and subcutaneous infiltration in the lower right anterior abdominal wall. A marker is in place at the site. There is poorly delineated fluid and infiltration subjacent to the marker associated with the cutis (series 3 image 461). A laminar deeper poorly defined fluid and inflammatory region is noted slightly more superiorly (series 3 images 438). No well-defined rim-enhancing fluid collection. Musculoskeletal: Degenerative changes of the spine. IMPRESSION: 1. Inflammatory changes of the skin and subcutaneous fat in the right lower anterior abdominal wall compatible with cellulitis. The poorly delineated fluid and inflammatory change associated with the cutis and separately in the slightly deeper subcutaneous tissue consistent with phlegmon. No drainable abscess evident. 2. No acute intra-abdominal pathology. 3. Jayda-en-Y gastric bypass. 4. Hepatic steatosis. Medications Administered Current Inpatient Medications Acetaminophen (Tylenol) 650 mg PO Q4H PRN PRN Reason: Pain or Fever Stop: 04/13/19 04:34 Last Admin: 03/14/19 07:56 Dose: 650 mg Documented by: Hydrocodone Bitart/Acetaminophen ([place] 5/325) 1 tab PO Q6H PRN PRN Reason: Pain Stop: 03/28/19 04:34 Last Admin: 03/14/19 11:05 Dose: 1 tab Documented by: Bupropion HCl (Wellbutrin-Xl) 300 mg PO DAILY [facility] Stop: 04/13/19 08:59 Last Admin: 03/14/19 07:56 Dose: 300 mg Documented by: Buspirone HCl (Buspar) 15 mg PO DAILY [facility] Stop: 04/13/19 08:59 Last Admin: 03/14/19 07:57 Dose: 15 mg Documented by: Cyclobenzaprine HCl (Flexeril) 10 mg PO TID PRN PRN Reason: Pain Stop: 04/13/19 04:34 Ferrous Sulfate (Feosol) 325 mg PO QAM [facility] Stop: 04/13/19 08:59 Last Admin: 03/14/19 07:57 Dose: 325 mg Documented by: Fluticasone Propionate (Flonase) 2 sprays NA DAILY PRN PRN Reason: Nasal Congestion Stop: 04/13/19 04:34 Lisinopril/HCTZ (Prinzide 20/25mg) 0.5 tab PO QAM [facility] Stop: 04/13/19 08:59 Last Admin: 03/14/19 07:57 Dose: 0.5 tab Documented by: Hydromorphone HCl (Dilaudid) 0.5 mg IV Q4H PRN PRN Reason: Pain Stop: 03/28/19 04:34 Sodium Chloride (Nss 1000ml) 1,000 mls @ 125 mls/hr IV .Q8H [facility] Stop: 04/13/19 04:34 Last Admin: 03/14/19 15:42 Dose: 125 mls/hr Documented by: Piperacillin Sod/Tazobactam (Sod 4.5 gm/ Dextrose) 120 mls @ 30 mls/hr IV Q8H [facility]; Protocol Stop: 03/24/19 05:59 Last Admin: 03/14/19 15:50 Dose: 30 mls/hr Documented by: Daptomycin 450 mg/ Syringe 9 mls @ 4.5 mls/min IV Q24H [facility]; Protocol Stop: 03/24/19 00:59 Lidocaine (Lidoderm 5%) 1 patch TD DAILY PRN PRN Reason: Pain Stop: 04/13/19 04:34 Meloxicam (Mobic) 15 mg PO QAM [facility] Stop: 04/14/19 08:59 Metoclopramide HCl (Reglan) 10 mg PO Q8 PRN PRN Reason: Nausea Stop: 04/13/19 15:37 Miscellaneous (Remove Lidoderm Patch) 1 ea N/A DAILY@2100 [facility] Stop: 04/13/19 20:59 Miscellaneous Information (Consult) 1 ea N/A UD PRN PRN Reason: Consult Stop: 04/13/19 04:41 Miscellaneous Information (Consult) 1 ea N/A UD PRN PRN Reason: Consult Stop: 04/13/19 04:34 Nitroglycerin (Nitrostat) 0.4 mg SL UD PRN PRN Reason: Chest Pain Stop: 04/13/19 04:34 Ondansetron HCl (Zofran) 4 mg IV Q6H PRN PRN Reason: Nausea Stop: 04/13/19 04:34 Pantoprazole Sodium (Protonix) 40 mg PO DAILY [facility] Stop: 04/13/19 08:59 Last Admin: 03/14/19 07:56 Dose: 40 mg Documented by: Polyethylene Glycol (Miralax Powder Packet) 17 gm PO DAILY PRN PRN Reason: Constipation Stop: 04/13/19 04:34 Tramadol HCl (Ultram) 50 mg PO QID PRN PRN Reason: pain Stop: 04/13/19 15:37 Venlafaxine HCl (Effexor Extended Release) 75 mg PO QAM [facility] Stop: 04/13/19 08:59 Last Admin: 03/14/19 07:57 Dose: 75 mg Documented by: Venlafaxine HCl (Effexor Extended Release) 150 mg PO QAM [facility] Stop: 04/13/19 08:59 Last Admin: 03/14/19 07:57 Dose: 150 mg Documented by: (1) Sepsis Sepsis acute organ dysfunction status: unspecified Sepsis type: sepsis due to unspecified organism Qualified Code(s): A41.9 - Sepsis, unspecified organism
--- NOTE | 2019-03-14 15:55 | Anesthesiology Progress Note ---
Date of Service March 14, 2019 Anesthesia Post Procedure Vital Signs Vital Signs: Temp Pulse Pulse Pulse Resp BP BP 03/14/19 15:40 37.1 C 96 H 20 121/77 03/14/19 15:10 98 H 18 115/74 03/14/19 15:00 99 H 12 131/66 03/14/19 14:50 104 H 21 134/63 03/14/19 14:40 105 H 22 111/53 L 03/14/19 14:30 109 H 21 121/67 03/14/19 14:20 107 H 16 125/81 03/14/19 14:14 36.8 C 113 H 18 128/63 03/14/19 12:46 37.7 C H 101 H 20 114/57 L 03/14/19 11:04 37.3 C 103 H 20 104/68 03/14/19 07:14 36.7 C 99 H 18 101/65 03/14/19 04:43 36.8 C 117 H 24 98/67 L 03/14/19 03:42 37.6 C H 114 H 20 129/50 L 03/14/19 02:51 38.7 C H 109 H 20 121/67 03/14/19 01:35 39.3 C H 118 H 22 133/71 03/14/19 01:34 39.3 C H 03/14/19 00:44 115 H 24 03/13/19 23:06 38.3 C H 123 H 20 118/61 Pulse Ox 03/14/19 15:40 95 03/14/19 15:10 96 03/14/19 15:00 95 03/14/19 14:50 97 03/14/19 14:40 91 03/14/19 14:30 94 03/14/19 14:20 98 03/14/19 14:14 98 03/14/19 12:46 94 03/14/19 11:04 98 03/14/19 07:14 95 03/14/19 04:43 96 03/14/19 03:42 92 03/14/19 02:51 95 03/14/19 01:35 93 03/14/19 01:34 03/14/19 00:44 94 03/13/19 23:06 98 Pain Intensity Bilateral Lower Abdomen: Pain Intensity: 5 Head: Pain Intensity: 6 Transfer of Care Handoff Completed per policy Notes Mental Status: alert / awake / arousable Patient Amnestic to Procedure: Yes Nausea / Vomiting: adequately controlled Pain: adequately controlled Airway Patency, RR, SpO2: stable & adequate BP & HR: stable & adequate Hydration State: stable & adequate Anesthetic Complications: no major complications apparent and Pt Satisfied with anesthetic care
[2019-03-15] MEDS: DAPTOmycin 450 MG in SYRINGE 0 ML IV SCH (00:34)
[2019-03-15] MEDS: HYDROmorphone INJ 0.5 MG/0.5 ML SYR IV PRN ×2 (04:35→09:53)
[2019-03-15] MEDS: PIPERACILLIN/TAZOBACTAM 4.5 GM in DEXTROSE 5% 100 ML IV SCH ×3 (05:04→22:18)
[2019-03-15] MEDS ORDERED: Nursing to Pharmacy Communication ONE (05:12)
[2019-03-15 05:38] LABS: Basophils # (auto) 0.02 K/uL (0-0.2); Basophils % (auto) 0.2 %; Eosinophils # (auto) 0.01 K/uL (0-0.5); Eosinophils % (auto) 0.1 %; Hemoglobin 12.5 g/dL (12.0-16.0); Immature Granulocytes # (auto) 0.04 K/uL (0.00-0.02); Immature Granulocytes % (auto) 0.3 %; Lymphocytes # (auto) 0.83 K/uL (1.2-3.4); Lymphocytes % (auto) 7.2 %; Mean Corpuscular Hemoglobin 28.2 pg (25-34); Mean Corpuscular Hgb Conc 32.1 g/dL (32-36); Mean Corpuscular Volume 87.8 fL (80-100); Mean Platelet Volume 10.6 fL (7.4-10.4); Monocytes # (auto) 1.01 K/uL (0.11-0.59); Monocytes % (auto) 8.8 %; Neutrophils # (auto) 9.61 K/uL (1.4-6.5); Neutrophils % (auto) 83.4 %; Platelet Count 191 K/uL (130-400); RDW Coefficient of Variation 16.6 % (11.5-14.5); RDW Standard Deviation 53.4 fL (36.4-46.3); Red Blood Count 4.44 M/uL (4.2-5.4); White Blood Count 11.52 K/uL (4.8-10.8)
[2019-03-15 06:10] LABS: BUN Creatinine Ratio 13.9 (10-20); Calcium 8.4 mg/dl (8.5-10.1); Creatinine Clr Calc Pharmacy 154.7 ml/min; Est GFR (African American) 104.3; Magnesium 2.2 mg/dl (1.8-2.4); Potassium 3.8 mmol/L (3.5-5.1)
[2019-03-15] MEDS: PANTOprazole 40 MG TAB PO SCH (07:12)
[2019-03-15] MEDS: LISINOPRIL/HCTZ 20/25MG 1 TAB PO SCH (07:12)
[2019-03-15] MEDS: BuPROPion XL 300 MG TABCR PO SCH (07:12)
[2019-03-15] MEDS: SODIUM CHLORIDE 0.9% 1000ML 1,000 ML IV SCH ×3 (07:12→23:40)
[2019-03-15] MEDS: VENLAFAXINE HCL XR 75 MG CAPXR PO SCH (07:13)
[2019-03-15] MEDS: VENLAFAXINE HCL XR 150 MG CAPXR PO SCH (07:13)
[2019-03-15] MEDS: FERROUS SULFATE 325 MG TAB PO SCH (07:13)
[2019-03-15] MEDS: MELOXICAM 7.5 MG TAB PO SCH (07:13)
[2019-03-15] MEDS: BusPIRone 15 MG TAB PO SCH (07:13)
--- NOTE | 2019-03-15 07:53 | Anesthesiology Progress Note ---
Date of Service March 15, 2019 Anesthesia Post Procedure Vital Signs Vital Signs: Temp Pulse Pulse Pulse Resp BP BP 03/15/19 07:03 36.7 C 80 18 102/57 L 03/15/19 03:16 37.0 C 76 20 107/66 03/15/19 00:15 82 03/14/19 23:46 36.8 C 85 16 119/67 03/14/19 18:45 36.9 C 103 H 20 121/87 03/14/19 17:51 37.6 C H 95 H 20 99/57 L 03/14/19 17:19 37.0 C 91 H 20 121/66 03/14/19 17:00 37.1 C 93 H 20 131/79 03/14/19 16:52 92 H 03/14/19 16:08 37.8 C H 93 H 18 107/57 L 03/14/19 15:56 37.5 C 95 H 18 109/71 03/14/19 15:40 37.1 C 96 H 20 121/77 03/14/19 15:10 98 H 18 115/74 03/14/19 15:00 99 H 12 131/66 03/14/19 14:50 104 H 21 134/63 03/14/19 14:40 105 H 22 111/53 L 03/14/19 14:30 109 H 21 121/67 03/14/19 14:20 107 H 16 125/81 03/14/19 14:14 36.8 C 113 H 18 128/63 03/14/19 12:46 37.7 C H 101 H 20 114/57 L 03/14/19 11:04 37.3 C 103 H 20 104/68 Pulse Ox 03/15/19 07:03 98 03/15/19 03:16 96 03/15/19 00:15 03/14/19 23:46 96 03/14/19 18:45 94 03/14/19 17:51 92 03/14/19 17:19 94 03/14/19 17:00 93 03/14/19 16:52 03/14/19 16:08 91 03/14/19 15:56 93 03/14/19 15:40 95 03/14/19 15:10 96 03/14/19 15:00 95 03/14/19 14:50 97 03/14/19 14:40 91 03/14/19 14:30 94 03/14/19 14:20 98 03/14/19 14:14 98 03/14/19 12:46 94 03/14/19 11:04 98 Pain Intensity Bilateral Lower Abdomen: Pain Intensity: 8 Head: Pain Intensity: 6 Notes Mental Status: alert / awake / arousable and participated in evaluation Patient Amnestic to Procedure: Yes Nausea / Vomiting: adequately controlled Pain: adequately controlled Airway Patency, RR, SpO2: stable & adequate BP & HR: stable & adequate Hydration State: stable & adequate Anesthetic Complications: no major complications apparent and Pt Satisfied with anesthetic care
--- NOTE | 2019-03-15 10:29 | Surgery Progress Note ---
Date of Service March 15, 2019 Assessment & Plan (1) Sepsis: POD # 1 s/p I&D of lower abdominal wall abscess - vitals stable, afebrile - pain improved, post op pain controlled - leukocytosis stable Plan: Wound nurse to see patient today for wound care and follow-up Continue IV antibiotics consider transition to oral antibiotics once sensitivities come back Continue dressing changes as needed Follow-up with wound care center Follow with Dr. Luis prn Our services signing off, please call with questions or concerns Dr. Luis has seen patient, agrees with above Subjective feeling better this morning, pain better controlled burning sensation especially when up and moving no fever last night no n/v dressing changed this morning, packing was not removed Physical Exam Constitutional: WD/WN, vitals as above + morbidly obese; no acute distress and not ill appearing Respiratory: no respiratory distress Gastrointestinal (Abdomen): Inspection/Auscultation: abdomen normal to inspection lower abdominal dressing clean and dry (just changed) dressing not removed , no surrounding erythema tender to palpation at incision site, appropriate Skin: no rashes, warm and dry Psychiatric: A+Ox3, euthymic affect Results & Data Vital Signs (Past 12 Hours) Vital Signs Temp Pulse Pulse Resp BP Pulse Ox 03/15/19 07:03 36.7 C 80 18 102/57 L 98 03/15/19 03:16 37.0 C 76 20 107/66 96 03/15/19 00:15 82 03/14/19 23:46 36.8 C 85 16 119/67 96 Laboratory Results 03/15/19 03/15/19 Range/Units 05:26 05:26 WBC 11.52 H (4.8-10.8) K/uL RBC 4.44 (4.2-5.4) M/uL Hgb 12.5 (12.0-16.0) g/dL Hct 39.0 (37-47) % MCV 87.8 (80-100) fL MCH 28.2 (25-34) pg MCHC 32.1 (32-36) g/dL RDW Std Deviation 53.4 H (36.4-46.3) fL RDW Coeff of Wally 16.6 H (11.5-14.5) % Plt Count 191 (130-400) K/uL MPV 10.6 H (7.4-10.4) fL Immature Gran % (Auto) 0.3 % Neut % (Auto) 83.4 % Lymph % (Auto) 7.2 % [place] % (Auto) 8.8 % Eos % (Auto) 0.1 % Baso % (Auto) 0.2 % Immature Gran # (Auto) 0.04 H (0.00-0.02) K/uL Neut # (Auto) 9.61 H (1.4-6.5) K/uL Lymph # (Auto) 0.83 L (1.2-3.4) K/uL [place] # (Auto) 1.01 H (0.11-0.59) K/uL Eos # (Auto) 0.01 (0-0.5) K/uL Baso # (Auto) 0.02 (0-0.2) K/uL Sodium 141 (136-145) mmol/L Potassium 3.8 (3.5-5.1) mmol/L Chloride 106 (98-107) mmol/L Carbon Dioxide 29 (21-32) mmol/L Anion Gap 6.0 (3-11) BUN 11 (7-18) mg/dl Creatinine 0.77 (0.6-1.2) mg/dl Est Cr Clr Drug Dosing 154.7 ml/min Est GFR ( Amer) 104.3 Est GFR (Non-Af Amer) 90.0 BUN/Creatinine Ratio 13.9 (10-20) Glucose 129 H (70-99) mg/dl Calcium 8.4 L (8.5-10.1) mg/dl Magnesium 2.2 (1.8-2.4) mg/dl e Diagnostic Findings Gram Stain Final 03/15/19 Gram Stain Result Few Polys No Organisms Seen Aero/Doreen Cult Preliminary 03/15/19845 Organism 1 Gram negative bacilli Quantity Rare Sens No Sensitivities to Follow (1) Sepsis Sepsis acute organ dysfunction status: unspecified Sepsis type: sepsis due to unspecified organism Qualified Code(s): A41.9 - Sepsis, unspecified organism
[2019-03-15] MEDS ORDERED: HYDROmorphone INJ 0.5 MG/0.5 ML SYR IV STA (11:27)
[2019-03-15] MEDS ORDERED: HYDROmorphone INJ 0.5 MG/0.5 ML SYR IV PRN (11:27)
--- NOTE | 2019-03-15 15:07 | Hospitalist Progress Note ---
Date of Service March 15, 2019 Assessment & Plan (1) Sepsis: 2/2 abscess with source control after I&D today. Cont broad spectrum antibiotics pending culture results and clinical improvement. (2) Abdominal wall abscess: s/p I&D by general surgery today. Post-op wound management per surgery with placement of wound vac today. (3) HTN (hypertension): controlled, cont Lis/HCTZ per home regimen. Surgeon started daily Mobic 15mg. will monitor BMP. (4) Morbid obesity: (5) Depression: h/o depression and anxiety. Cont home medication including Effexor and B uspar. (6) DVT prophylaxis: Lovenox Full Code Dispo-plan home when medically stable. Natalie Solorio DO [facility] Hospitalist Subjective Clinically improved today. Wound VAC was applied which caused significant periprocedural pain, but she is improved from a pain standpoint overall. She is tolerating food. She denies any fevers or chills overnight. Some soreness and tenderness present at surgical site, which is expected. Review of Systems Review of Systems: All systems reviewed & are unremarkable except as noted in HPI & below Physical Exam Physical Exam: CONSTITUTIONAL: obese, vitals as above, generally well- appearing EYES: normal conjunctivae, no scleral icterus ENT: MMM RESPIRATORY: clear to auscultation bilaterally, no crackles, rales or wheezes, normal respiratory effort CARDIOVASCULAR: regular rate and rhythm, S1 and 2 heard without murmurs, gallops or rubs, no JVD, no peripheral edema GASTROINTESTINAL: large pannus, multiple abdominal folds, wound vac in place without surrounding erythema. Soft, nondistended. TTP in surgical site and off to the RLQ MUSCULOSKELETAL: head is normocephalic and atraumatic SKIN: warm and dry NEUROLOGIC: CN 2-12 grossly intact, normal cognition, no gross focal deficits. PSYCHIATRIC: alert cooperative and oriented to person, place and time. Results & Data Vital Signs (Past 12 Hours) Vital Signs Temp Pulse Resp BP Pulse Ox 03/15/19 11:46 36.7 C 83 17 112/60 96 03/15/19 07:03 36.7 C 80 18 102/57 L 98 03/15/19 03:16 37.0 C 76 20 107/66 96 Laboratory Results Short CBC 03/15/19 Range/Units 05:26 WBC 11.52 H (4.8-10.8) K/uL Hgb 12.5 (12.0-16.0) g/dL Hct 39.0 (37-47) % Plt Count 191 (130-400) K/uL [facility] 03/15/19 05:26 Sodium 141 Potassium 3.8 Chloride 106 Carbon Dioxide 29 BUN 11 Creatinine 0.77 Glucose 129 H Calcium 8.4 L Medications Administered Current Inpatient Medications Acetaminophen (Tylenol) 650 mg PO Q4H PRN PRN Reason: Pain or Fever Stop: 04/13/19 04:34 Last Admin: 03/14/19 17:54 Dose: 650 mg Documented by: Hydrocodone Bitart/Acetaminophen ([place] 5/325) 2 tab PO Q6H PRN PRN Reason: Pain Stop: 03/28/19 04:34 Bupropion HCl (Wellbutrin-Xl) 300 mg PO DAILY [facility] Stop: 04/13/19 08:59 Last Admin: 03/15/19 07:12 Dose: 300 mg Documented by: Buspirone HCl (Buspar) 15 mg PO DAILY [facility] Stop: 04/13/19 08:59 Last Admin: 03/15/19 07:13 Dose: 15 mg Documented by: Cyclobenzaprine HCl (Flexeril) 10 mg PO TID PRN PRN Reason: Pain Stop: 04/13/19 04:34 Ferrous Sulfate (Feosol) 325 mg PO QAM [facility] Stop: 04/13/19 08:59 Last Admin: 03/15/19 07:13 Dose: 325 mg Documented by: Fluticasone Propionate (Flonase) 2 sprays NA DAILY PRN PRN Reason: Nasal Congestion Stop: 04/13/19 04:34 Lisinopril/HCTZ (Prinzide 20/25mg) 0.5 tab PO QAM [facility] Stop: 04/13/19 08:59 Last Admin: 03/15/19 07:12 Dose: 0.5 tab Documented by: Hydromorphone HCl (Dilaudid) 0.5 mg IV Q4H PRN PRN Reason: Pain Stop: 03/28/19 04:34 Last Admin: 03/15/19 09:53 Dose: 0.5 mg Documented by: Hydromorphone HCl (Dilaudid) 0.5 mg IV Q1H PRN PRN Reason: Severe Pain Stop: 03/29/19 11:26 Sodium Chloride (Nss 1000ml) 1,000 mls @ 125 mls/hr IV .Q8H [facility] Stop: 04/13/19 04:34 Last Admin: 03/15/19 07:12 Dose: 125 mls/hr Documented by: Piperacillin Sod/Tazobactam (Sod 4.5 gm/ Dextrose) 120 mls @ 30 mls/hr IV Q8H [facility]; Protocol Stop: 03/24/19 05:59 Last Admin: 03/15/19 13:37 Dose: 30 mls/hr Documented by: Daptomycin 450 mg/ Syringe 9 mls @ 4.5 mls/min IV Q24H [facility]; Protocol Stop: 03/24/19 00:59 Last Admin: 03/15/19 00:34 Dose: 4.5 mls/min Documented by: Lidocaine (Lidoderm 5%) 1 patch TD DAILY PRN PRN Reason: Pain Stop: 04/13/19 04:34 Meloxicam (Mobic) 15 mg PO QAM [facility] Stop: 04/14/19 08:59 Last Admin: 03/15/19 07:13 Dose: 15 mg Documented by: Metoclopramide HCl (Reglan) 10 mg PO Q8 PRN PRN Reason: Nausea Stop: 04/13/19 15:37 Miscellaneous (Remove Lidoderm Patch) 1 ea N/A DAILY@2100 [facility] Stop: 04/13/19 20:59 Last Admin: 03/14/19 22:10 Dose: Not Given Documented by: Miscellaneous Information (Consult) 1 ea N/A UD PRN PRN Reason: Consult Stop: 04/13/19 04:41 Miscellaneous Information (Consult) 1 ea N/A UD PRN PRN Reason: Consult Stop: 04/13/19 04:34 Nitroglycerin (Nitrostat) 0.4 mg SL UD PRN PRN Reason: Chest Pain Stop: 04/13/19 04:34 Ondansetron HCl (Zofran) 4 mg IV Q6H PRN PRN Reason: Nausea Stop: 04/13/19 04:34 Pantoprazole Sodium (Protonix) 40 mg PO DAILY [facility] Stop: 04/13/19 08:59 Last Admin: 03/15/19 07:12 Dose: 40 mg Documented by: Polyethylene Glycol (Miralax Powder Packet) 17 gm PO DAILY PRN PRN Reason: Constipation Stop: 04/13/19 04:34 Tramadol HCl (Ultram) 50 mg PO QID PRN PRN Reason: pain Stop: 04/13/19 15:37 Venlafaxine HCl (Effexor Extended Release) 75 mg PO QAM [facility] Stop: 04/13/19 08:59 Last Admin: 03/15/19 07:13 Dose: 75 mg Documented by: Venlafaxine HCl (Effexor Extended Release) 150 mg PO QAM [facility] Stop: 04/13/19 08:59 Last Admin: 03/15/19 07:13 Dose: 150 mg Documented by: (1) Sepsis Sepsis acute organ dysfunction status: unspecified Sepsis type: sepsis due to unspecified organism Qualified Code(s): A41.9 - Sepsis, unspecified organism
[2019-03-15] MEDS: HYDROCODONE/ACETAMOPHEN 5/325MG TAB PO PRN (19:56)
[2019-03-16] MEDS: DAPTOmycin 450 MG in SYRINGE 0 ML IV SCH (00:11)
[2019-03-16] MEDS: PIPERACILLIN/TAZOBACTAM 4.5 GM in DEXTROSE 5% 100 ML IV SCH (05:02)
[2019-03-16] MEDS: SODIUM CHLORIDE 0.9% 1000ML 1,000 ML IV SCH (07:54)
[2019-03-16] MEDS: MELOXICAM 7.5 MG TAB PO SCH (07:56)
[2019-03-16] MEDS: VENLAFAXINE HCL XR 150 MG CAPXR PO SCH (07:56)
[2019-03-16] MEDS: VENLAFAXINE HCL XR 75 MG CAPXR PO SCH (07:56)
[2019-03-16] MEDS: PANTOprazole 40 MG TAB PO SCH (07:56)
[2019-03-16] MEDS: BusPIRone 15 MG TAB PO SCH (07:57)
[2019-03-16] MEDS: LISINOPRIL/HCTZ 20/25MG 1 TAB PO SCH (07:57)
[2019-03-16] MEDS: FERROUS SULFATE 325 MG TAB PO SCH (07:58)
[2019-03-16] MEDS: BuPROPion XL 300 MG TABCR PO SCH (07:59)
[2019-03-16] MEDS ORDERED: ENOXAPARIN INJ 40 MG/0.4 ML SYR SQ SCH (09:00)
[2019-03-16] MEDS: HYDROmorphone INJ 0.5 MG/0.5 ML SYR IV PRN (09:19)
[2019-03-16] MEDS: HYDROCODONE/ACETAMOPHEN 5/325MG TAB PO PRN (11:20)
--- NOTE | 2019-03-16 15:28 | Discharge Summary ---
Date of Service March 16, 2019 Admission HPI Per Admitting Provider A 48-year-old female with past medical history significant for morbid obesity, fatty liver, post-gastric surgery syndrome, hypertension, allergic rhinitis, osteoarthritis of both knees, sarcoidosis, depression, generalized anxiety disorder, family history of colon cancer, presents with abdominal wall infection. The patient says she started to notice pimple like thing on her pannus about a week ago. It seemed to become bigger and painful, so she went to see a family doctor, they tried to valdo the lesion, but when she bent down, it spontaneously opened up though didnot draining much, her PCP prescribed Keflex, but she did start to develop chills, not feeling well, so she came to the ER. In the ER, she spiked temperatures, recorded T-max 39.3, required Tylenol and also given Toradol. Currently sweating, seems to be temperature coming down and she was tachycardic. White count 11,000. Point of lactic acid was 1.64. CAT scan of the abdomen and pelvis was done which showed cellulitis and possible superficial versus deep, small amount of fluid collection, official report pending. The patient was given Zosyn and daptomycin in the ER. Currently hemodynamically stable, has some headache, some blurred visions. Denies any runny nose, some sore throat from dryness of the mouth. No cough, no chest pain, no shortness of breath. No nausea, has abdominal pain around the lesion. Appetite is okay. Lives with her . Ambulates okay, sleeping okay. No diarrhea or constipation. Denies any blood in stools or black stools. No hematuria or dysuria. No swelling in the legs, no rash. Admission Exam Per Admitting Provider PHYSICAL EXAMINATION: GENERAL: The patient is morbidly obese, currently not in acute distress. VITAL SIGNS: Temperature 13.3, pulse 180, respiratory rate 22, blood pressure 121/67, oxygen 93% room air. HEENT: No pallor, no icterus. Pupils equal, round, reactive to light. NECK: No JVD, no neck masses, no carotid bruits. CARDIOVASCULAR: S1, S2, regular rate and rhythm. Tachycardia. No murmurs. RESPIRATORY SYSTEM: Normal AP diameter. No accessory muscle use. No wheezing, no crackles. ABDOMEN: Soft, bowel sounds present. Open wounds seen in the pannus and also swelling and erythematous changes around the open wound. Mild guarding, no rigidity. CENTRAL NERVOUS SYSTEM: Cranial nerves II-XII grossly nonfocal. EXTREMITIES: No edema, no erythema. Principal Diagnosis Abdominal abscess s/p I&D with associated cellulitis and sepsis Discharge Data Allergies Allergy/AdvReac Type Severity Reaction Status Date / Time No Known Allergies Allergy Verified 03/13/19 23:46 Consultations 03/14/19 08:00 Consult General Surgery Routine 03/15/19 10:10 Consult Case Management - Discharge Planning Routine Procedures Performed Operation Date: 03/14/19 10:10 Actual Procedures p Incision and Drainage Abdominal Wall Abscess(Not Applicable) - Britton Luis MD Ordered Studies 03/14/19 00:30 CT abd pelvis IV con only Urgent Hospital Course (1) Sepsis: (2) Abdominal wall abscess: 48-year-old female presented to the ER after an outpatient lancing of an area of fluctuance. Not much drainage returned and her primary care provider prescribed Keflex. However, she started to develop chills and malaise and so presented to the ER. She had a temperature of 39.3 and was sweating and appeared to be developing sepsis. She was hospitalized and placed on IV antibiotics with subsequent deterioration the following morning. General surgery was consulted for incision and drainage of a large abscess that was seen on imaging, the driving force of her sepsis. She was taken to the operating room and a 10 x 15 cm abdominal wall abscess was drained under general anesthesia. She returned [facility] and a wound VAC was placed to the area. IV antibiotics were continued pending culture and sensitivities. On postop day 2 she was transition to Augmentin and discharged in stable condition with improvement in postoperative pain and resolution of sepsis. She was discharged with home health for continued management of her wound VAC pending clinical improvement. At time of discharge she was hemodynamically stable and afebrile and mentating and ambulating at baseline. She was tolerating p.o. Physical exam was unremarkable outside of morbid obesity and surgical wound which appear to be healing well. Close primary care follow-up was recommended. Close general surgery follow-up was recommended for continued postoperative management. Total Time Total Time Spent Total Time Spent (In Minutes): 60 Total Time Includes: Examination of the Patient, Discharge Planning, Medication Reconciliation, Communication With Other Providers and Other (arranged follow- up) Discharge Plan Discharge Items Patient Disposition: Home - Home Health Services Reason For Visit: ABDOMINAL WOUND Discharge Diagnosis: Abdominal abscess s/p I&D with associated cellulitis and sepsis Condition: Good Discharge Goals: Decrease discomfort and Improve function Activity: Per 'Additional Instructions' section Non-emergency contact: Primary Care Provider and Surgeon Call non-emergency contact if: you have any medication questions, your symptoms worsen, your pain is not controlled, your pain is worsening, your pain is unusual for you, your pain is concerning for you and you have a fever Follow-up/Referrals: Johnny Gomez MD [Primary Care Provider] - Britton Luis MD [Physician] - Diet: Regular Addtl Provider Instructions: Please take all medications as instructed. You are being given Augmentin to take as an antibiotic for your infection. Please take with food and complete the entire course. You have the following appointment with wound care: 03/21 @ 1pm You have a primary care appointment on: 03/26/2019 1:20 PM Johnny Gomez MD [facility] It is recommended that you followup with General Surgery within 1-2 weeks for a post-operative evaluation. You will be receiving Home Health nursing services to manage and change the wound vac until discontinued by your physician. It was a pleasure taking care of you! Please call if you have any questions or problems. You can reach a [facility] hospitalist on duty at [facility] 24 hours a day by calling [phone]. Take care of yourself. Natalie Solorio, DO [facility] Hospitalist Prescriptions: New amoxicillin-pot clavulanate 875-125 mg Tablet 1 tab PO BIDM 10 Days Qty: 20 RF: 0 hydrocodone-acetaminophen 5-325 mg Tablet 1 tab PO Q6H PRN (Reason: Pain) Qty: 10 RF: 0 Continued venlafaxine [Effexor XR] 75 mg Capsule,Extended Release 24hr 75 mg PO QAM RF: 0 meloxicam 15 mg Tablet 15 mg PO QAM RF: 0 venlafaxine [Effexor XR] 150 mg Capsule,Extended Release 24hr 150 mg PO QAM RF: 0 biotin 5,000 mcg Tablet, Sublingual 5,000 mcg Sublingual QAM RF: 0 cyclobenzaprine 10 mg Tablet 10 mg PO TID PRN (Reason: Pain) RF: 0 tramadol [Ultram] 50 mg tablet 50 mg PO QID PRN (Reason: pain) Qty: 15 RF: 0 acetaminophen [Tylenol Arthritis Pain] 650 mg Tablet Extended Release 650 mg PO Q12H PRN (Reason: Pain) RF: 0 ferrous sulfate [Iron (ferrous sulfate)] 325 mg (65 mg iron) Tablet 325 mg PO QAM RF: 0 lidocaine [Lidoderm] 5 % Adhesive Patch,Medicated 1 patch TOPICAL DAILY PRN (Reason: Pain) RF: 0 fluticasone propionate [Flonase Allergy Relief] 50 mcg/actuation [place],Suspension 2 spray INTRANASAL DAILY PRN (Reason: Nasal Congestion) RF: 0 metoclopramide HCl [Reglan] 10 mg Tablet 10 mg PO Q8 PRN (Reason: Nausea) RF: 0 buspirone 15 mg Tablet 15 mg PO DAILY RF: 0 bupropion HCl 300 mg tablet extended release 24 hr 300 mg PO DAILY RF: 0 omeprazole 20 mg capsule,delayed release(DR/EC) 20 mg PO DAILY Qty: 30 RF: 0 lisinopril-hydrochlorothiazide 20-25 mg Tablet 0.5 tab PO QAM Qty: 30 RF: 0 Stand-Alone Forms: [facility] Discharge Orders: Discharge Order (Routine); Ordered 03/16/19 Ordered By: Natalie Solorio Admission Data Admit Date/Time: 03/14/19 12:42 Attending Provider: Natalie Solorio Admit Provider: Dane Palmer Primary Care Provider: Johnny Gomez Other Providers: Jayant Wan Service: Telemetry Medical Other Interventions: Discharge Summary Assessment (RN) Last Done: 03/16/19 15:49 DC Date/Time DO NOT enter until pt leaves facility: 03/16/19 17:45
[2019-03-16] MEDS ORDERED: AMOXICILLIN/CLAVULANATE 875 MG TAB PO SCH (17:00)
== END 2019-03-16 17:45 | disposition home health service (06) | DRG 854 ==
LOC: ED 23:02 → 2W 03-14 02:47 → INTOOBSV 03-14 02:47 → 2W 03-14 04:17

== ENCOUNTER 2021-10-21 11:19 | Inpatient (IN) ==
--- NOTE | 2021-10-06 14:07 | PAT Medication Instructions ---
Medication Instructions Date of Service October 06, 2021 Home Medications Medication Instructions Recorded tramadol 50 mg tablet (Ultram) 50 mg PO QID PRN #15 tab 04/11/18 lisinopril 20 0.5 tab PO QAM #30 tab 03/16/19 mg-hydrochlorothiazide 25 mg tablet ipratropium 0.5 mg-albuterol 3 mg 3 ml INHALATION Q4H PRN #360 ml 02/27/20 (2.5 mg base)/3 mL nebulization soln cyclobenzaprine 10 mg tablet 10 mg PO TID PRN meloxicam 15 mg tablet 15 mg PO QAM venlafaxine 150 mg capsule,extended release 24 hr (Effexor XR) 150 mg PO QAM tramadol 50 mg tablet (Ultram) 50 mg PO QID PRN acetaminophen 650 mg tablet,extended release (Tylenol Arthritis Pain) 650 mg PO Q12H PRN fluticasone propionate 50 mcg/actuation nasal spray,suspension (Flonase Allergy Relief) 2 spray INTRANASAL DAILY PRN bupropion HCl 300 mg 24 hr tablet, extended release 300 mg PO QAM lisinopril 20 mg-hydrochlorothiazide 25 mg tablet 0.5 tab PO QAM aripiprazole 5 mg tablet (Abilify) 5 mg PO 2XWK ipratropium 0.5 mg-albuterol 3 mg (2.5 mg base)/3 mL nebulization soln 3 ml INH ALATION Q4H PRN venlafaxine 75 mg capsule,extended release 24 hr (Effexor XR) 75 mg PO QAM biotin 1 mg tablet 1 mg PO QAM furosemide 40 mg tablet 40 mg PO Q OTHER DAY PRN gabapentin 300 mg tablet 300 mg PO TID hydrocodone 10 mg-acetaminophen 325 mg tablet 1 tab PO Q6H PRN Continue as directed aripiprazole 5 mg tablet (Abilify) 5 mg PO 2XWK ASK your surgeon for instructions meloxicam 15 mg tablet 15 mg PO QAM DO NOT take the morning of surgery cyclobenzaprine 10 mg tablet 10 mg PO TID PRN lisinopril 20 mg-hydrochlorothiazide 25 mg tablet 0.5 tab PO QAM biotin 1 mg tablet 1 mg PO QAM furosemide 40 mg tablet 40 mg PO Q OTHER DAY PRN Take morning of surgery With a small sip of water, OTHERWISE NOTHING TO EAT OR DRINK AFTER MIDNIGHT: venlafaxine 150 mg capsule,extended release 24 hr (Effexor XR) 150 mg PO QAM tramadol 50 mg tablet (Ultram) 50 mg PO QID PRN (okay to take up to 4 hours prior to surgery if needed) acetaminophen 650 mg tablet,extended release (Tylenol Arthritis Pain) 650 mg PO Q12H PRN (okay to take up to 4 hours prior to surgery if needed) fluticasone propionate 50 mcg/actuation nasal spray,suspension (Flonase Allergy Relief) 2 spray INTRANASAL DAILY PRN (if needed) bupropion HCl 300 mg 24 hr tablet, extended release 300 mg PO QAM ipratropium 0.5 mg-albuterol 3 mg (2.5 mg base)/3 mL nebulization soln 3 ml INHALATION Q4H PRN (if needed) venlafaxine 75 mg capsule,extended release 24 hr (Effexor XR) 75 mg PO QAM gabapentin 300 mg tablet 300 mg PO TID hydrocodone 10 mg-acetaminophen 325 mg tablet 1 tab PO Q6H PRN (okay to take up to 4 hours prior to surgery if needed) Take evening before surgery cyclobenzaprine 10 mg tablet 10 mg PO TID PRN (if needed) tramadol 50 mg tablet (Ultram) 50 mg PO QID PRN (if needed) acetaminophen 650 mg tablet,extended release (Tylenol Arthritis Pain) 650 mg PO Q12H PRN (if needed) fluticasone propionate 50 mcg/actuation nasal spray,suspension (Flonase Allergy Relief) 2 spray INTRANASAL DAILY PRN (if needed) ipratropium 0.5 mg-albuterol 3 mg (2.5 mg base)/3 mL nebulization soln 3 ml INHALATION Q4H PRN (if needed) furosemide 40 mg tablet 40 mg PO Q OTHER DAY PRN (if needed) gabapentin 300 mg tablet 300 mg PO TID hydrocodone 10 mg-acetaminophen 325 mg tablet 1 tab PO Q6H PRN (if needed) Other Notes If you have any questions please call us at [phone] or [phone] or [phone] or [phone]
--- NOTE | 2021-10-07 11:43 | Anesthesiology Consultation ---
Date of Service October 07, 2021 Assessment & Plan (1) Encounter for pre-operative examination: - COVID screening: Per assessment on 10/07: Travel screen negative, no known COVID-19 positive contacts or current COVID-19 related symptoms. Patient price gamino. Surgeon arranging preop COVID testing. Awaiting results. - Check test AM DOS - S/P Abdominal I&D (03/14/19): Grade 1 view, MAC#3, ETT 7.5 at [facility] - Pulmonary office visit (03/26/21): "patient is a 50-year-old female who is here today for a follow-up on her sarcoid, dyspnea, possible asthma, and morbid obesity. She was last here several weeks ago where she was having exacerbation. She was treated initially just with steroids. She states that she did see improvement. however, she continues to have some tightness. We were discussing this and she did admit to having some difficulties with food going and getting stuck in her esophagus that she would have to regurgitate to get the esophagus clear. I question if there is a component reflux to her breathing difficulties. Also, her BMI is over 54. I do suspect that this is part of her breathing as well. She does have a history of gastric bypass. It was recommended that she get labs done to evaluate this that she has not had B12 or folate level checked in several years and I can find.. continue medications as they are.. we will put a referral in for speech therapy video swallow.. patient does need to try and decrease her weight. This would help her breathing. Consider referral to bariatric.. recommend that she have lab work done to evaluate her B12 folate as well as any other metabolic panels and need evaluated secondary to her gastric bypass surgery.. contact the office if there is any problems or questions." Patient subsequently seen at [facility] 10/07/21. She states that her flare resolved and no current issues since losing weight. Chart Review Chart Review: Acceptable Risk for Surgery and Patient seen in Pre Admission Testing Teaching & Discussion Pre-Anesthesia Teaching/Discussion Notes: Instructed NPO after midnight before surgery,except medications with 15 cc of water. Medication instructions provided according to the [facility] guidelines. History Surgery Operation Date: 10/21/21 07:45 Proposed Procedures p L3-L4 Decompression Fusion Spinal Cord Monitoring - Brett Yeung, Height/Weight Height: 5 ft 11 in Weight: 163.8 kg Allergies Allergy/AdvReac Type Severity Reaction Status Date / Time No Known Allergies Allergy Verified 10/06/21 12:22 Medications Home Medications Medication Instructions Recorded Confirmed Last Taken cyclobenzaprine 10 mg tablet 10 mg PO TID PRN 04/06/18 10/06/21 10/16/18 meloxicam 15 mg tablet 15 mg PO QAM 04/06/18 10/06/21 10/29/18 09:00 venlafaxine 150 mg 150 mg PO QAM 04/06/18 10/06/21 10/29/18 09:00 capsule,extended release 24 hr (Effexor XR) tramadol 50 mg tablet (Ultram) 50 mg PO QID PRN #15 tab 04/11/18 10/06/21 Unknown acetaminophen 650 mg 650 mg PO Q12H PRN 10/23/18 10/06/21 10/23/18 tablet,extended release (Tylenol Arthritis Pain) fluticasone propionate 50 2 spray INTRANASAL DAILY PRN 10/23/18 10/06/21 Unknown mcg/actuation nasal spray,suspension (Flonase Allergy Relief) bupropion HCl 300 mg 24 hr tablet, 300 mg PO QAM 02/07/19 10/06/21 Unknown extended release lisinopril 20 0.5 tab PO QAM #30 tab 03/16/19 10/06/21 Unknown mg-hydrochlorothiazide 25 mg tablet aripiprazole 5 mg tablet (Abilify) 5 mg PO 2XWK 02/27/20 10/06/21 Unknown ipratropium 0.5 mg-albuterol 3 mg 3 ml INHALATION Q4H PRN #360 ml 02/27/20 10/06/21 Unknown (2.5 mg base)/3 mL nebulization soln venlafaxine 75 mg capsule,extended 75 mg PO QAM 02/27/20 10/06/21 Unknown release 24 hr (Effexor XR) biotin 1 mg tablet 1 mg PO QAM 08/14/20 10/06/21 Unknown furosemide 40 mg tablet 40 mg PO Q OTHER DAY PRN 08/14/20 10/06/21 Unknown gabapentin 300 mg tablet 300 mg PO TID 10/06/21 10/06/21 Unknown hydrocodone 10 mg-acetaminophen 1 tab PO Q6H PRN 10/06/21 10/06/21 Unknown 325 mg tablet Past Medical History Medical History Anxiety Depression Diverticulosis Enlargement of spleen Fatty liver GERD (gastroesophageal reflux disease) Herniated disc History of COVID-19 04/2020; fever, body aches, congestion, cough, sob, loss of taste/smell; resolved. Hypertension Morbid obesity with BMI of 50.0-59.9, adult Osteoarthritis Pancreatic cyst [facility] monitoring Pulmonary sarcoidosis follows with [place] [facility] (stable, no recent issues) Spinal stenosis Urinary incontinence Exercise / Class Metabolic Activity II 4-5 Yardwork/Stairs/Walk up hill (one FS (no CP, no SOB)) Past Family History Family History Mother Family history of diabetes mellitus Grandfather (Paternal) Family hx of colon cancer Other No family history of adverse response to anesthesia Past Surgical History Surgical History H/O vein stripping History of cholecystectomy History of colonoscopy History of esophagogastroduodenoscopy (EGD) History of gastric bypass History of incision and drainage Abdominal I&D (03/14/19): Grade 1 view, MAC#3, ETT 7.5 at [facility] History of laminectomy History of lymph node biopsy History of total right knee replacement S/P tonsillectomy Past Anesthesia History No Hx of Anesthesia Complications and No Family Hx of Anesthesia Complications History of PONV No Hx of PONV and No Hx of Motion Sickness Social History Smoking Status: Never smoker Do You Dip or Chew Tobacco: No Hx Alcohol Use: Yes Alcohol type: beer, wine and hard liquor alcohol intake frequency: holidays/special occasions only Hx Substance Use: No substance use type: does not use Review of Systems Patient denies chest pain, shortness of breath, dyspnea on exertion, fever, chills, cough, wheezing, palpitations. Physical Exam Vital Signs VITALS BP 109/72 P 87 TEMP 97.7 SP02 94%RA RESP 16 PHYSICAL Full cervical extension range of motion. Full TMJ range of motion. TMD 3 finger breaths Mallampati Score 1 Dentition: upper right side "broken" tooth Lungs: clear throughout to auscultation Cardiac: regular rate and rhythm, no murmurs noted Spine: normal Carotid arteries: negative bruit Extremities: no edema Lab Results Anesthesia Preop Results Results Anesthesia Widget: WBC 6.10 K/uL (4.8-10.8) 10/07/21 Hgb 14.4 g/dL (12.0-16.0) 10/07/21 Hct 44.5 % (37-47) 10/07/21 Plt 248 K/uL (130-400) 10/07/21 Na 140 mmol/L (136-145) 10/07/21 K 4.9 mmol/L (3.5-5.1) 10/07/21 Cl 104 mmol/L (98-107) 10/07/21 CO2 31 mmol/L (21-32) 10/07/21 BUN 23 mg/dl (6-23) 10/07/21 Creat 0.76 mg/dl (0.6-1.2) 10/07/21 Glucose Level 73 mg/dl (70-99(Fasting)) 10/07/21 PT 10.7 Seconds (9.0-12.0) 10/07/21 PTT 27.1 Seconds (21.0-31.0) 10/07/21 INR 1.0 (0.9-1.1) 10/07/21 Urine Color Dark Yellow 10/07/21 Urine Appearance Clear (Clear) 10/07/21 Urine pH 5.5 (4.5-7.5) 10/07/21 Urine Specific [place] 1.026 (1.000-1.030) 10/07/21 Urine Protein Negative (Negative) 10/07/21 Urine Glucose (UA) Negative (Negative) 10/07/21 Urine Ketones Negative (Negative) 10/07/21 Urine Blood Negative (Negative) 10/07/21 Urine Nitrite Negative (Negative) 10/07/21 Urine Bilirubin Negative (Negative) 10/07/21 Urine Urobilinogen Negative (Negative) 10/07/21 Urine Leukocyte Esterase Negative (Negative) 10/07/21 Blood Type A Positive 10/07/21 Antibody Screen NEGATIVE 10/07/21 Testing Electrocardiogram Date: 10/07/21 Findings: + NSR @ (76) Stress Test Date: 04/14/20 Type: exercise Negative exercise stress echo/ECG for ischemia at 83%MPHR. Poor exercise tolerance. 4.6 METS. Mild LVH. Grade I DD. Mild RV dilatation. Mild RV systolic dysfunction. No significant valvular disease. Borderline line atrial dilatation. EF 65%. Other Testing Chest CT (03/25/21): No new focal lung consolidations to suggest pneumonia. Subcentimeter mediastinal and hilar lymph nodes do not meet CT criteria for pathologic involvement. Stable scattered subcentimeter pulmonary nodules. These are likely benign. Mild hepatic steatosis, unchanged.
[~2021-10-21 11:19] MED LIST changes: -ACET-1256 PO; +ACETAMINOPHEN 500 MG TAB PO SCH; -BIOT1CAP8 PO; -BUSP15TA70 PO; -CYCL10TA6 PO; +CeleBREX 200 MG CAP PO SCH; +DEXAMETHASONE SOD INJ 4 MG/ML VIAL ONE; -EFFSR150 PO; -EFFSR75 PO; -FLUT0.15 NAE; +GABAPENTIN 900 MG DOSE PO SCH; -HYDR-5688 PO; -IBUP200C80 PO; +KETAMINE 50 MG/5 ML SYRINGE ONE; -LDDP5 TOP; +LIDOCAINE 2% 2 ML VIAL/AMP(20MG/ML) INFIL ONE; +LR 15ML/HR IV SCH; -MELO-83 PO; +MIDAZOLAM HCL 1 MG/ML 2ML VIAL ONE; +ONDANSETRON INJ 2 MG/ML 2 ML VIAL ONE; +PROPOFOL IV EMULSION 10 MG/ML 20 ML VIAL IV ONE; +ROCURONIUM BROMIDE 10 MG/ML 5 ML VIAL IV ONE; -WLLXL300 PO; +fentaNYL citrate 100 MCG/2 ML VIAL ONE
[2021-10-21] MEDS ORDERED: ePHEDrine sulfate 50 MG/ML AMP IV PRN (13:33)
[2021-10-21] MEDS ORDERED: ATROPINE SULFATE 0.1 MG/ML 10ML SYR IV PRN (13:33)
[2021-10-21] MEDS ORDERED: ONDANSETRON INJ 2 MG/ML 2 ML VIAL IV PRN ×2 (13:33→19:24)
--- NOTE | 2021-10-21 13:38 | History & Physical Bridge Note ---
Date of Service October 21, 2021 History & Physical Bridge Note I have examined the patient, reviewed the History & Physical and in the interval since the performance of the History & Physical I have noted the following changes of clinical significance: no changes noted
--- NOTE | 2021-10-21 13:39 | History & Physical Report ---
Date of Service October 21, 2021 Assessment & Plan (1) Neurogenic claudication due to lumbar spinal stenosis: Plan: L3-L4 decompression fusion History of Present Illness Chief Complaint: Back and leg pain Primary Care Provider: Johnny Gomez MD This is a 51-year-old female presents with chronic persistent back and leg pain. Failing course of nonoperative care she is here for surgical invention. Allergies Allergy/AdvReac Type Severity Reaction Status Date / Time No Known Allergies Allergy Verified 10/21/21 11:38 Home Medications Medication Instructions Recorded Confirmed Type cyclobenzaprine 10 mg tablet 10 mg PO TID PRN 04/06/18 10/21/21 History meloxicam 15 mg tablet 15 mg PO QAM 04/06/18 10/21/21 History venlafaxine 150 mg 150 mg PO QAM 04/06/18 10/21/21 History capsule,extended release 24 hr (Effexor XR) tramadol 50 mg tablet (Ultram) 50 mg PO QID PRN #15 tab 04/11/18 10/21/21 Rx acetaminophen 650 mg 650 mg PO Q12H PRN 10/23/18 10/21/21 History tablet,extended release (Tylenol Arthritis Pain) fluticasone propionate 50 2 spray INTRANASAL DAILY PRN 10/23/18 10/21/21 History mcg/actuation nasal spray,suspension (Flonase Allergy Relief) bupropion HCl 300 mg 24 hr tablet, 300 mg PO QAM 02/07/19 10/21/21 History extended release lisinopril 20 0.5 tab PO QAM #30 tab 03/16/19 10/21/21 Rx mg-hydrochlorothiazide 25 mg tablet aripiprazole 5 mg tablet (Abilify) 5 mg PO 2XWK 02/27/20 10/21/21 History ipratropium 0.5 mg-albuterol 3 mg 3 ml INHALATION Q4H PRN #360 ml 02/27/20 10/21/21 Rx (2.5 mg base)/3 mL nebulization soln venlafaxine 75 mg capsule,extended 75 mg PO QAM 02/27/20 10/21/21 History release 24 hr (Effexor XR) biotin 1 mg tablet 1 mg PO QAM 08/14/20 10/21/21 History furosemide 40 mg tablet 40 mg PO Q OTHER DAY PRN 08/14/20 10/21/21 History gabapentin 300 mg tablet 300 mg PO TID 10/06/21 10/21/21 History hydrocodone 10 mg-acetaminophen 1 tab PO Q6H PRN 10/06/21 10/21/21 History 325 mg tablet Past Med/Surg History Medical History Anxiety Depression Diverticulosis Enlargement of spleen Fatty liver GERD (gastroesophageal reflux disease) Herniated disc History of COVID-19 04/2020; fever, body aches, congestion, cough, sob, loss of taste/smell; resolved. Hypertension Morbid obesity with BMI of 50.0-59.9, adult Osteoarthritis Pancreatic cyst [facility] monitoring Pulmonary sarcoidosis follows with [place] [facility] (stable, no recent issues) Spinal stenosis Urinary incontinence Surgical History H/O vein stripping History of cholecystectomy History of colonoscopy History of esophagogastroduodenoscopy (EGD) History of gastric bypass History of incision and drainage Abdominal I&D (03/14/19): Grade 1 view, MAC#3, ETT 7.5 at [facility] History of laminectomy History of lymph node biopsy History of total right knee replacement S/P tonsillectomy Family History Mother Family history of diabetes mellitus Grandfather (Paternal) Family hx of colon cancer Other No family history of adverse response to anesthesia Social History Smoking Status: Never smoker Second Hand Exposure: Yes (parents smoked); Do You Dip or Chew Tobacco: No; Hx Alcohol Use: Yes Alcohol type: beer, wine and hard liquor Hx Substance Use: No Preferred Language: [place] Communication Ability: Effective Visual Impairment: No Limitations Taste Tester Required: No Beliefs That Will Affect Care: None marital status: Current Living Situation: Spouse Feels Safe at Home: Yes Safety Concerns: Feels Safe At This Time Assistive Devices: None Physical Exam 2 Physical Exam: Patient is alert and oriented Heart regular rhythm Lungs clear Results & Data ([facility]) Vital Signs (Past 12 Hours) Vital Signs Temp Pulse Resp BP Pulse Ox 10/21/21 11:45 37.1 C 98 H 20 129/71 95
[2021-10-21] MEDS ORDERED: BUPIVACAINE/EPINEPHRINE 0.25% 1:200,000 30 ML VIAL ONE (13:51)
[2021-10-21] MEDS ORDERED: ceFAZolin 330 MG/ML 1 GM VIAL ONE (13:52)
[2021-10-21] MEDS ORDERED: fentaNYL citrate 100 MCG/2 ML VIAL ONE (14:36)
[2021-10-21] MEDS ORDERED: ROCURONIUM BROMIDE 10 MG/ML 5 ML VIAL IV ONE (15:01)
[2021-10-21] MEDS ORDERED: FLOSEAL HEMOSTATIC MATRIX 10ML TOP ONE (15:20)
[2021-10-21] MEDS ORDERED: GLYCOPYRROLATE 0.2 MG/ML VIAL ONE (15:24)
[2021-10-21] MEDS ORDERED: NEOSTIGMINE METHYLSULFATE 1 MG/ML 10ML VIAL ONE (15:24)
--- NOTE | 2021-10-21 16:04 | Operative Report ---
Post Operative Report Pre & Post Diagnosis Operation Date: 10/21/21 12:55 Pre-Op Diagnosis: Lumbar spinal stenosis with radiculopathy Morbid obesity Post-Op Diagnosis: Same I identified the patient and participated in the time-out.: Yes Procedure Operation Date: 10/21/21 12:55 Actual Procedures #1 lumbar decompression bilateral medial facetectomies and foraminotomies L2-L3 L3-L4. #2 posterior spinal fusion L3-L4. #3 placement posterior instrumentation L3-L4 per #4 interbody fusion L3-L4. #5 placement of Spira 11 x 26 mm cage at L3-4. #6 placement locally harvested morselized autograft in the posterior gutters. #7 placement of I factor combined with V toss in the interbody space and posterior gutters. Surgeon Brett Yeung, DO Licensed Electrician Doris Betancourt Estimated Blood Loss 100 Findings See Below The patient is 5 foot 11 inches tall weighing over 160 kg with a BMI in excess of 49. The patient's body habitus did contribute to significant technical difficulty required deepest retractors and longest instruments in order to perform her procedure. This at least 50% increase to the operative time. Specimens None Indications This is a 51-year-old female that had an injury at work and subsequently has been experiencing significant radiculopathy. After failing course of nonoperative care she is here for the above-mentioned procedure. Description of Procedure Patient was met with identified informed consent obtained. Patient was then samina en to the operative suite underwent a patient placed in a prone position the Rene table top Herberth frame. All bony prominences well-padded eyes inspected to ensure no external pressure placed upon the. This point the lumbar spine was prepped and draped no sterile fashion. Sharp dissection with assistance of Bovie cautery performed down to and exposing the lamina transverse processes of L3-L4. From caudal cephalad fashion complete laminectomy of L3 pars laminectomy of L2 was performed including bilateral medial facetectomies and foraminotomies. Particular left noted mass amounts of disc material and bony overgrowth along the L3 nerve root as it exited. This was decompressed completely. Pedicle screws were then placed in L3 and L4 bilaterally with assistance of fluoroscopy and properly sized lorena placed. By way of a transforaminal portion left complete discectomy of L3-L4 was performed endplates curetted to subcortical bleeding bone and a 11 x 26 mm titanium cage filled I factor tapped in position. The rods were then compressed locked in final position bilaterally. The transverse processes of L3 and L4 burred to subcortically bone. I factor combined with V toss and locally harvested morselized autograft was placed in the posterior gutters. 15 round MARYELLEN drain inserted. The incision was then closed with 1 Vicryl fascia 2-0 Vicryl subcutaneously and 4 Monocryl for final skin closure. Steri-Strips dressings placed. Patient waken taken PACU stable condition. Please note spinal cord monitoring was utilized at the procedure no changes noted. Lastly Doris Betancourt was present at the entire surgery and while the patient positioning complex portions of the surgery and final skin closure. I attest to the content of the Intraoperative Record and any orders documented therein. Any exceptions are noted below.
[2021-10-21] MEDS: fentaNYL citrate 100 MCG/2 ML VIAL IV PRN ×4 (16:35→16:50)
--- NOTE | 2021-10-21 16:38 | Fluoroscopy Report ---
FL lumbar spine 2-3V CLINICAL HISTORY: Discectomy and fusion. COMPARISON STUDY: Lumbar spine MRI March 04, 2016. FLUOROSCOPY TIME: 8 sac. FLUOROSCOPIC IMAGES: 2 FINDINGS: Exact localization on these images is not possible given suboptimal penetration and partial visualization of the lumbar spine. A 1 level discectomy is noted with a posterior decompression and bilateral pedicle screw fusion at 2 adjacent levels. IMPRESSION: Fluoroscopy provided during discectomy, posterior decompression and pedicle screw fusion . ACT 112: Negative or not required by law. Electronically signed by: Ede Rivera M.D. 10/21/2021 4:37 PM
[2021-10-21] MEDS: HYDROmorphone INJ 1 MG/ML SYRINGE IV PRN ×11 (16:50→17:46)
[2021-10-21] MEDS ORDERED: HYDROmorphone INJ 0.5 MG/0.5 ML SYR IV STA (17:27)
[2021-10-21] MEDS ORDERED: ACETAMINOPHEN 1,000 MG/100 ML VIAL IV STA (18:00)
[2021-10-21] MEDS ORDERED: LORazepam 2 MG/1 ML VIAL IV STA (18:00)
--- NOTE | 2021-10-21 18:24 | Anesthesiology Progress Note ---
Date of Service October 21, 2021 Anesthesia Post Procedure Vital Signs Vital Signs: Temp Pulse Pulse Resp BP Pulse Ox 10/21/21 18:15 80 15 115/46 L 96 10/21/21 18:05 84 14 110/52 L 96 10/21/21 17:55 89 15 128/77 98 10/21/21 17:45 95 H 14 133/82 93 10/21/21 17:35 89 14 123/76 95 10/21/21 17:25 87 19 106/72 95 10/21/21 17:15 80 16 124/72 93 10/21/21 17:05 88 20 128/79 94 10/21/21 16:55 84 13 126/82 95 10/21/21 16:45 83 12 119/88 97 10/21/21 16:35 95 H 12 118/81 97 10/21/21 16:29 36.0 C L 93 H 15 132/93 97 10/21/21 11:45 37.1 C 98 H 20 129/71 95 Pain Intensity Lower Back: Pain Intensity: 7 Transfer of Care Handoff Completed per policy Notes Mental Status: alert / awake / arousable and participated in evaluation Patient Amnestic to Procedure: Yes Nausea / Vomiting: adequately controlled Pain: adequately controlled Airway Patency, RR, SpO2: stable & adequate BP & HR: stable & adequate Hydration State: stable & adequate Anesthetic Complications: no major complications apparent and Pt Satisfied with anesthetic care
[2021-10-21] MEDS ORDERED: LORazepam 2 MG/1 ML VIAL IV PRN (19:24)
[2021-10-21] MEDS ORDERED: HYDROmorphone INJ 0.5 MG/0.5 ML SYR IV PRN (19:24)
[2021-10-21] MEDS ORDERED: FUROSEMIDE 40 MG TAB PO PRN (19:24)
[2021-10-21] MEDS ORDERED: bisacodyL 10 MG SUPP PR PRN (19:24)
[2021-10-21] MEDS ORDERED: ACETAMINOPHEN 1,000 MG/100 ML VIAL IV PRN (19:24)
[2021-10-21] MEDS ORDERED: DO NOT ADMINISTER PNEUMOCOCCAL VACCINE PRN (19:24)
[2021-10-21] MEDS ORDERED: diphenhydrAMINE Capsule 25 MG CAP PO PRN (19:24)
[2021-10-21] MEDS ORDERED: SODIUM CHLORIDE 0.9% 1000ML 1,000 ML IV SCH (19:24)
[2021-10-21] MEDS ORDERED: FAMOTIDINE 20 MG TAB PO PRN (19:24)
[2021-10-21] MEDS ORDERED: PROMETHAZINE HCL 12.5 MG in SODIUM CHLORIDE 0.9% 50 ML IV PRN (19:24)
[2021-10-21] MEDS ORDERED: ACETAMINOPHEN 500 MG TAB PO PRN (19:24)
[2021-10-21] MEDS ORDERED: HYDROmorphone INJ 1 MG/ML SYRINGE IV PRN (19:24)
[2021-10-21] MEDS ORDERED: DO NOT ADMINISTER FLU VACCINE PRN (19:24)
[2021-10-21] MEDS ORDERED: METOCLOPRAMIDE HCL INJ 5 MG/ML 2 ML VIAL IV PRN (19:24)
[2021-10-21] MEDS ORDERED: ONDANSETRON 4 MG OD TAB PO PRN (19:24)
[2021-10-21] MEDS ORDERED: MAGNESIUM HYDROXIDE SUSP 30 ML UDC PO PRN (19:24)
[2021-10-21] MEDS ORDERED: ALUMINUM/MAGNESIUM SUSP 30 ML UDC PO PRN (19:24)
[2021-10-21] MEDS ORDERED: NALOXONE HCL 0.4 MG/1 ML VIAL/CARP IV PRN (19:24)
[2021-10-21] MEDS ORDERED: traMADol HCL 50 MG TABLET PO PRN (19:24)
[2021-10-21] MEDS ORDERED: hydrOXYzine HCl 25 MG TAB PO PRN (19:24)
[2021-10-21] MEDS ORDERED: SOD PHOSPHATE/SOD BIPHOSPHATE ENEMA 132 ML BTL PR PRN (19:24)
[2021-10-21] MEDS: DOCUSATE SODIUM/SENNA 50/8.6MG TAB PO SCH (20:10)
[2021-10-21] MEDS: oxyCODONE HCL IR 5 MG TAB (IMMEDIATE RELEASE) PO PRN (20:10)
[2021-10-21] MEDS: GABAPENTIN 300 MG CAP PO SCH (20:11)
[2021-10-21] MEDS ORDERED: SODIUM CHLORIDE 0.9% 1000ML 1,000 ML IV ONE (20:23)
--- NOTE | 2021-10-21 21:04 | Hospitalist Consultation ---
Date of Consultation October 21, 2021 Assessment & Plan (1) Neurogenic claudication due to lumbar spinal stenosis: Final Assessment and Recommendations as follows : LSS sp surgery Clinically well hypertension, BP on the lower side pulmonary sarcoidosis, stable as of outpatient [facility]ology follow-up late last year Anxiety/mood disorder, at baseline Resume home lisinopril in a.m. if BP and AM renal function stable (RE top normal serum potassium from preop labs last month) Hold for sedation confusion parameters for RTC neuropsychotropic. DVT prophylaxis. SCDs as per postop orders Thank you very much for this consultation. Dr. Xiong will follow patient's progress. Text document was generated using [employer] voice recognition software. It may contain grammatical or spelling errors. Kindly contact undersigned for clarification of any documentation item in question. History of Present Illness Reason for Consultation: Medical management Requesting Physician: Dr. Yeung Attending Physician: Brett Yeung, DO History of Present Illness PCP : Dr. Gomez History obtained from patient and records. Medical history significant for hypertension, pulmonary sarcoidosis, anxiety/mood disorder. Patient underwent lumbar decompression surgery for L SS today. Currently comfortable. Denies chest pain, S OB. 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 Allergies Allergy/AdvReac Type Severity Reaction Status Date / Time No Known Allergies Allergy Verified 10/21/21 11:38 Home Medications Medication Instructions Recorded Confirmed Type cyclobenzaprine 10 mg tablet 10 mg PO TID PRN 04/06/18 10/21/21 History meloxicam 15 mg tablet 15 mg PO QAM 04/06/18 10/21/21 History venlafaxine 150 mg 150 mg PO QAM 04/06/18 10/21/21 History capsule,extended release 24 hr (Effexor XR) tramadol 50 mg tablet (Ultram) 50 mg PO QID PRN #15 tab 04/11/18 10/21/21 Rx acetaminophen 650 mg 650 mg PO Q12H PRN 10/23/18 10/21/21 History tablet,extended release (Tylenol Arthritis Pain) fluticasone propionate 50 2 spray INTRANASAL DAILY PRN 10/23/18 10/21/21 History mcg/actuation nasal spray,suspension (Flonase Allergy Relief) bupropion HCl 300 mg 24 hr tablet, 300 mg PO QAM 02/07/19 10/21/21 History extended release lisinopril 20 0.5 tab PO QAM #30 tab 03/16/19 10/21/21 Rx mg-hydrochlorothiazide 25 mg tablet aripiprazole 5 mg tablet (Abilify) 5 mg PO 2XWK 02/27/20 10/21/21 History ipratropium 0.5 mg-albuterol 3 mg 3 ml INHALATION Q4H PRN #360 ml 02/27/20 10/21/21 Rx (2.5 mg base)/3 mL nebulization soln venlafaxine 75 mg capsule,extended 75 mg PO QAM 02/27/20 10/21/21 History release 24 hr (Effexor XR) biotin 1 mg tablet 1 mg PO QAM 08/14/20 10/21/21 History furosemide 40 mg tablet 40 mg PO Q OTHER DAY PRN 08/14/20 10/21/21 History gabapentin 300 mg tablet 300 mg PO TID 10/06/21 10/21/21 History hydrocodone 10 mg-acetaminophen 1 tab PO Q6H PRN 10/06/21 10/21/21 History 325 mg tablet Patient History Medical History Anxiety Depression Diverticulosis Enlargement of spleen Fatty liver GERD (gastroesophageal reflux disease) Herniated disc History of COVID-19 04/2020; fever, body aches, congestion, cough, sob, loss of taste/smell; resolved. Hypertension Morbid obesity with BMI of 50.0-59.9, adult Osteoarthritis Pancreatic cyst [facility] GI monitoring Pulmonary sarcoidosis follows with [facility] (stable, no recent issues) Spinal stenosis Urinary incontinence Surgical History H/O vein stripping History of cholecystectomy History of colonoscopy History of esophagogastroduodenoscopy (EGD) History of gastric bypass History of incision and drainage Abdominal I&D (03/14/19): Grade 1 view, MAC#3, ETT 7.5 at [facility] History of laminectomy History of lymph node biopsy History of total right knee replacement S/P tonsillectomy Family History Mother Family history of diabetes mellitus Grandfather (Paternal) Family hx of colon cancer Other No family history of adverse response to anesthesia Social History Smoking Status: Never smoker Second Hand Exposure: Yes (parents smoked); Do You Dip or Chew Tobacco: No; Hx Alcohol Use: Yes Alcohol type: beer, wine and hard liquor Hx Substance Use: No Preferred Language: Tanzanian Communication Ability: Effective Visual Impairment: No Limitations Law Researcher Required: No Beliefs That Will Affect Care: None marital status: Current Living Situation: Spouse Feels Safe at Home: Yes Safety Concerns: Feels Safe At This Time Assistive Devices: None Review of Systems Review of Systems: As per HPI, all 10 systems reviewed, all other ROS negative Physical Exam Physical Exam: GENERAL: Comfortable, morbidly obese, no respiratory distress SKIN: Normal color, warm HEENT: Bespectacled, Surrency palpebral conjunctivae, no ptosis, dry buccal mucosa NECK : Supple, short neck, no tenderness CHEST : Decreased breath sounds, no tenderness HEART : RRR, no obvious murmurs ABDOMEN: Some distention, nontender EXTREMITIES : Minimal LE swelling, no LE tenderness, no other conspicuous deformities noted NEUROLOGIC : Coherent, no facial asymmetry, no other gross focality Results & Data Results & Data ([facility]) Vital Signs (Past 12 Hours) Vital Signs Temp Pulse Pulse Resp BP Pulse Ox Pulse Ox 10/21/21 21:00 36.5 C 96 H 16 105/57 L 95 10/21/21 20:05 36.4 C L 87 18 119/74 94 10/21/21 20:04 94 10/21/21 19:30 36.4 C L 87 16 134/77 95 10/21/21 19:00 36.5 C 87 14 121/70 96 10/21/21 18:35 79 12 133/62 95 10/21/21 18:25 36.4 C L 85 12 117/52 L 94 10/21/21 18:15 80 15 115/46 L 96 10/21/21 18:05 84 14 110/52 L 96 10/21/21 17:55 89 15 128/77 98 10/21/21 17:45 95 H 14 133/82 93 04/06/22 17:35 89 14 123/76 95 10/21/21 17:25 87 19 106/72 95 10/21/21 17:15 80 16 124/72 93 10/21/21 17:05 88 20 128/79 94 10/21/21 16:55 84 13 126/82 95 10/21/21 16:45 83 12 119/88 97 10/21/21 16:35 95 H 12 118/81 97 10/21/21 16:29 36.0 C L 93 H 15 132/93 97 10/21/21 11:45 37.1 C 98 H 20 129/71 95 Laboratory Results Laboratory Results POC Ur Test NEG (NEG) 10/21/21 11:27 SARS-CoV-2, RNA, NAAT NEGATIVE (NEGATIVE) 10/21/21 Unknown Impressions Lumbar Spine X-Ray 10/21/21 12:55 [place] lumbar spine 2-3V CLINICAL HISTORY: Discectomy and fusion. COMPARISON STUDY: Lumbar spine MRI March 04, 2016. FLUOROSCOPY TIME: 8 sac. FLUOROSCOPIC IMAGES: 2 FINDINGS: Exact localization on these images is not possible given suboptimal penetration and partial visualization of the lumbar spine. A 1 level discectomy is noted with a posterior decompression and bilateral pedicle screw fusion at 2 adjacent levels. IMPRESSION: Fluoroscopy provided during discectomy, posterior decompression and pedicle screw fusion. ACT 112: Negative or not required by law. Electronically signed by: Ede Rivera M.D. 10/21/2021 4:37 PM
[2021-10-21] MEDS: ceFAZolin 2000MG 2,000 MG/15 ML SYR IV SCH (21:57)
[2021-10-22] MEDS: oxyCODONE HCL IR 5 MG TAB (IMMEDIATE RELEASE) PO PRN ×6 (00:21→21:23)
[2021-10-22] MEDS: POLYETHYLENE (MIRALAX) 17 GM PACK PO SCH ×2 (05:39→12:03)
[2021-10-22] MEDS: ceFAZolin 2000MG 2,000 MG/15 ML SYR IV SCH (05:39)
[2021-10-22 06:36] LABS: Basophils # (auto) 0.02 K/uL (0-0.2); Basophils % (auto) 0.2 %; Eosinophils # (auto) 0.01 K/uL (0-0.5); Eosinophils % (auto) 0.1 %; Hematocrit (blood only) 41.9 % (37-47); Hemoglobin 13.3 g/dL (12.0-16.0); Immature Granulocytes # (auto) 0.01 K/uL (0.00-0.02); Immature Granulocytes % (auto) 0.1 %; Lymphocytes # (auto) 0.92 K/uL (1.2-3.4); Lymphocytes % (auto) 10.1 %; Mean Corpuscular Hemoglobin 28.5 pg (25-34); Mean Corpuscular Hgb Conc 31.7 g/dL (32-36); Mean Corpuscular Volume 89.7 fL (80-100); Mean Platelet Volume 10.9 fL (7.4-10.4); Monocytes # (auto) 0.59 K/uL (0.11-0.59); Monocytes % (auto) 6.5 %; Neutrophils # (auto) 7.54 K/uL (1.4-6.5); Platelet Count 205 K/uL (130-400); RDW Standard Deviation 52.6 fL (36.4-46.3); Red Blood Count 4.67 M/uL (4.2-5.4); White Blood Count 9.09 K/uL (4.8-10.8)
[2021-10-22 06:55] LABS: BUN Creatinine Ratio 22.5 (10-20); Calcium 8.5 mg/dl (8.5-10.1); Creatinine Clr Calc Pharmacy 154.3 ml/min; Est GFR (African American) 112.7 ml/min; Est GFR (Non-African American) 97.2 ml/min
[2021-10-22] MEDS: dexAMETHasone 6 MG in SYRINGE 0 ML IV SCH (08:55)
[2021-10-22] MEDS: VENLAFAXINE HCL XR 75 MG CAPXR PO SCH (08:55)
[2021-10-22] MEDS: buPROPion XL 300 MG TABCR PO SCH (08:55)
[2021-10-22] MEDS: VENLAFAXINE HCL XR 150 MG CAPXR PO SCH (08:55)
[2021-10-22] MEDS: GABAPENTIN 300 MG CAP PO SCH ×3 (08:56→20:15)
[2021-10-22] MEDS ORDERED: NON-FORMULARY MEDICATION (Biotin 1 mg Tablet) PO SCH (09:00)
[2021-10-22] MEDS ORDERED: LISINOPRIL/HCTZ 20/25MG 1 TAB PO SCH (09:00)
--- NOTE | 2021-10-22 12:19 | Hospitalist Progress Note ---
Date of Service October 22, 2021 Assessment & Plan (1) Neurogenic claudication due to lumbar spinal stenosis: Plan: Lumbar Spinal Stenosis -pain control, DVT ppx and further management per primary service hypertension -Will continue to hold her home medications, resume when BP improved pulmonary sarcoidosis stable as of outpatient [facility] pulmonology follow-up late last year Anxiety/mood disorder stable, continue home medications Admission and Anticipated Discharge Date Admission Date: October 21, 2021 Subjective Patient feels well Reports back pain Physical Exam Physical Exam: Obese, no acute distress Respiratory: Breathing comfortably on room air, no wheezing/rhonchi/rales Cardiovascular: regular rate and rhythm, no murmurs/rubs/gallops Gastrointestinal (Abdomen): soft Musculoskeletal: No edema Results & Data Results & Data ([facility]) Vital Signs (Past 12 Hours) Vital Signs Temp Pulse Resp BP Pulse Ox 10/22/21 11:45 36.6 C 75 16 134/78 95 10/22/21 07:41 36.5 C 81 16 117/70 99 10/22/21 02:56 36.5 C 89 16 113/69 94 Laboratory Results Short CBC 10/22/21 Range/Units 05:48 WBC 9.09 (4.8-10.8) K/uL Hgb 13.3 (12.0-16.0) g/dL Hct 41.9 (37-47) % Plt Count 205 (130-400) K/uL BMP 10/22/21 05:48 Sodium 138 Potassium 4.0 Chloride 101 Carbon Dioxide 31 BUN 16 Creatinine 0.71 Glucose 120 H Calcium 8.5 Medications Administered Current Inpatient Medications Acetaminophen (Acetaminophen 500 Mg Tab) 1,000 mg PO Q8H PRN PRN Reason: MILD Pain Scale 1,2,3 & Pre PT Stop: 11/20/21 19:23 Al Hydrox/Mg Hydrox/Simethicone (Aluminum/Magnesium Susp 30 Ml Udc) 30 ml PO Q6H PRN PRN Reason: Dyspepsia Stop: 11/20/21 19:23 Bisacodyl (Bisacodyl 10 Mg Supp) 10 mg RI DAILY PRN PRN Reason: Constipation Stop: 11/20/21 19:23 Bupropion HCl (Bupropion Xl 300 Mg Tabcr) 300 mg PO QAM [facility] Stop: 11/21/21 08:59 Last Admin: 10/22/21 08:55 Dose: 300 mg Documented by: Diphenhydramine HCl (Diphenhydramine Capsule 25 Mg Cap) 25 mg PO Q6H PRN PRN Reason: Allergic Rhinitis/Insomnia Stop: 11/20/21 19:23 Famotidine (Famotidine 20 Mg Tab) 20 mg PO Q12H PRN PRN Reason: Dyspepsia Stop: 11/20/21 19:23 Furosemide (Furosemide 40 Mg Tab) 40 mg PO Q2D PRN PRN Reason: Fluid Retention Stop: 11/20/21 19:23 Gabapentin (Gabapentin 300 Mg Cap) 300 mg PO TID NAVI Stop: 11/20/21 20:59 Last Admin: 10/22/21 08:56 Dose: 300 mg Documented by: Hydromorphone HCl (Hydromorphone Inj 0.5 Mg/0.5 Ml Syr) 0.5 mg IV Q3H PRN PRN Reason: MODERATE Pain (Scale 4,5,6) & Pre PT Stop: 11/04/21 19:23 Hydromorphone HCl (Hydromorphone Inj 1 Mg/Ml Syringe) 1 mg IV Q3H PRN PRN Reason: SEVERE Pain (Scale 7,8,9,10) Stop: 11/04/21 19:23 Hydroxyzine HCl (Hydroxyzine Hcl 25 Mg Tab) 25 mg PO Q8H PRN PRN Reason: Anxiety Stop: 11/20/21 19:23 Promethazine HCl 12.5 mg/ (Sodium Chloride) 50.5 mls @ 202 mls/hr IV Q6H PRN PRN Reason: Nausea &/or Vomiting Stop: 11/20/21 19:23 Acetaminophen (Ofirmev) 1,000 mg in 100 mls @ 400 mls/hr IV Q8H PRN PRN Reason: Pain Rating 1-3 & Pre PT Stop: 10/24/21 19:23 Dexamethasone 6 mg/ Syringe 1.5 mls @ 1 mls/min IV DAILY NAVI Stop: 10/24/21 09:02 Last Admin: 10/22/21 08:55 Dose: 1 mls/min Documented by: Influenza Virus Vaccine Quadrival (Do Not Administer Flu Vaccine) 1 ea N/A PRN PRN PRN Reason: Notification Stop: 11/20/21 19:23 Lorazepam (Lorazepam 0.5 Mg Tab) 0.5 mg PO Q8H PRN PRN Reason: Sedation/Anxiety Stop: 11/20/21 19:23 Lorazepam (Lorazepam 2 Mg/1 Ml Vial) 0.5 mg IV Q8H PRN PRN Reason: Sedation/Anxiety Stop: 11/20/21 19:23 Magnesium Hydroxide (Magnesium Hydroxide Susp 30 Ml Udc) 30 ml PO Q24H PRN PRN Reason: Constipation Stop: 11/20/21 19:23 Metoclopramide HCl (Metoclopramide Hcl Inj 5 Mg/Ml 2 Ml Vial) 10 mg IV Q6H PRN PRN Reason: Nausea &/or Vomiting Stop: 11/20/21 19:23 Naloxone HCl (Naloxone Hcl 0.4 Mg/1 Ml Vial/Carp) 0.1 mg IV Q5M PRN PRN Reason: Oversedation/Resp depression Stop: 11/20/21 19:23 Ondansetron HCl (Ondansetron Inj 2 Mg/Ml 2 Ml Vial) 4 mg IV Q6H PRN PRN Reason: Nausea &/or Vomiting Stop: 11/20/21 19:23 Ondansetron HCl (Ondansetron 4 Mg Od Tab) 4 mg PO Q6H PRN PRN Reason: Nausea Stop: 11/20/21 19:23 Oxycodone HCl (Oxycodone Hcl Ir 5 Mg Tab (Immediate Release)) 5 - 10 mg PO Q4H PRN PRN Reason: Pain & Pre PT Stop: 11/04/21 19:23 Last Admin: 10/22/21 08:55 Dose: 5 mg Documented by: Pneumococcal Polyvalent Vaccine (Do Not Administer Pneumococcal Vaccine) 1 ea N/A PRN PRN PRN Reason: Notification Stop: 11/20/21 19:23 Senna/Docusate Sodium (Docusate Sodium/Senna 50/8.6mg Tab) 2 tab PO HS NAVI Stop: 11/20/21 20:59 Last Admin: 10/21/21 20:10 Dose: 2 tab Documented by: Sodium Biphosphate/Sodium Phosphate (Sod Phosphate/Sod Biphosphate Enema 132 Ml Btl) 132 ml RI ONE PRN PRN Reason: Constipation Stop: 11/20/21 19:23 Tramadol HCl (Tramadol Hcl 50 Mg Tablet) 50 - 100 mg PO Q4H PRN PRN Reason: Moderate-Severe pain & Pre PT Stop: 11/20/21 19:23 Venlafaxine HCl (Venlafaxine Hcl Xr 75 Mg Capxr) 75 mg PO QAM [facility] Stop: 11/21/21 08:59 Last Admin: 10/22/21 08:55 Dose: 75 mg Documented by: Venlafaxine HCl (Venlafaxine Hcl Xr 150 Mg Capxr) [facility] [place] Stop: 11/21/21 08:59 Last Admin: 10/22/21 08:55 Dose: 150 mg Documented by:
--- NOTE | 2021-10-22 14:50 | Orthopedic Progress Note ---
Date of Service October 22, 2021 Assessment & Plan (1) Neurogenic claudication due to lumbar spinal stenosis: Plan: This time we will continue physical therapy monitor MARYELLEN operatively discharge home in next few days. Admission and Anticipated Discharge Date Admission Date: October 21, 2021 Subjective Back pain controlled leg pain markedly improved Physical Exam Physical Exam: Patient is ambulating halls. She is comfortable. No strength testing. Results & Data ([facility]) Vital Signs (Past 12 Hours) Vital Signs Temp Pulse Resp BP Pulse Ox 10/22/21 11:45 36.6 C 75 16 134/78 95 10/22/21 07:41 36.5 C 81 16 117/70 99 10/22/21 02:56 36.5 C 89 16 113/69 94
[2021-10-22] MEDS: LORazepam 0.5 MG TAB PO PRN (15:54)
[2021-10-22] MEDS: DOCUSATE SODIUM/SENNA 50/8.6MG TAB PO SCH (20:13)
[2021-10-23] MEDS: LORazepam 0.5 MG TAB PO PRN ×2 (00:27→08:04)
[2021-10-23] MEDS: oxyCODONE HCL IR 5 MG TAB (IMMEDIATE RELEASE) PO PRN ×3 (01:18→11:30)
[2021-10-23] MEDS: VENLAFAXINE HCL XR 75 MG CAPXR PO SCH (08:06)
[2021-10-23] MEDS: GABAPENTIN 300 MG CAP PO SCH (08:06)
[2021-10-23] MEDS: buPROPion XL 300 MG TABCR PO SCH (08:06)
[2021-10-23] MEDS: VENLAFAXINE HCL XR 150 MG CAPXR PO SCH (08:07)
[2021-10-23] MEDS: dexAMETHasone 6 MG in SYRINGE 0 ML IV SCH (08:07)
[2021-10-23] MEDS ORDERED: lisinopril 5 MG TAB PO SCH (09:00)
--- NOTE | 2021-10-23 10:10 | Hospitalist Progress Note ---
Date of Service October 23, 2021 Assessment & Plan (1) Neurogenic claudication due to lumbar spinal stenosis: Plan: Lumbar Spinal Stenosis -pain control, DVT ppx and further management per primary service hypertension -resume lisinopril 5mg daily, continue to hold HCTZ--> can resume it later today vs tomorrow if BP remains elevated pulmonary sarcoidosis stable as of outpatient [facility] pulmonology follow-up late last year Anxiety/mood disorder stable, continue home medications Admission and Anticipated Discharge Date Admission Date: October 21, 2021 Subjective Reports ongoing pain, severe yesterday evening BP elevated No other complaints Physical Exam Physical Exam: Obese, pleasant and non toxic Respiratory: Breathing comfortably on room air, no wheezing/rhonchi/rales Cardiovascular: Regular rate and rhythm, no murmurs/rubs Gastrointestinal (Abdomen): soft, non tender Musculoskeletal: No edema Results & Data Results & Data ([facility]) Vital Signs (Past 12 Hours) Vital Signs Temp Pulse Resp BP BP Pulse Ox 10/23/21 07:34 36.5 C 86 16 144/65 H 98 10/22/21 23:05 36.5 C 81 16 114/73 98 Medications Administered Current Inpatient Medications Acetaminophen (Acetaminophen 500 Mg Tab) 1,000 mg PO Q8H PRN PRN Reason: MILD Pain Scale 1,2,3 & Pre PT Stop: 11/20/21 19:23 Last Admin: 10/22/21 15:54 Dose: 1,000 mg Documented by: Al Hydrox/Mg Hydrox/Simethicone (Aluminum/Magnesium Susp 30 Ml Udc) 30 ml PO Q6H PRN PRN Reason: Dyspepsia Stop: 11/20/21 19:23 Bisacodyl (Bisacodyl 10 Mg Supp) 10 mg MA DAILY PRN PRN Reason: Constipation Stop: 11/20/21 19:23 Bupropion HCl (Bupropion Xl 300 Mg Tabcr) 300 mg PO QAM NAVI Stop: 11/21/21 08:59 Last Admin: 10/23/21 08:06 Dose: 300 mg Documented by: Diphenhydramine HCl (Diphenhydramine Capsule 25 Mg Cap) 25 mg PO Q6H PRN PRN Reason: Allergic Rhinitis/Insomnia Stop: 11/20/21 19:23 Last Admin: 10/23/21 01:20 Dose: 25 mg Documented by: Famotidine (Famotidine 20 Mg Tab) 20 mg PO Q12H PRN PRN Reason: Dyspepsia Stop: 11/20/21 19:23 Furosemide (Furosemide 40 Mg Tab) 40 mg PO Q2D PRN PRN Reason: Fluid Retention Stop: 11/20/21 19:23 Gabapentin (Gabapentin 300 Mg Cap) 300 mg PO TID [facility] Stop: 11/20/21 20:59 Last Admin: 10/23/21 08:06 Dose: 300 mg Documented by: Hydromorphone HCl (Hydromorphone Inj 0.5 Mg/0.5 Ml Syr) 0.5 mg IV Q3H PRN PRN Reason: MODERATE Pain (Scale 4,5,6) & Pre PT Stop: 11/04/21 19:23 Hydromorphone HCl (Hydromorphone Inj 1 Mg/Ml Syringe) 1 mg IV Q3H PRN PRN Reason: SEVERE Pain (Scale 7,8,9,10) Stop: 11/04/21 19:23 Hydroxyzine HCl (Hydroxyzine Hcl 25 Mg Tab) 25 mg PO Q8H PRN PRN Reason: Anxiety Stop: 11/20/21 19:23 Promethazine HCl 12.5 mg/ (Sodium Chloride) 50.5 mls @ 202 mls/hr IV Q6H PRN PRN Reason: Nausea &/or Vomiting Stop: 11/20/21 19:23 Acetaminophen (Ofirmev) 1,000 mg in 100 mls @ 400 mls/hr IV Q8H PRN PRN Reason: Pain Rating 1-3 & Pre PT Stop: 10/24/21 19:23 Dexamethasone 6 mg/ Syringe 1.5 mls @ 1 mls/min IV DAILY [facility] Stop: 10/24/21 09:02 Last Admin: 10/23/21 08:07 Dose: 1 mls/min Documented by: Influenza Virus Vaccine Quadrival (Do Not Administer Flu Vaccine) 1 ea N/A PRN PRN PRN Reason: Notification Stop: 11/20/21 19:23 Lisinopril (Lisinopril 5 Mg Tab) 5 mg PO QAM [facility] Stop: 11/22/21 08:59 Last Admin: 10/23/21 08:07 Dose: 5 mg Documented by: Lorazepam (Lorazepam 0.5 Mg Tab) 0.5 mg PO Q8H PRN PRN Reason: Sedation/Anxiety Stop: 11/20/21 19:23 Last Admin: 10/23/21 08:04 Dose: 0.5 mg Documented by: Lorazepam (Lorazepam 2 Mg/1 Ml Vial) 0.5 mg IV Q8H PRN PRN Reason: Sedation/Anxiety Stop: 11/20/21 19:23 Magnesium Hydroxide (Magnesium Hydroxide Susp 30 Ml Udc) 30 ml PO Q24H PRN PRN Reason: Constipation Stop: 11/20/21 19:23 Metoclopramide HCl (Metoclopramide Hcl Inj 5 Mg/Ml 2 Ml Vial) 10 mg IV Q6H PRN PRN Reason: Nausea &/or Vomiting Stop: 11/20/21 19:23 Naloxone HCl (Naloxone Hcl 0.4 Mg/1 Ml Vial/Carp) 0.1 mg IV Q5M PRN PRN Reason: Oversedation/Resp depression Stop: 11/20/21 19:23 Ondansetron HCl (Ondansetron Inj 2 Mg/Ml 2 Ml Vial) 4 mg IV Q6H PRN PRN Reason: Nausea &/or Vomiting Stop: 11/20/21 19:23 Ondansetron HCl (Ondansetron 4 Mg Od Tab) 4 mg PO Q6H PRN PRN Reason: Nausea Stop: 11/20/21 19:23 Oxycodone HCl (Oxycodone Hcl Ir 5 Mg Tab (Immediate Release)) 5 - 10 mg PO Q4H PRN PRN Reason: Pain & Pre PT Stop: 11/04/21 19:23 Last Admin: 10/23/21 05:48 Dose: 10 mg Documented by: Pneumococcal Polyvalent Vaccine (Do Not Administer Pneumococcal Vaccine) 1 ea N/A PRN PRN PRN Reason: Notification Stop: 11/20/21 19:23 Senna/Docusate Sodium (Docusate Sodium/Senna 50/8.6mg Tab) 2 tab PO HS NAVI Stop: 11/20/21 20:59 Last Admin: 10/22/21 20:13 Dose: Not Given Documented by: Sodium Biphosphate/Sodium Phosphate (Sod Phosphate/Sod Biphosphate Enema 132 Ml Btl) 132 ml MA ONE PRN PRN Reason: Constipation Stop: 11/20/21 19:23 Tramadol HCl (Tramadol Hcl 50 Mg Tablet) 50 - 100 mg PO Q4H PRN PRN Reason: Moderate-Severe pain & Pre PT Stop: 11/20/21 19:23 Venlafaxine HCl (Venlafaxine Hcl Xr 75 Mg Capxr) [facility] [place] Stop: 11/21/21 08:59 Last Admin: 10/23/21 08:06 Dose: 75 mg Documented by: Venlafaxine HCl (Venlafaxine Hcl Xr 150 Mg Capxr) 150 [facility] [place] Stop: 11/21/21 08:59 Last Admin: 10/23/21 08:07 Dose: 150 mg Documented by:
--- NOTE | 2021-10-23 13:25 | Discharge Summary ---
Date of Service October 23, 2021 Admission HPI Per Admitting Provider This is a 51-year-old female presents with chronic persistent back and leg pain. Failing course of nonoperative care she is here for surgical invention. Principal Diagnosis Lumbar spinal stenosis with radiculopathy Discharge Data Allergies Allergy/AdvReac Type Severity Reaction Status Date / Time No Known Allergies Allergy Verified 10/21/21 11:38 Consultations 10/21/21 19:24 Consult Hospitalist Routine Procedures Performed Operation Date: 10/21/21 12:55 Actual Procedures p L3-L4 Decompression Fusion Spinal Cord Monitoring(Not Applicable) - Brett Yeung DO Ordered Studies 10/21/21 12:55 [place] lumbar spine 2-3V Routine Hospital Course (1) Neurogenic claudication due to lumbar spinal stenosis: Patient underwent lumbar decompression fusion tolerated this well was taken to the orthopedic floor postoperative. Postop day 1 she was up and ambulating. Postop day #2. MARYELLEN drain decreasing probably. Pain controlled. Excellent strength testing. Separately discharged home. Discharge orders instructions on the chart for further review. Total Time Total Time Spent Total Time Spent (In Minutes): 20 minutes Discharge Plan Discharge Items Patient Disposition: Home - Self-Care Reason For Visit: POSTOP Discharge Diagnosis: Lumbar radiculopathy Activity: Per Instructions section Non-emergency contact: Primary Care Provider Call non-emergency contact if: you have any medication questions Follow-up/Referrals: Johnny Gomez MD [Primary Care Provider] - Diet: Regular Addtl Attending Provider Instructions: ACTIVITY RECOMMENDATIONS: SELF CARE INSTRUCTIONS AFTER THORACIC/LUMBAR FUSIONS 1. You may walk to your tolerance. It is good exercise for your legs and back. Expect some back and intermittent leg aches and pains. 2. You may perform "counter-top" level activities (make a sandwich, kecia with a project, etc.). 3. No bending or lifting of more than 10 pounds or back twisting of any nature (roll like a log when turning in bed). 4. You may ride in a car for 20-30 minutes at a time. No driving until after your first visit with your doctor. 5. Frequent changes of position and restricting sitting to 30 minutes at a time will help limit the amount of back spasms and stiffness you may experience. 6. You may discontinue the use of ambulatory aids (cane, crutches, etc.) once your strength and confidence allow. 7. You may horse racing manager the shower and let water strike your incision when you arrive home at least once daily. Do not take a tub bath, sit in a hot tub or go into a swimming pool until after your first recheck in the office. SPECIAL CARE INSTRUCTIONS: VERY IMPORTANT TO READ AND REVIEW A. Your surgical incision has been closed with a cosmetic suture under the skin that will dissolve in about 6 weeks. In 14 days, you can use a pair of clean scissors and cut the suture that is left outside of the skin at the ends of your incision. 1. The small skin tapes can be removed 7 days after surgery if they have not fallen off by that point. 2. You may keep the wound open to air as much as possible to promote healing after post-op day number 5 unless told otherwise by your doctor. 3. If you think the wound looks like it is becoming infected (redness or worsening drainage) and/or you are experiencing fever, chill or worsening back pain and muscle spasms, contact the office so that we may evaluate you as soon as possible. B. Complications are uncommon, but please contact us if you have any signs or symptoms of: 1. wound infection (fever higher than 102.5 degrees F, redness, separation of wound, drainage, or increasing pain from the incision) 2. blood clots in legs (pain, swelling, redness and warmth in legs) 3. urinary tract infection (fever higher than 102.5 degrees F, burning upon urination or increased frequency of urination) 4. nerve problems (inability to walk on your toes or heels, numbness, loss of bowel or bladder control) 5. any other symptoms that concern you C. Please call the office at if you have any concerns or questions about your operation or recovery. D. No smoking! Smoking drastically decreases the chance of a solid fusion. E. Do not take any anti-inflammatory medications (Indocin, Advil, Motrin, Aspirin, Naprosyn, etc.) as these may inhibit the chance of a solid fusion. Tylenol is okay to take for pain. MANAGING PAIN AFTER SPINAL SURGERY 1. Narcotic medication is intended for short-term use and will be provided for surgical pain. Surgical pain usually lasts for a period of 4-6 weeks. Narcotic medication includes Percocet, Vicodin, Darvocet, Tylenol #3 or Lortab. 2. Longer-term pain is more appropriately treated with non-narcotic medication such as Tylenol ES. 3. Muscle spasm is not appropriately treated with narcotics. Muscle relaxers such as Soma, Flexeril or Skelaxin can be used along with Tylenol ES. 4. Remember that we all live with some "aches and pains". This is not unusual or uncommon after an injury or as we get older. a. Back pain is expected and may include muscle spasms for 4 to 6 weeks after surgery. The pain should gradually improve. If the pain worsens for no apparent reason, please contact the office. b. Intermittent leg pain may also be experienced and should not be concerned about unless it worsens for no apparent reason. If so, please contact the office. 5. We will provide appropriate medication within the normal guidelines of their prescribed use. We will also be very cautious and aware of potential abuse and extended duration of patients' medication needs. a. Pain medications are for your comfort and to assist with sleep and rest so that the tissue can heal. They are not provided in order to return to normal activity and should not be used through the day. To do so or worsening pain at night can result from ongoing tissue damage and development of tolerance to the prescribed medicine. 6. Please allow 2-3 days to process refills. Prescriptions will not be mailed but must be picked up at the office. FOLLOW UP VISIT: Keep your scheduled follow-up appointment. Any questions, please call the office at . Pending Studies at Discharge: No Stand-Alone Forms: My [facility], Smoking Cessation Medications and [place] Order Prescriptions: New tramadol 50 mg tablet 50 mg PO Q6H PRN (Reason: pain, moderate) Qty: 30 RF: 0 oxycodone 5 mg tablet 5 mg PO Q6H PRN (Reason: pain, severe) Qty: 30 RF: 0 Continued venlafaxine [Effexor XR] 75 mg capsule,extended release 24hr 75 mg PO QAM RF: 0 aripiprazole [Abilify] 5 mg tablet 5 mg PO 2XWK RF: 0 ipratropium-albuterol 0.5 mg-3 mg(2.5 mg base)/3 mL solution for nebulization 3 ml inhalation Q4H PRN (Reason: wheezing) Qty: 360 RF: 5 venlafaxine [Effexor XR] 150 mg Capsule,Extended Release 24hr 150 mg PO QAM RF: 0 cyclobenzaprine 10 mg Tablet 10 mg PO TID PRN (Reason: Pain) RF: 0 tramadol [Ultram] 50 mg tablet 50 mg PO QID PRN (Reason: pain) Qty: 15 RF: 0 acetaminophen [Tylenol Arthritis Pain] 650 mg Tablet Extended Release 650 mg PO Q12H PRN (Reason: Pain) RF: 0 fluticasone propionate [Flonase Allergy Relief] 50 mcg/actuation Bath,Suspension 2 spray INTRANASAL DAILY PRN (Reason: Nasal Congestion) RF: 0 bupropion HCl 300 mg tablet extended release 24 hr 300 mg PO QAM RF: 0 lisinopril-hydrochlorothiazide 20-25 mg Tablet 0.5 tab PO QAM Qty: 30 RF: 0 biotin 1 mg Tablet 1 mg PO QAM RF: 0 furosemide 40 mg tablet 40 mg PO Q OTHER DAY PRN (Reason: Fluid Retention) RF: 0 hydrocodone-acetaminophen 10-325 mg Tablet 1 tab PO Q6H PRN (Reason: Pain) RF: 0 gabapentin 300 mg Tablet 300 mg PO TID RF: 0 Discontinued meloxicam 15 mg Tablet 15 mg PO QAM RF: 0 Discharge Orders: Discharge Order (Routine); Ordered 10/23/21 Ordered By: Brett Yeung Admission Data Admit Date/Time: 10/21/21 16:08 Attending Provider: Brett Yeung Admit Provider: Brett Yeung Primary Care Provider: Johnny Gomez Other Providers: Natalie Solorio ; Steve Xiong Other Interventions: Discharge Summary Assessment (RN) Last Done: 10/23/21 11:52
== END 2021-10-23 13:20 | disposition home or self-care (01) | DRG 454 ==
LOC: ASU 11:19 → 3E 16:08

== ENCOUNTER 2022-03-24 02:29 | Observation (INO) ==
[2022-03-24] MEDS ORDERED: SODIUM CHLORIDE 0.9% 1000ML 1,000 ML IV ONE (03:01)
[2022-03-24] MEDS ORDERED: fentaNYL citrate 100 MCG/2 ML VIAL IV STA ×2 (03:11→05:58)
[2022-03-24] MEDS ORDERED: ONDANSETRON INJ 2 MG/ML 2 ML VIAL IV STA (03:11)
--- NOTE | 2022-03-24 03:19 | Emergency Department Note ---
History of Present Illness General Chief complaint: Abdominal Pain Stated complaint: RIGHT SIDED PAIN TRAVELS TO [facility]-GET[facility] Time Seen by Provider: 03/24/22 03:01 History of Present Illness Maximum Pain Intensity: 7 51-year-old female presents emergency department with 1 day history of anorexia and nausea right lower quadrant pain started periumbilical now travel on the right lower quadrant. Patient states that she is able to pass gas has not had any diarrhea. Patient states that the pain is moderate is nonradiating is now located in the right lower quadrant. There are no other mitigating or alleviating factors. Patient's had a prior gastric bypass 20+ years ago and an abscess in her abdomen with a wound VAC approximately 2 years ago. Patient states that she still does have her appendix. Patient states decreased p.o. intake today. There are no other mitigating or alleviating factors Home Medications Medication Instructions Recorded Confirmed Type cyclobenzaprine 10 mg tablet 10 mg PO TID PRN Pain 04/06/18 10/21/21 History venlafaxine 150 mg 150 mg PO QAM 04/06/18 10/21/21 History capsule,extended release 24 hr (Effexor XR) tramadol 50 mg tablet (Ultram) 50 mg PO QID PRN pain #15 tabs 04/11/18 10/21/21 Rx acetaminophen 650 mg 650 mg PO Q12H PRN Pain 10/23/18 10/21/21 History tablet,extended release (Tylenol Arthritis Pain) fluticasone propionate 50 2 spray intranasal DAILY PRN Nasal 10/23/18 10/21/21 History mcg/actuation nasal Congestion spray,suspension (Flonase Allergy Relief) bupropion HCl 300 mg 24 hr tablet, 300 mg PO QAM 02/07/19 10/21/21 History extended release lisinopril 20 0.5 tab PO QAM #30 tabs 03/16/19 10/21/21 Rx mg-hydrochlorothiazide 25 mg tablet aripiprazole 5 mg tablet (Abilify) 5 mg PO 2XWK 02/27/20 10/21/21 History ipratropium 0.5 mg-albuterol 3 mg 3 ml inhalation Q4H PRN wheezing 02/27/20 10/21/21 Rx (2.5 mg base)/3 mL nebulization #360 mL soln venlafaxine 75 mg capsule,extended 75 mg PO QAM 02/27/20 10/21/21 History release 24 hr (Effexor XR) biotin 1 mg tablet 1 mg PO QAM 08/14/20 10/21/21 History furosemide 40 mg tablet 40 mg PO Q OTHER DAY PRN Fluid 08/14/20 10/21/21 History Retention gabapentin 300 mg tablet 300 mg PO TID 10/06/21 10/21/21 History hydrocodone 10 mg-acetaminophen 1 tab PO Q6H PRN Pain 10/06/21 10/21/21 History 325 mg tablet oxycodone 5 mg tablet 5 mg PO Q6H PRN pain, severe #30 10/22/21 Rx tabs tramadol 50 mg tablet 50 mg PO Q6H PRN pain, moderate 10/22/21 Rx #30 tabs Allergies Allergy/AdvReac Type Severity Reaction Status Date / Time No Known Allergies Allergy Verified 10/21/21 11:38 Past Med/Surg History Medical History Anxiety Depression Diverticulosis Enlargement of spleen Fatty liver GERD (gastroesophageal reflux disease) Herniated disc History of COVID-19 04/2020; fever, body aches, congestion, cough, sob, loss of taste/smell; resolved. Hypertension Morbid obesity with BMI of 50.0-59.9, adult Osteoarthritis Pancreatic cyst [facility] monitoring Pulmonary sarcoidosis follows with [facility] (stable, no recent issues) Spinal stenosis Urinary incontinence Surgical History H/O vein stripping History of cholecystectomy History of colonoscopy History of esophagogastroduodenoscopy (EGD) History of gastric bypass History of incision and drainage Abdominal I&D (03/14/19): Grade 1 view, MAC#3, ETT 7.5 at [facility] History of laminectomy History of lymph node biopsy History of total right knee replacement S/P tonsillectomy Family History Mother Family history of diabetes mellitus Grandfather (Paternal) Family hx of colon cancer Other No family history of adverse response to anesthesia Social History Smoking Status: Never smoker Second Hand Exposure: Yes (parents smoked); Hx Alcohol Use: Yes Alcohol type: beer, wine and hard liquor Hx Substance Use: No Preferred Language: Lithuanian Communication Ability: Effective Visual Impairment: No Limitations Career Development Coordinator Required: No Beliefs That Will Affect Care: None marital status: Current Living Situation: Spouse Feels Safe at Home: Yes Assistive Devices: Cane and Walker Review of Systems A total of 10 systems reviewed and were otherwise negative Constitutional: no fever Respiratory: no cough Cardiovascular: no chest pain Gastrointestinal: + abdominal pain and + nausea Physical Exam Vital Signs Vital Signs - 24 hr 03/24/22 02:31 03/24/22 03:46 03/24/22 03:46 Temperature 36.2 C L Temperature Source Temporal Artery Scan Pulse Rate 113 H 99 H Pulse Rate [Apical] 84 Respiratory Rate 18 18 Blood Pressure 146/73 H Blood Pressure [Left Arm] 143/103 H Blood Pressure Mean 97 Blood Pressure Mean [Left Arm] 116 Pulse Oximetry 94 94 84 L Oxygen Delivery Method Room Air Room Air Sepsis Recent Fever Within 48 Hours No Sepsis New/Unexplained Change in Mental Status No Sepsis Action Taken by Nursing No Action Required 03/24/22 05:22 Temperature Temperature Source Pulse Rate Pulse Rate [Apical] 94 H Respiratory Rate 13 Blood Pressure Blood Pressure [Left Arm] 159/100 H Blood Pressure Mean Blood Pressure Mean [Left Arm] 119 Pulse Oximetry 96 Oxygen Delivery Method Room Air Sepsis Recent Fever Within 48 Hours Sepsis New/Unexplained Change in Mental Status Sepsis Action Taken by Nursing GENERAL: Patient is awake alert in no acute distress patient is resting comfortably and showing no signs of anxiety EYES: The conjunctivae are clear. The pupils are round and reactive. EARS, NOSE, MOUTH AND THROAT: The nose is without any evidence of any deformity. Mucous membranes are moist. Tongue is midline. NECK: The neck is nontender and supple. RESPIRATORY: Normal respiratory effort is noted there is no evidence of wheezing rhonchi or rales CARDIOVASCULAR: Regular rate and rhythm noted there no murmurs rubs or gallops normal S1 normal S2. GASTROINTESTINAL: The abdomen is soft; Morbidly obese; midline surgical scar; tender RLQ; no rebound rigidity or guarding PELVIS: The Pelvis is stable. No tenderness to palpation is noted. BACK: FROM MUSCULOSKELETAL/EXTREMITIES: There is no evidence of gross deformity full range of motion is noted in the hips and shoulders. SKIN: There is no obvious evidence of any rash. There are no petechiae, pallor or cyanosis noted. NEUROLOGIC: Patient is awake alert and oriented x3 strength is symmetric Course Reevaluation(s) Reevaluation #1: Patient was started on IV fluids IV Zofran and IV fentanyl. Continues to complain of right lower quadrant abdominal pain. Patient is pending CT results Time: 05:59 Consultations Consultation #1: Regan from surgery for admit at 645am Time: 06:45 Administered Medications Discontinued Medications Fentanyl Citrate (Fentanyl Citrate 100 Mcg/2 Ml Vial) 50 mcg IV NOW STA Stop: 03/24/22 03:12 Last Admin: 03/24/22 03:38 Dose: 50 mcg Documented By: KAITLYN Fentanyl Citrate (Fentanyl Citrate 100 Mcg/2 Ml Vial) 50 mcg IV NOW STA Stop: 03/24/22 05:59 Last Admin: 03/24/22 06:04 Dose: 50 mcg Documented By: KAITLYN Sodium Chloride (Nss 1000ml) 1,000 mls @ 999 mls/hr IV .Q1H1M ONE Stop: 03/24/22 04:01 Last Infusion: 03/24/22 04:38 Dose: 0 mls/hr Documented By: Admin: 03/24/22 03:38 Dose: 999 mls/hr Documented By: KAITLYN Ioversol (Optiray 300 100ml) 100 ml IV ONCE ONE Stop: 03/24/22 04:37 Last Admin: 03/24/22 04:36 Dose: 93 ml Documented By: LAZARUS Ondansetron HCl (Ondansetron Inj 2 Mg/Ml 2 Ml Vial) 4 mg IV NOW STA Stop: 03/24/22 03:12 Last Admin: 03/24/22 03:38 Dose: 4 mg Documented By: KAITLYN Medical Decision Making Medical Records Attestation: I reviewed the patient's medical records. Home Medications Current Medication List: was personally reviewed by me Laboratory Data Attestation: I reviewed the patient's lab results. Result diagrams: 03/24/22 03:43 03/24/22 03:43 Lab Results 03/24/22 03/24/22 Range/Units 03:43 03:43 WBC 9.28 (4.8-10.8) K/ul RBC 4.78 (3.93-5.22) M/uL Hgb 13.0 (12.0-16.0) g/dl Hct 40.7 (34.1-44.9) % MCV 85.1 (80.0-100.0) fL MCH 27.2 (25.0-34.0) pg MCHC 31.9 L (32.0-36.0) g/dL RDW Std Deviation 55.0 H (36.4-46.3) fL RDW Coeff of Wally 17.6 H (11.5-14.5) % Plt Count 176 (130-400) K/uL MPV 10.6 (9.4-12.3) fL Immature Gran % (Auto) 0.2 % Neut % (Auto) 73.8 % Lymph % (Auto) 14.7 % [place] % (Auto) 7.9 % Eos % (Auto) 2.6 % Baso % (Auto) 0.8 % Neut # (Auto) 6.86 H (1.4-6.5) K/uL Lymph # (Auto) 1.36 (1.2-3.4) K/uL [place] # (Auto) 0.73 (0.24-0.82) K/uL Eos # (Auto) 0.24 (0-0.50) K/uL Baso # (Auto) 0.07 (0-0.2) K/uL Immature Gran # (Auto) 0.02 (0.00-0.02) K/uL Sodium 137 (136-145) mmol/L Potassium 3.9 (3.5-5.1) mmol/L Chloride 101 (98-107) mmol/L Carbon Dioxide 29 (21-32) mmol/L Anion Gap 7 (3-11) BUN 13 (6-23) mg/dl Creatinine 0.84 (0.6-1.2) mg/dl Est Cr Clr Drug Dosing Not Reportable Est GFR ( Amer) 92.0 ml/min Est GFR (Non-Af Amer) 79.3 ml/min BUN/Creatinine Ratio 15.5 (10-20) Glucose 100 H (70-99(Fasting)) mg/dl Calcium 8.9 (8.5-10.1) mg/dl Total Bilirubin 0.7 (0.2-1.0) mg/dl AST 27 (13-39) U/L ALT 28 (7-52) U/L Alkaline Phosphatase 114 H (34-104) U/L Total Protein 6.6 (6.0-8.3) gm/dl Albumin 3.9 (3.4-5.0) gm/dl Globulin 2.7 (2.5-4.0) gm/dl Albumin/Globulin Ratio 1.4 (0.9-2) Lipase 24 (11-82) U/L Imaging Data Radiologist's Impression: Patient: WALI MENDEZ (Female) : 66 Status: ER Date: 03/24/22 04:38 Room #: History: PAIN AT RLQ Slices: 801 Priors: Tech: Alfredito Garcia @ [phone] Exams: CT ABDOMEN & PELVIS With Contrast Contrast: IV Amt: 93 ML OPTIRAY 300 Accession Numbers: [id number] Referring Physician: REFERRED SELF PreliminaryFindingsOnly See Final Report For Complete Findings CT ABDOMEN & PELVIS With Contrast: Acute appendicitis is present. The appendix measures 14 mmin transverse plane and demonstrates moderate surrounding inflammation. No abscess or free air. Equivocal hepatic cirrhosis and steatosis Multiple splenic lesions are indeterminate Radiologist: Placido Funez MD [facility] Narrative Medical decision making differential diagnosis includes appendicitis small bowel obstruction gastritis colitis gastroenteritis; plan is to check abd labs, ct; give pain meds, ivf Patient was evaluated for right lower quadrant abdominal pain patient was found to have appendicitis. Patient was started on IV antibiotics. The case was discussed with the surgical team who will take the patient operating room. Impression & Plan Acute appendicitis Discharge Plan Visit Data Chief Complaint: Abdominal Pain Stated Complaint: RIGHT SIDED PAIN TRAVELS TO [facility]GET[facility] WOR[facility] ED Provider: Arron Dooley Discharge Problem: Acute appendicitis Patient Disposition: Being Evaluated by Surgeon Forms Stand Alone Forms: [email or web address] Prescriptions Prescriptions: No Action venlafaxine [Effexor XR] 75 mg capsule,extended release 24hr 75 mg PO QAM aripiprazole [Abilify] 5 mg tablet 5 mg PO 2XWK Rx Instructions: ordered for every dabut only takes 2xsweek ipratropium-albuterol 0.5 mg-3 mg(2.5 mg base)/3 mL solution for nebulization 3 ml inhalation Q4H PRN (Reason: wheezing) Qty: 360 5RF venlafaxine [Effexor XR] 150 mg Capsule,Extended Release 24hr 150 mg PO QAM cyclobenzaprine 10 mg Tablet 10 mg PO TID PRN (Reason: Pain) tramadol [Ultram] 50 mg tablet 50 mg PO QID PRN (Reason: pain) Qty: 15 0RF acetaminophen [Tylenol Arthritis Pain] 650 mg Tablet Extended Release 650 mg PO Q12H PRN (Reason: Pain) fluticasone propionate [Flonase Allergy Relief] 50 mcg/actuation [place],Suspension 2 spray INTRANASAL DAILY PRN (Reason: Nasal Congestion) bupropion HCl 300 mg tablet extended release 24 hr 300 mg PO QAM lisinopril-hydrochlorothiazide 20-25 mg Tablet 0.5 tab PO QAM Qty: 30 0RF biotin 1 mg Tablet 1 mg PO QAM furosemide 40 mg tablet 40 mg PO Q OTHER DAY PRN (Reason: Fluid Retention) hydrocodone-acetaminophen 10-325 mg Tablet 1 tab PO Q6H PRN (Reason: Pain) gabapentin 300 mg Tablet 300 mg PO TID tramadol 50 mg tablet 50 mg PO Q6H PRN (Reason: pain, moderate) Qty: 30 0RF oxycodone 5 mg tablet 5 mg PO Q6H PRN (Reason: pain, severe) Qty: 30 0RF Referrals Referrals: Johnny Gomez MD [Primary Care Provider] -
[2022-03-24 03:52] LABS: Basophils # (auto) 0.07 K/uL (0-0.2); Basophils % (auto) 0.8 %; Eosinophils # (auto) 0.24 K/uL (0-0.50); Eosinophils % (auto) 2.6 %; Hematocrit (blood only) 40.7 % (34.1-44.9); Immature Granulocytes # (auto) 0.02 K/uL (0.00-0.02); Immature Granulocytes % (auto) 0.2 %; Lymphocytes # (auto) 1.36 K/uL (1.2-3.4); Lymphocytes % (auto) 14.7 %; Mean Corpuscular Hemoglobin 27.2 pg (25.0-34.0); Mean Corpuscular Hgb Conc 31.9 g/dL (32.0-36.0); Mean Corpuscular Volume 85.1 fL (80.0-100.0); Mean Platelet Volume 10.6 fL (9.4-12.3); Monocytes # (auto) 0.73 K/uL (0.24-0.82); Monocytes % (auto) 7.9 %; Neutrophils # (auto) 6.86 K/uL (1.4-6.5); Neutrophils % (auto) 73.8 %; Platelet Count 176 K/uL (130-400); RDW Coefficient of Variation 17.6 % (11.5-14.5); Red Blood Count 4.78 M/uL (3.93-5.22); White Blood Count 9.28 K/ul (4.8-10.8)
[2022-03-24 04:13] LABS: Alanine Aminotransferase 28 U/L (7-52); Albumin Globulin Ratio 1.4 (0.9-2); Albumin Level 3.9 gm/dl (3.4-5.0); Alkaline Phosphatase 114 U/L (34-104); Anion Gap 7 (3-11); Aspartate Aminotransferase 27 U/L (13-39); BUN Creatinine Ratio 15.5 (10-20); Bilirubin,Total 0.7 mg/dl (0.2-1.0); Blood Urea Nitrogen 13 mg/dl (6-23); Calcium 8.9 mg/dl (8.5-10.1); Carbon Dioxide 29 mmol/L (21-32); Chloride 101 mmol/L (98-107); Est GFR (Non-African American) 79.3 ml/min; Globulin 2.7 gm/dl (2.5-4.0); Glucose 100 mg/dl (70-99(Fasting)); Lipase 24 U/L (11-82); Potassium 3.9 mmol/L (3.5-5.1); Sodium 137 mmol/L (136-145); Total Protein 6.6 gm/dl (6.0-8.3)
[2022-03-24] MEDS ORDERED: OPTIRAY 300 100mL IV ONE (04:36)
[2022-03-24] MEDS ORDERED: cefOXitin 2,000 MG/60 ML BAG IV STA (06:40)
[2022-03-24] MEDS ORDERED: ONDANSETRON INJ 2 MG/ML 2 ML VIAL IV PRN ×2 (06:48→13:22)
[2022-03-24] MEDS ORDERED: ACETAMINOPHEN 1,000 MG/100 ML VIAL IV PRN (06:48)
--- NOTE | 2022-03-24 06:48 | History & Physical Report ---
Date of Service March 24, 2022 Assessment & Plan (1) Acute appendicitis: Plan: Due to the patient's clinical presentation and imaging proceed as follows: Provide analgesics Provide antiemetics Keep n.p.o. Hydrate with IV fluids Initiate antibiotics. The treating emergency room physician has ordered cefoxitin We will tentatively plan on performing an appendectomy with Dr. Zuniga today. Additional recommendations be forthcoming based on operative findings and her postoperative recovery Will use SCDs for DVT prevention, no chemical means due to planned surgery Should be a level 1 full code History of Present Illness Chief Complaint: Abdominal pain Primary Care Provider: Johnny Gomez MD This is a 51-year-old female who presented the emergency department secondary to 1-1/2 days of abdominal pain. She says that the pain is nonradiating and is located in the right lower quadrant of her abdomen. She currently denies any nausea or vomiting. She denies any fevers but has had occasional chills. Because of her pain she presented to the emergency department. She does note prior abdominal surgeries that she has had a gastric bypass approximate 20 years ago. In addition she has had a cholecystectomy she also reports having a subcutaneous abscess drained in the suprapubic area but believes that this did not involve her intra-abdominal cavity. In the emergency department the patient had labs and imaging which I independent reviewed. Patient had findings concerning on the CAT scan for acute appendicitis. The appendix measured 14 mm with moderate surrounding inflammation. There is no abscess or free air. Labs include a CBC her white blood cell count, hemoglobin, hematocrit, platelet count were normal. Chemistry profile showed sodium, potassium, BUN, and creatinine were normal. There is no elevation of patient's LFTs other than a slight elevation of the alkaline phosphatase at 114. A COVID test has been ordered and is pending. At the time of my interview the patient was resting comfortably in bed and she was in no distress Allergies Allergy/AdvReac Type Severity Reaction Status Date / Time No Known Allergies Allergy Verified 10/21/21 11:38 Home Medications Medication Instructions Recorded Confirmed Type cyclobenzaprine 10 mg tablet 10 mg PO TID PRN Pain 04/06/18 10/21/21 History venlafaxine 150 mg 150 mg PO QAM 04/06/18 10/21/21 History capsule,extended release 24 hr (Effexor XR) tramadol 50 mg tablet (Ultram) 50 mg PO QID PRN pain #15 tabs 04/11/18 10/21/21 Rx acetaminophen 650 mg 650 mg PO Q12H PRN Pain 10/23/18 10/21/21 History tablet,extended release (Tylenol Arthritis Pain) fluticasone propionate 50 2 spray intranasal DAILY PRN Nasal 10/23/18 10/21/21 History mcg/actuation nasal Congestion spray,suspension (Flonase Allergy Relief) bupropion HCl 300 mg 24 hr tablet, 300 mg PO QAM 02/07/19 10/21/21 History extended release lisinopril 20 0.5 tab PO QAM #30 tabs 03/16/19 10/21/21 Rx mg-hydrochlorothiazide 25 mg tablet aripiprazole 5 mg tablet (Abilify) 5 mg PO 2XWK 02/27/20 10/21/21 History ipratropium 0.5 mg-albuterol 3 mg 3 ml inhalation Q4H PRN wheezing 02/27/20 10/21/21 Rx (2.5 mg base)/3 mL nebulization #360 mL soln venlafaxine 75 mg capsule,extended 75 mg PO QAM 02/27/20 10/21/21 History release 24 hr (Effexor XR) biotin 1 mg tablet 1 mg PO QAM 08/14/20 10/21/21 History furosemide 40 mg tablet 40 mg PO Q OTHER DAY PRN Fluid 08/14/20 10/21/21 History Retention gabapentin 300 mg tablet 300 mg PO TID 10/06/21 10/21/21 History hydrocodone 10 mg-acetaminophen 1 tab PO Q6H PRN Pain 10/06/21 10/21/21 History 325 mg tablet oxycodone 5 mg tablet 5 mg PO Q6H PRN pain, severe #30 10/22/21 Rx tabs tramadol 50 mg tablet 50 mg PO Q6H PRN pain, moderate 10/22/21 Rx #30 tabs Past Med/Surg History Medical History Anxiety Depression Diverticulosis Enlargement of spleen Fatty liver GERD (gastroesophageal reflux disease) Herniated disc History of COVID-19 04/2020; fever, body aches, congestion, cough, sob, loss of taste/smell; resolved. Hypertension Morbid obesity with BMI of 50.0-59.9, adult Osteoarthritis Pancreatic cyst [facility] monitoring Pulmonary sarcoidosis follows with [facility] (stable, no recent issues) Spinal stenosis Urinary incontinence Surgical History H/O vein stripping History of cholecystectomy History of colonoscopy History of esophagogastroduodenoscopy (EGD) History of gastric bypass History of incision and drainage Abdominal I&D (03/14/19): Grade 1 view, MAC#3, ETT 7.5 at [facility] History of laminectomy History of lymph node biopsy History of total right knee replacement S/P tonsillectomy Family History Mother Family history of diabetes mellitus Grandfather (Paternal) Family hx of colon cancer Other No family history of adverse response to anesthesia Social History Smoking Status: Never smoker Second Hand Exposure: Yes (parents smoked); Hx Alcohol Use: Yes Alcohol type: beer, wine and hard liquor Hx Substance Use: No Preferred Language: Kazakh Communication Ability: Effective Visual Impairment: No Limitations Catering Manager Required: No Beliefs That Will Affect Care: None marital status: Current Living Situation: Spouse Feels Safe at Home: Yes Assistive Devices: Cane and Walker Review of Systems Constitutional: + chills; no fever Eyes: no eye pain Ear, Nose, Mouth, Throat: no ear pain Respiratory: no cough and no dyspnea Cardiovascular: no chest pain Gastrointestinal: + abdominal pain; no nausea and no vomiting Genitourinary: no dysuria Musculoskeletal: no back pain Integumentary: no rash Neurologic: no localized weakness Physical Exam Constitutional: well developed, well nourished and + obese; no acute distress Eyes: no conjunctival abnormality ENMT: Ears: no hearing impairment and no external ear abnormality Mouth: no oropharynx abnormality Neck: trachea midline Respiratory: normal respiratory effort; no respiratory distress and no labored breathing Cardiovascular: Rate/Rhythm: regular rate and regular rhythm Gastrointestinal (Abdomen): Abdomen is rotund and soft. It is nondistended. It is nonrigid. Bowel sounds are present. Patient had marked tenderness in the right lower quadrant with palpation over McBurney's point Musculoskeletal: No calf tenderness Skin: no rashes Neurologic: moves all extremities Psychiatric: A+Ox3, euthymic affect Results & Data Results & Data ([facility]) Vital Signs (Past 12 Hours) Vital Signs Temp Pulse Pulse Resp BP BP Pulse Ox 03/24/22 05:22 94 H 13 159/100 H 96 03/24/22 03:46 99 H 84 L 03/24/22 03:46 84 18 143/103 H 94 03/24/22 02:31 36.2 C L 113 H 18 146/73 H 94 O2 Del Method 03/24/22 05:22 Room Air 03/24/22 03:46 Room Air 03/24/22 03:46 03/24/22 02:31 Room Air PG Care Time/CCT Total # of Minutes Spent Total Time Spent with Patient: Total time spent is greater than 50% in coordination of care (as documented) at patient's floor/unit and/or counseling patient: Coding Level of Care Code INT OBSERVATION CARE 70M LVL 3 Diagnoses Acute appendicitis K35.80
--- NOTE | 2022-03-24 06:57 | CT Scan Report ---
CT OF THE ABDOMEN AND PELVIS WITH CONTRAST CLINICAL HISTORY: Right lower quadrant abdominal pain. COMPARISON STUDY: CT of the abdomen and pelvis June 08, 2019. TECHNIQUE: Following IV administration of 93 mL of Optiray, axial images of the abdomen and pelvis we re obtained from the lung bases to the proximal femurs. Images were reviewed in the axial, sagittal, and coronal planes. IV contrast was administered without complication. Automated exposure control wa s utilized for the study. A dose lowering technique was utilized adhering to the principles of ALARA . CT DOSE: 2274.87 mGy.cm FINDINGS: Lung bases are unremarkable. No pneumatosis, free air or portal venous gas is present. Ther e is no biliary ductal dilatation status post cholecystectomy. Nodularity of the liver surface is not ed. The spleen is mildly enlarged. There are numerous hypodense splenic lesions which measure up to a pproximately 2 cm. These were not evident on CT of June 08, 2029. Adrenal glands, kidneys and wray creas are normal. There is no evidence for a bowel obstruction status post Jayda-en-Y gastric bypass. The appendix is distended, measuring 1.3 cm in caliber. There is moderate periappendiceal infiltratio n. No free air or abscess. No lymphadenopathy is present. No acute fracture or suspicious lesion with in the visualized skeletal structures. IMPRESSION: 1. Findings consistent with acute appendicitis. No free air or abscess. 2. Mild splenomegaly. Numerous hypodense splenic lesions. These are pathologically indeterminate. A f ollow-up CT of the abdomen with IV contrast in 6 months to ensure stability is recommended. 3. Nodularity of the liver surface suggestive of cirrhosis. ACT 112: Negative or not required by law. Electronically signed by: Ede Rivera M.D. 03/24/2022 6:54 AM
[2022-03-24] MEDS ORDERED: Patient's HEIGHT &/or WEIGHT Needed SCH (07:00)
--- NOTE | 2022-03-24 07:03 | XRay Report ---
XR chest 1V portable CLINICAL HISTORY: Preoperative evaluation. COMPARISON STUDY: Chest CT March 25, 2021. FINDINGS: Lung volumes are at the lower limits of normal. Lungs are clear. There is no pneumothorax o r pleural effusion. Cardiac size is normal. Mediastinal contours are normal. There is no evidence for pulmonary edema. Old right fourth rib fracture is incidentally noted. IMPRESSION: No acute cardiopulmonary findings. ACT 112: Negative or not required by law. Electronically signed by: Ede Rivera M.D. 03/24/2022 7:02 AM
[2022-03-24] MEDS: LACTATED RINGER'S 1,000 ML IV SCH ×2 (07:04→22:09)
[2022-03-24] MEDS: MoRPHine SULFATE 4 MG/ML 1 ML CARP\\VIAL IV PRN ×2 (08:16→11:33)
[2022-03-24 08:23] LABS: Appearance Urine Clear (Clear); Bilirubin Urine Negative (Negative); Blood Urine Negative (Negative); Color Urine Yellow; Glucose Urine UA Negative (Negative); Ketones Urine Negative (Negative); Leukocyte Esterase Urine Negative (Negative); Nitrite Urine Negative (Negative); Protein Urine Negative (Negative); Specific Gravity Urine 1.036 (1.000-1.030); Urobilinogen Urine Negative (Negative); pH Urine 6.5 (4.5-7.5)
[2022-03-24 08:24] LABS: Pregnancy Test, Urine Negative (Negative)
[2022-03-24] MEDS ORDERED: fentaNYL citrate 100 MCG/2 ML VIAL ONE ×3 (12:42→15:44)
[2022-03-24] MEDS ORDERED: PROPOFOL IV EMULSION 10 MG/ML 20 ML VIAL IV ONE (12:42)
[2022-03-24] MEDS ORDERED: ROCURONIUM BROMIDE 10 MG/ML 5 ML VIAL IV ONE (12:42)
[2022-03-24] MEDS ORDERED: DEXAMETHASONE SOD INJ 4 MG/ML VIAL ONE (12:42)
[2022-03-24] MEDS ORDERED: ONDANSETRON INJ 2 MG/ML 2 ML VIAL ONE (12:42)
[2022-03-24] MEDS ORDERED: SUCCINYLCHOLINE CHLORIDE 20 MG/ML 10 ML VIAL IV ONE (12:45)
[2022-03-24] MEDS ORDERED: cefOXitin 2,000 MG in DEXTROSE 5% 50 ML IV SCH (13:00)
[2022-03-24] MEDS ORDERED: ePHEDrine sulfate 50 MG/ML AMP IV PRN (13:22)
[2022-03-24] MEDS ORDERED: ATROPINE SULFATE 0.1 MG/ML 10ML SYR IV PRN (13:22)
--- NOTE | 2022-03-24 13:30 | Anesthesiology Consultation ---
Date of Service March 24, 2022 Assessment & Plan (1) Encounter for pre-operative examination: Chart Review Chart Review: Acceptable Risk for Surgery and Patient NOT seen in Pre Admission Testing Consults Requested none History Surgery Operation Date: 03/24/22 12:20 Proposed Procedures p Laparoscopic Appendectomy Possible Open - Braeden Zuniga, Height/Weight Height: 5 ft 11 in Weight: 165 kg Allergies Allergy/AdvReac Type Severity Reaction Status Date / Time No Known Allergies Allergy Verified 10/21/21 11:38 Medications Home Medications Medication Instructions Recorded Confirmed Last Taken cyclobenzaprine 10 mg tablet 10 mg PO TID PRN Pain 04/06/18 10/21/21 10/14/21 20:00 venlafaxine 150 mg 150 mg PO QAM 04/06/18 10/21/21 10/21/21 08:00 capsule,extended release 24 hr (Effexor XR) tramadol 50 mg tablet (Ultram) 50 mg PO QID PRN pain #15 tabs 04/11/18 10/21/21 Unknown acetaminophen 650 mg 650 mg PO Q12H PRN Pain 10/23/18 10/21/21 10/20/21 21:00 tablet,extended release (Tylenol Arthritis Pain) fluticasone propionate 50 2 spray intranasal DAILY PRN Nasal 10/23/18 10/21/21 Unknown mcg/actuation nasal Congestion spray,suspension (Flonase Allergy Relief) bupropion HCl 300 mg 24 hr tablet, 300 mg PO QAM 02/07/19 10/21/21 10/19/21 08:00 extended release lisinopril 20 0.5 tab PO QAM #30 tabs 03/16/19 10/21/21 10/20/21 08:00 mg-hydrochlorothiazide 25 mg tablet aripiprazole 5 mg tablet (Abilify) 5 mg PO 2XWK 02/27/20 10/21/21 Unknown ipratropium 0.5 mg-albuterol 3 mg 3 ml inhalation Q4H PRN wheezing 02/27/20 10/21/21 Unknown (2.5 mg base)/3 mL nebulization #360 mL soln venlafaxine 75 mg capsule,extended 75 mg PO QAM 02/27/20 10/21/21 10/21/21 08:00 release 24 hr (Effexor XR) biotin 1 mg tablet 1 mg PO QAM 08/14/20 10/21/21 10/20/21 08:00 furosemide 40 mg tablet 40 mg PO Q OTHER DAY PRN Fluid 08/14/20 10/21/21 10/18/21 20:00 Retention gabapentin 300 mg tablet 300 mg PO TID 10/06/21 10/21/21 10/20/21 21:00 hydrocodone 10 mg-acetaminophen 1 tab PO Q6H PRN Pain 10/06/21 10/21/21 10/21/21 08:00 325 mg tablet oxycodone 5 mg tablet 5 mg PO Q6H PRN pain, severe #30 10/22/21 Unknown tabs tramadol 50 mg tablet 50 mg PO Q6H PRN pain, moderate 10/22/21 Unknown #30 tabs Active Medications Generic Name Dose Route Start Last Admin Trade Name Freq PRN Reason Stop Dose Admin Lactated Ringer's 1,000 mls @ 100 mls/hr 03/24/22 07:00 03/24/22 07:04 Lr IV 04/23/22 06:59 100 mls/hr .Q10H NAVI Administration Morphine Sulfate 3 mg 03/24/22 06:48 03/24/22 11:33 Morphine Sulfate 4 Mg/Ml 1 Ml Carp\Vial IV 04/07/22 06:47 3 mg Q3H PRN Administration Pain NPO Date Last Intake of Fluids: 03/23/22 Time Last Intake of Fluids: 23:55 Date Last Intake of Solids: 03/23/22 Time Last Intake of Solids: 23:55 Past Medical History Medical History Anxiety Depression Diverticulosis Enlargement of spleen Fatty liver GERD (gastroesophageal reflux disease) Herniated disc History of COVID-19 04/2020; fever, body aches, congestion, cough, sob, loss of taste/smell; resolved. Hypertension Morbid obesity with BMI of 50.0-59.9, adult Osteoarthritis Pancreatic cyst [facility] monitoring Pulmonary sarcoidosis follows with [facility] (stable, no recent issues) Spinal stenosis Urinary incontinence Exercise / Class Metabolic Activity II 4-5 Yardwork/Stairs/Walk up hill Past Family History Family History Mother Family history of diabetes mellitus Grandfather (Paternal) Family hx of colon cancer Other No family history of adverse response to anesthesia Past Surgical History Surgical History H/O vein stripping History of cholecystectomy History of colonoscopy History of esophagogastroduodenoscopy (EGD) History of gastric bypass History of incision and drainage Abdominal I&D (03/14/19): Grade 1 view, MAC#3, ETT 7.5 at [facility] History of laminectomy History of lymph node biopsy History of total right knee replacement S/P tonsillectomy Past Anesthesia History No Hx of Anesthesia Complications and No Family Hx of Anesthesia Complications History of PONV No Hx of PONV and No Hx of Motion Sickness Social History Smoking Status: Never smoker Hx Alcohol Use: Yes Alcohol type: beer, wine and hard liquor alcohol intake frequency: holidays/special occasions only Hx Substance Use: No substance use type: does not use Physical Exam Vital Signs Last Vital Signs Temp 36.5 C 03/24/22 12:56 Pulse 78 03/24/22 12:56 Resp 22 03/24/22 12:56 BP 133/99 03/24/22 12:56 Pulse Ox 97 03/24/22 12:56 O2 Del Method 03/24/22 12:56 Testing Laboratory Results 03/24/22 03:43 03/24/22 03:43 Urine Color Yellow 03/24/22 08:10 Urine Appearance Clear (Clear) 03/24/22 08:10 Urine pH 6.5 (4.5-7.5) 03/24/22 08:10 Ur Specific [place] 1.036 (1.000-1.030) H 03/24/22 08:10 Urine Protein Negative (Negative) 03/24/22 08:10 Urine Glucose (UA) Negative (Negative) 03/24/22 08:10 Urine Ketones Negative (Negative) 03/24/22 08:10 Urine Nitrite Negative (Negative) 03/24/22 08:10 Ur Leukocyte Esterase Negative (Negative) 03/24/22 08:10 Urine Test Negative (Negative) 03/24/22 08:10 03/24/22 08:10 Urine Test Negative
[2022-03-24] MEDS ORDERED: SUGAMMADEX SODIUM 200 MG/2 ML VIAL IV ONE (13:38)
[2022-03-24] MEDS ORDERED: BUPIVACAINE 0.5 % 5 MG/1 ML MPF 30ML VIAL ONE (13:46)
--- NOTE | 2022-03-24 13:46 | Surgery Progress Note ---
Date of Service March 24, 2022 Assessment & Plan (1) Acute appendicitis: Plan: 51year old morbidly obese female with acute appendicitis plan for laparoscopic appendectomy risks discussed to include but not limited to bleeding, infection, normal appendix, perforation or abscess, open surgery, damage to surrounding structures including, need for future or more extensive surgery, and risks of anesthesia. Potential discharge this afternoon versus tomorrow (2) History of gastric bypass: (3) History of cholecystectomy: (4) Morbid obesity: Subjective 51-year-old female admitted early this morning with acute appendicitis. History of gastric bypass 20 years ago, no allergies, not on any blood thinners. Review of Systems Review of Systems: All systems reviewed & are unremarkable except as noted in HPI & below Physical Exam Constitutional: WD/WN, vitals as above + morbidly obese Respiratory: normal respiratory effort, lungs clear to auscultation Cardiovascular: RRR, no murmur, no edema Gastrointestinal (Abdomen): Inspection/Auscultation: + abdominal surgical scar (Upper midline) Percussion/Palpation: + abdomen tender (Tender palpation right lower quadrant) and abdomen soft; no guarding and abdomen not rigid Results & Data ([facility]) Vital Signs (Past 12 Hours) Vital Signs Temp Pulse Pulse Pulse Resp BP BP 03/24/22 12:56 36.5 C 78 22 133/99 03/24/22 11:00 81 13 128/82 03/24/22 08:17 88 18 140/61 03/24/22 07:00 91 H 18 152/69 H 03/24/22 05:22 94 H 13 159/100 H 03/24/22 03:46 99 H 03/24/22 03:46 84 18 143/103 H 03/24/22 02:31 36.2 C L 113 H 18 146/73 H Pulse Ox O2 Del Method 03/24/22 12:56 97 Room Air 03/24/22 11:00 96 Room Air 03/24/22 08:17 93 Room Air 03/24/22 07:00 95 Room Air 03/24/22 05:22 96 Room Air 03/24/22 03:46 84 L Room Air 03/24/22 03:46 94 03/24/22 02:31 94 Room Air Laboratory Results Laboratory Results - last 24 hr 03/24/22 03/24/22 03/24/22 03:43 03:43 06:40 WBC 9.28 RBC 4.78 Hgb 13.0 Hct 40.7 MCV 85.1 MCH 27.2 MCHC 31.9 L RDW Std Deviation 55.0 H RDW Coeff of Wally 17.6 H Plt Count 176 MPV 10.6 Immature Gran % (Auto) 0.2 Neut % (Auto) 73.8 Lymph % (Auto) 14.7 Schleicher % (Auto) 7.9 Eos % (Auto) 2.6 Baso % (Auto) 0.8 Neut # (Auto) 6.86 H Lymph # (Auto) 1.36 Schleicher # (Auto) 0.73 Eos # (Auto) 0.24 Baso # (Auto) 0.07 Immature Gran # (Auto) 0.02 Sodium 137 Potassium 3.9 Chloride 101 Carbon Dioxide 29 Anion Gap 7 BUN 13 Creatinine 0.84 Est Cr Clr Drug Dosing Not Reportable Est GFR ( Amer) 92.0 Est GFR (Non-Af Amer) 79.3 BUN/Creatinine Ratio 15.5 Glucose 100 H Calcium 8.9 Total Bilirubin 0.7 AST 27 ALT 28 Alkaline Phosphatase 114 H Total Protein 6.6 Albumin 3.9 Globulin 2.7 Albumin/Globulin Ratio 1.4 Lipase 24 Urine Color Urine Appearance Urine pH Ur Specific [place] Urine Protein Urine Glucose (UA) Urine Ketones Urine Blood Urine Nitrite Urine Bilirubin Urine Urobilinogen Ur Leukocyte Esterase Urine Test SARS-CoV-2, RNA, NAAT NEGATIVE 03/24/22 03/24/22 08:10 08:10 WBC RBC Hgb Hct MCV MCH MCHC RDW Std Deviation RDW Coeff of Wally Plt Count MPV Immature Gran % (Auto) Neut % (Auto) Lymph % (Auto) Schleicher % (Auto) Eos % (Auto) Baso % (Auto) Neut # (Auto) Lymph # (Auto) Schleicher # (Auto) Eos # (Auto) Baso # (Auto) Immature Gran # (Auto) Sodium Potassium Chloride Carbon Dioxide Anion Gap BUN Creatinine Est Cr Clr Drug Dosing Est GFR ( Amer) Est GFR (Non-Af Amer) BUN/Creatinine Ratio Glucose Calcium Total Bilirubin AST ALT Alkaline Phosphatase Total Protein Albumin Globulin Albumin/Globulin Ratio Lipase Urine Color Yellow Urine Appearance Clear Urine pH 6.5 Ur Specific [place] 1.036 H Urine Protein Negative Urine Glucose (UA) Negative Urine Ketones Negative Urine Blood Negative Urine Nitrite Negative Urine Bilirubin Negative Urine Urobilinogen Negative Ur Leukocyte Esterase Negative Urine Test Negative SARS-CoV-2, RNA, NAAT Diagnostic Findings CT OF THE ABDOMEN AND PELVIS WITH CONTRAST CLINICAL HISTORY: Right lower quadrant abdominal pain. COMPARISON STUDY: CT of the abdomen and pelvis June 08, 2019. TECHNIQUE: Following IV administration of 93 mL of Optiray, axial images of the abdomen and pelvis were obtained from the lung bases to the proximal femurs. Images were reviewed in the axial, sagittal, and coronal planes. IV contrast was administered without complication. Automated exposure control was utilized for the study. A dose lowering technique was utilized adhering to the principles of ALARA. CT DOSE: 2274.87 mGy.cm FINDINGS: Lung bases are unremarkable. No pneumatosis, free air or portal venous gas is present. There is no biliary ductal dilatation status post cholecystectomy. Nodularity of the liver surface is noted. The spleen is mildly enlarged. There are numerous hypodense splenic lesions which measure up to approximately 2 cm. These were not evident on CT of June 08, 2029. Adrenal glands, kidneys and pancreas are normal. There is no evidence for a bowel obstruction status post Jayda-en-Y gastric bypass. The appendix is distended, measuring 1.3 cm in caliber. There is moderate periappendiceal infiltration. No free air or abscess. No lymphadenopathy is present. No acute fracture or suspicious lesion within the visualized skeletal structures. IMPRESSION: 1. Findings consistent with acute appendicitis. No free air or abscess. 2. Mild splenomegaly. Numerous hypodense splenic lesions. These are pathologically indeterminate. A follow-up CT of the abdomen with IV contrast in 6 months to ensure stability is recommended. 3. Nodularity of the liver surface suggestive of cirrhosis. PG Care Time/CCT Total # of Minutes Spent Total Time Spent with Patient: Total time spent is greater than 50% in coordination of care (as documented) at patient's floor/unit and/or counseling patient: Coding Level of Care Code 60929 Subseq Hosp Care Lvl 2 Diagnoses Acute appendicitis K35.80 History of gastric bypass Z98.84 History of cholecystectomy Z90.49 Morbid obesity E66.01
[2022-03-24] MEDS ORDERED: GLYCOPYRROLATE 0.2 MG/ML VIAL ONE (14:11)
--- NOTE | 2022-03-24 15:44 | Operative Report ---
PG Post Operative Report Pre & Post Diagnosis Operation Date: 03/24/22 12:20 Pre-Op Diagnosis: acute appendicitis Post-Op Diagnosis: acute appendicitis I identified the patient and participated in the time-out.: Yes Procedure Operation Date: 03/24/22 12:20 Actual Procedures p Laparoscopic Appendectomy - Arron Richardson DO, FACS Surgeon Arron Richardson DO, FACS Data Center Manager Nasrin Bond Estimated Blood Loss 10 Findings Consistent with Post-Op Diagnosis Acute, nonperforated appendicitis. Based stable. Sonicision used to divide mesoappendix. Left lower quadrant fascia closed with Endo Close device and 0 Vicryl sutures x2. Specimens Appendix Anesthesia Type General Complications none Disposition Accompanied Patient To Recovery: No Disposition: Recovery Room Indications 51-year-old morbidly obese female presented with signs and symptoms of acute appendicitis confirmed by CT scan, plan for laparoscopic appendectomy. The risks of the procedure were discussed, all questions were answered, and the patient agreed to proceed with surgery as planned. Description of Procedure The patient was properly identified, consented, and taken to the operating room where she was properly identified, consented, and taken to the operating room where she was placed in the supine position. General endotracheal anesthesia was induced. SCDs and a safety belt were placed. Preoperative antibiotics were administered. A Qiu catheter was placed. The patient's abdomen was prepped and draped in the standard sterile fashion. Surgical timeout was performed and all parties were in agreement that this was the correct patient and procedure to be performed and we continued as planned. Stab incision was made in the left upper quadrant and the Veress needle was inserted. Saline drop test confirmed entry to the abdomen. The abdomen was insufflated with carbon dioxide with the patient tolerated without incident. Incision was made just to the left of the umbilicus and using the Optiview technique with a 5 mm port. No damage from initial trocar placement or Veress needle placement was noted. There were some adhesions in the upper abdomen from her prior gastric bypass. There was some reactive fluid in the right lower quadrant. There were no other abnormalities in the abdomen. 12 mm port was placed in the left lower quadrant and a 5 mm port was placed in the suprapubic midline. Care was taken not to damage the bladder or epigastric vessels. The patient was placed in Trendelenburg position and rotated towards the left. The small bowel was swept away from the right lower quadrant. The cecum was grasped with an atraumatic grasper exposing the appendix. The distal third of the appendix was significantly inflamed but there was no evidence of perforation. There was some suppurative exudate. There was also some reactive fluid in the pelvis. A window was created between the base of the appendix and the mesoappendix. A chun loaded endoscopic stapler was then used to divide the appendix at its base. A Sonicision was then used to divide the mesoappendix. Hemostasis was good. The appendix was placed in an Endo Catch bag and removed through the left lower quadrant port site. The right lower quadrant and pelvis was irrigated and hemostasis was found to be good. The left lower quadrant port site fascia was closed with the Endo Close device and interrupted 0 Vicryl sutures x2. The wound was irrigated, and the skin of all ports was closed with 4-0 Monocryl subcuticular sutures. Dermabond was placed over the wounds. The patient was extubated in the operating room and taken to the PACU where she recovered without apparent incident. All sponge, instrument and needle counts were correct at the conclusion of the procedure. The patient tolerated the procedure well. The physician's activities assistant was present and scrubbed throughout the procedure. She was critical in positioning the patient, prepping and draping, retraction and exposure, driving the laparoscope, closure of the fascia and incisions, and placement of the dressings. I attest to the content of the Intraoperative Record and any orders documented therein. Any exceptions are noted below.
[2022-03-24] MEDS: fentaNYL citrate 100 MCG/2 ML VIAL IV PRN ×4 (16:00→16:15)
--- NOTE | 2022-03-24 16:18 | Anesthesiology Progress Note ---
Date of Service March 24, 2022 Anesthesia Post Procedure Vital Signs Vital Signs: Temp Pulse Pulse Pulse Resp BP BP 03/24/22 12:56 36.5 C 78 22 133/99 03/24/22 11:00 81 13 128/82 03/24/22 08:17 88 18 140/61 03/24/22 07:00 91 H 18 152/69 H 03/24/22 05:22 94 H 13 159/100 H 03/24/22 03:46 99 H 03/24/22 03:46 84 18 143/103 H 03/24/22 02:31 36.2 C L 113 H 18 146/73 H Pulse Ox O2 Del Method 03/24/22 12:56 97 Room Air 03/24/22 11:00 96 Room Air 03/24/22 08:17 93 Room Air 03/24/22 07:00 95 Room Air 03/24/22 05:22 96 Room Air 03/24/22 03:46 84 L Room Air 03/24/22 03:46 94 03/24/22 02:31 94 Room Air Pain Intensity Right Lower Abdomen: Pain Intensity: 7 Transfer of Care Handoff Completed per policy Notes Mental Status: alert / awake / arousable and participated in evaluation Patient Amnestic to Procedure: Yes Nausea / Vomiting: adequately controlled Pain: adequately controlled Airway Patency, RR, SpO2: stable & adequate BP & HR: stable & adequate Hydration State: stable & adequate Anesthetic Complications: no major complications apparent and Pt Satisfied with anesthetic care
[2022-03-24] MEDS ORDERED: CYCLOBENZAPRINE HCL 10 MG TAB PO PRN (17:01)
[2022-03-24] MEDS ORDERED: ARIPiprazole 5 MG TAB PO SCH (17:01)
[2022-03-24] MEDS ORDERED: ALBUT/IPRATROP 3MG/0.5MG NEB 3 ML VIAL INH PRN (17:01)
[2022-03-24] MEDS ORDERED: HYDROcodone/ACETAMINOPHEN 10/325 TAB PO PRN (17:01)
[2022-03-24] MEDS ORDERED: HYDROmorphone INJ 0.5 MG/0.5 ML SYR IV PRN (17:01)
[2022-03-24] MEDS ORDERED: oxyCODONE/ACETAMINOPHEN 5mg/325mg TAB PO PRN ×2 (17:01)
[2022-03-24] MEDS: GABAPENTIN 300 MG CAP PO SCH (20:12)
[2022-03-24] MEDS: HYDROmorphone INJ 0.5 MG/0.5 ML SYR IV PRN ×2 (20:13→22:13)
[2022-03-25] MEDS: HYDROmorphone INJ 0.5 MG/0.5 ML SYR IV PRN ×2 (04:00→06:04)
--- NOTE | 2022-03-25 08:08 | Surgery Progress Note ---
Date of Service March 25, 2022 Assessment & Plan (1) Acute appendicitis: Plan: POD#1 laparoscopic appendectomy Vital signs are stable Tolerating liquids. Will advance to regular diet Abdomen soft, expected discomfort to incisions, particularly LLQ incision is expected as that was difficult intraop to close Pending toleration of diet this AM and pain controlled on PO regimen we will discharge her to home Dispo instructions reviewed F/u with Dr. Richardson in clinic within 1-2 weeks Admission and Anticipated Discharge Date Admission Date: March 24, 2022 Subjective Patient is feeling well. Does have some discomfort in the lower abdomen, worse on the L side. It is improving so far today. She is tolerating liquids thus far. No nausea/vomiting. She is eager for discharge. Physical Exam Physical Exam: awake/alert Respiratory: normal respiratory effort Gastrointestinal (Abdomen): Inspection/Auscultation: + abdominal surgical incision (c/d/i some ecchymosis of LLQ incision); abdomen not distended Percussion/Palpation: + abdomen tender (expected lower abdominal discomfort, L>R) and abdomen soft Results & Data ([facility]) Vital Signs (Past 12 Hours) Vital Signs Temp Pulse Pulse Resp BP Pulse Ox O2 Del Method 03/25/22 07:17 36.8 C 83 18 122/71 96 Room Air 03/25/22 03:55 36.8 C 80 16 161/75 H 92 Room Air 03/24/22 22:30 36.8 C 88 16 124/82 99 Room Air PG Care Time/CCT Total # of Minutes Spent Total Time Spent with Patient: Total time spent is greater than 50% in coordination of care (as documented) at patient's floor/unit and/or counseling patient: Coding Level of Care Code None Diagnoses Acute appendicitis K35.80
[2022-03-25] MEDS: GABAPENTIN 300 MG CAP PO SCH (08:22)
[2022-03-25] MEDS: LACTATED RINGER'S 1,000 ML IV SCH (08:26)
--- NOTE | 2022-03-25 08:52 | Electrocardiogram Report ---
Test Reason : Blood Pressure : / mmHG Vent. Rate : 093 BPM Atrial Rate : 093 BPM P-R Int : 168 ms QRS Dur : 078 ms QT Int : 372 ms P-R-T Axes : 042 043 032 degrees QTc Int : 462 ms Poor data quality, interpretation may be adversely affected Normal sinus rhythm Possible Left atrial enlargement Borderline ECG When compared with ECG of 07-OCT-2021 12:04, No significant change was found Confirmed by Miguel Jackson ([id number]) on 03/25/2022 8:52:20 AM Referred By: REFERRED SELF Confirmed By:Miguel Jackson
[2022-03-25] MEDS ORDERED: VENLAFAXINE HCL XR 75 MG CAPXR PO SCH (09:00)
[2022-03-25] MEDS ORDERED: VENLAFAXINE HCL XR 150 MG CAPXR PO SCH (09:00)
[2022-03-25] MEDS ORDERED: buPROPion XL 300 MG TABCR PO SCH (09:00)
--- NOTE | 2022-03-30 08:10 | Discharge Summary ---
Date of Service March 25, 2022 Admission HPI Per Admitting Provider This is a 51-year-old female who presented the emergency department secondary to 1-1/2 days of abdominal pain. She says that the pain is nonradiating and is located in the right lower quadrant of her abdomen. She currently denies any nausea or vomiting. She denies any fevers but has had occasional chills. Because of her pain she presented to the emergency department. She does note prior abdominal surgeries that she has had a gastric bypass approximate 20 years ago. In addition she has had a cholecystectomy she also reports having a subcutaneous abscess drained in the suprapubic area but believes that this did not involve her intra-abdominal cavity. In the emergency department the patient had labs and imaging which I independent reviewed. Patient had findings concerning on the CAT scan for acute ap pendicitis. The appendix measured 14 mm with moderate surrounding inflammation. There is no abscess or free air. Labs include a CBC her white blood cell count, hemoglobin, hematocrit, platelet count were normal. Chemistry profile showed sodium, potassium, BUN, and creatinine were normal. There is no elevation of patient's LFTs other than a slight elevation of the alkaline phosphatase at 114. A COVID test has been ordered and is pending. At the time of my interview the patient was resting comfortably in bed and she was in no distress Principal Diagnosis acute appendicitis Discharge Exam awake/alert Respiratory normal respiratory effort Gastrointestinal (Abdomen) Inspection/Auscultation: + abdominal surgical incision (c/d/i some ecchymosis of LLQ incision); abdomen not distended Percussion/Palpation: + abdomen tender (expected lower abdominal discomfort, L>R) and abdomen soft Discharge Data Allergies Allergy/AdvReac Type Severity Reaction Status Date / Time No Known Allergies Allergy Verified 10/21/21 11:38 Consultations 03/24/22 10:07 Consult General Surgery Stat Procedures Performed Operation Date: 03/24/22 12:20 Actual Procedures p Laparoscopic Appendectomy - Arron Richardson DO, FACS Ordered Studies 03/24/22 03:01 CT abd pelvis IV con only Urgent Hospital Course (1) Acute appendicitis: This is a 51yF who presented to the [facility] ED on 03/24/22 with abdominal pain. Workup in the ED showed a WBC of 9.[address] a/p concerning for acute appendicitis. The patient was tender to palpation in the RLQ. Patient made NPO with IVF and booked for the OR. On 03/24 the patient went to the OR with Dr. Richardson for a laparoscopic appendectomy. The patient tolerated the procedure well, see operative report for full details. Post operatively the patient's diet was advanced, pain managed on prn meds, and incisions clean/dry/intact. On POD#1 the patient was deemed stable for discharge to home. Total Time Total Time Spent Total Time Spent (In Minutes): 10 Discharge Plan Discharge Items Patient Disposition: Home - Self-Care Reason For Visit: RIGHT SIDED PAIN TRAVELS TO [employer] Discharge Diagnosis: laparoscopic appendectomy Activity: Per Instructions section Lifting: No more than 10 pounds Bathing Comment: may shower starting 03/25/22; no soaking in tubs/pools Exercise/Sports: Wait until after follow-up appointment Driving/Machine Use: no driving while taking narcotics for pain Non-emergency contact: Surgeon Call non-emergency contact if: you have any medication questions, your pain is not controlled, you have a fever, your temperature is above 101.5, your wound has increased redness, your wound has increased drainage and your wound pain has increased Follow-up/Referrals: Arron Richardson DO, STEVE [Physician] - 04/06/22 9:15 am (Please call to schedule follow up in clinic within 2 weeks) Johnny Gomez MD [Primary Care Provider] - Diet: Regular Addtl Attending Provider Instructions: Pending Studies at Discharge: Yes Studies:: surgical pathology Stand-Alone Forms: [facility] Medications and DC Order Prescriptions: Continued venlafaxine [Effexor XR] 75 mg capsule,extended release 24hr 75 mg PO QAM aripiprazole [Abilify] 5 mg tablet 5 mg PO 2XWK Rx Instructions: ordered for every dabut only takes 2xsweek ipratropium-albuterol 0.5 mg-3 mg(2.5 mg base)/3 mL solution for nebulization 3 ml inhalation Q4H PRN (Reason: wheezing) Qty: 360 5RF venlafaxine [Effexor XR] 150 mg Capsule,Extended Release 24hr 150 mg PO QAM cyclobenzaprine 10 mg Tablet 10 mg PO TID PRN (Reason: Pain) tramadol [Ultram] 50 mg tablet 50 mg PO QID PRN (Reason: pain) Qty: 15 0RF acetaminophen [Tylenol Arthritis Pain] 650 mg Tablet Extended Release 650 mg PO Q12H PRN (Reason: Pain) fluticasone propionate [Flonase Allergy Relief] 50 mcg/actuation [place],Suspension 2 spray INTRANASAL DAILY PRN (Reason: Nasal Congestion) bupropion HCl 300 mg tablet extended release 24 hr 300 mg PO QAM lisinopril-hydrochlorothiazide 20-25 mg Tablet 0.5 tab PO QAM Qty: 30 0RF biotin 1 mg Tablet 1 mg PO QAM furosemide 40 mg tablet 40 mg PO Q OTHER DAY PRN (Reason: Fluid Retention) hydrocodone-acetaminophen 10-325 mg Tablet 1 tab PO Q6H PRN (Reason: Pain) gabapentin 300 mg Tablet 300 mg PO TID tramadol 50 mg tablet 50 mg PO Q6H PRN (Reason: pain, moderate) Qty: 30 0RF oxycodone 5 mg tablet 5 mg PO Q6H PRN (Reason: pain, severe) Qty: 30 0RF Discharge Orders: Discharge Order (Routine); Ordered 03/25/22 Ordered By: Nasrin Woodson/Other Patient Handouts: Appendectomy, What Is Appendicitis? Admission Data Admit Date/Time: 03/24/22 15:42 Attending Provider: Arron Richardson Admit Provider: Arron Richardson Primary Care Provider: Johnny Gomez Other Providers: Braeden Zuniga Other Interventions: Discharge Summary Assessment (RN) Last Done: 03/25/22 08:34 Coding Level of Care Code D/C DAY MANAGEMENT <30 MINS Diagnoses Acute appendicitis K35.80
== END 2022-03-25 10:57 | disposition home or self-care (01) ==
LOC: ED 02:29 → PACUINP 13:18 → ASU 13:18 → 3N 19:33

== ENCOUNTER 2023-12-26 21:19 | Inpatient (IN) ==
[2023-12-26 22:07] LABS: Appearance Urine Clear (Clear); Bilirubin Urine Negative (Negative); Blood Urine Negative (Negative); Color Urine Yellow; Glucose Urine UA Negative (Negative); Ketones Urine Negative (Negative); Leukocyte Esterase Urine Negative (Negative); Nitrite Urine Negative (Negative); Protein Urine Negative (Negative); Specific Gravity Urine 1.018 (1.000-1.030); Urobilinogen Urine Negative (Negative)
[2023-12-26 22:10] LABS: Basophils # (auto) 0.13 K/uL (0.00-0.20); Basophils % (auto) 1.1 %; Eosinophils # (auto) 0.33 K/uL (0.00-0.50); Eosinophils % (auto) 2.9 %; Hematocrit (blood only) 44.4 % (37.0-47.0); Hemoglobin 13.7 g/dl (12.0-16.0); Immature Granulocytes # (auto) 0.05 K/uL (0.01-0.20); Immature Granulocytes % (auto) 0.4 %; Lymphocytes # (auto) 1.84 K/uL (1.20-3.40); Lymphocytes % (auto) 16.2 %; Mean Corpuscular Hemoglobin 25.2 pg (25.0-34.0); Mean Corpuscular Hgb Conc 30.9 g/dL (32.0-36.0); Mean Corpuscular Volume 81.6 fL (80.0-100.0); Mean Platelet Volume 10.5 fL (9.4-12.4); Monocytes # (auto) 0.81 K/uL (0.11-0.59); Monocytes % (auto) 7.1 %; Neutrophils # (auto) 8.19 K/uL (1.40-6.50); Neutrophils % (auto) 72.3 %; Platelet Count 270 K/uL (130-400); RDW Coefficient of Variation 19.1 % (11.5-14.5); RDW Standard Deviation 54.5 fL (36.4-46.3); Red Blood Count 5.44 M/uL (4.20-5.40); White Blood Count 11.35 K/ul (4.8-10.8)
[2023-12-26 22:24] LABS: Alanine Aminotransferase 28 U/L (7-52); Albumin Globulin Ratio 1.1 (0.9-2); Albumin Level 4.1 gm/dl (3.4-5.0); Alkaline Phosphatase 106 U/L (34-104); Anion Gap 7 (3-11); Aspartate Aminotransferase 24 U/L (13-39); BUN Creatinine Ratio 18.3 (10-20); Bilirubin,Total 0.7 mg/dl (0.2-1.0); Blood Urea Nitrogen 17 mg/dl (6-23); Calcium 9.5 mg/dl (8.6-10.3); Carbon Dioxide 29 mmol/L (21-32); Chloride 100 mmol/L (98-107); Est GFR (African American) 80.2 ml/min; Est GFR (Non-African American) 69.2 ml/min; Globulin 3.6 gm/dl (2.5-4.0); Glucose 119 mg/dl (70-99(Fasting)); Lipase 23 U/L (11-82); Sodium 136 mmol/L (136-145); Total Protein 7.7 gm/dl (6.0-8.3)
[2023-12-26] MEDS: ONDANSETRON INJ 2 MG/ML 2 ML VIAL IV STA (23:24)
[2023-12-26] MEDS: HYDROmorphone INJ 0.5 MG/0.5 ML SYR IV PRN (23:24)
[2023-12-26] MEDS: OPTIRAY 320 150ml IV ONE (23:45)
--- NOTE | 2023-12-27 01:53 | CT Scan Report ---
Exam(s): CT ABDOMEN + PELVIS With Contrast IV Amt: 120 ml optiray 320 EXAM: CT Abdomen and Pelvis With Intravenous Contrast CLINICAL HISTORY: Reason for exam: RUQ abd pain, hx of [place]. TECHNIQUE: Axial computed tomography images of the abdomen and pelvis with intravenous contrast. CTDI is 35.66 mGy and DLP is 2007.36 mGy-cm. Automated exposure control was utilized for the study. A dose lowering technique was utilized adhering to the principles of ALARA. CONTRAST: Patient received 120 ml optiray 320 of IV contrast COMPARISON: CT abdomen pelvis March 24, 2022. FINDINGS: Lung bases: Unremarkable. No mass. No consolidation. ABDOMEN: Liver: Hepatic steatosis. Surface nodularity of the liver, correlate for early cirrhotic changes. Gallbladder and bile ducts: Cholecystectomy. No ductal dilation. Pancreas: Unremarkable. No mass. No ductal dilation. Spleen: Unremarkable. No splenomegaly. Adrenals: Unremarkable. No mass. Kidneys and ureters: Unremarkable. No hydronephrosis or delayed nephrogram. Stomach and bowel: Jayda-en-Y gastric bypass. No acute diverticulitis. No bowel obstruction. No free air. PELVIS: Appendix: Appendectomy. Bladder: Decompressed urinary bladder. Reproductive: Unremarkable as visualized. ABDOMEN and PELVIS: Intraperitoneal space: See above. Bones/joints: Posterior fusion at L3-4. No acute fracture. No dislocation. Soft tissues: Unremarkable. Vasculature: Unremarkable. No abdominal aortic aneurysm. Lymph nodes: Unremarkable. No enlarged lymph nodes. IMPRESSION: 1. No hydronephrosis or delayed nephrogram. 2. No acute diverticulitis. No bowel obstruction. No free air. 3. Hepatic steatosis. Surface nodularity of the liver, correlate for early cirrhotic changes. 4. Cholecystectomy. 5. Jayda-en-Y gastric bypass. 6. Appendectomy. Electronically signed by: Paulo Infante MD 12/27/23 01:52 AM
--- NOTE | 2023-12-27 03:45 | Emergency Department Note ---
Impression & Plan Right upper quadrant abdominal pain ED Provider Note NAME: WALI MENDEZ AGE: 53 SEX: Female INFORMANT: Patient ED PROVIDER(S): Alexi Rush MD CHIEF COMPLAINT: Right upper quadrant abdominal pain PLAN: Disposition: Admitted Outpatient prescription management: none Referral: None MEDICAL DECISION MAKING: patient presented because of right upper abdominal pain. This was reproducible on examination. On her history she has had a cholecystectomy, gastric bypass, and appendectomy. Patient was uncomfortable. She was treated with Dilaudid and Zofran. She did require additional dosing of the Dilaudid due to pain. Patient was sent for CT imaging to further elucidate the cause of the pain. Laboratory testing revealed a mild leukocytosis. Chemistry panel LFTs and lipase were negative. CT imaging was performed and did not reveal any acute pathology. Base of the lungs appeared to be normal when I evaluated the scan as well. Patient noted pain that was worsening with deep breathing. In light of the negative abdominal scan I did have some concern that this could be embolic in nature. D-dimer was ordered. Recollect was necessary so this is pending at the time of dictation. Ultrasound imaging of the lower extremities was also ordered. Preliminarily no obvious DVT was seen. I discussed further management in the hospital with the patient and significant other due to the recurrence of high levels of pain in the right upper quadrant. They were in agreement. [facility] Dr[facility] Palmer. Patient was evaluated in the ER and admitted for further management Care/management discussed with: clinic office manager Level of care consideration(s): After review of the information above and other included data, I feel the patient requires escalation of care to admission Triage Nursing notes: reviewed and agree them. Vital Signs: reviewed and remarkable for borderline tachycardia Additional History obtained from: none Chronic Medical/Social Conditions affecting care: History of gastric bypass, sarcoidosis, hypertension Prior/ Outside/ External records reviewed: none Differential Diagnosis: Renal colic, UTI, appendicitis, diverticulitis, mesenteric ischemia, aortic pathology, infections, inflammatory bowel disease, PUD, biliary pathology, as well as other pathologies. Diagnostics, independently interpreted by me: ECG: none Cardiac Monitoring: Cardiac monitoring ordered by me: The patient was placed on continuous cardiac monitoring and observed. It revealed a sinus tachycardia 101 beats per minute without ectopy or evidence of dysrhythmia. Medical decision rules: none Imaging studies: CT imaging of the abdomen pelvis does not reveal any free fluid, free air, basilar pneumonia or other acute pathology on my preliminary read. I refer you to the EMR for further details. Chest x-ray. Findings: A chest x-ray was performed and revealed no pneumothorax, effusion, infiltrate, pulmonary edema, free air under the diaphragm, or wide mediastinum. Impression: No acute disease. HPI: 53 year old Female arrives for evaluation of right upper quadrant abdominal pain. This started this morning and is worsening.. The patient also notes the following associated symptoms, pain radiating from the right upper quadrant to the right shoulder. Pain is worsened with taking a deep breath but especially with palpation of the right upper quadrant. The patient has found no relieving factors. Current pain is rated as 9/10. Patient has a history of gastric bypass, appendectomy and cholecystectomy. Pt denies LOC, headache, fevers, chills, diaphoresis, visual changes, neck pain, chest pain, breathing difficulties, nausea, vomiting, leg swelling or pain, back pain, melena, hematochezia, urinary symptoms, numbness, weakness, lymphadenopathy, rash, or other complaints. PAST MEDICAL HISTORY: See Below, hypertension PAST SURGICAL HISTORY: See Below, appendectomy, cholecystectomy, tonsillectomy, right total knee replacement SOCIAL HISTORY: See Below, HOME MEDICATIONS: See Below ALLERGIES: See Below VITALS: See Below PHYSICAL EXAMINATION: GENERAL: Awake, alert, uncomfortable-appearing, in no distress HENT: Normocephalic, atraumatic. Oropharynx unremarkable. EYES: Normal conjunctiva. Sclera non-icteric. NECK: Inspection normal. Non-tender. Supple. No nuchal rigidity. FROM. No masses. RESPIRATORY: Clear to auscultation. No wheezes. No rales. Normal respiratory effort. CARDIAC: Borderline tachycardic rate. Normal rhythm. No murmurs. No rubs. Extremities warm and well perfused. Pulses equal. No JVD. GI: Soft, non-distended. Right upper quadrant tenderness to palpation. No rebound or guarding. No masses. RECTAL: Deferred. MUSCULOSKELETAL: Atraumatic. Chest examination reveals no tenderness. The back is symmetrical on inspection without obvious abnormality. There is no CVA tenderness to palpation. No joint edema. LOWER EXTREMITIES: Calves are equal size bilaterally and non-tender. No edema. No discoloration. NEURO: Normal sensorium. No sensory or motor deficits noted. SKIN: No rash or jaundice noted. PROCEDURES: none CRITICAL CARE: none OBSERVATION NOTE: none Past Med/Surg History Problem List (Updated 12/27/23 @ 03:45 by Alexi Rush MD) Right upper quadrant abdominal pain (Acute) Lumbar spinal stenosis due to adjacent segment disease after fusion procedure Lumbar post-laminectomy syndrome Lumbar radiculopathy Non-healing wound History of laparoscopic appendectomy (03/24/22) Laparoscopic Appendectomy - Arron Richardson DO, STEVE Acute appendicitis (Acute) Neurogenic claudication due to lumbar spinal stenosis Chest pain (Acute) JOHN (acute kidney injury) (Acute) DVT prophylaxis Sarcoidosis (Acute) Sepsis (Acute) Abdominal wall cellulitis (Acute) Leukocytosis (Acute) HTN (hypertension) Non-healing surgical wound (Acute) Dyspnea and respiratory abnormalities Allergies Dyspnea COVID-19 (Acute) Myalgia Dysphagia Fatigue Hypertension (Chronic) Obesity (Chronic) Fatty liver (Chronic) History of gastric bypass (Chronic) Osteoarthritis (Chronic) Pulmonary sarcoidosis (Chronic) follows with [facility] (stable, no recent issues) Depression (Chronic) Anxiety (Chronic) History of total right knee replacement (Chronic) History of laminectomy (Chronic) History of cholecystectomy (Chronic) H/O vein stripping (Chronic) S/P tonsillectomy (Chronic) Mediastinal lymphadenopathy Morbid obesity (Acute) Medical History Lumbar spinal stenosis due to adjacent segment disease after fusion procedure Lumbar post-laminectomy syndrome Lumbar radiculopathy Morbid obesity with BMI of 50.0-59.9, adult History of COVID-19 04/2020; fever, body aches, congestion, cough, sob, loss of taste/smell; resolved. Herniated disc Spinal stenosis Urinary incontinence Enlargement of spleen Pancreatic cyst [facility] monitoring Diverticulosis GERD (gastroesophageal reflux disease) Encounter for pre-operative examination Anxiety Depression Pulmonary sarcoidosis follows with [facility] (stable, no recent issues) Osteoarthritis Fatty liver Hypertension Surgical History H/O spinal fusion History of laparoscopic appendectomy (03/24/22) Laparoscopic Appendectomy - Arron Richardson DO, FACS History of incision and drainage Abdominal I&D (03/14/19): Grade 1 view, MAC#3, ETT 7.5 at [facility] History of lymph node biopsy History of esophagogastroduodenoscopy (EGD) History of colonoscopy S/P tonsillectomy H/O vein stripping History of cholecystectomy History of laminectomy History of total right knee replacement History of gastric bypass Family History Mother Family history of diabetes mellitus Grandfather (Paternal) Family hx of colon cancer Other No family history of adverse response to anesthesia Social History Smoking Status: Never smoker Second Hand Exposure: No; Do You Dip or Chew Tobacco: No; Hx Alcohol Use: Yes Alcohol type: other Alcohol Intake Frequency: Monthly or Less Hx Substance Use: No Preferred Language: [place] Communication Ability: Effective Visual Impairment: No Limitations Shipwright Apprentice Required: No Beliefs That Will Affect Care: None marital status: Current Living Situation: Spouse current occupational status: unemployed 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 Feels Safe at Home: Yes Diet: Atkins Physical Activity Frequency: 3-4 Times per Week Physical Activity Frequency Comment: "PT 3 x weekly 2/2 recent back surgery Do you think of yourself as: straight/heterosexual Gender Identity: Female Assistive Devices: None Allergies Allergies Allergy/AdvReac Type Severity Reaction Status Date / Time No Known Allergies Allergy Verified 12/27/23 02:06 Home Meds Home Medications Medication Instructions Recorded Confirmed cyclobenzaprine 10 mg tablet 10 mg PO TID PRN Pain 04/06/18 12/27/23 venlafaxine 150 mg 150 mg PO QAM 04/06/18 12/27/23 capsule,extended release 24 hr (Effexor XR) acetaminophen 650 mg 650 mg PO Q12H PRN Pain 10/23/18 12/27/23 tablet,extended release (Tylenol Arthritis Pain) fluticasone propionate 50 2 spray intranasal DAILY PRN Nasal 10/23/18 12/27/23 mcg/actuation nasal Congestion spray,suspension (Flonase Allergy Relief) bupropion HCl 300 mg 24 hr tablet, 300 mg PO QAM 02/07/19 12/27/23 extended release venlafaxine 75 mg capsule,extended 75 mg PO QAM 02/27/20 12/27/23 release 24 hr (Effexor XR) biotin 1 mg tablet 1 mg PO QAM 08/14/20 12/27/23 meloxicam 15 mg tablet 15 mg PO DAILY 04/07/22 12/27/23 gabapentin 400 mg capsule 800 mg PO TID 04/07/23 12/27/23 Previous Rx's Medication Instructions Recorded lisinopril 20 0.5 tab PO QAM #30 tabs 03/16/19 mg-hydrochlorothiazide 25 mg tablet Results & Data (ED) Vital Signs Vital Signs - 24 hr 12/26/23 21:35 12/26/23 22:03 12/26/23 22:28 Temperature 36.9 C Temperature Source Temporal Artery Scan Pulse Rate 115 H 100 H Pulse Rate [Apical] 96 H Pulse Rate from SpO2 Sensor Pulse Rhythm [Apical] Regular Pulse Strength [Apical] Normal Respiratory Rate 19 20 Respiratory Effort / Characteristics Non-Labored Spontaneous Non-Labored Spontaneous Respiratory Depth Normal Normal Respiratory Pattern Regular Blood Pressure 146/73 H Blood Pressure [Left Arm] 108/53 L Blood Pressure Mean 97 Blood Pressure Mean [Left Arm] 71 Blood Pressure Position [Left Arm] Semi-fowlers Pulse Oximetry 97 95 Oxygen Delivery Method Room Air Room Air Oxygen Flow Rate Sepsis Recent Fever Within 48 Hours No Sepsis New/Unexplained Change in Mental Status N/A Sepsis Action Taken by Nursing No Action Required 12/26/23 22:48 12/26/23 22:51 12/26/23 23:03 Temperature Temperature Source Pulse Rate 95 H 99 H 93 H Pulse Rate [Apical] Pulse Rate from SpO2 Sensor 96 H 97 H 95 H Pulse Rhythm [Apical] Pulse Strength [Apical] Respiratory Rate 24 24 19 Respiratory Effort / Characteristics Respiratory Depth Respiratory Pattern Blood Pressure 121/62 Blood Pressure [Left Arm] Blood Pressure Mean 81 Blood Pressure Mean [Left Arm] Blood Pressure Position [Left Arm] Pulse Oximetry 93 93 94 Oxygen Delivery Method Room Air Oxygen Flow Rate Sepsis Recent Fever Within 48 Hours Sepsis New/Unexplained Change in Mental Status Sepsis Action Taken by Nursing 12/26/23 23:57 12/27/23 00:03 12/27/23 00:12 Temperature Temperature Source Pulse Rate 101 H 105 H 116 H Pulse Rate [Apical] Pulse Rate from SpO2 Sensor 98 H 105 H 104 H Pulse Rhythm [Apical] Pulse Strength [Apical] Respiratory Rate 20 21 16 Respiratory Effort / Characteristics Respiratory Depth Respiratory Pattern Blood Pressure Blood Pressure [Left Arm] Blood Pressure Mean Blood Pressure Mean [Left Arm] Blood Pressure Position [Left Arm] Pulse Oximetry 90 90 91 Oxygen Delivery Method Oxygen Flow Rate Sepsis Recent Fever Within 48 Hours Sepsis New/Unexplained Change in Mental Status Sepsis Action Taken by Nursing 12/27/23 00:21 12/27/23 00:33 12/27/23 01:03 Temperature Temperature Source Pulse Rate 101 H 100 H 98 H Pulse Rate [Apical] Pulse Rate from SpO2 Sensor 100 H 98 H 98 H Pulse Rhythm [Apical] Pulse Strength [Apical] Respiratory Rate 13 16 20 Respiratory Effort / Characteristics Respiratory Depth Respiratory Pattern Blood Pressure 120/76 130/81 Blood Pressure [Left Arm] Blood Pressure Mean 90 97 Blood Pressure Mean [Left Arm] Blood Pressure Position [Left Arm] Pulse Oximetry 97 96 95 Oxygen Delivery Method Nasal Cannula Room Air Oxygen Flow Rate 2 Sepsis Recent Fever Within 48 Hours Sepsis New/Unexplained Change in Mental Status Sepsis Action Taken by Nursing 12/27/23 01:12 12/27/23 01:33 12/27/23 01:54 Temperature Temperature Source Pulse Rate 100 H 100 H 100 H Pulse Rate [Apical] Pulse Rate from SpO2 Sensor 99 H 94 H Pulse Rhythm [Apical] Pulse Strength [Apical] Respiratory Rate 19 21 Respiratory Effort / Characteristics Respiratory Depth Respiratory Pattern Blood Pressure Blood Pressure [Left Arm] Blood Pressure Mean Blood Pressure Mean [Left Arm] Blood Pressure Position [Left Arm] Pulse Oximetry 97 91 Oxygen Delivery Method Oxygen Flow Rate Sepsis Recent Fever Within 48 Hours Sepsis New/Unexplained Change in Mental Status Sepsis Action Taken by Nursing 12/27/23 01:54 12/27/23 02:20 12/27/23 02:38 Temperature Temperature Source Pulse Rate 98 H 95 H 101 H Pulse Rate [Apical] Pulse Rate from SpO2 Sensor 99 H 101 H Pulse Rhythm [Apical] Pulse Strength [Apical] Respiratory Rate 20 18 16 Respiratory Effort / Characteristics Respiratory Depth Respiratory Pattern Blood Pressure Blood Pressure [Left Arm] Blood Pressure Mean Blood Pressure Mean [Left Arm] Blood Pressure Position [Left Arm] Pulse Oximetry 85 L Oxygen Delivery Method Room Air Oxygen Flow Rate Sepsis Recent Fever Within 48 Hours Sepsis New/Unexplained Change in Mental Status Sepsis Action Taken by Nursing 12/27/23 02:40 Temperature Temperature Source Pulse Rate Pulse Rate [Apical] Pulse Rate from SpO2 Sensor Pulse Rhythm [Apical] Pulse Strength [Apical] Respiratory Rate Respiratory Effort / Characteristics Respiratory Depth Respiratory Pattern Blood Pressure Blood Pressure [Left Arm] Blood Pressure Mean Blood Pressure Mean [Left Arm] Blood Pressure Position [Left Arm] Pulse Oximetry 94 Oxygen Delivery Method Nasal Cannula Oxygen Flow Rate 3 Sepsis Recent Fever Within 48 Hours Sepsis New/Unexplained Change in Mental Status Sepsis Action Taken by Nursing Laboratory Data 12/26/23 21:40 12/26/23 21:40 Lab Results 12/26/23 Range/Units 21:40 WBC 11.35 H (4.8-10.8) K/ul RBC 5.44 H (4.20-5.40) M/uL Hgb 13.7 (12.0-16.0) g/dl Hct 44.4 (37.0-47.0) % MCV 81.6 (80.0-100.0) fL MCH 25.2 (25.0-34.0) pg MCHC 30.9 L (32.0-36.0) g/dL RDW Std Deviation 54.5 H (36.4-46.3) fL RDW Coeff of Wally 19.1 H (11.5-14.5) % Plt Count 270 (130-400) K/uL MPV 10.5 (9.4-12.4) fL Immature Gran % (Auto) 0.4 % Neut % (Auto) 72.3 % Lymph % (Auto) 16.2 % Cottle % (Auto) 7.1 % Eos % (Auto) 2.9 % Baso % (Auto) 1.1 % Neut # (Auto) 8.19 H (1.40-6.50) K/uL Lymph # (Auto) 1.84 (1.20-3.40) K/uL [place]le # (Auto) 0.81 H (0.11-0.59) K/uL Eos # (Auto) 0.33 (0.00-0.50) K/uL Baso # (Auto) 0.13 (0.00-0.20) K/uL Immature Gran # (Auto) 0.05 (0.01-0.20) K/uL Sodium 136 (136-145) mmol/L Potassium 4.0 (3.5-5.1) mmol/L Chloride 100 (98-107) mmol/L Carbon Dioxide 29 (21-32) mmol/L Anion Gap 7 (3-11) BUN 17 (6-23) mg/dl Creatinine 0.93 (0.6-1.2) mg/dl Est Cr Clr Drug Dosing Not Reportable Est GFR ( Amer) 80.2 ml/min Est GFR (Non-Af Amer) 69.2 ml/min BUN/Creatinine Ratio 18.3 (10-20) Glucose 119 H (70-99(Fasting)) mg/dl Calcium 9.5 (8.6-10.3) mg/dl Total Bilirubin 0.7 (0.2-1.0) mg/dl AST 24 (13-39) U/L ALT 28 (7-52) U/L Alkaline Phosphatase 106 H (34-104) U/L Total Protein 7.7 (6.0-8.3) gm/dl Albumin 4.1 (3.4-5.0) gm/dl Globulin 3.6 (2.5-4.0) gm/dl Albumin/Globulin Ratio 1.1 (0.9-2) Lipase 23 (11-82) U/L Urine Color Yellow Urine Appearance Clear (Clear) Urine pH 6.0 (4.5-7.5) Ur Specific [place] 1.018 (1.000-1.030) Urine Protein Negative (Negative) Urine Glucose (UA) Negative (Negative) Urine Ketones Negative (Negative) Urine Blood Negative (Negative) Urine Nitrite Negative (Negative) Urine Bilirubin Negative (Negative) Urine Urobilinogen Negative (Negative) Ur Leukocyte Esterase Negative (Negative) Administered Medications Hydromorphone HCl (Hydromorphone Inj 0.5 Mg/0.5 Ml Syr) 0.5 mg IV Q15M PRN PRN Reason: Pain Stop: 01/09/24 23:11 Last Admin: 12/27/23 01:24 Dose: 0.5 mg Documented By: Admin: 12/26/23 23:24 Dose: 0.5 mg Documented By: LO Discontinued Medications Ioversol (Optiray 320 150ml) 125 ml IV ONCE ONE Stop: 12/26/23 23:46 Last Admin: 12/26/23 23:45 Dose: 120 ml Documented By: LAZARUS Ondansetron HCl (Ondansetron Inj 2 Mg/Ml 2 Ml Vial) 4 mg IV NOW STA Stop: 12/26/23 23:13 Last Admin: 12/26/23 23:24 Dose: 4 mg Documented By: KMS Imaging Data Radiologist's Impression: Abdomen/Pelvis CT 12/26/23 23:12 Exam(s): CT ABDOMEN + PELVIS With Contrast IV Amt: 120 ml optiray 320 EXAM: CT Abdomen and Pelvis With Intravenous Contrast CLINICAL HISTORY: Reason for exam: RUQ abd pain, hx of [place]. TECHNIQUE: Axial computed tomography images of the abdomen and pelvis with intravenous contrast. CTDI is 35.66 mGy and DLP is 2007.36 mGy-cm. Automated exposure control was utilized for the study. A dose lowering technique was utilized adhering to the principles of ALARA. CONTRAST: Patient received 120 ml optiray 320 of IV contrast COMPARISON: CT abdomen pelvis March 24, 2022. FINDINGS: Lung bases: Unremarkable. No mass. No consolidation. ABDOMEN: Liver: Hepatic steatosis. Surface nodularity of the liver, correlate for early cirrhotic changes. Gallbladder and bile ducts: Cholecystectomy. No ductal dilation. Pancreas: Unremarkable. No mass. No ductal dilation. Spleen: Unremarkable. No splenomegaly. Adrenals: Unremarkable. No mass. Kidneys and ureters: Unremarkable. No hydronephrosis or delayed nephrogram. Stomach and bowel: Jayda-en-Y gastric bypass. No acute diverticulitis. No bowel obstruction. No free air. PELVIS: Appendix: Appendectomy. Bladder: Decompressed urinary bladder. Reproductive: Unremarkable as visualized. ABDOMEN and PELVIS: Intraperitoneal space: See above. Bones/joints: Posterior fusion at L3-4. No acute fracture. No dislocation. Soft tissues: Unremarkable. Vasculature: Unremarkable. No abdominal aortic aneurysm. Lymph nodes: Unremarkable. No enlarged lymph nodes. IMPRESSION: 1. No hydronephrosis or delayed nephrogram. 2. No acute diverticulitis. No bowel obstruction. No free air. 3. Hepatic steatosis. Surface nodularity of the liver, correlate for early cirrhotic changes. 4. Cholecystectomy. 5. Jayda-en-Y gastric bypass. 6. Appendectomy. Electronically signed by: Paulo Infante MD 12/27/23 01:52 AM Discharge Plan Visit Data Chief Complaint: Abdominal Pain Stated Complaint: SOB, PAIN IN LOWER ABD, NECK, SHOULD PAIN ED Provider: Alexi Rush Discharge Problem: Right upper quadrant abdominal pain Forms Stand Alone Forms: BOND Prescriptions Prescriptions: No Action gabapentin 400 mg capsule 800 mg PO TID meloxicam 15 mg tablet 15 mg PO DAILY venlafaxine [Effexor XR] 75 mg capsule,extended release 24hr 75 mg PO QAM venlafaxine [Effexor XR] 150 mg Capsule,Extended Release 24hr 150 mg PO QAM cyclobenzaprine 10 mg Tablet 10 mg PO TID PRN (Reason: Pain) acetaminophen [Tylenol Arthritis Pain] 650 mg Tablet Extended Release 650 mg PO Q12H PRN (Reason: Pain) fluticasone propionate [Flonase Allergy Relief] 50 mcg/actuation [place],Suspension 2 spray INTRANASAL DAILY PRN (Reason: Nasal Congestion) bupropion HCl 300 mg tablet extended release 24 hr 300 mg PO QAM lisinopril-hydrochlorothiazide 20-25 mg Tablet 0.5 tab PO QAM Qty: 30 0RF biotin 1 mg Tablet 1 mg PO QAM Referrals Referrals: Johnny Gomez MD [Primary Care Provider] -
[2023-12-27 04:19] LABS: D Dimer 2330 ug/L FEU (0-500)
--- NOTE | 2023-12-27 04:42 | Ultrasound Report ---
Exam(s): US VENOUS BILATERAL LOWER EXTREMITIES EXAM: US Duplex Bilateral Lower Extremities Veins CLINICAL HISTORY: Reason for exam: eval for DVT. TECHNIQUE: Real-time duplex ultrasound scan of the bilateral lower extremity veins integrating B-mode two-dimensional vascular structure, Doppler spectral analysis, color flow Doppler imaging and compression. COMPARISON: No relevant prior studies available. FINDINGS: Right deep veins: Unremarkable. No DVT in the right common femoral, femoral, proximal deep femoral or popliteal veins. The veins demonstrate normal color flow, are normally compressible, with normal phasic flow and/or augmentation response. Right superficial veins: Unremarkable. No thrombus in the visualized right great saphenous vein. Left deep veins: Unremarkable. No DVT in the left common femoral, femoral, proximal deep femoral or popliteal veins. The veins demonstrate normal color flow, are normally compressible, with normal phasic flow and/or augmentation response. Left superficial veins: Unremarkable. No thrombus in the visualized left great saphenous vein. Soft tissues: No acute findings. No popliteal cyst. IMPRESSION: Negative bilateral lower extremity duplex venous ultrasound. No evidence of DVT. Electronically signed by: Tanvir Sheldon MD 12/27/23 04:42 AM
--- NOTE | 2023-12-27 05:59 | History & Physical Report ---
Date of Service December 27, 2023 Assessment & Plan (1) Right upper quadrant abdominal pain: Plan: 53-year-old female with past medical history significant for hyperlipidemia, nonallergic rhinitis, sarcoidosis of lung, hypertension, morbid obesity, post gastric surgery syndrome, GERD, fatty liver, female stress incontinence, primary osteoarthritis of both knees, lumbago, depression, general anxiety disorder comes because of right upper quadrant abdominal pain started yesterday morning and radiating to right shoulder and neck region. Associated with some nausea. Pain is moderate to severe in nature. No fevers. Has short of breath when the pain is severe as she cannot take a deep breath. Denies any fevers. No cough. No headache. No dizziness. No runny nose or sore throat. No blurred visions. Normal bowel and bladder movements. Ambulating okay. Currently Hemodynamics are stable. Right upper quadrant abdominal pain history of cholecystectomy, appendectomy and Jayda-en-Y gastric bypass CT abdomen pelvis with IV contrast no acute findings LFTs okay except alkaline phos mildly elevated 106 lipase okay UA is okay will keep n.p.o. for now IV pain meds as needed, IV antiemetics as needed if not improved will consult GI elevated D-dimer lower EXTR Doppler negative Will follow CT chest for PE study hypertension continue home lisinopril/hydrochlorothiazide monitor depression generalized anxiety disorder on bupropion and venlafaxine history of sleep apnea nontolerant of CPAP as per patient DVT prophylaxis Lovenox disposition medical floor full code History of Present Illness Chief Complaint: right quadrant abdominal pain Primary Care Provider: Johnny Gomez MD 53-year-old female with past medical history significant for hyperlipidemia, nonallergic rhinitis, sarcoidosis of lung, hypertension, morbid obesity, post gastric surgery syndrome, GERD, fatty liver, female stress incontinence, primary osteoarthritis of both knees, lumbago, depression, general anxiety disorder comes because of right upper quadrant abdominal pain started yesterday morning and radiating to right shoulder and neck region. Associated with some nausea. Pain is moderate to severe in nature. No fevers. Has short of breath when the pain is severe as she cannot take a deep breath. Denies any fevers. No cough. No headache. No dizziness. No runny nose or sore throat. No blurred visions. Normal bowel and bladder movements. Ambulating okay. Currently Hemodynamics are stable. Past medical History. As mentioned above. past surgical history. Right total knee arthroplasty. Colonoscopy with biopsy. For wisdom tooth extraction. EGD. EGD with biopsy. Gastric bypass for obesity. Lumbosacral spine injection. Single lumbar laminectomy. Laparoscopic cholecystectomy. Ligation/Strip GSV and LSV of right lower leg. Tonsillectomy. social history. . No smoking. Alcohol rarely. No drug use. Family history. Aunt had colon cancer. Paternal grandfather had colon cancer. Father had benign colon polyps. Mother had hypertension. Maternal grandmother had hypertension. Allergies Allergy/AdvReac Type Severity Reaction Status Date / Time No Known Allergies Allergy Verified 12/27/23 02:06 Home Medications Medication Instructions Recorded Confirmed Type cyclobenzaprine 10 mg tablet 10 mg PO TID PRN Pain 04/06/18 12/27/23 History venlafaxine 150 mg 150 mg PO QAM 04/06/18 12/27/23 History capsule,extended release 24 hr (Effexor XR) acetaminophen 650 mg 650 mg PO Q12H PRN Pain 10/23/18 12/27/23 History tablet,extended release (Tylenol Arthritis Pain) fluticasone propionate 50 2 spray intranasal DAILY PRN Nasal 10/23/18 12/27/23 History mcg/actuation nasal Congestion spray,suspension (Flonase Allergy Relief) bupropion HCl 300 mg 24 hr tablet, 300 mg PO QAM 02/07/19 12/27/23 History extended release lisinopril 20 0.5 tab PO QAM #30 tabs 03/16/19 12/27/23 Rx mg-hydrochlorothiazide 25 mg tablet venlafaxine 75 mg capsule,extended 75 mg PO QAM 02/27/20 12/27/23 History release 24 hr (Effexor XR) biotin 1 mg tablet 1 mg PO QAM 08/14/20 12/27/23 History meloxicam 15 mg tablet 15 mg PO DAILY 04/07/22 12/27/23 History gabapentin 400 mg capsule 800 mg PO TID 04/07/23 12/27/23 History Past Med/Surg History Problem List (Updated 12/27/23 @ 03:45 by Alexi Rush MD) Right upper quadrant abdominal pain (Acute) Lumbar spinal stenosis due to adjacent segment disease after fusion procedure Lumbar post-laminectomy syndrome Lumbar radiculopathy Non-healing wound History of laparoscopic appendectomy (03/24/22) Laparoscopic Appendectomy - Arron Richardson DO, FACS Acute appendicitis (Acute) Neurogenic claudication due to lumbar spinal stenosis Chest pain (Acute) JOHN (acute kidney injury) (Acute) DVT prophylaxis Sarcoidosis (Acute) Sepsis (Acute) Abdominal wall cellulitis (Acute) Leukocytosis (Acute) HTN (hypertension) Non-healing surgical wound (Acute) Dyspnea and respiratory abnormalities Allergies Dyspnea COVID-19 (Acute) Myalgia Dysphagia Fatigue Hypertension (Chronic) Obesity (Chronic) Fatty liver (Chronic) History of gastric bypass (Chronic) Osteoarthritis (Chronic) Pulmonary sarcoidosis (Chronic) follows with [place] [facility] (stable, no recent issues) Depression (Chronic) Anxiety (Chronic) History of total right knee replacement (Chronic) History of laminectomy (Chronic) History of cholecystectomy (Chronic) H/O vein stripping (Chronic) S/P tonsillectomy (Chronic) Mediastinal lymphadenopathy Morbid obesity (Acute) Medical History Lumbar spinal stenosis due to adjacent segment disease after fusion procedure Lumbar post-laminectomy syndrome Lumbar radiculopathy Morbid obesity with BMI of 50.0-59.9, adult History of COVID-19 04/2020; fever, body aches, congestion, cough, sob, loss of taste/smell; resolved. Herniated disc Spinal stenosis Urinary incontinence Enlargement of spleen Pancreatic cyst [facility] monitoring Diverticulosis GERD (gastroesophageal reflux disease) Encounter for pre-operative examination Anxiety Depression Pulmonary sarcoidosis follows with [facility] (stable, no recent issues) Osteoarthritis Fatty liver Hypertension Surgical History H/O spinal fusion History of laparoscopic appendectomy (03/24/22) Laparoscopic Appendectomy - Arron Richardson DO, FACS History of incision and drainage Abdominal I&D (03/14/19): Grade 1 view, MAC#3, ETT 7.5 at [facility] History of lymph node biopsy History of esophagogastroduodenoscopy (EGD) History of colonoscopy S/P tonsillectomy H/O vein stripping History of cholecystectomy History of laminectomy History of total right knee replacement History of gastric bypass Family History Mother Family history of diabetes mellitus Grandfather (Paternal) Family hx of colon cancer Other No family history of adverse response to anesthesia Social History Smoking Status: Never smoker Second Hand Exposure: No; Do You Dip or Chew Tobacco: No; Tobacco Cessation Education Requested by Patient: No Hx Alcohol Use: No Hx Substance Use: No Preferred Language: Maltese Communication Ability: Effective Visual Impairment: No Limitations Answering Service Operator Required: No Beliefs That Will Affect Care: None marital status: Current Living Situation: Spouse current occupational status: unemployed 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 Other Information That Helps Us Care for You: No Feels Safe at Home: Yes Safety Concerns: Feels Safe At This Time Diet: Atkins Physical Activity Frequency: 3-4 Times per Week Physical Activity Frequency Comment: "PT 3 x weekly 2/2 recent back surgery Do you think of yourself as: straight/heterosexual Gender Identity: Female Assistive Devices: None Review of Systems Review of Systems: All systems reviewed & are unremarkable except as noted in HPI & below Physical Exam Physical Exam: General- Not in distress Head- atraumatic Eyes- PERRL. ENT- oropharynx clear Neck- supple, no JVD. Lungs- clear to auscultation no wheezing or crackles. Heart- regular rate and rhythm; no murmur, no gallop. Abdomen- normal bowel sounds, soft, tenderness in RUQ no distension. Extremities-mild pretibial edema present, no erythema seen Neuro- alert, oriented , PERRL, no facial palsy; no dysarthria; moves extremities. Skin- warm & dry Results & Data Results & Data Vital Signs (Past 12 Hours) Vital Signs Temp Pulse Pulse Resp BP BP Pulse Ox 12/27/23 04:01 12/27/23 04:01 37.7 C H 86 18 141/75 H 93 12/27/23 04:00 84 28 H 141/75 H 93 12/27/23 02:51 88 17 96 12/27/23 02:42 90 15 96 12/27/23 02:40 94 12/27/23 02:38 101 H 16 85 L 12/27/23 02:20 95 H 18 12/27/23 01:54 98 H 20 12/27/23 01:54 100 H 12/27/23 01:33 100 H 21 91 12/27/23 01:12 100 H 19 97 12/27/23 01:03 98 H 20 130/81 95 12/27/23 00:33 100 H 16 120/76 96 12/27/23 00:21 101 H 13 97 12/27/23 00:12 116 H 16 91 12/27/23 00:03 105 H 21 90 12/26/23 23:57 101 H 20 90 12/26/23 23:03 93 H 19 94 12/26/23 22:51 99 H 24 93 12/26/23 22:48 95 H 24 121/62 93 12/26/23 22:28 96 H 20 108/53 L 95 12/26/23 22:03 100 H 12/26/23 21:35 36.9 C 115 H 19 146/73 H 97 O2 Del Method O2 Flow Rate 12/27/23 04:01 Nasal Cannula 2 12/27/23 04:01 Nasal Cannula 2 12/27/23 04:00 Nasal Cannula 2 12/27/23 02:51 12/27/23 02:42 12/27/23 02:40 Nasal Cannula 3 12/27/23 02:38 Room Air 12/27/23 02:20 12/27/23 01:54 12/27/23 01:54 12/27/23 01:33 12/27/23 01:12 12/27/23 01:03 Room Air 12/27/23 00:33 Nasal Cannula 2 12/27/23 00:21 12/27/23 00:12 12/27/23 00:03 12/26/23 23:57 12/26/23 23:03 12/26/23 22:51 12/26/23 22:48 Room Air 12/26/23 22:28 Room Air 12/26/23 22:03 12/26/23 21:35 Room Air Diagnostic Findings Laboratory Results WBC 11.35 K/ul (4.8-10.8) H 12/26/23 21:40 RBC 5.44 M/uL (4.20-5.40) H 12/26/23 21:40 Hgb 13.7 g/dl (12.0-16.0) 12/26/23 21:40 Hct 44.4 % (37.0-47.0) 12/26/23 21:40 MCV 81.6 fL (80.0-100.0) 12/26/23 21:40 MCH 25.2 pg (25.0-34.0) 12/26/23 21:40 MCHC 30.9 g/dL (32.0-36.0) L 12/26/23 21:40 RDW Std Deviation 54.5 fL (36.4-46.3) H 12/26/23 21:40 RDW Coeff of Wally 19.1 % (11.5-14.5) H 12/26/23 21:40 Plt Count 270 K/uL (130-400) 12/26/23 21:40 MPV 10.5 fL (9.4-12.4) 12/26/23 21:40 Immature Gran % (Auto) 0.4 % 12/26/23 21:40 Neut % (Auto) 72.3 % 12/26/23 21:40 Lymph % (Auto) 16.2 % 12/26/23 21:40 [place] % (Auto) 7.1 % 12/26/23 21:40 Eos % (Auto) 2.9 % 12/26/23 21:40 Baso % (Auto) 1.1 % 12/26/23 21:40 Neut # (Auto) 8.19 K/uL (1.40-6.50) H 12/26/23 21:40 Lymph # (Auto) 1.84 K/uL (1.20-3.40) 12/26/23 21:40 [place] # (Auto) 0.81 K/uL (0.11-0.59) H 12/26/23 21:40 Eos # (Auto) 0.33 K/uL (0.00-0.50) 12/26/23 21:40 Baso # (Auto) 0.13 K/uL (0.00-0.20) 12/26/23 21:40 Immature Gran # (Auto) 0.05 K/uL (0.01-0.20) 12/26/23 21:40 D-Dimer 2330 ug/L FEU (0-500) H* 12/27/23 01:31 Sodium 136 mmol/L (136-145) 12/26/23 21:40 Potassium 4.0 mmol/L (3.5-5.1) 12/26/23 21:40 Chloride 100 mmol/L (98-107) 12/26/23 21:40 Carbon Dioxide 29 mmol/L (21-32) 12/26/23 21:40 Anion Gap 7 (3-11) 12/26/23 21:40 BUN 17 mg/dl (6-23) 12/26/23 21:40 Creatinine 0.93 mg/dl (0.6-1.2) 12/26/23 21:40 Est Cr Clr Drug Dosing Not Reportable 12/26/23 21:40 Est GFR ( Amer) 80.2 ml/min 12/26/23 21:40 Est GFR (Non-Af Amer) 69.2 ml/min 12/26/23 21:40 BUN/Creatinine Ratio 18.3 (10-20) 12/26/23 21:40 Glucose 119 mg/dl (70-99(Fasting)) H 12/26/23 21:40 Calcium 9.5 mg/dl (8.6-10.3) 12/26/23 21:40 Total Bilirubin 0.7 mg/dl (0.2-1.0) 12/26/23 21:40 AST 24 U/L (13-39) 12/26/23 21:40 ALT 28 U/L (7-52) 12/26/23 21:40 Alkaline Phosphatase 106 U/L (34-104) H 12/26/23 21:40 Total Protein 7.7 gm/dl (6.0-8.3) 12/26/23 21:40 Albumin 4.1 gm/dl (3.4-5.0) 12/26/23 21:40 Globulin 3.6 gm/dl (2.5-4.0) 12/26/23 21:40 Albumin/Globulin Ratio 1.1 (0.9-2) 12/26/23 21:40 Lipase 23 U/L (11-82) 12/26/23 21:40 Urine Color Yellow 12/26/23 21:40 Urine Appearance Clear (Clear) 12/26/23 21:40 Urine pH 6.0 (4.5-7.5) 12/26/23 21:40 Ur Specific [place] 1.018 (1.000-1.030) 12/26/23 21:40 Urine Protein Negative (Negative) 12/26/23 21:40 Urine Glucose (UA) Negative (Negative) 12/26/23 21:40 Urine Ketones Negative (Negative) 12/26/23 21:40 Urine Blood Negative (Negative) 12/26/23 21:40 Urine Nitrite Negative (Negative) 12/26/23 21:40 Urine Bilirubin Negative (Negative) 12/26/23 21:40 Urine Urobilinogen Negative (Negative) 12/26/23 21:40 Ur Leukocyte Esterase Negative (Negative) 12/26/23 21:40 Impressions Abdomen/Pelvis CT 12/26/23 23:12 Exam(s): CT ABDOMEN + PELVIS With Contrast IV Amt: 120 ml optiray 320 EXAM: CT Abdomen and Pelvis With Intravenous Contrast CLINICAL HISTORY: Reason for exam: RUQ abd pain, hx of [place]. TECHNIQUE: Axial computed tomography images of the abdomen and pelvis with intravenous contrast. CTDI is 35.66 mGy and DLP is 2007.36 mGy-cm. Automated exposure control was utilized for the study. A dose lowering technique was utilized adhering to the principles of ALARA. CONTRAST: Patient received 120 ml optiray 320 of IV contrast COMPARISON: CT abdomen pelvis March 24, 2022. FINDINGS: Lung bases: Unremarkable. No mass. No consolidation. ABDOMEN: Liver: Hepatic steatosis. Surface nodularity of the liver, correlate for early cirrhotic changes. Gallbladder and bile ducts: Cholecystectomy. No ductal dilation. Pancreas: Unremarkable. No mass. No ductal dilation. Spleen: Unremarkable. No splenomegaly. Adrenals: Unremarkable. No mass. Kidneys and ureters: Unremarkable. No hydronephrosis or delayed nephrogram. Stomach and bowel: Jayda-en-Y gastric bypass. No acute diverticulitis. No bowel obstruction. No free air. PELVIS: Appendix: Appendectomy. Bladder: Decompressed urinary bladder. Reproductive: Unremarkable as visualized. ABDOMEN and PELVIS: Intraperitoneal space: See above. Bones/joints: Posterior fusion at L3-4. No acute fracture. No dislocation. Soft tissues: Unremarkable. Vasculature: Unremarkable. No abdominal aortic aneurysm. Lymph nodes: Unremarkable. No enlarged lymph nodes. IMPRESSION: 1. No hydronephrosis or delayed nephrogram. 2. No acute diverticulitis. No bowel obstruction. No free air. 3. Hepatic steatosis. Surface nodularity of the liver, correlate for early cirrhotic changes. 4. Cholecystectomy. 5. Jayda-en-Y gastric bypass. 6. Appendectomy. Electronically signed by: Paulo Infante MD 12/27/23 01:52 AM Venous Doppler Study 12/27/23 02:35 Exam(s): US VENOUS BILATERAL LOWER EXTREMITIES EXAM: US Duplex Bilateral Lower Extremities Veins CLINICAL HISTORY: Reason for exam: eval for DVT. TECHNIQUE: Real-time duplex ultrasound scan of the bilateral lower extremity veins integrating B-mode two-dimensional vascular structure, Doppler spectral analysis, color flow Doppler imaging and compression. COMPARISON: No relevant prior studies available. FINDINGS: Right deep veins: Unremarkable. No DVT in the right common femoral, femoral, proximal deep femoral or popliteal veins. The veins demonstrate normal color flow, are normally compressible, with normal phasic flow and/or augmentation response. Right superficial veins: Unremarkable. No thrombus in the visualized right great saphenous vein. Left deep veins: Unremarkable. No DVT in the left common femoral, femoral, proximal deep femoral or popliteal veins. The veins demonstrate normal color flow, are normally compressible, with normal phasic flow and/or augmentation response. Left superficial veins: Unremarkable. No thrombus in the visualized left great saphenous vein. Soft tissues: No acute findings. No popliteal cyst. IMPRESSION: Negative bilateral lower extremity duplex venous ultrasound. No evidence of DVT. Electronically signed by: Tanvir Sheldon MD 12/27/23 04:42 AM Code Status & VTE Plan VTE Prophylaxis Plan VTE Prophylaxis will be ordered: Yes
--- NOTE | 2023-12-27 06:31 | XRay Report ---
XR chest 1V portable CLINICAL HISTORY: Right-sided abdominal pain. COMPARISON STUDY: Chest CT March 25, 2021. Chest radiograph March 24, 2022. FINDINGS: Lung volumes are at the lower limits of normal, unchanged. Lungs are clear. There is no pne umothorax or pleural effusion. Cardiac size is normal. Mediastinal contours are normal. There is no e vidence for pulmonary edema. Old right fourth rib fractures incidentally noted. IMPRESSION: No acute cardiopulmonary findings. ACT 112: Negative or not required by law. Electronically signed by: Ede Rivera M.D. 12/27/2023 6:30 AM
[2023-12-27 08:51] LABS: Adenovirus PCR Not Detected (NotDetected); Bordetella parapertussis PCR Not Detected (NotDetected); Bordetella pertussis PCR Not Detected (NotDetected); Chlamydia pneumoniae PCR Not Detected (NotDetected); Coronavirus 229E PCR Not Detected (NotDetected); Coronavirus CoV-2 (COVID19)PCR Not Detected (NotDetected); Coronavirus HKU1 PCR Not Detected (NotDetected); Coronavirus NL63 PCR Not Detected (NotDetected); Coronavirus OC43PCR Not Detected (NotDetected); Human Metapneumovirus PCR Not Detected (NotDetected); Influenza A PCR Not Detected (NotDetected); Influenza B PCR Not Detected (NotDetected); Mycoplasma pneumoniae PCR Not Detected (NotDetected); Parainfluenza Virus 1 PCR Not Detected (NotDetected); Parainfluenza Virus 2 PCR Not Detected (NotDetected); Parainfluenza Virus 3 PCR Not Detected (NotDetected); Parainfluenza Virus 4 PCR Not Detected (NotDetected); Respiratory Syncytial VirusPCR Not Detected (NotDetected); Rhinovirus/Enterovirus PCR Not Detected (NotDetected)
[2023-12-27] MEDS: OPTIRAY 320 150ml IV ONE (09:12)
[2023-12-27] MEDS ORDERED: FLUTICASONE PROPIONATE NA SPR 16 GM BTL PRN (09:28)
[2023-12-27] MEDS: VENLAFAXINE HCL XR 75 MG CAPXR PO SCH (10:06)
[2023-12-27] MEDS: VENLAFAXINE HCL XR 150 MG CAPXR PO SCH (10:06)
[2023-12-27] MEDS: LISINOPRIL/HCTZ 20/25MG 1 TAB PO SCH (10:07)
[2023-12-27] MEDS: buPROPion XL 300 MG TABCR PO SCH (10:07)
[2023-12-27] MEDS: GABAPENTIN 400 MG CAP PO SCH (10:07)
[2023-12-27] MEDS: FAMOTIDINE 20MG IV PUSH 20 MG/5 ML SYR IV SCH (10:07)
[2023-12-27] MEDS: D5W AND 1/2NSS 1,000 ML IV SCH (10:38)
[2023-12-27] MEDS: ENOXAPARIN INJ 40 MG/0.4 ML SYR SQ SCH ×2 (10:38→20:17)
--- NOTE | 2023-12-27 10:47 | CT Scan Report ---
CT angio chest PE protocol CT DOSE: 813.26 mGy.cm HISTORY: 53 years-old Female with PE. Acute shortness of breath with shoulder and chest pain TECHNIQUE: Multiple CTA images of the chest were obtained after the intravenous administration of 112 ml Optiray. Coronal and sagittal MIPS were obtained from the axial data set and were submitted for review. All measurements were obtained according to NASCET criteria. A dose lowering technique was u tilized adhering to the principles of ALARA. COMPARISON: Duplex venous Doppler study of same day, chest CT 03/25/2021 FINDINGS: CTA: Moderate cardiomegaly. No pericardial effusion. Mild coronary artery calcifications. No thoracic aort ic aneurysm or dissection. Patency of the imaged great vessels. No pulmonary emboli identified. CT CHEST: Unremarkable thyroid. Subcentimeter right cardiophrenic/epicardial lymph nodes are nonspecific measur ing up to 9 mm, slightly increased in size from prior. Trace right pleural effusion. No pneumothorax. Bronchial wall thickening with mild mucous plugging. Mild patchy subsegmental groundglass opacities. Unchanged scattered subcentimeter solid pulmonary nodules measuring up to 4 mm. These are likely mague ign. Mild mosaic attenuation. Hepatosplenomegaly. Postoperative changes of the stomach. Cholecystectomy. Mild marginal nodularity o f the liver. No acute fracture. IMPRESSION: 1. No pulmonary emboli identified. 2. Bronchial wall thickening suggestive of bronchitis or reactive airway disease with mild bibasilar mucous plugging. 3. Mild atelectasis with air trapping. 4. Stable scattered likely benign solid pulmonary nodules measuring up to 4 mm. ACT 112: Negative or not required by law. The above report was generated using voice recognition software. It may contain grammatical, syntax o r spelling errors. Electronically signed by: Luiz Garcia M.D. 12/27/2023 10:45 AM
--- OUTSIDE RECORDS SUMMARY | 2023-12-27 10:59 | External Medical Summary | Summary of Care ---
Author Name Unknown Organization [facility] Address [address] [place] [address] Phone [phone] Care Team Providers Care Tar Leveler Name Role Phone Kelly Zaragoza PA-C Primary Care Provider [phone] Reason for Visit * Reason Onset Date Comments Medication Refill 12/15/2023 Encounter Details Date Type Department Care Team (Late st Contact Info) Description 12/15/2023 Refill [facility] [address] [place] [address] Kelly Zaragoza PA-C [address] [place] [address] Chronic right-sided low back pain with right-sided sciatica; MEDICATION USE AGREEMENT; Spasm of muscle; Disc disorder of lumbar region Allergies No known active allergiesdocumented as of this encounter (statuses as of 12/19/2023) Medications Medication Sig Dispensed Refills Start Date End Date Status Acetaminophen ER 650 MG Oral Tablet Extended Release Take 1 Tablet by mouth every 8 hours as needed for Fever. Active Misc Natural Products (GLUCOSAMINE CHONDROITIN ADV) Tablet Take 1 Tablet by mouth in the morning and 1 Tablet before bedtime. Active Biotin 5000 MCG Capsule Take 1 Capsule by mouth in the morning. Active ARIPiprazole 5 MG Oral Tablet (Abilify) take 1 tablet by mouth once daily 30 Tab 5 11/06/2020 Active Additional Information Patient not taking.Reported on 04/07/2023 Multivitamin Adult Oral Tablet Take by mouth . Ac tive Ondansetron HCl 4 MG Oral TabletIndications :Nausea Take by mouth 1 Tablet every 6 hours as needed for Nausea. 30 Tablet 04/28/2022 Active Additional Information Patient not taking.Reported on 04/07/2023 Ozempic (0.25 or 0.5 MG/DOSE) 2 MG/1.5ML Solution Pen-injector (Semaglutide(0.25 or 0.5MG/DOS))Indica tions:Obesity due to excess calories without serious comorbidity with body mass index (BMI) in 95th to 98th percentile for age in pediatric patient Inject 0.5 mg under the skin once a week. 4.5 mL 07/14/2022 Active Azithromycin 250 MG Oral Tablet (Zithromax Z-Jose Francisco)Indications :Acute cough,Post-nasal drip,Sarcoidosis of lung (HCC) Take two tablets by mouth on first day, then 1 tablet daily until gone 6 Tablet 08/10/2022 Active Additional Information Patient not taking.Reported on 08/27/2022 Benzonatate 100 MG Oral CapsuleIndication s:Acute cough,Post-nasal drip,Sarcoidosis of lung (HCC) Take 2 Capsules by mouth 3 times a day as needed for Cough. 30 Capsule 1 08/27/2022 Active Additional Information Patient not taking.Reported on 04/07/2023 Fluticasone Propionate 50 MCG/ACT Nasal Suspension (Flonase)Indicati ons:Acute cough,Post-nasal drip,Sarcoidosis of lung (HCC) Administer 2 Sprays into each nostril in the morning. 11.1 mL 5 07/20/2023 Active Lisinopril-hydroC HLOROthiazide 20-25 MG Oral TabletIndications :HTN, goal below 140/90 Take 0.5 Tablets by mouth in the morning. 45 Tablet 1 08/31/2023 Active buPROPion HCl ER (XL) 300 MG Oral Tablet Extended Release 24 Hour (Wellbutrin XL) TAKE 1 TABLET BY MOUTH EVERY MORNING 90 Tablet 1 09/28/2023 Active Gabapentin 400 MG Oral Capsule (Neurontin)Indica tions:Disc disorder of lumbar region TAKE 1 TO 2 CAPSULES BY MOUTH UP TO 4 TIMES DAILY NEEDED FOR NERVE PAIN 360 Capsule 2 11/02/2023 Active Venlafaxine HCl ER 75 MG Oral Capsule Extended Release 24 Hour (Effexor XR) TAKE 1 CAPSULE BY MOUTH ONCE DAILY ALONG WITH 150MG FOR A TOTAL OF 225MG 90 Capsule 2 11/02/2023 Active Venlafaxine HCl ER 150 MG Oral Capsule Extended Release 24 Hour (Effexor XR) TAKE 1 CAPSULE BY MOUTH ONCE DAILY ALONG WITH 75MG DOSE 90 Capsule 2 11/02/2023 Active Meloxicam 15 MG Oral Tablet (Mobic)Indication s:Knee pain, right TAKE 1 TABLET BY MOUTH EVERY MORNING FOR PAIN 90 Tablet 1 11/11/2023 Active Loratadine 10 MG Oral Tablet (Claritin)Indicat ions:Acute cough,Post-nasal drip,Sarcoidosis of lung (HCC) Take 1 Tablet by mouth in the morning. 30 Tablet 5 11/16/2023 Active Cyclobenzaprine HCl 10 MG Oral Tablet (Flexeril)Indicat ions:Chronic right-sided low back pain with right-sided sciatica,MEDICATI ON USE AGREEMENT,Spasm of muscle Take 1 Tablet by mouth 3 times a day as needed for Muscle spasms. 40 Tablet 2 12/19/2023 Active oxyCODONE HCl 5 MG Oral Tablet (Oxy IR)Indications:Di sc disorder of lumbar region Take 1-2 Tablets by mouth every 6 hours as needed for Pain, Severe. 60 Tablet 12/19/2023 Active Cyclobenzaprine HCl 10 MG Oral Tablet (Flexeril)Indicat ions:Chronic right-sided low back pain with right-sided sciatica,MEDICATI ON USE AGREEMENT,Spasm of muscle Take 1 Tablet by mouth 3 times a day as needed for Muscle spasms. 40 Tablet 2 03/07/2023 4 Discontinue d(Refill) oxyCODONE HCl 5 MG Oral Tablet (Oxy IR)Indications:Di sc disorder of lumbar region Take 1-2 Tablets by mouth every 6 hours as needed for Pain, Severe. 60 Tablet 11/18/2023 4 Discontinue d(Refill) documented as of this encounter (statuses as of 12/19/2023) Active Problems Problem Noted Date Diagnosed Date Major depressive disorder wi th single episode, in partial remission 08/15/2019 Dyslipidemia 08/15/2019 Sarcoidosis of lung 08/15/2019 Gastro-esophageal reflux disease without esophag itis 08/15/2019 Sarcoidosis 11/21/2018 Morbid obesity with BMI of 50.0-59.9, adult 0 03/2018 Primary osteoarthritis of both knees 10/24/2017 DYLAN (generalized anxiety disorder) 10/24/2017 MEDICATION USE AGREEMENT 10/24/2017 Overview: Signed 10/24/17 Nonallergic rhinitis 08/25/2016 Lumbago 03/25/2015 Family hx of colon cancer 10/31/2013 HTN, goal below 140/90 09/25/2010 Postgastric surgery syndrome 10/02/2002 FATTY LIVER 06/27/2001 FEM STRESS INCONTINENCE 05/30/2001 DISC DIS [id number] 05/30/2001 Major depressive disorder 09/12/2000 Overview: ICD-10 update of inactive term documented as of this encounter (statuses as of 12/19/2023) Resolved Problems Problem Noted Date Diagnosed Date Resolved Date Body mass index (BMI) of 50. 0 to 59.9 in adult 09/27/2017 10/24/2017 Overview: Per Obesity protocol #1 Morbid obesity due to excess calories 09/14/2017 10/24/2017 MEDICATION USE AGREEMENT 09/09/201503/2018 Overview: Signed 09/08/2015 Spasm of muscle 03/25/2015 11/21/2018 Pain in limb 09/25/2010 10/31/2013 Contusion of knee 09/25/2010 10/31/2013 OBESITY 09/25/2010 09/14/2017 KNEE PAIN, LEFT 11/28/2006 10/31/2013 DJD, LEFT KNEE 11/28/2006 10/24/2017 Otalgia 09/12/2006 10/31/2013 DYSFUNCT EUSTACHIAN TUBE 09/12/200603/2018 Chronic rhinitis 09/12/2006 10/24/2017 Polyp of nasal cavity 09/12/20062017 Malaise and fatigue 09/12/2006 11/01/19 14 ADVANCE DIRECTIVE INFORMATION 01/12/2005 09/13/2017 Overview: No, Advance Directive brochure given to patient at prior appointment. Family history of other card iovascular diseases 05/30/2001 09/13/2017 Overview: ICD-10 update of inactive term OVERWEIGHT 09/12/2000 09/14/2017 documented as of this encounter (statuses as of 12/19/2023) Immunizations Name Administration Dates Next Due Seasonal Influenza, PF, 6 M & above, IM , (FluLaval or Fluzone) 06/24/2022,05/18/2017 Seasonal Influenza, Quadriva lent, No Preserve, IM 03/18/2018 Seasonal Influenza, Split, I IV3, With Preserve, Inj 04/17/2013,05/01/2011,04/17/2007, 0 06 TDAP (age 10 and older)(Boostrix) 10/31/2013 TDAP, Age 7 and older, IM (Adacel) 07/12/2017 documented as of this encounter Social History Tobacco Use Types Packs/Day Years Used Date Smoking Tobacco: Never Smokeless Tobacco: Never Alcohol Use Standard Drinks/Week Comments Yes 0 (1 standard drink = 0.6 oz pur e alcohol) rarely PHQ-2 Answer Date Recorded PHQ Adult Total Score 2 08/27/2022 Hunger Vital Sign Answer Date Recorded Within the past 12 months, y ou worried that your food would run out before you got the money to buy more. Never true 08/27/19 23 Within the past 12 months, t he food you bought just didn't last and you didn't have money to get more. Never true 08/27/2022 Sex and Gender Information Value Date Recorded Sex Assigned at Female 11/21/2018 7:30 AM EDT Gender Identity Female 11/21/2018 7:30 AM EDT Sexual Orientation Straight 11/21/2018 7: 30 AM EDT Job Start Date Occupation Industry Not on file Not on file Not on file documented as of this encounter Miscellaneous Notes * Telephone Encounter - Aurelia Wagoner MD - 12/19/2023 12:52 PM EDTSigned Prescriptions: Disp Refills Cyclobenzaprine HCl 10 MG Oral Tablet (Fle*40 Tab*2 Sig: Take 1 Tablet by mouth 3 times a day as needed for Muscle spasms.Authorizing Provider: AURELIA WAGONER oxyCODONE HCl 5 MG Oral Tablet (Oxy IR) 60 Tab*0 Sig: Take 1-2 Tablets by mouth every 6 hours as need ed for Pain, Severe.Authorizing Provider: AURELIA WAGONER * Telephone Encounter - Kelly Zaragoza PA-C - 12/19/2023 9:04 AM EDTPending Prescriptions: Disp Refills Cyclobenzaprine HCl 10 MG Oral Tablet (Fle*40 Tab*2 Sig: Take 1 Tablet by mouth 3 times a day as needed for Muscle spasms. oxyCODONE HCl 5 MG Oral Tablet (Oxy IR) 60 Tab*0 Sig: Take 1-2 Tablets by mouth every 6 hours as needed for Pain, Severe. * Telephone Encounter - Hanh Abraham [facility] - 12/16/2023 6:07 PM EDT Pending Prescriptions: Disp Refills Cyclobenzaprine HCl 10 MG Oral Tablet (Fle*40 Tab*2 Sig: Take 1 Tablet by mouth 3 times a day as needed for Muscle spasms. oxyCODONE HCl 5 MG Oral Tablet (Oxy IR) 60 Tab*0 Sig: Take 1-2 Tablets by mouth every 6 hours as needed for Pain, Severe. * Telephone Encounter - Hanh Abraham [facility] - 12/16/2023 6:06 PM EDT I have reviewed the patients controlled substance dispensing history in the Prescription Drug Monitoring Program in compliance with the [facility] regulations before prescribing a controlled substance. PDMP checked on 12/16/2023. Pending Prescriptions: Disp Refills oxyCODONE HCl 5 MG Oral Tablet (Oxy IR) 60 Tab*0 Sig: Take 1-2 Tablets by mouth every 6 hours as needed for Pain, Severe. Last Visit: 06/27/2023 (in office), Visit date not found (telemedicine) Next Visit: Visit date not found Date medication was last filled: 11/18/23 Date medication is due for refill: [id number] [address] [facility] Is this request for a controlled substance? Yes and Urine Drug Screen was completed Toxicology results: Results for orders placed or performed in visit on 04/07/23 TOXICOLOGY, URINE SCREEN W/ CONFIRMATION Result Value Amphetamines Screen, U Negative Benzodiazepines Screen, U Negative Cannabinoids Screen, U Negative Cocaine Metabolite Screen, U Negative Fentanyl Screen, U Negative Hydrocodone Screen, U Positive (A) Methadone Metabolite Screen, U Negative Morphine/Codeine Screen, U Positive (A) Oxycodone Screen, U Negative Narrative Cutoff Concentrations: Drug Level Amphetamines 500 ng/mL Benzodiazepines 100 ng/mL Cannabinoids 50 ng/mL Cocaine Metabolite 150 ng/mL Fentanyl 1 ng/mL Hydrocodone / Hydromorphone 300 ng/mL Methadone Metabolite 100 ng/mL Morphine / Codeine 300 ng/mL Oxycodone / Oxymorphone 100 ng/mL Screening results are presumptive and can only be used for medical purposes. Positive screening results are reflexed to confirmatory testing. Results for orders placed or performed in visit on 07/21/21 PAIN MANAGEMENT DRUG PANEL, URINE Result Value Amphetamines Screen, U Negative Benzodiazepines Screen, U Negative Cannabinoids Screen, U Negative Cocaine Metabolite Screen, U Negative Hydrocodone Screen, U Refer to confirmation results (A) Methadone Metabolite Screen, U Negative Morphine/Codeine Screen, U Refer to confirmation results (A) Oxycodone Screen, U Refer to confirmation results (A) Valid Interpretation Normal Creatinine, U 272 Narrative Cutoff Concentrations: Drug Level Amphetamines 500 ng/mL Benzodiazepines 100 ng/mL Cannabinoids 50 ng/mL Cocaine Metabolite 150 ng/mL Hydrocodone / Hydromorphone 300 ng/mL Methadone Metabolite 100 ng/mL Morphine / Codeine 300 ng/mL Oxycodone / Oxymorphone 100 ng/mL Screening results are presumptive and can only be used for medical purposes. Confirmatory testing is available upon request. *Note: Due to a large number of results and/or encounters for the requested time period, some results have not been displayed. A complete set of results can be found in Results Review. Please approve if appropriate. Thank you, Hanh Abraham, PharmD Clinical Pharmacist [facility] ([facility]) (formerly Telepharmacy) 12/16/23 6:06 PM [phone] documented in this encounter Plan of Treatment Scheduled Procedures Name Priority Associated Diagnoses Date/Ti me COLONOSCOPY FLEXIBLE PROXIMAL DIAGNOSTIC Recall History of colon polyps Health Maintenance Due Date Last Done Comments HIV Screening 1983 Hepatitis B (1 of 3 - 19+ 3-dose series) 1987 Cologuard 2013 Fecal Occult Blood Test 2013 Sigmoidoscopy 2013 Zoster Vaccines (1 of 2) 2018 COVID-19 Vaccine ( season) 2023 Colonoscopy 10/31/2023 10/30/2018, 11/16, 09/27/2007 Colorectal Cancer Screening 10/31/2023 Influenza Vaccine (FLU shot) (Season Ended) 2024 06/24/2022, 03/18/2018, 05/18/2017, Additional history exists GFR 08/16/2024 08/16/2023, 02/16, 07/22/2022, Additional history exists Mammogram 09/02/2024 09/02/2023, 05/18, 05/31/2022, Additional history exists Pap Smear 06/24/2025 06/24/2022, 10/16, 10/31/2013, Additional history exists Albumin/Creatinine Ratio 06/30/2025 06/30/2022 Diabetes Screening 08/16/2026 08/16/2023, 1 08/31/2021, 06/30/2022, Additional history exists Cervical Cancer Screening 06/24/2027 HPV/Co-Test 06/24/2027 06/24/2022 DTaP,Tdap,and Td Vaccines (3 - Td or Tdap) 07/12/2027 07/12/2017 (Done elsewhere), 07/12/2017, 10/31/2013, Additional history exists Lipid Panel 08/16/2028 08/16/2023, 04/18, 04/21/2020, Additional history exists RETIRED - COLONOSCOPY-EVERY 5 YRS AGES 18-100 Discontinued 10/30/2018, 12/06/2013, 09/27/2007 GARDASIL-HPV IMMUNIZATION SERIES Aged Out No longer eligible based on patient's age to complete this topic MENINGOCOCCAL (MENACTRA/MENVEO) Aged Out No longer eligible based on patient's age to complete this topic Pneumococcal Vaccine: Pediatrics (0 to 5 Years) and At-Risk Patients (6 to 64 Years) Aged Out No longer eligible based on patient's age to complete this topic documented as of this encounter Medical Devices Not on filedocumented as of this encounter Visit Diagnoses Diagnosis Chronic right-sided low back pain with right-sided sciatica MEDICATION USE AGREEMENT Spasm of muscle Disc disorder of lumbar region Other and unspecified disc disorder of lumbar region documented in this encounter Care Teams Tar Leveler Relationship Specialty Start Date End Date Kelly Zaragoza PA-C [address] [place] [address] PCP - General Physician Rate Inserter 04/05/23 documented as of this encounter
--- OUTSIDE RECORDS SUMMARY | 2023-12-27 10:59 | External Medical Summary | Summary of Care ---
Author Name Unknown Organization [facility] Address [address] [facility] [place] [address] Phone [phone] Care Team Providers Care Farm Implement Engine Mechanic Name Role Phone Kelly Zaragoza PA-C Primary Care Provider [phone] [phone] Reason for Visit * Reason Comments eRx-Medication Refill Encounter Details Date Type Department Care Team (Late st Contact Info) Description 11/01/2023 Refill [facility] [address] [place] [address] Kelly Zaragoza PA-C [address] [place] [address] DISC DIS [id number] Allergies No known active allergiesdocumented as of this encounter (statuses as of 11/02/2023) Medications Medication Sig Dispensed Refills Start Date End Date Status Acetaminophen ER 650 MG Oral Tablet Extended Release Take 1 Tablet by mouth every 8 hours as needed for Fever. 0 Active Misc Natural Products (GLUCOSAMINE CHONDROITIN ADV) Tablet Take 1 Tablet by mouth in the morning and 1 Tablet before bedtime. 0 Active Biotin 5000 MCG Capsule Take 1 Capsule by mouth in the morning. 0 Active ARIPiprazole 5 MG Oral Tablet (Abilify) take 1 tablet by mouth once daily 30 Tab 5 11/06/2020 Active Additional Information Patient not taking.Reported on 04/07/2023 Multivitamin Adult Oral Tablet Take by mouth . 0 Active Ondansetron HCl 4 MG Oral TabletIndication s:Nausea Take by mouth 1 Tablet every 6 hours as needed for Nausea. 30 Tablet 0 04/28/2022 Active Additional Information Patient not taking.Reported on 04/07/2023 Ozempic (0.25 or 0.5 MG/DOSE) 2 MG/1.5ML Solution Pen-injector (Semaglutide(0.2 5 or 0.5MG/DOS))Indic ations:Obesity due to excess calories without serious comorbidity with body mass index (BMI) in 95th to 98th percentile for age in pediatric patient Inject 0.5 mg under the skin once a week. 4.5 mL 0 07/14/2022 Active Azithromycin 250 MG Oral Tablet (Zithromax Z-Jose Francisco)Indication s:Acute cough,Post-nasal drip,Sarcoidosis of lung (HCC) Take two tablets by mouth on first day, then 1 tablet daily until gone 6 Tablet 0 08/10/2022 Active Additional Information Patient not taking.Reported on 08/27/2022 Benzonatate 100 MG Oral CapsuleIndicatio ns:Acute cough,Post-nasal drip,Sarcoidosis of lung (HCC) Take 2 Capsules by mouth 3 times a day as needed for Cough. 30 Capsule 1 08/27/2022 Active Additional Information Patient not taking.Reported on 04/07/2023 Loratadine 10 MG Oral Tablet (Claritin)Indica tions:Acute cough,Post-nasal drip,Sarcoidosis of lung (HCC) Take 1 Tablet by mouth in the morning. 30 Tablet 5 01/23/2023 Active Cyclobenzaprine HCl 10 MG Oral Tablet (Flexeril)Indica tions:Chronic right-sided low back pain with right-sided sciatica,MEDICAT ION USE AGREEMENT,Spasm of muscle Take 1 Tablet by mouth 3 times a day as needed for Muscle spasms. 40 Tablet 2 03/07/2023 Active Fluticasone Propionate 50 MCG/ACT Nasal Suspension (Flonase)Indicat ions:Acute cough,Post-nasal drip,Sarcoidosis of lung (HCC) Administer 2 Sprays into each nostril in the morning. 11.1 mL 5 07/20/2023 Active Meloxicam 15 MG Oral Tablet (Mobic)Indicatio ns:Knee pain, right TAKE 1 TABLET BY MOUTH EVERY MORNING for pain 90 Tablet 0 08/14/2023 Active Lisinopril-hydro CHLOROthiazide 20-25 MG Oral TabletIndication s:HTN, goal below 140/90 Take 0.5 Tablets by mouth in the morning. 45 Tablet 1 08/31/2023 Active buPROPion HCl ER (XL) 300 MG Oral Tablet Extended Release 24 Hour (Wellbutrin XL) TAKE 1 TABLET BY MOUTH EVERY MORNING 90 Tablet 1 09/28/2023 Active oxyCODONE HCl 5 MG Oral Tablet (Oxy IR)Indications:D isc disorder of lumbar region Take 1-2 Tablets by mouth every 6 hours as needed for Pain, Severe. 60 Tablet 0 10/17/2023 Active Gabapentin 400 MG Oral Capsule (Neurontin)Indic ations:Disc disorder of lumbar region TAKE 1 TO [...] 75MG DOSE 90 Capsule 2 11/02/2023 Active Gabapentin 400 MG Oral Capsule (Neurontin)Indic ations:Disc disorder of lumbar region TAKE 1 TO 2 CAPSULES BY MOUTH UP TO 4 TIMES DAILY NEEDED FOR NERVE PAIN 360 Capsule 1 07/31/2023 11/02/19 24 Discontinued Venlafaxine HCl ER 150 MG Oral Capsule Extended Release 24 Hour (Effexor XR) TAKE 1 CAPSULE BY MOUTH ONCE DAILY ALONG WITH 75MG DOSE 90 Capsule 0 08/08/2023 11/02/19 24 Discontinued Venlafaxine HCl ER 75 MG Oral Capsule Extended Release 24 Hour (Effexor XR) TAKE 1 CAPSULE BY MOUTH ONCE DAILY ALONG WITH 150MG FOR A TOTAL OF 225MG 90 Capsule 0 08/08/2023 11/02/19 24 Discontinued documented as of this encounter (statuses as of 11/02/2023) Active Problems Problem Noted Date Diagnosed Date Major depressive disorder wi th single episode, in partial remission 08/15/2019 Dyslipidemia 08/15/2019 Sarcoidosis of lung 08/15/2019 Gastro-esophageal reflux disease without esophag itis 08/15/2019 Sarcoidosis 11/21/2018 Morbid obesity with BMI of 50.0-59.9, adult 03/2018 Primary osteoarthritis of both knees 10/24/2017 DYLAN (generalized anxiety disorder) 10/24/2017 MEDICATION USE AGREEMENT 10/24/2017 Overview: Signed 10/24/17 Nonallergic rhinitis 08/25/2016 Lumbago 03/25/2015 Family hx of colon cancer 10/31/2013 HTN, goal below 140/90 09/25/2010 Postgastric surgery syndrome 10/02/2002 FATTY LIVER 06/27/2001 FEM STRESS INCONTINENCE 05/30/2001 DISC DIS [id number] 05/30/2001 Major depressive disorder 09/12/2000 Overview: ICD-10 update of inactive term documented as of this encounter (statuses as of 11/02/2023) Resolved Problems Problem Noted Date Diagnosed Date [...] as of this encounter (statuses as of 11/02/2023) Immunizations Name Administration Dates Next Due Seasonal Influenza, PF, 6 M & above, IM , (FluLaval or Fluzone) 06/24/2022,05/18/2017 Seasonal Influenza, Quadriva lent, No Preserve, IM 03/18/2018 Seasonal Influenza, Split, I IV3, With Preserve, Inj 04/17/2013,05/01/2011,04/17/2007, 0 06 TDAP (age 10 and older)(Boostrix) 10/31/2013 TDAP (age 11 and older)(Adacel) 07/12/2017 documented as of this encounter Social [...] encounter Miscellaneous Notes * Telephone Encounter - Kelly Zaragoza PA-C - 11/02/2023 3:45 PM EDTSigned Prescriptions: Disp Refills Gabapentin 400 MG Oral Capsule (Neurontin) 360 Ca*2 Sig: TAKE 1 TO 2 CAPSULES BY MOUTH UP TO 4 TIMES DAILY NEEDED FOR NERVE PAIN Authorizing Provider: KELLY ZARAGOZA Venlafaxine HCl ER 75 MG Oral Capsule Exte*90 Cap*2 Sig: TAKE 1 CAPSULE BY MOUTH ONCE DAILY ALONG WITH 150MG FOR A TOTAL OF 225MG Authorizing Provide r: KELLY ZARAGOZA Ordering User: ANNA HE Venlafaxine HCl ER 150 MG Oral Capsule Ext*90 Cap*2 Sig: TAKE 1 CAPSULE BY MOUTH ONCE DAILY ALONG WITH 75MG DOSE Authorizing Provider: KELLY ZARAGOZA Ordering User: ANNA HE * Telephone Encounter - Anna He RPh - 11/02/2023 3:38 PM EDTPending Prescriptions: Disp Refills Gabapentin 400 MG Oral Capsule (Neurontin) 360 Ca*2 Sig: TAKE 1 TO 2 CAPSULES BY MOUTH UP TO 4 TIMES DAILY NEEDED FOR NERVE PAIN Signed Prescriptions: Disp Refills Venlafaxine HCl ER 75 MG Oral Capsule Exte*90 Cap*2 Sig: TAKE 1 CAPSULE BY MOUTH ONCE DAILY ALONG WITH 150MG FOR A TOTAL OF 225MG Authorizing Provider: KELLY ZARAGOZA Ordering User: ANNA HE Venlafaxine HCl ER 150 MG Oral Capsule Ext*90 Cap*2 Sig: TAKE 1 CAPSULE BY MOUTH ONCE DAILY ALONG WITH 75MG DOSE Authorizing Provider: KELLY ZARAGOZA Ordering User: ANNA HE * Telephone Encounter - Anna He RPh - 11/02/2023 3:[address] [facility] is currently not authorized to approve refills for the pended medication(s) per refill protocol. Please approve if appropriate. Thanks, Anna He PharmD Clinical Pharmacist Centralized Clinical Pharmacy Services ([facility]) [phone] 11/02/2023, 3:38 PM * Telephone Encounter - Anna He RPh - 11/02/2023 3:38 PM EDT Pending Prescriptions: Disp Refills Gabapentin 400 MG Oral Capsule (Neurontin*360 Ca*0 Sig: TAKE 1 TO 2 CAPSULES BY MOUTH UP TO 4 TIMES DAILY NEEDED FOR NERVE PAIN Venlafaxine HCl ER 75 MG Oral Capsule Ext*90 Cap*0 Sig: TAKE 1 CAPSULE BY MOUTH ONCE DAILY ALONG WITH 150MG FOR A TOTAL OF 225MG Venlafaxine HCl ER 150 MG Oral Capsule Ex*90 Cap*0 Sig: TAKE 1 CAPSULE BY MOUTH ONCE DAILY ALONG WITH 75MG DOSE Last Visit: 06/27/2023 (in office), Visit date not found (telemedicine) Next Visit: Visit date not found If no future appointments scheduled, and last appointment is greater than a year ago, please schedule patient for a follow-up appointment Last date the medication was ordered: 07/31/23 [facility]acy: [id number] [address] [place] Is this request for a controlled substance? No Urine Drug Screen: Results for orders placed or performed in [...] results can be found in Results Review. Patient Phone Numbers [employer] [phone] Labs: Lab Results Component Value Date/Time CREAT 0.8 08/16/2023 01:39 PM CREAT 0.81 05/29/2021 12:00 AM CREAT 0.9 04/21/2020 08:32 AM POTASSIUM 4.7 08/16/2023 01:39 PM POTASSIUM 4.0 05/29/2021 12:00 AM POTASSIUM 4.2 04/21/2020 08:32 AM POTASSIUM 4.5 05/04/1996 09:30 AM TSH 1.480 02/23/2018 12:00 AM TSH 2.63 08/11/2010 03:57 PM TSH 3.35 05/04/1996 09:30 AM LDLCALC 77 05/12/2021 10:52 AM LDLCALC 95 04/21/2020 08:32 AM LDLDIRECT 82 08/16/2023 01:39 PM LDLDIRECT NOT APPLICABLE 04/21/2020 08:32 AM ALT 67 (H) 08/16/2023 01:39 PM ALT 54 (H) 09/14/2017 10:38 AM ALT 23 08/29/1996 09:50 AM HGBA1C 5.5 06/30/2022 02:24 PM HGBA1C 5.8 09/14/2017 10:38 AM documented in this encounter Plan of Treatment Scheduled Procedures Name Priority Associated Diagnoses Date/Ti me COLONOSCOPY FLEXIBLE PROXIMAL DIAGNOSTIC Recall History of colon polyps Health Maintenance Due Date Last Done Comments HIV Screening 1983 Hepatitis B (1 of 3 - 19+ 3-dose series) 1987 Zoster Vaccines (1 of 2) 2018 COVID-19 Vaccine ( season) 2023 COLONOSCOPY-EVERY 5 YRS AGES 18-100 10/31/2023 10/30/2018, 12/06/2013, 09/27/2007 Influenza Vaccine (FLU shot) (Season Ended) 2024 [...] 08/16/2028 08/16/2023, 04/18, 04/21/2020, Additional history exists GARDASIL-HPV IMMUNIZATION SERIES Aged Out No longer [...] as of this encounter Visit Diagnoses Diagnosis DISC DIS [id number] Other and unspecified disc disorder of lumbar region documented in this encounter Care Teams Farm Implement Engine Mechanic Relationship Specialty Start Date End Date Kelly Zaragoza PA-C [address] [place] [id number] PCP - General Physician Outpatient Coordinator 04/05/23 documented as of this encounter
--- OUTSIDE RECORDS SUMMARY | 2023-12-27 10:59 | External Medical Summary | Summary of Care ---
Author Name Unknown Organization [facility] Address [address] [facility] [place] [address] Phone [phone] Care Team Providers Care Safety Companion Name Role Phone Kelly Zaragoza PA-C Primary Care Provider [phone] Reason for Visit * Reason Onset Date Comments Medication Refill 11/15/2023 Encounter Details Date Type Department Care Team (Late st Contact Info) Description 11/15/2023 Refill [facility] [address] [place] [address] Tata Castro MD [address] [place] [address] Acute cough; Post-nasal drip; Sarcoidosis of lung (HCC) Allergies No known active allergiesdocumented as of this encounter (statuses as of 11/16/2023) Medications Medication Sig Dispensed Refills Start Date [...] Oral Tablet Take by mouth . 0 Ac tive Ondansetron HCl 4 MG Oral [...] Additional Information Patient not taking.Reported on 04/07/2023 Cyclobenzaprine HCl 10 MG Oral Tablet (Flexeril)Indicat ions:Chronic right-sided low back pain with right-sided sciatica,MEDICATI ON USE AGREEMENT,Spasm of muscle Take 1 Tablet by mouth 3 times a day as needed for Muscle spasms. 40 Tablet 2 03/07/2023 Active Fluticasone Propionate 50 MCG/ACT Nasal Suspension (Flonase)Indicati [...] 10/17/2023 Active Gabapentin 400 MG Oral Capsule (Neurontin)Indica [...] the morning. 30 Tablet 5 11/16/2023 Active Loratadine 10 MG Oral Tablet (Claritin)Indicat ions:Acute cough,Post-nasal drip,Sarcoidosis of lung (HCC) Take 1 Tablet by mouth in the morning. 30 Tablet 5 01/23/2023 4 Discontinue d(Refill) documented as of this encounter (statuses as of 11/16/2023) Active Problems Problem Noted Date Diagnosed Date [...] 06/27/2001 FEM STRESS INCONTINENCE 05/30/2001 DISC DIS [id number] 05/30/2001 Major depressive disorder 09/12/2000 Overview: ICD-10 update of inactive term documented as of this encounter (statuses as of 11/16/2023) Resolved Problems Problem Noted Date Diagnosed Date [...] as of this encounter (statuses as of 11/16/2023) Immunizations Name Administration Dates Next Due Seasonal [...] encounter Miscellaneous Notes * Telephone Encounter - Lizette Watts RPh - 11/16/2023 8:25 PM EDT Signed Prescriptions: Disp Refills Loratadine 10 MG Oral Tablet (Claritin) 30 Tab*5 Sig: Take 1 Tablet by mouth in the morning.Authorizing Provider: AURELIA WAGONER User: LIZETTE WATTS documented in this encounter Plan of Treatment Scheduled Procedures Name Priority Associated Diagnoses Date/Ti me COLONOSCOPY FLEXIBLE PROXIMAL DIAGNOSTIC Recall History of colon polyps Health Maintenance Due Date Last Done Comments HIV Screening 1983 Hepatitis B (1 of 3 - 19+ 3-dose series) 1987 Cologuard 2013 Fecal Occult Blood Test 2013 Sigmoidoscopy 2013 Zoster Vaccines (1 of 2) 2018 COVID-19 Vaccine (1 - 2022- season) 2023 Colonoscopy 10/31/2023 10/30/2018, 11/16, 09/27/2007 [...] as of this encounter Visit Diagnoses Diagnosis Acute cough Post-nasal drip Postnasal drip Sarcoidosis of lung (HCC) Sarcoidosis documented in this encounter Care Teams Safety Companion Relationship Specialty Start Date End Date Kelly Zaragoza PA-C [address] [place], [place] [id number] PCP - General Physician Diesel Truck Crane Operator 04/05/23 documented as of this encounter
--- OUTSIDE RECORDS SUMMARY | 2023-12-27 10:59 | External Medical Summary | Summary of Care ---
Author Name Unknown Organization [facility] Address [address] [facility] [address] Phone [phone] Care Team Providers Care Regional Operations Director Name Role Phone Kelly Zaragoza PA-C Primary Care Provider [phone] [phone] Reason for Visit * Reason Comments eRx-Medication Refill Encounter Details Date Type Department Care Team (Late st Contact Info) Description 11/10/2023 Refill [facility] [address] [place] [address] Kelly Zaragoza PA-C [address] [place] [address] Knee pain, right Allergies No known active allergiesdocumented as of this encounter (statuses as of 11/11/2023) Medications Medication Sig Dispensed Refills Start Date [...] the morning. 11.1 mL 5 07/20/2023 Active Lisinopril-hydro CHLOROthiazide 20-25 MG Oral TabletIndication [...] 11/02/2023 Active Meloxicam 15 MG Oral Tablet (Mobic)Indicatio ns:Knee pain, right TAKE 1 TABLET BY MOUTH EVERY MORNING FOR PAIN 90 Tablet 1 11/11/2023 Active Meloxicam 15 MG Oral Tablet (Mobic)Indicatio ns:Knee pain, right TAKE 1 TABLET BY MOUTH EVERY MORNING for pain 90 Tablet 0 08/14/2023 11/11/19 24 Discontinued documented as of this encounter (statuses as of 11/11/2023) Active Problems Problem Noted Date Diagnosed Date [...] 06/27/2001 FEM STRESS INCONTINENCE 05/30/2001 DISC DIS [id number] 05/30/2001 Major depressive disorder 09/12/2000 Overview: ICD-10 update of inactive term documented as of this encounter (statuses as of 11/11/2023) Resolved Problems Problem Noted Date Diagnosed Date [...] as of this encounter (statuses as of 11/11/2023) Immunizations Name Administration Dates Next Due Seasonal [...] encounter Miscellaneous Notes * Telephone Encounter - Junior Guerra RPh - 11/11/2023 8:30 AM EDTSigned Prescriptions: Disp Refills Meloxicam 15 MG Oral Tablet (Mobic) 90 Tab*1 Sig: TAKE 1 TABLET BY MOUTH EVERY MORNING FOR PAINAuthorizing Provider: KELLY ZARAGOZA User: JUNIOR GUERRA NN documented in this encounter Plan of Treatment [...] as of this encounter Visit Diagnoses Diagnosis Knee pain, right Pain in joint, lower leg documented in this encounter Care Teams Regional Operations Director Relationship Specialty Start Date End Date Kelly [facility]agoza PA-C [address] [facility] [address] PCP - General Physician Cloth Presser 04/05/23 documented as of this encounter
--- OUTSIDE RECORDS SUMMARY | 2023-12-27 10:59 | External Medical Summary | Summary of Care ---
Author Name Unknown Organization [facility] Address [address] [facility] [address] Phone [phone] Care Team Providers Care Fuse Maker Name Role Phone Kelly Zaragoza PA-C Primary Care Provider [phone] [phone] Reason for Visit * Reason Onset Date Comments Medication Refill 11/15/2023 Encounter Details Date Type Department Care Team (Late st Contact Info) Description 11/15/2023 Refill [facility] [address] [place] [address] Johnny Gomez MD [address] [place] [address] Disc disorder of lumbar region Allergies No known active allergiesdocumented as of this encounter (statuses as of 11/18/2023) Medications Medication Sig Dispensed Refills Start Date [...] FOR PAIN 90 Tablet 1 11/11/2023 Active oxyCODONE HCl 5 MG Oral Tablet (Oxy IR)Indications:Di sc disorder of lumbar region Take 1-2 Tablets by mouth every 6 hours as needed for Pain, Severe. 60 Tablet 0 11/18/2023 Active Loratadine 10 MG Oral Tablet (Claritin)Indicat ions:Acute cough,Post-nasal drip,Sarcoidosis of lung (HCC) Take 1 Tablet by mouth in the morning. 30 Tablet 5 11/16/2023 Active oxyCODONE HCl 5 MG Oral Tablet (Oxy IR)Indications:Di sc disorder of lumbar region Take 1-2 Tablets by mouth every 6 hours as needed for Pain, Severe. 60 Tablet 0 10/17/2023 4 Discontinue d(Refill) documented as of this encounter (statuses as of 11/18/2023) Active Problems Problem Noted Date Diagnosed Date [...] 06/27/2001 FEM STRESS INCONTINENCE 05/30/2001 DISC DIS [id number] 05/30/2001 Major depressive disorder 09/12/2000 Overview: ICD-10 update of inactive term documented as of this encounter (statuses as of 11/18/2023) Resolved Problems Problem Noted Date Diagnosed Date [...] as of this encounter (statuses as of 11/18/2023) Immunizations Name Administration Dates Next Due Seasonal [...] Telephone Encounter - Kelly Zaragoza PA-C - 11/18/2023 4:52 PM EDTSigned Prescriptions: Disp Refills oxyCODONE HCl 5 MG Oral Tablet (Oxy IR) 60 Tab*0 Sig: Take 1-2 Tablets by mouth every 6 hours as needed for Pain, Severe. Authorizing Provider: KELLY ZARAGOZA * Telephone Encounter - Marbella Santiago [facility] - 11/17/2023 5:36 AM EDT Pending Prescriptions: Disp Refills oxyCODONE HCl 5 MG Oral Tablet (Oxy IR) 60 Tab*0 Sig: Take 1-2 Tablets by mouth every 6 hours as needed for Pain, Severe. * Telephone Encounter - Marbella Santiago [facility] - 11/17/2023 5:36 AM EDT I have reviewed the patients controlled substance dispensing history in the Prescription Drug Monitoring Program in compliance with the [facility] regulations before prescribing a controlled substance. PDMP checked on 11/17/2023. Pending Prescriptions: Disp Refills oxyCODONE HCl 5 MG Oral Tablet (Oxy IR) 60 Tab*0 Sig: Take 1-2 Tablets by mouth every 6 hours as needed for Pain, Severe. Last Visit: 06/27/2023 (in office), Visit date not found (telemedicine) Next Visit: Visit date not found Date medication was last filled: 10/16 Date medication is due for refill: 10/23 [id number] [address] [facility] Is this request for a controlled [...] Review. Please approve if appropriate. Thank you, Marbella Santiago, PharmD. Clinical Pharmacist Centralized Clinical Pharmacy Services ([facility]) (formerly Telepharmacy) 11/17/2023, 5:36 AM documented in this encounter Plan of [...] as of this encounter Visit Diagnoses Diagnosis Disc disorder of lumbar region Other and unspecified disc disorder of lumbar region documented in this encounter Care Teams Fuse Maker Relationship Specialty Start Date End Date Kelly Zaragoza PA-C [address] [facility] [place] [address] PCP - General Physician Grainer Machine 04/05/23 documented as of this encounter
--- OUTSIDE RECORDS SUMMARY | 2023-12-27 10:59 | External Medical Summary | Summary of Care ---
Author Name Unknown Organization [facility] Address [address] [facility] [address] Phone [phone] Care Team Providers Care Credit Collections Manager Name Role Phone Kelly Zaragoza PA-C Primary Care Provider [phone] [phone] Reason for Visit * Reason Onset Date Comments Medication Refill 10/15/2023 Encounter Details Date Type Department Care Team (Late st Contact Info) Description 10/15/2023 Refill [facility] [address] [place] [address] Aurelia Wagoner MD [address] [place] [address] Disc disorder of lumbar region Allergies No known active allergiesdocumented as of this encounter (statuses as of 10/17/2023) Medications Medication Sig Dispensed Refills Start Date [...] on 04/07/2023 Loratadine 10 MG Oral Tablet (Claritin)Indicat ions:Acute [...] the morning. 11.1 mL 5 07/20/2023 Active Gabapentin 400 MG Oral Capsule (Neurontin)Indica tions:Disc disorder of lumbar region TAKE 1 TO 2 CAPSULES BY MOUTH UP TO 4 TIMES DAILY NEEDED FOR NERVE PAIN 360 Capsule 1 07/31/2023 Active Venlafaxine HCl ER 150 MG Oral Capsule Extended Release 24 Hour (Effexor XR) TAKE 1 CAPSULE BY MOUTH ONCE DAILY ALONG WITH 75MG DOSE 90 Capsule 0 08/08/2023 Active Venlafaxine HCl ER 75 MG Oral Capsule Extended Release 24 Hour (Effexor XR) TAKE 1 CAPSULE BY MOUTH ONCE DAILY ALONG WITH 150MG FOR A TOTAL OF 225MG 90 Capsule 0 08/08/2023 Active Meloxicam 15 MG Oral Tablet (Mobic)Indication s:Knee pain, right TAKE 1 TABLET BY MOUTH EVERY MORNING for pain 90 Tablet 0 08/14/2023 Active Lisinopril-hydroC HLOROthiazide 20-25 MG Oral TabletIndications [...] Pain, Severe. 60 Tablet 0 10/17/2023 Active oxyCODONE HCl 5 MG Oral Tablet (Oxy IR)Indications:Di sc disorder of lumbar region Take 1-2 Tablets by mouth every 6 hours as needed for Pain, Severe. 60 Tablet 0 09/14/2023 4 Discontinue d(Refill) documented as of this encounter (statuses as of 10/17/2023) Active Problems Problem Noted Date Diagnosed Date [...] 06/27/2001 FEM STRESS INCONTINENCE 05/30/2001 DISC DIS [id number] 05/30/2001 Major depressive disorder 09/12/2000 Overview: ICD-10 update of inactive term documented as of this encounter (statuses as of 10/17/2023) Resolved Problems Problem Noted Date Diagnosed Date [...] as of this encounter (statuses as of 10/17/2023) Immunizations Name Administration Dates Next Due Seasonal [...] Telephone Encounter - Aurelia Wagoner MD - 10/17/2023 12:58 PM EDTSigned Prescriptions: Disp Refills oxyCODONE HCl 5 MG Oral Tablet (Oxy IR) 60 Tab*0 Sig: Take 1-2 Tablets by mouth every 6 hours as needed for Pain, Severe.Authorizing Provider: AURELIA WAGONER--- * Telephone Encounter - Kelly Zaragoza PA-C - 10/17/2023 12:57 PM EDT Pending Prescriptions: Disp Refills oxyCODONE HCl 5 MG Oral Tablet (Oxy IR) 60 Tab*0 Sig: Take 1-2 Tablets by mouth every 6 hours as needed for Pain, Severe. * Telephone Encounter - Alyssa Jane [facility] - 10/17/2023 12:50 PM EDTPending Prescriptions: Disp Refills oxyCODONE HCl 5 MG Oral Tablet (Oxy IR) 60 Tab*0 Sig: Take 1-2 Tablets by mouth every 6 hours as needed for Pain, Severe. * Telephone Encounter - Alyssa Jane [facility] - 10/17/2023 12:49 PM EDT I have reviewed the patients controlled substance dispensing history in the Prescription Drug Monitoring Program in compliance with the [facility] regulations before prescribing a controlled substance. PDMP checked on 10/17/2023. Pending Prescriptions: Disp Refills oxyCODONE HCl 5 MG Oral Tablet (Oxy IR) 60 Tab*0 Sig: Take 1-2 Tablets by mouth every 6 hours as needed for Pain, Severe. Last Visit: 06/27/2023 (in office), Visit date not found (telemedicine) Next Visit: Visit date not found Date medication was last filled: 09/16/23 Date medication is due for refill: 09/23/23 Pharmacy: [id number] [id number] Is this request for a controlled substance? [...] in Results Review. Please approve if appropriate. Alyssa Meyer Clinical Pharmacist [facility] ([facility]) ([facility]) [phone] 10/17/2023, 12:50 PM documented in this encounter Plan of Treatment Scheduled Procedures Name Priority Associated Diagnoses Date/Ti me COLONOSCOPY FLEXIBLE PROXIMAL DIAGNOSTIC Recall History of colon polyps Health Maintenance Due Date Last Done Comments HIV Screening 1983 Hepatitis B (1 of 3 - 19+ 3-dose series) 1987 Zoster Vaccines (1 of 2) 2018 COVID-19 Vaccine (1 - 2022-24 season) 2023 Depression Screening 08/27/2023 08/27/2022 COLONOSCOPY-EVERY 5 YRS AGES 18-100 10/31/2023 10/30/2018, [...] region documented in this encounter Care Teams Credit Collections Manager Relationship Specialty Start Date End Date Kelly Zaragoza PA-C [address] [facility] [place] [id number] PCP - General Physician Mobile Application Tester 04/05/23 documented as of this encounter
--- OUTSIDE RECORDS SUMMARY | 2023-12-27 11:00 | External Medical Summary | Summary of Care ---
Author Name Unknown Organization [facility] Address [address] [facility] [address] Phone [phone] Care Team Providers Care Automobile Spring Repairer Name Role Phone Kelly Zaragoza PA-C Primary Care Provider [phone] Reason for Visit * Reason Onset Date Comments Health Maintenance 09/07/2023 Encounter Details Date Type Department Care Team (Late st Contact Info) Description 09/07/2023 Telephone [facility] [address] [place] [address] Kelly Zaragoza PA-C [address] [place] [address] Health Maintenance Allergies No known active allergiesdocumented as of this encounter (statuses as of 09/07/2023) Medications Medication Sig Dispensed Refills Start Date [...] 0 Active Ondansetron HCl 4 MG Oral TabletIndications: Nausea Take by mouth 1 Tablet every 6 hours as needed for Nausea. 30 Tablet 0 04/28/2022 Active Additional Information Patient not taking.Reported on 04/07/2023 Ozempic (0.25 or 0.5 MG/DOSE) 2 MG/1.5ML Solution Pen-injector (Semaglutide(0.25 or 0.5MG/DOS))Indicat ions:Obesity due to excess calories without serious comorbidity with body mass index (BMI) in 95th to 98th percentile for age in pediatric patient Inject 0.5 mg under the skin once a week. 4.5 mL 0 07/14/2022 Active Azithromycin 250 MG Oral Tablet (Zithromax Z-Jose Francisco)Indications: Acute cough,Post-nasal drip,Sarcoidosis of lung (HCC) Take two tablets by mouth on first day, then 1 tablet daily until gone 6 Tablet 0 08/10/2022 Active Additional Information Patient not taking.Reported on 08/27/2022 Benzonatate 100 MG Oral CapsuleIndications :Acute cough,Post-nasal drip,Sarcoidosis of lung (HCC) Take 2 Capsules by mouth 3 times a day as needed for Cough. 30 Capsule 1 08/27/2022 Active Additional Information Patient not taking.Reported on 04/07/2023 Loratadine 10 MG Oral Tablet (Claritin)Indicati ons:Acute cough,Post-nasal drip,Sarcoidosis of lung (HCC) Take 1 Tablet by mouth in the morning. 30 Tablet 5 01/23/2023 Active Cyclobenzaprine HCl 10 MG Oral Tablet (Flexeril)Indicati ons:Chronic right-sided low back pain with right-sided sciatica,MEDICATIO N USE AGREEMENT,Spasm of muscle Take 1 Tablet by mouth 3 times a day as needed for Muscle spasms. 40 Tablet 2 03/07/2023 Active buPROPion HCl ER (XL) 300 MG Oral Tablet Extended Release 24 Hour (Wellbutrin XL) TAKE 1 TABLET BY MOUTH EVERY MORNING 90 Tablet 1 03/31/2023 Active Fluticasone Propionate 50 MCG/ACT Nasal Suspension (Flonase)Indicatio ns:Acute cough,Post-nasal drip,Sarcoidosis of lung (HCC) Administer 2 Sprays into each nostril in the morning. 11.1 mL 5 07/20/2023 Active Gabapentin 400 MG Oral Capsule (Neurontin)Indicat ions:Disc disorder of lumbar region TAKE 1 TO [...] 08/08/2023 Active Meloxicam 15 MG Oral Tablet (Mobic)Indications :Knee pain, right TAKE 1 TABLET BY MOUTH EVERY MORNING for pain 90 Tablet 0 08/14/2023 Active oxyCODONE HCl 5 MG Oral Tablet (Oxy IR)Indications:Dis c disorder of lumbar region Take 1-2 Tablets by mouth every 6 hours as needed for Pain, Severe. 60 Tablet 0 08/18/2023 Active Lisinopril-hydroCH LOROthiazide 20-25 MG Oral TabletIndications: HTN, goal below 140/90 Take 0.5 Tablets by mouth in the morning. 45 Tablet 1 08/31/2023 Active documented as of this encounter (statuses as of 09/07/2023) Active Problems Problem Noted Date Diagnosed Date [...] 06/27/2001 FEM STRESS INCONTINENCE 05/30/2001 DISC DIS [id number] 05/30/2001 Major depressive disorder 09/12/2000 Overview: ICD-10 update of inactive term documented as of this encounter (statuses as of 09/07/2023) Resolved Problems Problem Noted Date Diagnosed Date [...] as of this encounter (statuses as of 09/07/2023) Immunizations Name Administration Dates Next Due Seasonal [...] encounter Miscellaneous Notes * Telephone Encounter - Bety Molina LPN - 09/07/2023 3:31 PM EST Care Gaps Comprehensive Care Outreach Last Office/Telemedicine Visit: 06/27/2023 (in office), Visit date not found (telemedicine) Next Office Visit: Visit date not found Hemoglobin AIC Results: Lab Results Component Value Date/Time HEMOGLOBIN A1C - [facility] 5.5 06/30/2022 02:24 PM HEMOGLOBIN A1C - [facility] 5.8 09/14/2017 10:38 AM HEMOGLOBIN A1C - [facility] 6.0 02/26/2011 01:42 PM HEMOGLOBIN A1C - [facility] 5.8 03/01/2002 07:30 AM BP Readings from Last 1 Encounters: 04/07/23 142/80 Reviewed Health Maintenance below: Health Maintenance Topic Date Due HIV Screening Never done Hepatitis B (1 of 3 - 19+ 3-dose series) Never done Zoster Vaccines (1 of 2) Never done Influenza Vaccine (FLU shot) (1) 03/18/2023 COVID-19 Vaccine ( - 2022- season) Never done Depression Screening 08/27/2023 COLONOSCOPY-EVERY 5 YRS AGES 18-100 10/31/2023 Colon Devi my g Care Gap Outreach Action Taken: [employer] message sent documented in this encounter Plan of Treatment Scheduled Procedures Name Priority Associated Diagnoses Date/Ti me COLONOSCOPY FLEXIBLE PROXIMAL DIAGNOSTIC Recall History of colon polyps Health Maintenance Due Date Last Done Comments HIV Screening 1983 Hepatitis B (1 of 3 - 19+ 3-dose series) 1987 Zoster Vaccines (1 of 2) 2018 COVID-19 Vaccine (1 - 2022-24 season) 2023 Influenza Vaccine (FLU shot) (#1) 2023 06/24/2022, 03/18/2018, 05/18/2017, Additional history exists Depression Screening 08/27/2023 08/27/2022 COLONOSCOPY-EVERY 5 YRS AGES 18-100 10/31/2023 10/30/2018, 12/06/2013, 09/27/2007 GFR 08/16/2024 08/16/2023, 02/16, 07/22/2022, Additional history [...] Not on filedocumented as of this encounter Care Teams Automobile Spring Repairer Relationship Specialty Start Date End Date Kelly Zaragoza PA-C [address] [place] [id number] PCP - General Physician Housekeeper Caregiver 04/05/23 documented as of this encounter
--- OUTSIDE RECORDS SUMMARY | 2023-12-27 11:00 | External Medical Summary | Summary of Care ---
Author Name Unknown Organization [facility] Address [address] [facility] [facility] [address] Phone [phone] Care Team Providers Care Fisher Hoop Net Name Role Phone Kelly Zaragoza PA-C Primary Care Provider [phone] Reason for Visit * Reason Comments eRx-Medication Refill Encounter Details Date Type Department Care Team (Late st Contact Info) Description 09/27/2023 Refill [facility] [address] [place] [address] Aurelia Wagoner MD [address] [place] [address] Allergies No known active allergiesdocumented as of this encounter (statuses as of 09/28/2023) Medications Medication Sig Dispensed Refills Start Date [...] 07/20/2023 Active Gabapentin 400 MG Oral Capsule (Neurontin)Indic [...] 08/08/2023 Active Meloxicam 15 MG Oral Tablet (Mobic)Indicatio ns:Knee pain, right TAKE 1 TABLET BY MOUTH EVERY MORNING for pain 90 Tablet 0 08/14/2023 Active Lisinopril-hydro CHLOROthiazide 20-25 MG Oral TabletIndication s:HTN, goal below 140/90 Take 0.5 Tablets by mouth in the morning. 45 Tablet 1 08/31/2023 Active oxyCODONE HCl 5 MG Oral Tablet (Oxy IR)Indications:D isc disorder of lumbar region Take 1-2 Tablets by mouth every 6 hours as needed for Pain, Severe. 60 Tablet 0 09/14/2023 Active buPROPion HCl ER (XL) 300 MG Oral Tablet Extended Release 24 Hour (Wellbutrin XL) TAKE 1 TABLET BY MOUTH EVERY MORNING 90 Tablet 1 09/28/2023 Active buPROPion HCl ER (XL) 300 MG Oral Tablet Extended Release 24 Hour (Wellbutrin XL) TAKE 1 TABLET BY MOUTH EVERY MORNING 90 Tablet 1 03/31/2023 09/28/19 24 Discontinued documented as of this encounter (statuses as of 09/28/2023) Active Problems Problem Noted Date Diagnosed Date [...] 06/27/2001 FEM STRESS INCONTINENCE 05/30/2001 DISC DIS [id number] 05/30/2001 Major depressive disorder 09/12/2000 Overview: ICD-10 update of inactive term documented as of this encounter (statuses as of 09/28/2023) Resolved Problems Problem Noted Date Diagnosed Date [...] as of this encounter (statuses as of 09/28/2023) Immunizations Name Administration Dates Next Due Seasonal [...] encounter Miscellaneous Notes * Telephone Encounter - Galileo Pinon [facility] - 09/28/2023 11:48 AM EDT Signed Prescriptions: Disp Refills buPROPion HCl ER (XL) 300 MG Oral Tablet E*90 Tab*1 Sig: TAKE 1 TABLET BY MOUTH EVERY MORNINGAuthorizing Provider: AURELIA WAGONER User: GALILEO PINON documented in this encounter Plan of Treatment Scheduled Procedures Name Priority Associated Diagnoses Date/Ti me COLONOSCOPY FLEXIBLE PROXIMAL DIAGNOSTIC Recall History of colon polyps Health Maintenance Due Date Last Done Comments HIV Screening 1983 Hepatitis B (1 of 3 - 19+ 3-dose series) 1987 Zoster Vaccines (1 of 2) 2018 COVID-19 Vaccine (1 - 2023-24 season) 2023 Influenza Vaccine (FLU shot) (#1) [...] filedocumented as of this encounter Care Teams Fisher Hoop Net Relationship Specialty Start Date End Date Kelly Zaragoza PA-C [address] [facility] [place] [address] PCP - General Physician Stake Driver 04/05/23 documented as of this encounter
--- OUTSIDE RECORDS SUMMARY | 2023-12-27 11:00 | External Medical Summary | Summary of Care ---
Author Name Unknown Organization [facility] Address [address] [facility] [address] Phone [phone] Care Team Providers Care Campground Manager Name Role Phone Kelly Zaragoza PA-C Primary Care Provider [phone] [phone] Reason for Visit * Reason Comments eRx-Medication Refill Encounter Details Date Type Department Care Team (Late st Contact Info) Description 08/13/2023 Refill [facility] [address] [place] [address] Kelly Zaragoza PA-C [address] [place] [address] Encounter for long-term (current) use of medications*; Knee pain, right Allergies No known active allergiesdocumented as of this encounter (statuses as of 09/04/2023) Medications Medication Sig Dispensed Refills Start Date [...] by mouth once daily 30 Tab 5 1 Active Additional Information Patient not taking.Reported on 04/07/2023 Multivitamin Adult Oral Tablet Take by mouth . 0 Active Ondansetron HCl 4 MG Oral TabletIndication s:Nausea Take by mouth 1 Tablet every 6 hours as needed for Nausea. 30 Tablet 0 2 Active Additional Information Patient not taking.Reported on 04/07/2023 Ozempic (0.25 or 0.5 MG/DOSE) 2 MG/1.5ML Solution Pen-injector (Semaglutide(0.2 5 or 0.5MG/DOS))Indic ations:Obesity due to excess calories without serious comorbidity with body mass index (BMI) in 95th to 98th percentile for age in pediatric patient Inject 0.5 mg under the skin once a week. 4.5 mL 0 2 Active Azithromycin 250 MG Oral Tablet (Zithromax Z-Jose Francisco)Indication s:Acute cough,Post-nasal drip,Sarcoidosis of lung (HCC) Take two tablets by mouth on first day, then 1 tablet daily until gone 6 Tablet 0 3 Active Additional Information Patient not taking.Reported on 08/27/2022 Benzonatate 100 MG Oral CapsuleIndicatio ns:Acute cough,Post-nasal drip,Sarcoidosis of lung (HCC) Take 2 Capsules by mouth 3 times a day as needed for Cough. 30 Capsule 1 3 Active Additional Information Patient not taking.Reported on 04/07/2023 Loratadine 10 MG Oral Tablet (Claritin)Indica tions:Acute cough,Post-nasal drip,Sarcoidosis of lung (HCC) Take 1 Tablet by mouth in the morning. 30 Tablet 5 3 Active Cyclobenzaprine HCl 10 MG Oral Tablet (Flexeril)Indica tions:Chronic right-sided low back pain with right-sided sciatica,MEDICAT ION USE AGREEMENT,Spasm of muscle Take 1 Tablet by mouth 3 times a day as needed for Muscle spasms. 40 Tablet 2 3 Active buPROPion HCl ER (XL) 300 MG Oral Tablet Extended Release 24 Hour (Wellbutrin XL) TAKE 1 TABLET BY MOUTH EVERY MORNING 90 Tablet 1 3 Active Fluticasone Propionate 50 MCG/ACT Nasal Suspension (Flonase)Indicat ions:Acute cough,Post-nasal drip,Sarcoidosis of lung (HCC) Administer 2 Sprays into each nostril in the morning. 11.1 mL 5 4 Active Gabapentin 400 MG Oral Capsule (Neurontin)Indic ations:Disc disorder of lumbar region TAKE 1 TO 2 CAPSULES BY MOUTH UP TO 4 TIMES DAILY NEEDED FOR NERVE PAIN 360 Capsule 1 4 Active Venlafaxine HCl ER 150 MG Oral Capsule Extended Release 24 Hour (Effexor XR) TAKE 1 CAPSULE BY MOUTH ONCE DAILY ALONG WITH 75MG DOSE 90 Capsule 0 4 Active Venlafaxine HCl ER 75 MG Oral Capsule Extended Release 24 Hour (Effexor XR) TAKE 1 CAPSULE BY MOUTH ONCE DAILY ALONG WITH 150MG FOR A TOTAL OF 225MG 90 Capsule 0 4 Active Meloxicam 15 MG Oral Tablet (Mobic)Indicatio ns:Knee pain, right TAKE 1 TABLET BY MOUTH EVERY MORNING for pain 90 Tablet 0 4 Active Meloxicam 15 MG Oral TabletIndication s:Knee pain, right TAKE 1 TABLET BY MOUTH EVERY MORNING for pain 30 Tablet 2 3 08/14/19 24 Discontinued Lisinopril-hydro CHLOROthiazide 20-25 MG Oral TabletIndication s:HTN, goal below 140/90 Take 0.5 Tablets by mouth in the morning. 45 Tablet 1 3 08/30/19 24 Discontinued(Ref ill) oxyCODONE HCl 5 MG Oral Tablet (Oxy IR)Indications:D isc disorder of lumbar region Take 1-2 Tablets by mouth every 6 hours as needed for Pain, Severe. 60 Tablet 0 4 08/16/19 24 Discontinued(Ref ill) documented as of this encounter (statuses as of 09/04/2023) Active Problems Problem Noted Date Diagnosed Date [...] 06/27/2001 FEM STRESS INCONTINENCE 05/30/2001 DISC DIS [id number] 05/30/2001 Major depressive disorder 09/12/2000 Overview: ICD-10 update of inactive term documented as of this encounter (statuses as of 09/04/2023) Resolved Problems Problem Noted Date Diagnosed Date [...] as of this encounter (statuses as of 09/04/2023) Immunizations Name Administration Dates Next Due Seasonal [...] encounter Miscellaneous Notes * Telephone Encounter - Zabrina Murray PHARM Tech - 09/04/2023 9:21 AM EST Received message from [facility] regarding patient needing appointment and labs. Placed call to patient toadvise. Pt had ordered labs completed on 08/16/2023; no follow- up is needed. I called pt for office visit I left a message for appt Thank you for your assistance Zabrina Murray Squirrel Worker II [facility] ([facility]) (Formerly [facility]) 09/04/2023,9:21 AM * Telephone Encounter - Galileo Pinon [facility] - 08/14/2023 12:36 PM EST Signed Prescriptions: Disp Refills Meloxicam 15 MG Oral Tablet (Mobic) 90 Tab*0 Sig: TAKE 1 TABLET BY MOUTH EVERY MORNING for pain Authorizing Provider: KELLY ZARAGOZA Ordering User: GALILEO PINON * Telephone Encounter - Galileo Pinon [facility] - 08/14/2023 12:33 PM EST Provided 90 days supply with 0 refill. Per refill protocol patient should have CBC on file within past year. Reviewed AMP report, Care Gaps/Health Maintenance, medications list, and for any routine labs typically ordered for this patient. Lab orders placed. Please contact patient to schedule office visit with PRIMARY CARE and advise of labs ordered for blood draw.. Fasting is not required. Advise to obtain labs before requesting the next refill. Last Visit: 06/27/2023 (in office), Visit date not found (telemedicine) Next Visit: Visit date not found Thank You, Galileo Pinon, Pharm-D Clinical Pharmacist [facility] ([facility]) (Formerly [facility]) [phone] 08/14/2023, 12:35 PM documented in this encounter Plan of Treatment Scheduled Procedures Name Priority Associated Diagnoses Date/Ti me COLONOSCOPY FLEXIBLE PROXIMAL DIAGNOSTIC Recall History of colon polyps Health Maintenance Due Date Last Done Comments HIV Screening 1983 Hepatitis B (1 of 3 - 19+ 3-dose series) 1987 Zoster Vaccines (1 of 2) 2018 COVID-19 Vaccine (24 season) 2023 Influenza Vaccine (FLU shot) (#1) [...] as of this encounter Visit Diagnoses Diagnosis Encounter for long-term (current) use of medications- Primary Encounter for long-term (current) use of other medications Knee pain, right Pain in joint, lower leg documented in this encounter Care Teams Campground Manager Relationship Specialty Start Date End Date Kelly Zaragoza PA-C [address] [facility] [place] [address] PCP - General Physician Test Manager 04/05/23 documented as of this encounter
--- OUTSIDE RECORDS SUMMARY | 2023-12-27 11:00 | External Medical Summary | Summary of Care ---
Author Name Unknown Organization [facility] Address [address] [facility] [address] Phone [phone] Care Team Providers Care Locomotive Mechanic Apprentice Name Role Phone Kelly Zaragoza PA-C Primary Care Provider +1 [phone] Reason for Visit * Reason Onset Date Comments Medication Refill 09/13/2023 Encounter Details Date Type Department Care Team (Late st Contact Info) Description 09/13/2023 Refill [facility] [address] [place] [address] Kelly Zaragoza PA-C [address] [place] [address] Disc disorder of lumbar region Allergies No known active allergiesdocumented as of this encounter (statuses as of 09/15/2023) Medications Medication Sig Dispensed Refills Start Date [...] Pain, Severe. 60 Tablet 0 09/14/2023 Active oxyCODONE HCl 5 MG Oral Tablet (Oxy IR)Indications:Di sc disorder of lumbar region Take 1-2 Tablets by mouth every 6 hours as needed for Pain, Severe. 60 Tablet 0 08/18/2023 4 Discontinue d(Refill) documented as of this encounter (statuses as of 09/15/2023) Active Problems Problem Noted Date Diagnosed Date [...] 06/27/2001 FEM STRESS INCONTINENCE 05/30/2001 DISC DIS [id number] 05/30/2001 Major depressive disorder 09/12/2000 Overview: ICD-10 update of inactive term documented as of this encounter (statuses as of 09/15/2023) Resolved Problems Problem Noted Date Diagnosed Date [...] as of this encounter (statuses as of 09/15/2023) Immunizations Name Administration Dates Next Due Seasonal [...] encounter Miscellaneous Notes * Telephone Encounter - Marianne Sen LPN - 09/15/2023 4:24 PM EST Faxed to [facility] * Telephone Encounter - Aurelia Wagoner MD - 09/14/2023 1:12 PM ESTSigned Prescriptions: Disp Refills oxyCODONE HCl 5 MG Oral Tablet (Oxy IR) 60 Tab*0 Sig: Take 1-2 Tablets by mouth every 6 hours as needed for Pain, Severe. Authorizing Provider: AURELIA WAGONER * Telephone Encounter - Aurelia Wagoner MD - 09/14/2023 1:11 PM EST At my desk * Telephone Encounter - Kelly Zaragoza PA-C - 09/14/2023 1:03 PM ESTPending Prescriptions: Disp Refills oxyCODONE HCl 5 MG Oral Tablet (Oxy IR) 60 Tab*0 Sig: Take 1-2 Tablets by mouth every 6 hours as needed for Pain, Severe. * Telephone Encounter - Ruba Doll [facility] - 09/14/2023 1:00 PM EST Pending Prescriptions: Disp Refills oxyCODONE HCl 5 MG Oral Tablet (Oxy IR) 60 Tab*0 Sig: Take 1-2 Tablets by mouth every 6 hours as needed for Pain, Severe. * Telephone Encounter - Ruba Doll [facility] - 09/14/2023 12:59 PM EST I have reviewed the patients controlled substance dispensing history in the Prescription Drug Monitoring Program in compliance with the [facility] regulations before prescribing a controlled substance. PDMP checked on 09/14/2023. Pending Prescriptions: Disp Refills oxyCODONE HCl 5 MG Oral Tablet (Oxy IR) 60 Tab*0 Sig: Take 1-2 Tablets by mouth every 6 hours as needed for Pain, Severe. Last Visit: 06/27/2023 (in office), Visit date not found (telemedicine) Next Visit: Visit date not found Date medication was last filled: 08/18/23 Date medication is due for refill: 08/25/23 [facility]acy: [id number] Is this request for a controlled substance? [...] Review. Please approve if appropriate. Thank you, Ruba Doll, PharmD, GRISELDA Clinical Pharmacist Centralized Clinical Pharmacy Services (CCPS) (formerly Telepharmacy) 09/14/23 12:59 PM [phone] documented in this encounter Plan of Treatment Scheduled Procedures Name Priority Associated Diagnoses Date/Ti me COLONOSCOPY FLEXIBLE PROXIMAL DIAGNOSTIC Recall History of colon polyps Health Maintenance Due Date Last Done Comments HIV Screening 1983 Hepatitis B (1 of 3 - 19+ 3-dose series) 1987 Zoster Vaccines (1 of 2) 2018 COVID-19 Vaccine ( season) 2023 Influenza Vaccine (FLU shot) (#1) [...] region documented in this encounter Care Teams Locomotive Mechanic Apprentice Relationship Specialty Start Date End Date Kelly Zaragoza PA-C [address] [facility] [place] [address] PCP - General Physician Coding Director 04/05/23 documented as of this encounter
--- OUTSIDE RECORDS SUMMARY | 2023-12-27 11:01 | External Medical Summary | Summary of Care ---
Author Name Unknown Organization [facility] Address [address] [facility] [address] Phone [phone] Care Team Providers Care Lumber Planer Name Role Phone Kelly Zaragoza PA-C Primary Care Provider +1 [phone] Reason for Visit * Reason Onset Date Comments Order Request 08/31/2023 Encounter Details Date Type Department Care Team (Late st Contact Info) Description 08/31/2023 Telephone [facility] [address] [place] [address] Kelly Zaragoza PA-C [address] [place] [address] Order Request Allergies No known active allergiesdocumented as of this encounter (statuses as of 09/01/2023) Medications Medication Sig Dispensed Refills Start Date [...] as of this encounter (statuses as of 09/01/2023) Active Problems Problem Noted Date Diagnosed Date [...] 06/27/2001 FEM STRESS INCONTINENCE 05/30/2001 DISC DIS [id number] 05/30/2001 Major depressive disorder 09/12/2000 Overview: ICD-10 update of inactive term documented as of this encounter (statuses as of 09/01/2023) Resolved Problems Problem Noted Date Diagnosed Date [...] as of this encounter (statuses as of 09/01/2023) Immunizations Name Administration Dates Next Due HEP A - Hepatitis A (Adult > 18 yrs) 06/27/2001 Seasonal Influenza, PF, 6 M & above, IM , (FluLaval or Fluzone) 06/24/2022,05/18/2017 Seasonal Influenza, Quadriva lent, No Preserve, IM 03/18/2018 Seasonal Influenza, Split, I IV3, With Preserve, Inj 04/17/2013,05/01/2011,04/17/2007, 006 TD - Tetanus/Diptheria (ADULT) 06/27/2001 TDAP (age 10 and older)(Boostrix) 10/31/2013 TDAP [...] encounter Miscellaneous Notes * Telephone Encounter - Erin Espinosa OSA - 09/01/2023 2:53 PM EST LMOM. Letter sent. 09/01/2023 * Telephone Encounter - Erin Espinosa OSA - 08/31/2023 2:01 PM EST MyG message sent. 08/31/2023 * Telephone Encounter - Alfredito Thomas OSA - 08/31/2023 12:[address] order for mammogram. documented in this encounter Plan of Treatment Scheduled Orders Name Type Priority Associated Diagnoses Orde r Schedule MAMMOGRAM SCREENING KASSANDRA BILATERAL Medical Imaging Routine Encounter for screening mammogram for breast cancer Expected: 08/31/2023, Expires: 09/28/2024 Scheduled Procedures Name Priority Associated Diagnoses Date/Ti me COLONOSCOPY FLEXIBLE PROXIMAL DIAGNOSTIC Recall History of colon polyps Health Maintenance Due Date Last Done Comments Hepatitis B (1 of 3 - 3-dose series) 1968 COVID-19 Vaccine (#1) 01/13/1969 HIV Screening 1983 Zoster Vaccines (1 of 2) 2018 Influenza Vaccine (FLU shot) (#1) 2023 06/24/2022, 03/18/2018, 05/18/2017, Additional history exists Mammogram 05/31/2023 05/31/2022, 05/18, 01/31/2014, Additional history exists Depression Screening 08/27/2023 08/27/2022 COLONOSCOPY-EVERY 5 YRS AGES 18-100 10/31/2023 10/30/2018, 12/06/2013, 09/27/2007 GFR 08/16/2024 08/16/2023, 02/16, 07/22/2022, Additional history exists Pap Smear 06/24/2025 06/24/2022, [...] this encounter Visit Diagnoses Diagnosis Encounter for screening mammogram for breast cancer- Primary documented in this encounter Care Teams Lumber Planer Relationship Specialty Start Date End Date Kelly Zaragoza PA-C [address] [facility] [place] [address] PCP - General Physician Shoe Repairer Apprentice 04/05/23 documented as of this encounter
--- OUTSIDE RECORDS SUMMARY | 2023-12-27 11:01 | External Medical Summary | Summary of Care ---
Author Name Unknown Organization [facility] Address [address] [place] [address] Phone [phone] Care Team Providers Care River Pilot Name Role Phone Kelly Zaragoza PA-C Primary Care Provider +1 [phone] Encounter Details Date Type Department Care Team (Late st Contact Info) Description 08/31/2023 [facility] [address] [facility] [place] [address] Services, Scheduling [address] [place] [address] Allergies No known active allergiesdocumented as of this encounter (statuses as of 08/31/2023) Medications Medication Sig Dispensed Refills Start Date [...] as of this encounter (statuses as of 08/31/2023) Active Problems Problem Noted Date Diagnosed Date [...] 06/27/2001 FEM STRESS INCONTINENCE 05/30/2001 DISC DIS [id number] 05/30/2001 Major depressive disorder 09/12/2000 Overview: ICD-10 update of inactive term documented as of this encounter (statuses as of 08/31/2023) Resolved Problems Problem Noted Date Diagnosed Date [...] as of this encounter (statuses as of 08/31/2023) Immunizations Name Administration Dates Next Due Seasonal [...] encounter Miscellaneous Notes * Telephone Encounter - Nancy Saldivar LPN - 08/31/2023 12:56 PM EST Patient called for additional information. Patient had called Dr. Yeung's office and was told thatshe would need to lose weight prior to any additional surgery being offered. Confirmed current weight and height, current BMI calculated at 51.5. Patient is neurologically intact with not bowel or bladder disturbances. Shared our guidelines for offering elective spine surgery, shared suggestions for optimizing her BMI. Also made aware that for continuity of care she should return to the original surgeon. Patient agreeable to this plan. Note from [facility] pain on 07/19/2023 after failed SARAH injection was to f/u with Dr. Yeung's office. * Telephone Encounter - Alfredito Thomas OSA - 08/31/2023 12:15 PM EST Pt is calling in today because she would like to schedule an appt for a second opinion with Dr. Sanchez. She has had a prior surgery with [facility] and believes she needs to have 3 more discs done. She was provided fax number to have records faxed. Pt can be reached at [phone] documented in this encounter Plan of Treatment [...] filedocumented as of this encounter Care Teams River Pilot Relationship Specialty Start Date End Date Kelly Zaragoza PA-C [address] [facility] [place] [address] PCP - General Physician Slitter Operator 04/05/23 documented as of this encounter
--- OUTSIDE RECORDS SUMMARY | 2023-12-27 11:01 | External Medical Summary ---
Author Name Unknown Address Unknown Organization [id number]:LABORATORY [facility] - [facility] [address] [place] [address] Laboratory Report Ordering Provider Test Date Status KATHRIN WILL 08/16/2023 13:39:04 Final Observation Date Value Abnormality Reference (Units ) Status WBC, Total 08/16/2023 13:39:04 6.95 4.00-10.80 (K/uL) Final RBC 08/16/2023 13:39:04 5.50 3.85-5.15 (M/uL) Final Hemoglobin 08/16/2023 13:39:04 14.2 12.0-15.3 (g/dL) Final HCT 08/16/2023 13:39:04 47.1 Above high normal 36.0-45.2 (%) Final MCV 08/16/2023 13:39:04 85.6 81.5-97.5 (fL) Final MCH 08/16/2023 13:39:04 25.8 27.0-34.0 (pg) Final MCHC 08/16/2023 13:39:04 30.1 32.0-36.0 (g/dL) Final RDW 08/16/2023 13:39:04 17.9 11.5-15.5 (%) Final Platelets 08/16/2023 13:39:04 278 140-400 (K/uL) Final MPV 08/16/2023 13:39:04 12.3 6.6-11.1 (fL) Final Nucleated erythrocytes/100 leukocytes [Ratio] in Blood by Automated count 08/16/2023 13:39:04 0 <=0 (/100 WBCs) Final Performing Location LAB[facility]ATORY [facility] - [address] [place] [address]
--- OUTSIDE RECORDS SUMMARY | 2023-12-27 11:01 | External Medical Summary | Summary of Care ---
Author Name Unknown Organization [facility] Address [address] [facility] [place] [place] [address] Phone [phone] Care Team Providers Care Otolaryngology Rep Name Role Phone Kelly Zaragoza PA-C Primary Care Provider [phone] [phone] Reason for Visit * Reason Comments Outpatient Testing Encounter Details Date Type Department Care Team (Late st Contact Info) Description 08/16/2023 1:30 PM EST Laboratory Laboratory, [place] [address] [place] [address] [facility] [address] [place] [address] Encounter for long-term (current) use of medications Allergies No known active allergiesdocumented as of this encounter (statuses as of 08/16/2023) Medications Medication Sig Dispensed Refills Start Date [...] EVERY MORNING 90 Tablet 1 03/31/2023 Active Lisinopril-hydroCH LOROthiazide 20-25 MG Oral TabletIndications: HTN, goal below 140/90 Take 0.5 Tablets by mouth in the morning. 45 Tablet 1 06/17/2023 Active oxyCODONE HCl 5 MG Oral Tablet (Oxy IR)Indications:Dis c disorder of lumbar region Take 1-2 Tablets by mouth every 6 hours as needed for Pain, Severe. 60 Tablet 0 07/20/2023 Active Fluticasone Propionate 50 MCG/ACT Nasal Suspension [...] for pain 90 Tablet 0 08/14/2023 Active documented as of this encounter (statuses as of 08/16/2023) Active Problems Problem Noted Date Diagnosed Date [...] 06/27/2001 FEM STRESS INCONTINENCE 05/30/2001 DISC DIS [id number] 05/30/2001 Major depressive disorder 09/12/2000 Overview: ICD-10 update of inactive term documented as of this encounter (statuses as of 08/16/2023) Resolved Problems Problem Noted Date Diagnosed Date [...] as of this encounter (statuses as of 08/16/2023) Immunizations Name Administration Dates Next Due Seasonal [...] on file documented as of this encounter Plan of Treatment Pending Results Name Type Priority Associated Diagnoses Date /Time COMPREHENSIVE METABOLIC PANEL Lab Routine Encounter for long-term (current) use of medications 08/16/2023 1:39 PM EST LDL CHOLESTEROL (DIRECT MEASURE) Lab Routine Encounter for long-term (current) use of medications 08/16/2023 1:39 PM EST CBC WITH WBC DIFFERENTIAL Lab Routine Encounter for long-term (current) use of medications 08/16/2023 1:39 PM EST CBC Lab Routine Encounter for long-term (current) use of medications 08/16/2023 1:39 PM EST DIFFERENTIAL, AUTOMATED Lab Routine Encounter for long-term (current) use of medications 08/16/2023 1:39 PM EST Scheduled Procedures Name Priority Associated Diagnoses Date/Ti [...] AGES 18-100 10/31/2023 10/30/2018, 12/06/2013, 09/27/2007 GFR 03/11/2024 03/11/2023, 11/2022, 06/30/2022, Additional history exists Pap Smear 06/24/2025 06/24/2022, 10/16, 10/31/2013, Additional history exists Albumin/Creatinine Ratio 06/30/2025 06/30/2022 Diabetes Screening 06/30/2025 06/30/2022, 1 08/31/2021, 05/29/2021, Additional history exists Lipid Panel 05/12/2026 05/12/2021, 11/2019, 04/21/2004, Additional history exists Cervical Cancer Screening 06/24/2027 HPV/Co-Test 06/24/2027 06/24/2022 DTaP,Tdap,and Td Vaccines (3 - Td or Tdap) 07/12/2027 07/12/2017 (Done elsewhere), 07/12/2017, 10/31/2013, Additional history exists GARDASIL-HPV IMMUNIZATION SERIES Aged [...] Diagnosis Encounter for long-term (current) use of medications Encounter for long-term (current) use of other medications documented in this encounter Care Teams Otolaryngology Rep Relationship Specialty Start Date End Date Kelly Zaragoza PA-C [address] [facility] [place] [address] PCP - General Physician Radio Tower Technician 04/05/23 documented as of this encounter
--- OUTSIDE RECORDS SUMMARY | 2023-12-27 11:01 | External Medical Summary | Summary of Care ---
Author Name Unknown Organization [facility] Address [address] [facility] [address] Phone [phone] Care Team Providers Care High Frequency Mill Operator Name Role Phone Kelly Zaragoza PA-C Primary Care Provider +1 -[phone] Reason for Visit * Reason Onset Date Comments Medication Refill 08/16/2023 Encounter Details Date Type Department Care Team (Late st Contact Info) Description 08/16/2023 Refill [facility] [address] [place] [address] Johnny Gomez MD [address] [place] [address] Disc disorder of lumbar region Allergies No known active allergiesdocumented as of this encounter (statuses as of 08/18/2023) Medications Medication Sig Dispensed Refills Start Date [...] EVERY MORNING 90 Tablet 1 03/31/2023 Active Lisinopril-hydroC HLOROthiazide 20-25 MG Oral TabletIndications :HTN, goal below 140/90 Take 0.5 Tablets by mouth in the morning. 45 Tablet 1 06/17/2023 Active Fluticasone Propionate 50 MCG/ACT Nasal Suspension [...] Pain, Severe. 60 Tablet 0 08/18/2023 Active oxyCODONE HCl 5 MG Oral Tablet (Oxy IR)Indications:Di sc disorder of lumbar region Take 1-2 Tablets by mouth every 6 hours as needed for Pain, Severe. 60 Tablet 0 07/20/2023 4 Discontinue d(Refill) documented as of this encounter (statuses as of 08/18/2023) Active Problems Problem Noted Date Diagnosed Date [...] 06/27/2001 FEM STRESS INCONTINENCE 05/30/2001 DISC DIS [id number] 05/30/2001 Major depressive disorder 09/12/2000 Overview: ICD-10 update of inactive term documented as of this encounter (statuses as of 08/18/2023) Resolved Problems Problem Noted Date Diagnosed Date [...] as of this encounter (statuses as of 08/18/2023) Immunizations Name Administration Dates Next Due Seasonal [...] Telephone Encounter - Kelly Zaragoza PA-C - 08/18/2023 12:03 PM ESTSigned Prescriptions: Disp Refills oxyCODONE HCl 5 MG Oral Tablet (Oxy IR) 60 Tab*0 Sig: Take 1-2 Tablets by mouth every 6 hours as needed for Pain, Severe. Authorizing Provider: KELLY ZARAGOZA * Telephone Encounter - Alyssa Jane [facility] - 08/17/2023 9:47 AM ESTPending Prescriptions: Disp Refills oxyCODONE HCl 5 MG Oral Tablet (Oxy IR) 60 Tab*0 Sig: Take 1-2 Tablets by mouth every 6 hours as needed for Pain, Severe. * Telephone Encounter - Alyssa Jane [facility] - 08/17/2023 9:46 AM EST I have reviewed the patients controlled substance dispensing history in the Prescription Drug Monitoring Program in compliance with the [facility] regulations before prescribing a controlled substance. PDMP checked on 08/17/2023. Pending Prescriptions: Disp Refills oxyCODONE HCl 5 MG Oral Tablet (Oxy IR) 60 Tab*0 Sig: Take 1-2 Tablets by mouth every 6 hours as needed for Pain, Severe. Last Visit: 06/27/2023 (in office), Visit date not found (telemedicine) Next Visit: Visit date not found Date medication was last filled: 07/20/23 Date medication is due for refill: 07/26/23 [id number] [address] [facility] Is this request for a controlled substance? [...] in Results Review. Please approve if appropriate. ThanksAlyssa Clinical Pharmacist Centralized Clinical Pharmacy Services (CCPS) (Formerly [facility]) [phone] 08/17/2023, 9:47 AM documented in this encounter Plan of [...] region documented in this encounter Care Teams High Frequency Mill Operator Relationship Specialty Start Date End Date Kelly Zaragoza PA-C [address] [facility] [address] PCP - General Physician Swine Nutritionist 04/05/23 documented as of this encounter
--- OUTSIDE RECORDS SUMMARY | 2023-12-27 11:01 | External Medical Summary | Summary of Care ---
Author Name Unknown Organization [facility] Address [address] [facility] [place] [address] Phone [phone] Care Team Providers Care Cellophaner Name Role Phone Kelly Zaragoza PA-C Primary Care Provider [phone] -[phone] Reason for Visit * Reason Onset Date Comments Medication Refill 08/30/2023 Encounter Details Date Type Department Care Team (Late st Contact Info) Description 08/30/2023 Refill [facility] [address] [place] [address] Kelly Zaragoza PA-C [address] [place] [address] HTN, goal below 140/90 Allergies No known active allergiesdocumented as of [...] Pain, Severe. 60 Tablet 0 08/18/2023 Active Lisinopril-hydroC HLOROthiazide 20-25 MG Oral TabletIndications :HTN, goal below 140/90 Take 0.5 Tablets by mouth in the morning. 45 Tablet 1 08/31/2023 Active Lisinopril-hydroC HLOROthiazide 20-25 MG Oral TabletIndications :HTN, goal below 140/90 Take 0.5 Tablets by mouth in the morning. 45 Tablet 1 06/17/2023 4 Discontinue d(Refill) documented as of this [...] 06/27/2001 FEM STRESS INCONTINENCE 05/30/2001 DISC DIS [id number] 05/30/2001 Major depressive disorder 09/12/2000 Overview: ICD-10 [...] encounter Miscellaneous Notes * Telephone Encounter - Dominick Barba [facility] - 08/31/2023 10:36 AM ESTSigned Prescriptions: Disp Refills Lisinopril-hydroCHLOROthiazide 20-25 MG Or*45 Tab*1 Sig: Take 0.5 Tablets by mouth in the morning.Authorizing Provider: KELLY ZARAGOZA User: DOMINICK TEIXEIRA documented in this encounter Plan of Treatment [...] as of this encounter Visit Diagnoses Diagnosis HTN, goal below 140/90 Unspecified essential hypertension documented in this encounter Care Teams Cellophaner Relationship Specialty Start Date End Date Kelly Zaragoza PA-C [address] [place] [address] PCP - General Physician Fruit Loader Machine Operator 04/05/23 documented as of this encounter
--- OUTSIDE RECORDS SUMMARY | 2023-12-27 11:01 | External Medical Summary | Summary of Care ---
Author Name Unknown Organization [facility] Address [address] [facility] [address] Phone [phone] Care Team Providers Care Tamale Maker Name Role Phone Kelly Zaragoza PA-C Primary Care Provider +1 -[phone] Reason for Visit * Reason Onset Date Comments Order Request 08/31/2023 Encounter Details Date Type Department Care Team (Late st Contact Info) Description 08/31/2023 Telephone [facility] [address] [place] [address] Kelly Zaragoza PA-C [address] [place] [address] Order Request Allergies No known [...] 06/27/2001 FEM STRESS INCONTINENCE 05/30/2001 DISC DIS [id number] 05/30/2001 Major depressive disorder 09/12/2000 Overview: ICD-10 [...] Espinosa OSA - 08/31/2023 2:01 PM EST [employer] message sent. 08/31/2023 * Telephone Encounter - [...] Primary documented in this encounter Care Teams Tamale Maker Relationship Specialty Start Date End Date Kelly Zaragoza PA-C [address] [facility] [place] [address] PCP - General Physician Ssn/Ssbn Assistant Navigator 04/05/23 documented as of this encounter
--- OUTSIDE RECORDS SUMMARY | 2023-12-27 11:02 | External Medical Summary | Summary of Care ---
Author Name Unknown Organization [facility] Address [address] [place] [address] Phone [phone] Care Team Providers Care Hims Clerk Name Role Phone Kelly Zaragoza PA-C Primary Care Provider [phone] [phone] Reason for Visit * Reason Comments eRx-Medication Refill Encounter Details Date Type Department Care Team (Late st Contact Info) Description 08/05/2023 Refill [facility] [address] [place] [address] Kelly Zaragoza PA-C [address] [place] [address] Encounter for long-term (current) use of medications* Allergies No known active allergiesdocumented as of this encounter (statuses as of 08/08/2023) Medications Medication Sig Dispensed Refills Start Date [...] EVERY MORNING 90 Tablet 1 03/31/2023 Active Meloxicam 15 MG Oral TabletIndication s:Knee pain, right TAKE 1 TABLET BY MOUTH EVERY MORNING for pain 30 Tablet 2 05/14/2023 Active Lisinopril-hydro CHLOROthiazide 20-25 MG Oral TabletIndication [...] OF 225MG 90 Capsule 0 08/08/2023 Active Venlafaxine HCl ER 150 MG Oral Capsule Extended Release 24 Hour (Effexor XR) TAKE 1 CAPSULE BY MOUTH ONCE DAILY along with 75mg dose 90 Capsule 0 05/04/2023 08/08/19 24 Discontinued Venlafaxine HCl ER 75 MG Oral Capsule Extended Release 24 Hour (Effexor XR) TAKE 1 CAPSULE BY MOUTH ONCE DAILY with 150mgs for a total dose of 225mgs daily 90 Capsule 0 05/04/2023 08/08/19 24 Discontinued documented as of this encounter (statuses as of 08/08/2023) Active Problems Problem Noted Date Diagnosed Date [...] 06/27/2001 FEM STRESS INCONTINENCE 05/30/2001 DISC DIS [id number] 05/30/2001 Major depressive disorder 09/12/2000 Overview: ICD-10 update of inactive term documented as of this encounter (statuses as of 08/08/2023) Resolved Problems Problem Noted Date Diagnosed Date [...] as of this encounter (statuses as of 08/08/2023) Immunizations Name Administration Dates Next Due Seasonal [...] Telephone Encounter - Kelly Zaragoza PA-C - 08/08/2023 5:05 PM ESTSigned Prescriptions: Disp Refills Venlafaxine HCl ER 150 MG Oral Capsule Ext*90 Cap*0 Sig: TAKE 1 CAPSULE BY MOUTH ONCE DAILY ALONG WITH 75MG DOSE Authorizing Provider: KELLY ZARAGOZA Venlafaxine HCl ER 75 MG Oral Capsule Exte*90 Cap*0 Sig: TAKE 1 CAPSULE BY MOUTH ONCE DAILY ALONG WITH 150MG FOR A TOTAL OF 225MG Authorizing Provider: KELLY ZARAGOZA * Telephone Encounter - Shanta Downs hair specialist - 08/08/2023 3:41 PM ESTPending Prescriptions: Disp Refills Venlafaxine HCl ER 150 MG Oral Capsule Ext*90 Cap*0 Sig: TAKE 1 CAPSULE BY MOUTH ONCE DAILY ALONG WITH 75MG DOSE Venlafaxine HCl ER 75 MG Oral Capsule Exte*90 Cap*0 Sig: TAKE 1 CAPSULE BY MOUTH ONCE DAILY ALONG WITH 150MG FOR A TOTAL OF 225MG * Telephone Encounter - Shanta Downs hair specialist - 08/08/2023 3:41 PM EST Received message from [facility] regarding patient needing appointment. Placed call to patient to advise. Left message on voicemail to call back and schedule appointment. Thank you, Shanta Downs [facility] Pack Master II [facility]ized [facility] Services ([facility]PS) (formerly Telepharmacy) 08/08/2023,3:41 PM * Telephone Encounter - Soo Farrell [facility] - 08/08/2023 5:43 AM ESTPending Prescriptions: Disp Refills Venlafaxine HCl ER 150 MG Oral Capsule Ext*90 Cap*0 Sig: TAKE 1 CAPSULE BY MOUTH ONCE DAILY ALONG WITH 75MG DOSE Venlafaxine HCl ER 75 MG Oral Capsule Exte*90 Cap*0 Sig: TAKE 1 CAPSULE BY MOUTH ONCE DAILY ALONG WITH 150MG FOR A TOTAL OF 225MG * Telephone Encounter - Soo Farrell [facility] - 08/08/2023 5:42 AM EST Please contact patient so that an appointment can be scheduled with her PRIMARY CARE provider before this refill can be authorized. After contacting patient, please forward request to Kelly Zaragoza PA-C. Last 4 visits were ACUTE Last Visit: 06/27/2023 - ACUTE (in office), Visit date not found (telemedicine) Next Visit: Visit date not found Thank You, Soo Farrell [facility] Clinical Pharmacist Centralized Clinical Pharmacy Services (CCPS) (formerly Telepharmacy) [phone] 08/08/2023, 5:42 AM * Telephone Encounter - Interface, E-Rx Ss Inbound - 08/07/2023 4:22 PM EST Pending Prescriptions: Disp Refills Venlafaxine HCl ER 150 MG Oral Capsule Ext*90 Cap*0 Sig: TAKE 1CAPSULE BY MOUTH ONCE DAILY along with 75mg dose Venlafaxine HCl ER 75 MG Oral Capsule Exte*90 Cap*0 Sig: TAKE 1 CAPSULE BY MOUTH ONCE DAILY ALONG WITH 150MG FOR A TOTAL OF 225MG documented in this encounter Plan of Treatment Scheduled Orders Name Type Priority Associated Diagnoses Orde r Schedule LDL CHOLESTEROL (DIRECT MEASURE) Lab Routine Encounter for long-term (current) use of medications Expected: 08/08/2023 (Approximate), Expires: 08/08/2024 Scheduled Procedures Name Priority Associated Diagnoses Date/Ti me COLONOSCOPY FLEXIBLE PROXIMAL DIAGNOSTIC Recall History of colon polyps Health Maintenance Due Date Last Done Comments Hepatitis B (1 of 3 - 3-dose series) 1968 COVID-19 Vaccine (#1) 01/13/1969 HIV Screening 1983 Zoster Vaccines (1 of 2) 2018 Influenza Vaccine (FLU shot) (#1) 2023 06/24/2022, 03/18/2018, 05/18/2017, Additional history exists Mammogram 05/31/2023 05/31/2022, 01/15, 01/29/2011, Additional history exists Depression Screening 08/27/2023 08/27/2022 [...] medications documented in this encounter Care Teams Hims Clerk Relationship Specialty Start Date End Date Kelly Zaragoza PA-C [address] [place] [place] [address] PCP - General Physician Wire Steward 04/05/23 documented as of this encounter
--- OUTSIDE RECORDS SUMMARY | 2023-12-27 11:02 | External Medical Summary ---
Author Name Unknown Address Unknown Organization K01:[facility] - [address] [address] Laboratory Report Ordering Provider Test Date Status SUMANKATHRIN 08/16/2023 13:39:04 Final Observation Date Value Abnormality Reference (Units ) Status SYNC LEUKOCYTES IN BLOOD BY AUTOMATED COUNT 08/16/2023 13:39:04 6.95 4.00-10.80 (K/uL) Final Segs 08/16/2023 13:39:04 63.1 40.0-75.0 (%) Final Lymphs % 08/16/2023 13:39:04 21.7 18.0-42.0 (%) Final Monos 08/16/2023 13:39:04 8.2 1.0-11.0 (%) Final Eosinophils 08/16/2023 13:39:04 5.3 0.0-6.0 (%) Final Basos 08/16/2023 13:39:04 1.4 0.0-2.0 (%) Final Immature Granulocyte, Percent 08/16/2023 13:39:04 0.3 0.0-2.0 (%) Final Absolute Segs 08/16/2023 13:39:04 4.38 1.80-7.70 (K/uL) Final Lymphs, absolute 08/16/2023 13:39:04 1.51 1.00-4.80 (K/ul) Final Monos, Abs 08/16/2023 13:39:04 0.57 0.00-1.10 (K/uL) Final Eos, Abs 08/16/2023 13:39:04 0.37 0.00-0.70 (K/uL) Final Basos, Abs 08/16/2023 13:39:04 0.10 0.00-0.20 (K/uL) Final Immature Granulocytes, Number 08/16/2023 13:39:04 0.02 0.00-0.20 (K/uL) Final Performing Location [facility] - [address] [facility] [address]
--- OUTSIDE RECORDS SUMMARY | 2023-12-27 11:02 | External Medical Summary ---
Author Name Unknown Address Unknown Organization K01:[facility] - [address] [place] [address] Laboratory Report Ordering Provider Test Date Status NANCIEMARKUS 08/16/2023 13:39:04 Final Observation Date Value Abnormality Reference (Units ) Status LDL, (direct) 08/16/2023 13:39:04 82 <=129 (mg/dL) Final LDL Cholesterol Reference Ra nges (mg/dL):
<70 Target level for high risk ASCVD patient
<100 Optimal for general population
100-129 Near optimal for general population
130-159 Borderline high
160-189 High
>=190 Very high Performing Location [facility] - [address] [place] [address]
--- OUTSIDE RECORDS SUMMARY | 2023-12-27 11:02 | External Medical Summary | Summary of Care ---
Author Name Unknown Organization [facility] Address [address] [facility] [place] [address] Phone [phone] Care Team Providers Care Benefits Consulting Analyst Name Role Phone Kelly Zaragoza PA-C Primary Care Provider +1 [phone] Reason for Visit * Reason Onset Date Comments Medication Refill 07/19/2023 Encounter Details Date Type Department Care Team (Late st Contact Info) Description 07/19/2023 Refill [facility] [address] [place] [address] Tata Castro MD [address] [place] [address] Acute cough; Post-nasal drip; Sarcoidosis of lung (HCC) Allergies No known active allergiesdocumented as of this encounter (statuses as of 07/20/2023) Medications Medication Sig Dispensed Refills Start Date [...] EVERY MORNING 90 Tablet 1 03/31/2023 Active Venlafaxine HCl ER 150 MG Oral Capsule Extended Release 24 Hour (Effexor XR) TAKE 1 CAPSULE BY MOUTH ONCE DAILY along with 75mg dose 90 Capsule 0 05/04/2023 Active Venlafaxine HCl ER 75 MG Oral Capsule Extended Release 24 Hour (Effexor XR) TAKE 1 CAPSULE BY MOUTH ONCE DAILY with 150mgs for a total dose of 225mgs daily 90 Capsule 0 05/04/2023 Active Meloxicam 15 MG Oral TabletIndications :Knee pain, right TAKE 1 TABLET BY MOUTH EVERY MORNING for pain 30 Tablet 2 05/14/2023 Active Gabapentin 400 MG Oral Capsule (Neurontin)Indica tions:Disc disorder of lumbar region TAKE 1 TO 2 CAPSULES BY MOUTH UP TO 4 TIMES DAILY NEEDED FOR NERVE PAIN 360 Capsule 0 06/16/2023 Active Lisinopril-hydroC HLOROthiazide 20-25 MG Oral TabletIndications :HTN, goal below 140/90 Take 0.5 Tablets by mouth in the morning. 45 Tablet 1 06/17/2023 Active oxyCODONE HCl 5 MG Oral Tablet (Oxy IR)Indications:Di sc disorder of lumbar region Take 1-2 Tablets by mouth every 6 hours as needed for Pain, Severe. 60 Tablet 0 06/21/2023 Active Fluticasone Propionate 50 MCG/ACT Nasal Suspension (Flonase)Indicati ons:Acute cough,Post-nasal drip,Sarcoidosis of lung (HCC) Administer 2 Sprays into each nostril in the morning. 11.1 mL 5 07/20/2023 Active Fluticasone Propionate 50 MCG/ACT Nasal Suspension (Flonase)Indicati ons:Acute cough,Post-nasal drip,Sarcoidosis of lung (HCC) Administer 2 Sprays into each nostril in the morning. 11.1 mL 5 08/10/2022 4 Discontinue d(Refill) documented as of this encounter (statuses as of 07/20/2023) Active Problems Problem Noted Date Diagnosed Date [...] 06/27/2001 FEM STRESS INCONTINENCE 05/30/2001 DISC DIS [id number] 05/30/2001 Major depressive disorder 09/12/2000 Overview: ICD-10 update of inactive term documented as of this encounter (statuses as of 07/20/2023) Resolved Problems Problem Noted Date Diagnosed Date [...] as of this encounter (statuses as of 07/20/2023) Immunizations Name Administration Dates Next Due Seasonal [...] Telephone Encounter - Kelly Zaragoza PA-C - 07/20/2023 6:16 PM ESTSigned Prescriptions: Disp Refills Fluticasone Propionate 50 MCG/ACT Nasal Quiroga*11.1 mL5 Sig: Administer 2 Sprays into each nostril in the morning. Authorizing Provider: KELLY ZARAGOZA * Telephone Encounter - Alyssa Jane [facility] - 07/20/2023 4:54 PM ESTPending Prescriptions: Disp Refills Fluticasone Propionate 50 MCG/ACT Nasal Quiroga*11.1 mL5 Sig: Administer 2 Sprays into each nostril in the morning. * Telephone Encounter - Alyssa Jane RP - 07/20/2023 4:53 PM EST Last prescribed for an acute issue. Forwarding to provider. Please authorize refill if appropriate. Thanks, Alyssa Jane Clinical Pharmacist Centralized Clinical Pharmacy Services (CCPS) (Former[facility]) [phone] 07/20/2023, 4:53 PM * Telephone Encounter - Alyssa Jane RP - 07/20/2023 4:53 PM EST Did you pend patient's preferred pharmacy and medication before forwarding?yes Pharmacy: [id number] [facility] Pending Prescriptions: Disp Refills Fluticasone Propionate 50 MCG/ACT Nasal S*11.1 mL5 Sig: Administer 2 Sprays into each nostril in the morning. Last Visit: 06/27/2023 (in office), Visit date not found (telemedicine) Next Visit: Visit date not found If no future appointments scheduled, and last appointment is greater than a year ago, please schedule patient for a follow-up appointment Last date the medication was ordered: 08/10/22 Is this request for a controlled substance?No Urine Drug Screen: Results for orders placed [...] found in Results Review. Patient Phone Numbers Labs: Lab Results Component Value Date/Time CREAT 0.8 03/11/2023 12:18 PM CREAT 0.81 05/29/2021 12:00 AM CREAT 0.9 04/21/2020 08:32 AM POTASSIUM 4.5 06/30/2022 02:24 PM POTASSIUM 4.0 05/29/2021 12:00 AM POTASSIUM 4.2 04/21/2020 08:32 AM POTASSIUM 4.5 05/04/1996 09:30 AM TSH 1.480 02/23/2018 12:00 AM TSH 2.63 08/11/2010 03:57 PM TSH 3.35 05/04/1996 09:30 AM LDLCALC 77 05/12/2021 10:52 AM LDLCALC 95 04/21/2020 08:32 AM LDLDIRECT NOT APPLICABLE 04/21/2020 08:32 AM ALT 44 (H) 06/30/2022 02:24 PM ALT 54 (H) 09/14/2017 10:38 AM [...] Sarcoidosis documented in this encounter Care Teams Benefits Consulting Analyst Relationship Specialty Start Date End Date Kelly Zaragoza PA-C [address] [place] [facility] [address] PCP - General Physician Cutting Machine Tender 04/05/23 documented as of this encounter
--- OUTSIDE RECORDS SUMMARY | 2023-12-27 11:02 | External Medical Summary ---
Author Name Unknown Address Unknown Organization K01[facility] [address] [address] Laboratory Report Ordering Provider Test Date Status TERESA,DURA 08/16/2023 13:39:04 Final Observation Date Value Abnormality Reference (Units ) Status BUN 08/16/2023 13:39:04 16 6-20 (mg/dL) Final Creatinine 08/16/2023 13:39:04 0.8 0.5-1.0 (mg/dL) Final Glomerular filtration rate/1.73 sq M.predicted [Volume Rate/Area] in Serum, Plasma or Blood by Creatinine-based formula (CKD-EPI) 08/16/2023 13:39:04 90 >=60 (mL/min) Final eGFR is calculated based on the CKD-EPI 2020 equation SODIUM 08/16/2023 13:39:04 139 135-146 (m mol/L) Final Potassium 08/16/2023 13:39:04 4.7 3.5-5.1 (m mol/L) Final Cl 08/16/2023 13:39:04 98 98-107 (mm ol/L) Final CO2 08/16/2023 13:39:04 25 22-32 (mmo l/L) Final Anion gap 08/16/2023 13:39:04 16 Above high normal 7- 15 (mmol/L) Final Glucose 08/16/2023 13:39:04 100 70-120 (mg /dL) Final Albumin 08/16/2023 13:39:04 4.6 3.8-5.0 (g /dL) Final AST (Aspartate aminotransferase) 08/16/2023 13:39:04 43 Above high normal 10-35 (U/L) Final Alk Phos 08/16/2023 13:39:04 115 35-130 (U/ L) Final Bilirubin, Total 08/16/2023 13:39:04 0.6 <=1 .2 (mg/dL) Final Calcium 08/16/2023 13:39:04 9.8 8.4-10.2 ( mg/dL) Final Protein 08/16/2023 13:39:04 7.0 6.0-8.3 (g /dL) Final ALT (Alanine aminotransferase) 08/16/2023 13:39:04 67 Above high normal 10-35 (U/L) Final Performing Location [facility] [address] [facility] [address]
--- OUTSIDE RECORDS SUMMARY | 2023-12-27 11:02 | External Medical Summary | Summary of Care ---
Author Name Unknown Organization [facility] Address [address] [place] [facility] [place] [address] Phone [phone] Care Team Providers Care Munitions Factory Worker Name Role Phone Kelly Zaragoza PA-C Primary Care Provider +1 [phone] Reason for Visit * Reason Comments eRx-Medication Refill Encounter Details Date Type Department Care Team (Late st Contact Info) Description 07/29/2023 Refill [facility] [address] [place] [address] Kelly Zaragoza PA-C [address] [place] [address] DISC DIS [id number] Allergies No known active allergiesdocumented as of this encounter (statuses as of 07/31/2023) Medications Medication Sig Dispensed Refills Start Date [...] 0 05/04/2023 Active Meloxicam 15 MG Oral TabletIndication s:Knee [...] NERVE PAIN 360 Capsule 1 07/31/2023 Active Gabapentin 400 MG Oral Capsule (Neurontin)Indic ations:Disc disorder of lumbar region TAKE 1 TO 2 CAPSULES BY MOUTH UP TO 4 TIMES DAILY NEEDED FOR NERVE PAIN 360 Capsule 0 06/16/2023 07/31/19 24 Discontinued documented as of this encounter (statuses as of 07/31/2023) Active Problems Problem Noted Date Diagnosed Date [...] 06/27/2001 FEM STRESS INCONTINENCE 05/30/2001 DISC DIS [id number] 05/30/2001 Major depressive disorder 09/12/2000 Overview: ICD-10 update of inactive term documented as of this encounter (statuses as of 07/31/2023) Resolved Problems Problem Noted Date Diagnosed Date [...] as of this encounter (statuses as of 07/31/2023) Immunizations Name Administration Dates Next Due Seasonal [...] Telephone Encounter - Kelly Zaragoza PA-C - 07/31/2023 7:15 PM ESTSigned Prescriptions: Disp Refills Gabapentin 400 MG Oral Capsule (Neurontin) 360 Ca*1 Sig: TAKE 1 TO 2 CAPSULES BY MOUTH UP TO 4 TIMES DAILY NEEDED FOR NERVE PAIN Authorizing Provider: KELLY ZARAGOZA * Telephone Encounter - Jairo, E-Rx Ss Inbound - 07/31/2023 2:18 PM EST Pending Prescriptions: Disp Refills Gabapentin 400 MG Oral Capsule [Pharmacy M*360 Ca*0 Sig: TAKE 1 TO 2 CAPSULES BY MOUTH UP TO 4 TIMES DAILY NEEDED FOR NERVE PAIN * Telephone Encounter - Luiz Santamaria [facility] - 07/31/2023 1:43 PM EST Refill pharmacists currently not authorized to approve refills for this class of medication per refill protocol. Please approve if appropriate. Thanks, Luiz Santamaria, PharmD Clinical Pharmacist TelePharmacy 07/31/2023 1:43 PM * Telephone Encounter - Luiz Santamaria RP - 07/31/2023 1:43 PM ESTPending Prescriptions: Disp Refills Gabapentin 400 MG Oral Capsule [Pharmacy M*360 Ca*0 Sig: TAKE 1 TO 2 CAPSULES BY MOUTH UP TO 4 TIMES DAILY NEEDED FOR NERVE PAIN documented in this encounter Plan of Treatment [...] this encounter Visit Diagnoses Diagnosis DISC DIS [id number] Other and unspecified disc disorder of lumbar region documented in this encounter Care Teams Munitions Factory Worker Relationship Specialty Start Date End Date Kelly Zaragoza PA-C [address] [facility] [place] [address] PCP - General Physician Welding Specialist 04/05/23 documented as of this encounter
--- OUTSIDE RECORDS SUMMARY | 2023-12-27 11:02 | External Medical Summary | Summary of Care ---
Author Name Unknown Organization [facility] Address [address] [address] Phone [phone] Care Team Providers Care Customer Strategy Manager Name Role Phone Kelly Zaragoza PA-C Primary Care Provider [phone] [phone] Reason for Visit * Reason Onset Date Comments Medication Refill 07/19/2023 Encounter Details Date Type Department Care Team (Late st Contact Info) Description 07/19/2023 Refill [facility] [address] [place] [address] Aurelia Wagoner MD [address] [place] [address] Disc disorder of lumbar region [...] 11.1 mL 5 08/10/2022 4 Discontinue d(Refill) oxyCODONE HCl 5 MG Oral Tablet (Oxy IR)Indications:Di sc disorder of lumbar region Take 1-2 Tablets by mouth every 6 hours as needed for Pain, Severe. 60 Tablet 0 06/21/2023 4 Discontinue d(Refill) documented as of this [...] 06/27/2001 FEM STRESS INCONTINENCE 05/30/2001 DISC DIS [id number] 05/30/2001 Major depressive disorder 09/12/2000 Overview: ICD-10 [...] Telephone Encounter - Aurelia Wagoner MD - 07/20/2023 7:39 PM ESTSigned Prescriptions: Disp Refills oxyCODONE HCl 5 MG Oral Tablet (Oxy IR) 60 Tab*0 Sig: Take 1-2 Tablets by mouth every 6 hours as needed for Pain, Severe.Authorizing Provider: AURELIA WAGONER-- * Telephone Encounter - Kelly Zaragoza PA-C - 07/20/2023 6:22 PM ESTPending Prescriptions: Disp Refills oxyCODONE HCl 5 MG Oral Tablet (Oxy IR) 60 Tab*0 Sig: Take 1-2 Tablets by mouth every 6 hours as needed for Pain, Severe. * Telephone Encounter - Alyssa Jane [facility] - 07/20/2023 4:49 PM ESTPending Prescriptions: Disp Refills oxyCODONE HCl 5 MG Oral Tablet (Oxy IR) 60 Tab*0 Sig: Take 1-2 Tablets by mouth every 6 hours as needed for Pain, Severe. * Telephone Encounter - Alyssa Jane [facility] - 07/20/2023 4:48 PM EST I have reviewed the patients controlled substance dispensing history in the Prescription Drug Monitoring Program in compliance with the [facility] regulations before prescribing a controlled substance. PDMP checked on 07/20/2023. Pending Prescriptions: Disp Refills oxyCODONE HCl 5 MG Oral Tablet (Oxy IR) 60 Tab*0 Sig: Take 1-2 Tablets by mouth every 6 hours as needed for Pain, Severe. Last Visit: 06/27/2023 (in office), Visit date not found (telemedicine) Next Visit: Visit date not found Date medication was last filled: 06/21/23 Date medication is due for refill: 06/27/23 [id number] [id number] Is this request for [...] Pharmacist Centralized Clinical Pharmacy Services ([facility]PS) ([facility]) [phone] 07/20/2023, 4:49 PM documented in this encounter Plan of [...] region documented in this encounter Care Teams Customer Strategy Manager Relationship Specialty Start Date End Date Kelly Zaragzoa PA-C [address] [place] [address] PCP - General Physician Deckhand Maintenance 04/05/23 documented as of this encounter
--- OUTSIDE RECORDS SUMMARY | 2023-12-27 11:02 | External Medical Summary | Summary of Care ---
Author Name Unknown Organization [facility] Address [address] [facility] [place] [address] Phone [phone] Care Team Providers Care Job Analysis Manager Name Role Phone Kelly Zaragoza PA-C Primary Care Provider [phone] [phone] Encounter Details Date Type Department Care Team (Late st Contact Info) Description 08/09/2023 Orders Only PATIENT PORTAL DO NOT DELETE THIS DEPT USED BY [place] [address] Allergies No known active allergiesdocumented as of this encounter (statuses as of 08/09/2023) Medications Medication Sig Dispensed Refills Start Date [...] 1 03/31/2023 Active Meloxicam 15 MG Oral TabletIndications: Knee pain, right TAKE 1 TABLET BY MOUTH EVERY MORNING for pain 30 Tablet 2 05/14/2023 Active Lisinopril-hydroCH LOROthiazide 20-25 MG Oral TabletIndications: [...] OF 225MG 90 Capsule 0 08/08/2023 Active documented as of this encounter (statuses as of 08/09/2023) Active Problems Problem Noted Date Diagnosed Date [...] 06/27/2001 FEM STRESS INCONTINENCE 05/30/2001 DISC DIS [id number] 05/30/2001 Major depressive disorder 09/12/2000 Overview: ICD-10 update of inactive term documented as of this encounter (statuses as of 08/09/2023) Resolved Problems Problem Noted Date Diagnosed Date [...] as of this encounter (statuses as of 08/09/2023) Immunizations Name Administration Dates Next Due Seasonal [...] as of this encounter Plan of Treatment Scheduled Procedures [...] filedocumented as of this encounter Care Teams Job Analysis Manager Relationship Specialty Start Date End Date Kelly Zaragoza PA-C [address] [facility] [place] [address] PCP - General Physician Loan Approver 04/05/23 documented as of this encounter
[2023-12-27] MEDS: DOXYCYCLINE HYCLATE 100 MG in DEXTROSE 5% MINI-B 100 ML IV SCH (11:57)
[2023-12-27] MEDS: ONDANSETRON INJ 2 MG/ML 2 ML VIAL IV PRN (13:05)
[2023-12-27] MEDS: HYDROmorphone INJ 0.5 MG/0.5 ML SYR IV PRN (13:06)
[2023-12-27] MEDS: CYCLOBENZAPRINE HCL 10 MG TAB PO PRN (16:42)
[2023-12-27] MEDS: ACETAMINOPHEN 325 MG TAB PO PRN (16:42)
[2023-12-28 06:49] LABS: Basophils # (auto) 0.11 K/uL (0.00-0.20); Basophils % (auto) 1.5 %; Eosinophils # (auto) 0.44 K/uL (0.00-0.50); Eosinophils % (auto) 5.9 %; Hematocrit (blood only) 37.4 % (37.0-47.0); Hemoglobin 11.5 g/dl (12.0-16.0); Immature Granulocytes # (auto) 0.03 K/uL (0.01-0.20); Immature Granulocytes % (auto) 0.4 %; Lymphocytes # (auto) 1.32 K/uL (1.20-3.40); Lymphocytes % (auto) 17.8 %; Mean Corpuscular Hemoglobin 25.2 pg (25.0-34.0); Mean Corpuscular Hgb Conc 30.7 g/dL (32.0-36.0); Mean Corpuscular Volume 81.8 fL (80.0-100.0); Mean Platelet Volume 10.7 fL (9.4-12.4); Monocytes # (auto) 0.75 K/uL (0.11-0.59); Monocytes % (auto) 10.1 %; Neutrophils # (auto) 4.75 K/uL (1.40-6.50); Neutrophils % (auto) 64.3 %; Platelet Count 217 K/uL (130-400); RDW Coefficient of Variation 18.4 % (11.5-14.5); RDW Standard Deviation 54.6 fL (36.4-46.3); Red Blood Count 4.57 M/uL (4.20-5.40)
[2023-12-28 06:57] LABS: Albumin Globulin Ratio 1.1 (0.9-2); Albumin Level 3.4 gm/dl (3.4-5.0); Bilirubin,Total 0.7 mg/dl (0.2-1.0); Calcium 8.9 mg/dl (8.6-10.3); Creatinine Clr Calc Pharmacy 135.9 ml/min; Est GFR (African American) 94.8 ml/min; Est GFR (Non-African American) 81.8 ml/min; Phosphorus 4.4 mg/dl (2.5-4.9); Potassium 4.1 mmol/L (3.5-5.1); Total Protein 6.4 gm/dl (6.0-8.3)
[2023-12-28 07:16] LABS: D Dimer 1840 ug/L FEU (0-500)
--- NOTE | 2023-12-28 08:48 | Hospitalist Progress Note ---
Date of Service December 28, 2023 Assessment & Plan (1) Right upper quadrant abdominal pain: Plan: 53-year-old female with past medical history significant for hyperlipidemia, nonallergic rhinitis, sarcoidosis of lung, hypertension, morbid obesity, post gastric surgery syndrome, GERD, fatty liver, female stress incontinence, primary osteoarthritis of both knees, lumbago, depression, general anxiety disorder comes because of right upper quadrant abdominal pain started yesterday morning and radiating to right shoulder and neck region. Associated with some nausea. Pain is moderate to severe in nature. No fevers. Has shortness of breath when the pain is severe as she cannot take a deep breath. Denies any fevers. No cough. No headache. No dizziness. No runny nose or sore throat. RUQ abdominal pain history of cholecystectomy, appendectomy and Jayda-en-Y gastric bypass CT abdomen pelvis with IV contrast no acute findings LFTs wnl except alkaline phos mildly elevated 106 lipase wnl UA wnl Liver US pending Pt declined GI consult on 12/27 IV pain meds as needed, IV antiemetics as needed Continue to monitor Bronchitis Noted on CT chest ? cause of symptoms On doxycyline elevated D-dimer lower EXTR Doppler negative CT chest NEGATIVE for PE hypertension continue home lisinopril/hydrochlorothiazide monitor depression generalized anxiety disorder on bupropion and venlafaxine history of sleep apnea nontolerant of CPAP as per patient DVT prophylaxis: Lovenox Admission and Anticipated Discharge Date Admission Date: December 27, 2023 Subjective States pain still present but declining GI consult Wants to be monitored overnight Review of Systems Review of Systems: All systems reviewed & are unremarkable except as noted in Subjective Physical Exam Physical Exam: General: Alert, oriented Skin: No noted rashes or bruises Psych: Appropriate mood and affect Neuro: No gross deficits HEENT: NC/AT Chest: Nontender to palpation. CV: RRR, Normal s1, s2. No murmurs appreciated Resp: Breath sounds clear bilaterally, no increased effort of breathing. No crackles/rhonchi/rales. Abdomen: Soft, tender in RUQ, nondistended. No guarding. Extremities: No edema in lower extremities bilaterally. Results & Data Results & Data Vital Signs (Past 12 Hours) Vital Signs Temp Pulse Resp BP Pulse Ox O2 Del Method 12/28/23 07:27 36.5 C 85 18 100/65 94 Room Air Diagnostic Findings Abdomen/Pelvis CT 12/26/23 23:12 Exam(s): CT ABDOMEN + PELVIS With Contrast IV Amt: 120 ml optiray 320 EXAM: CT Abdomen and Pelvis With Intravenous Contrast CLINICAL HISTORY: Reason for exam: RUQ abd pain, hx of [place]. TECHNIQUE: Axial computed tomography images of the abdomen and pelvis with intravenous contrast. CTDI is 35.66 mGy and DLP is 2007.36 mGy-cm. Automated exposure control was utilized for the study. A dose lowering technique was utilized adhering to the principles of ALARA. CONTRAST: Patient received 120 ml optiray 320 of IV contrast COMPARISON: CT abdomen pelvis March 24, 2022. FINDINGS: Lung bases: Unremarkable. No mass. No consolidation. ABDOMEN: Liver: Hepatic steatosis. Surface nodularity of the liver, correlate for early cirrhotic changes. Gallbladder and bile ducts: Cholecystectomy. No ductal dilation. Pancreas: Unremarkable. No mass. No ductal dilation. Spleen: Unremarkable. No splenomegaly. Adrenals: Unremarkable. No mass. Kidneys and ureters: Unremarkable. No hydronephrosis or delayed nephrogram. Stomach and bowel: Jayda-en-Y gastric bypass. No acute diverticulitis. No bowel obstruction. No free air. PELVIS: Appendix: Appendectomy. Bladder: Decompressed urinary bladder. Reproductive: Unremarkable as visualized. ABDOMEN and PELVIS: Intraperitoneal space: See above. Bones/joints: Posterior fusion at L3-4. No acute fracture. No dislocation. Soft tissues: Unremarkable. Vasculature: Unremarkable. No abdominal aortic aneurysm. Lymph nodes: Unremarkable. No enlarged lymph nodes. IMPRESSION: 1. No hydronephrosis or delayed nephrogram. 2. No acute diverticulitis. No bowel obstruction. No free air. 3. Hepatic steatosis. Surface nodularity of the liver, correlate for early cirrhotic changes. 4. Cholecystectomy. 5. Jayda-en-Y gastric bypass. 6. Appendectomy. Electronically signed by: Paulo Infante MD 12/27/23 01:52 AM Venous Doppler Study 12/27/23 02:35 Exam(s): US VENOUS BILATERAL LOWER EXTREMITIES EXAM: US Duplex Bilateral Lower Extremities Veins CLINICAL HISTORY: Reason for exam: eval for DVT. TECHNIQUE: Real-time duplex ultrasound scan of the bilateral lower extremity veins integrating B-mode two-dimensional vascular structure, Doppler spectral analysis, color flow Doppler imaging and compression. COMPARISON: No relevant prior studies available. FINDINGS: Right deep veins: Unremarkable. No DVT in the right common femoral, femoral, proximal deep femoral or popliteal veins. The veins demonstrate normal color flow, are normally compressible, with normal phasic flow and/or augmentation response. Right superficial veins: Unremarkable. No thrombus in the visualized right great saphenous vein. Left deep veins: Unremarkable. No DVT in the left common femoral, femoral, proximal deep femoral or popliteal veins. The veins demonstrate normal color flow, are normally compressible, with normal phasic flow and/or augmentation response. Left superficial veins: Unremarkable. No thrombus in the visualized left great saphenous vein. Soft tissues: No acute findings. No popliteal cyst. IMPRESSION: Negative bilateral lower extremity duplex venous ultrasound. No evidence of DVT. Electronically signed by: Tanvir Sheldon MD 12/27/23 04:42 AM Chest X-Ray 12/27/23 02:47 XR chest 1V portable CLINICAL HISTORY: Right-sided abdominal pain. COMPARISON STUDY: Chest CT March 25, 2021. Chest radiograph March 24, 2022. FINDINGS: Lung volumes are at the lower limits of normal, unchanged. Lungs are clear. There is no pneumothorax or pleural effusion. Cardiac size is normal. Mediastinal contours are normal. There is no evidence for pulmonary edema. Old right fourth rib fractures incidentally noted. IMPRESSION: No acute cardiopulmonary findings. ACT 112: Negative or not required by law. Electronically signed by: Ede Rivera M.D. 12/27/2023 6:30 AM Chest CTA 12/27/23 07:55 CT angio chest PE protocol CT DOSE: 813.26 mGy.cm HISTORY: 53 years-old Female with PE. Acute shortness of breath with shoulder and chest pain TECHNIQUE: Multiple CTA images of the chest were obtained after the intravenous administration of 112 ml Optiray. Coronal and sagittal MIPS were obtained from the axial data set and were submitted for review. All measurements were obtained according to NASCET criteria. A dose lowering technique was utilized adhering to the principles of ALARA. COMPARISON: Duplex venous Doppler study of same day, chest CT 03/25/2021 FINDINGS: CTA: Moderate cardiomegaly. No pericardial effusion. Mild coronary artery calcifications. No thoracic aortic aneurysm or dissection. Patency of the imaged great vessels. No pulmonary emboli identified. CT CHEST: Unremarkable thyroid. Subcentimeter right cardiophrenic/epicardial lymph nodes are nonspecific measuring up to 9 mm, slightly increased in size from prior. Trace right pleural effusion. No pneumothorax. Bronchial wall thickening with mild mucous plugging. Mild patchy subsegmental groundglass opacities. Unchanged scattered subcentimeter solid pulmonary nodules measuring up to 4 mm. These are likely benign. Mild mosaic attenuation. Hepatosplenomegaly. Postoperative changes of the stomach. Cholecystectomy. Mild marginal nodularity of the liver. No acute fracture. IMPRESSION: 1. No pulmonary emboli identified. 2. Bronchial wall thickening suggestive of bronchitis or reactive airway disease with mild bibasilar mucous plugging. 3. Mild atelectasis with air trapping. 4. Stable scattered likely benign solid pulmonary nodules measuring up to 4 mm. ACT 112: Negative or not required by law. The above report was generated using voice recognition software. It may contain grammatical, syntax or spelling errors. Electronically signed by: Luiz Garcia M.D. 12/27/2023 10:45 AM
[2023-12-28] MEDS ORDERED: ENOXAPARIN INJ 40 MG/0.4 ML SYR SQ SCH (09:00)
[2023-12-29] MEDS: POLYETHYLENE (MIRALAX) 17 GM PACK PO PRN (06:16)
[2023-12-29 07:55] LABS: Basophils # (auto) 0.12 K/uL (0.00-0.20); Basophils % (auto) 1.4 %; Eosinophils # (auto) 0.46 K/uL (0.00-0.50); Eosinophils % (auto) 5.5 %; Hematocrit (blood only) 43.2 % (37.0-47.0); Immature Granulocytes # (auto) 0.05 K/uL (0.01-0.20); Immature Granulocytes % (auto) 0.6 %; Lymphocytes # (auto) 2.18 K/uL (1.20-3.40); Lymphocytes % (auto) 25.9 %; Mean Corpuscular Hgb Conc 30.1 g/dL (32.0-36.0); Mean Corpuscular Volume 82.9 fL (80.0-100.0); Mean Platelet Volume 10.8 fL (9.4-12.4); Monocytes # (auto) 0.77 K/uL (0.11-0.59); Monocytes % (auto) 9.2 %; Neutrophils # (auto) 4.83 K/uL (1.40-6.50); Neutrophils % (auto) 57.4 %; Platelet Count 297 K/uL (130-400); RDW Coefficient of Variation 18.7 % (11.5-14.5); RDW Standard Deviation 54.8 fL (36.4-46.3); Red Blood Count 5.21 M/uL (4.20-5.40); White Blood Count 8.41 K/ul (4.8-10.8)
[2023-12-29 08:09] LABS: Albumin Globulin Ratio 1.1 (0.9-2); Albumin Level 3.9 gm/dl (3.4-5.0); BUN Creatinine Ratio 12.9 (10-20); Bilirubin,Total 0.8 mg/dl (0.2-1.0); Calcium 9.5 mg/dl (8.6-10.3); Est GFR (African American) 72.6 ml/min; Est GFR (Non-African American) 62.6 ml/min; Globulin 3.5 gm/dl (2.5-4.0); Magnesium 1.9 mg/dl (1.7-2.4); Phosphorus 3.9 mg/dl (2.5-4.9); Potassium 3.7 mmol/L (3.5-5.1); Total Protein 7.4 gm/dl (6.0-8.3)
[2023-12-29 08:19] LABS: Prothrombin Time 11.1 Seconds (9.0-12.0)
--- NOTE | 2023-12-29 08:38 | Ultrasound Report ---
US liver CLINICAL HISTORY: RUQ pain TECHNIQUE: Multiple real-time sonographic images of the right upper quadrant were obtained. Comparison: Comparison is made to CT abdomen pelvis 12/26/2023 FINDINGS: The liver is diffusely echogenic in appearance with poor ultrasound penetration, with normal contour, which is consistent with fatty infiltration. No focal mass lesions are seen. No intrahepatic duct al dilatation is seen. Patient is status post cholecystectomy. The common duct measures 0.5 cm in di ameter at the level of the hepatic artery. The visualized portions of the pancreas appear normal. The right kidney shows normal echogenicity, cortical thickness and renal contour. The right kidney sh ows no evidence of hydronephrosis or mass. No ascites or free fluid is seen in Whatley's pouch. IMPRESSION: No acute abnormalities. Hepatic steatosis is seen. ACT 112: Negative or not required by law. Electronically signed by: Placido Velez M.D. 12/29/2023 8:35 AM
--- NOTE | 2023-12-29 11:41 | Gastrointestinal Consultation ---
Date of Consultation December 29, 2023 Assessment & Plan (1) Right upper quadrant abdominal pain: Plan Patient is a 53 y.o. female with a history of morbid obesity s/p gastric bypass and cholecystectomy admitted with RUQ pain. Given NSAID use, concern for possible PUD. 1. NPO post midnight. 2. EGD tomorrow for further evaluation by Dr. Hernandez. 3. Start Pantoprazole 40 mg BID. 4. Supportive care per primary team. Thank you for allowing us to participate in the care of this patient. If you have any questions or concerns, please do not hesitate to contact us. Supervising Physician Co-Signing Physician Notes Agree with ADARSH Castillo as above Interviewed and examined patient and agree with above Abd: Soft, NT, ND, +BS Continue current therapy and supportive care Proceed with EGD tomorrow History of Present Illness Reason for Consultation: RUQ pain Requesting Physician: Dr. Garvey Attending Physician: Debra Garvey MD History of Present Illness Patient is a 53 y.o. female with a history of morbid obesity s/p gastric bypass and cholecystectomy admitted with intractable abdominal pain which she states began suddenly on Tuesday. There were no precipitating factors to the onset. She states that the pain has been constant since the onset. She describes a sharp pain "under my ribs" that radiates into the right flank and back as well as right shoulder with deep breaths. Pain is worse with movement as well. She rates the pain as a constant 4/10 but increases to 7/10 with deep breaths. The opiates "take the edge off". There is no associated nausea or vomiting. Passed a small bm yesterday that was not bloody or melanotic. States she did have a low grade temp which is improved now. Labs and imaging reviewed. No acute findings. She is on chronic NSAID therapy with Meloxicam. Last EGD was performed by Dr. Montenegro in 2017. Allergies Allergy/AdvReac Type Severity Reaction Status Date / Time No Known Allergies Allergy Verified 12/27/23 02:06 Home Medications Medication Instructions Recorded Confirmed Type cyclobenzaprine 10 mg tablet 10 mg PO TID PRN Pain 04/06/18 12/27/23 History venlafaxine 150 mg 150 mg PO QAM 04/06/18 12/27/23 History capsule,extended release 24 hr (Effexor XR) acetaminophen 650 mg 650 mg PO Q12H PRN Pain 10/23/18 12/27/23 History tablet,extended release (Tylenol Arthritis Pain) fluticasone propionate 50 2 spray intranasal DAILY PRN Nasal 10/23/18 12/27/23 History mcg/actuation nasal Congestion spray,suspension (Flonase Allergy Relief) bupropion HCl 300 mg 24 hr tablet, 300 mg PO QAM 02/07/19 12/27/23 History extended release lisinopril 20 0.5 tab PO QAM #30 tabs 03/16/19 12/27/23 Rx mg-hydrochlorothiazide 25 mg tablet venlafaxine 75 mg capsule,extended 75 mg PO QAM 02/27/20 12/27/23 History release 24 hr (Effexor XR) biotin 1 mg tablet 1 mg PO QAM 08/14/20 12/27/23 History meloxicam 15 mg tablet 15 mg PO DAILY 04/07/22 12/27/23 History gabapentin 400 mg capsule 800 mg PO TID 04/07/23 12/27/23 History dicyclomine 10 mg capsule 10 mg PO TID PRN abdominal pain 12/29/23 Rx #90 caps Patient History Medical History Morbid obesity with BMI of 50.0-59.9, adult History of COVID-19 04/2020; fever, body aches, congestion, cough, sob, loss of taste/smell; resolved. Herniated disc Spinal stenosis Urinary incontinence Enlargement of spleen Pancreatic cyst [facility] GI monitoring Diverticulosis GERD (gastroesophageal reflux disease) Encounter for pre-operative examination Surgical History H/O spinal fusion History of incision and drainage Abdominal I&D (03/14/19): Grade 1 view, MAC#3, ETT 7.5 at [facility] History of lymph node biopsy History of esophagogastroduodenoscopy (EGD) History of colonoscopy Family History Mother Family history of diabetes mellitus Grandfather (Paternal) Family hx of colon cancer Other No family history of adverse response to anesthesia Social History Smoking Status: Never smoker Second Hand Exposure: No; Do You Dip or Chew Tobacco: No; Tobacco Cessation Education Requested by Patient: No Hx Alcohol Use: No Hx Substance Use: No Preferred Language: Mongolian Communication Ability: Effective Visual Impairment: No Limitations Rubber Cutter Required: No Beliefs That Will Affect Care: None marital status: Current Living Situation: Spouse current occupational status: unemployed 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 Other Information That Helps Us Care for You: No Feels Safe at Home: Yes Safety Concerns: Feels Safe At This Time Diet: Atkins Physical Activity Frequency: 3-4 Times per Week Physical Activity Frequency Comment: "PT 3 x weekly 2/2 recent back surgery Do you think of yourself as: straight/heterosexual Gender Identity: Female Assistive Devices: None Review of Systems Constitutional: as per Subjective / HPI Gastrointestinal: as per Subjective / HPI Physical Exam Constitutional: + morbidly obese; no acute distress Respiratory: normal respiratory effort, lungs clear to auscultation Cardiovascular: Rate/Rhythm: regular rate and regular rhythm Gastrointestinal (Abdomen): Inspection/Auscultation: normal bowel sounds and + significant pannus Percussion/Palpation: + abdomen tender (RUQ) and abdomen soft; no guarding and abdomen not rigid Results & Data Vital Signs (Past 12 Hours) Vital Signs Temp Pulse Resp BP Pulse Ox O2 Del Method 12/29/23 07:05 36.7 C 90 16 131/73 94 Room Air Diagnostic Findings Laboratory Results WBC 8.41 K/ul (4.8-10.8) 12/29/23 07:08 RBC 5.21 M/uL (4.20-5.40) 12/29/23 07:08 Hgb 13.0 g/dl (12.0-16.0) 12/29/23 07:08 Hct 43.2 % (37.0-47.0) 12/29/23 07:08 MCV 82.9 fL (80.0-100.0) 12/29/23 07:08 MCH 25.0 pg (25.0-34.0) 12/29/23 07:08 MCHC 30.1 g/dL (32.0-36.0) L 12/29/23 07:08 RDW Std Deviation 54.8 fL (36.4-46.3) H 12/29/23 07:08 RDW Coeff of Wally 18.7 % (11.5-14.5) H 12/29/23 07:08 Plt Count 297 K/uL (130-400) 12/29/23 07:08 MPV 10.8 fL (9.4-12.4) 12/29/23 07:08 Immature Gran % (Auto) 0.6 % 12/29/23 07:08 Neut % (Auto) 57.4 % 12/29/23 07:08 Lymph % (Auto) 25.9 % 12/29/23 07:08 [place] % (Auto) 9.2 % 12/29/23 07:08 Eos % (Auto) 5.5 % 12/29/23 07:08 Baso % (Auto) 1.4 % 12/29/23 07:08 Neut # (Auto) 4.83 K/uL (1.40-6.50) 12/29/23 07:08 Lymph # (Auto) 2.18 K/uL (1.20-3.40) 12/29/23 07:08 [place] # (Auto) 0.77 K/uL (0.11-0.59) H 12/29/23 07:08 Eos # (Auto) 0.46 K/uL (0.00-0.50) 12/29/23 07:08 Baso # (Auto) 0.12 K/uL (0.00-0.20) 12/29/23 07:08 Immature Gran # (Auto) 0.05 K/uL (0.01-0.20) 12/29/23 07:08 PT 11.1 Seconds (9.0-12.0) 12/29/23 07:08 INR 1.0 (0.9-1.1) 12/29/23 07:08 D-Dimer 1840 ug/L FEU (0-500) H* 12/28/23 06:13 Sodium 137 mmol/L (136-145) 12/29/23 07:08 Potassium 3.7 mmol/L (3.5-5.1) 12/29/23 07:08 Chloride 97 mmol/L (98-107) L 12/29/23 07:08 Carbon Dioxide 32 mmol/L (21-32) 12/29/23 07:08 Anion Gap 8 (3-11) 12/29/23 07:08 BUN 13 mg/dl (6-23) 12/29/23 07:08 Creatinine 1.01 mg/dl (0.6-1.2) 12/29/23 07:08 Est Cr Clr Drug Dosing 109.0 ml/min 12/29/23 07:08 Est GFR ( Amer) 72.6 ml/min 12/29/23 07:08 Est GFR (Non-Af Amer) 62.6 ml/min 12/29/23 07:08 BUN/Creatinine Ratio 12.9 (10-20) 12/29/23 07:08 Glucose 104 mg/dl (70-99(Fasting)) H 12/29/23 07:08 Calcium 9.5 mg/dl (8.6-10.3) 12/29/23 07:08 Phosphorus 3.9 mg/dl (2.5-4.9) 12/29/23 07:08 Magnesium 1.9 mg/dl (1.7-2.4) 12/29/23 07:08 Total Bilirubin 0.8 mg/dl (0.2-1.0) 12/29/23 07:08 AST 31 U/L (13-39) 12/29/23 07:08 ALT 32 U/L (7-52) 12/29/23 07:08 Alkaline Phosphatase 119 U/L (34-104) H 12/29/23 07:08 Total Protein 7.4 gm/dl (6.0-8.3) 12/29/23 07:08 Albumin 3.9 gm/dl (3.4-5.0) 12/29/23 07:08 Globulin 3.5 gm/dl (2.5-4.0) 12/29/23 07:08 Albumin/Globulin Ratio 1.1 (0.9-2) 12/29/23 07:08 Lipase 23 U/L (11-82) 12/26/23 21:40 Urine Color Yellow 12/26/23 21:40 Urine Appearance Clear (Clear) 12/26/23 21:40 Urine pH 6.0 (4.5-7.5) 12/26/23 21:40 Ur Specific Leonard 1.018 (1.000-1.030) 12/26/23 21:40 Urine Protein Negative (Negative) 12/26/23 21:40 Urine Glucose (UA) Negative (Negative) 12/26/23 21:40 Urine Ketones Negative (Negative) 12/26/23 21:40 Urine Blood Negative (Negative) 12/26/23 21:40 Urine Nitrite Negative (Negative) 12/26/23 21:40 Urine Bilirubin Negative (Negative) 12/26/23 21:40 Urine Urobilinogen Negative (Negative) 12/26/23 21:40 Ur Leukocyte Esterase Negative (Negative) 12/26/23 21:40 Adenovirus (PCR) Not Detected (NotDetected) 12/27/23 07:37 B. pertussis DNA (PCR) Not Detected (NotDetected) 12/27/23 07:37 B.parapertussis DNA PCR Not Detected (NotDetected) 12/27/23 07:37 C. pneumoniae DNA (PCR) Not Detected (NotDetected) 12/27/23 07:37 Coronavirus OC43 (PCR) Not Detected (NotDetected) 12/27/23 07:37 Coronavirus HKU1 (PCR) Not Detected (NotDetected) 12/27/23 07:37 Coronavirus 229E (PCR) Not Detected (NotDetected) 12/27/23 07:37 SARS-CoV-2 (PCR) Not Detected (NotDetected) 12/27/23 07:37 Coronavirus NL63 (PCR) Not Detected (NotDetected) 12/27/23 07:37 Human Metapneumovir PCR Not Detected (NotDetected) 12/27/23 07:37 Influenza Type A (PCR) Not Detected (NotDetected) 12/27/23 07:37 Influenza Type B (PCR) Not Detected (NotDetected) 12/27/23 07:37 M. pneumoniae (PCR) Not Detected (NotDetected) 12/27/23 07:37 Parainfluenza 1 (PCR) Not Detected (NotDetected) 12/27/23 07:37 Parainfluenza 2 (PCR) Not Detected (NotDetected) 12/27/23 07:37 Parainfluenza 3 (PCR) Not Detected (NotDetected) 12/27/23 07:37 Parainfluenza 4 (PCR) Not Detected (NotDetected) 12/27/23 07:37 RSV (PCR) Not Detected (NotDetected) 12/27/23 07:37 Entero/Rhino (PCR) Not Detected (NotDetected) 12/27/23 07:37 Impressions Abdomen/Pelvis CT 12/26/23 23:12 Exam(s): CT ABDOMEN + PELVIS With Contrast IV Amt: 120 ml optiray 320 EXAM: CT Abdomen and Pelvis With Intravenous Contrast CLINICAL HISTORY: Reason for exam: RUQ abd pain, hx of [place]. TECHNIQUE: Axial computed tomography images of the abdomen and pelvis with intravenous contrast. CTDI is 35.66 mGy and DLP is 2007.36 mGy-cm. Automated exposure control was utilized for the study. A dose lowering technique was utilized adhering to the principles of ALARA. CONTRAST: Patient received 120 ml optiray 320 of IV contrast COMPARISON: CT abdomen pelvis March 24, 2022. FINDINGS: Lung bases: Unremarkable. No mass. No consolidation. ABDOMEN: Liver: Hepatic steatosis. Surface nodularity of the liver, correlate for early cirrhotic changes. Gallbladder and bile ducts: Cholecystectomy. No ductal dilation. Pancreas: Unremarkable. No mass. No ductal dilation. Spleen: Unremarkable. No splenomegaly. Adrenals: Unremarkable. No mass. Kidneys and ureters: Unremarkable. No hydronephrosis or delayed nephrogram. Stomach and bowel: Jayda-en-Y gastric bypass. No acute diverticulitis. No bowel obstruction. No free air. PELVIS: Appendix: Appendectomy. Bladder: Decompressed urinary bladder. Reproductive: Unremarkable as visualized. ABDOMEN and PELVIS: Intraperitoneal space: See above. Bones/joints: Posterior fusion at L3-4. No acute fracture. No dislocation. Soft tissues: Unremarkable. Vasculature: Unremarkable. No abdominal aortic aneurysm. Lymph nodes: Unremarkable. No enlarged lymph nodes. IMPRESSION: 1. No hydronephrosis or delayed nephrogram. 2. No acute diverticulitis. No bowel obstruction. No free air. 3. Hepatic steatosis. Surface nodularity of the liver, correlate for early cirrhotic changes. 4. Cholecystectomy. 5. Jayda-en-Y gastric bypass. 6. Appendectomy. Electronically signed by: Paulo Infante MD 12/27/23 01:52 AM Venous Doppler Study 12/27/23 02:35 Exam(s): US VENOUS BILATERAL LOWER EXTREMITIES EXAM: US Duplex Bilateral Lower Extremities Veins CLINICAL HISTORY: Reason for exam: eval for DVT. TECHNIQUE: Real-time duplex ultrasound scan of the bilateral lower extremity veins integrating B-mode two-dimensional vascular structure, Doppler spectral analysis, color flow Doppler imaging and compression. COMPARISON: No relevant prior studies available. FINDINGS: Right deep veins: Unremarkable. No DVT in the right common femoral, femoral, proximal deep femoral or popliteal veins. The veins demonstrate normal color flow, are normally compressible, with normal phasic flow and/or augmentation response. Right superficial veins: Unremarkable. No thrombus in the visualized right great saphenous vein. Left deep veins: Unremarkable. No DVT in the left common femoral, femoral, proximal deep femoral or popliteal veins. The veins demonstrate normal color flow, are normally compressible, with normal phasic flow and/or augmentation response. Left superficial veins: Unremarkable. No thrombus in the visualized left great saphenous vein. Soft tissues: No acute findings. No popliteal cyst. IMPRESSION: Negative bilateral lower extremity duplex venous ultrasound. No evidence of DVT. Electronically signed by: Tanvir Sheldon MD 12/27/23 04:42 AM Chest X-Ray 12/27/23 02:47 XR chest 1V portable CLINICAL HISTORY: Right-sided abdominal pain. COMPARISON STUDY: Chest CT March 25, 2021. Chest radiograph March 24, 2022. FINDINGS: Lung volumes are at the lower limits of normal, unchanged. Lungs are clear. There is no pneumothorax or pleural effusion. Cardiac size is normal. Mediastinal contours are normal. There is no evidence for pulmonary edema. Old right fourth rib fractures incidentally noted. IMPRESSION: No acute cardiopulmonary findings. ACT 112: Negative or not required by law. Electronically signed by: Ede Rivera M.D. 12/27/2023 6:30 AM Chest CTA 12/27/23 07:55 CT angio chest PE protocol CT DOSE: 813.26 mGy.cm HISTORY: 53 years-old Female with PE. Acute shortness of breath with shoulder and chest pain TECHNIQUE: Multiple CTA images of the chest were obtained after the intravenous administration of 112 ml Optiray. Coronal and sagittal MIPS were obtained from the axial data set and were submitted for review. All measurements were obtained according to NASCET criteria. A dose lowering technique was utilized adhering to the principles of ALARA. COMPARISON: Duplex venous Doppler study of same day, chest CT 03/25/2021 FINDINGS: CTA: Moderate cardiomegaly. No pericardial effusion. Mild coronary artery calcifications. No thoracic aortic aneurysm or dissection. Patency of the imaged great vessels. No pulmonary emboli identified. CT CHEST: Unremarkable thyroid. Subcentimeter right cardiophrenic/epicardial lymph nodes are nonspecific measuring up to 9 mm, slightly increased in size from prior. Trace right pleural effusion. No pneumothorax. Bronchial wall thickening with mild mucous plugging. Mild patchy subsegmental groundglass opacities. Unchanged scattered subcentimeter solid pulmonary nodules measuring up to 4 mm. These are likely benign. Mild mosaic attenuation. Hepatosplenomegaly. Postoperative changes of the stomach. Cholecystectomy. Mild marginal nodularity of the liver. No acute fracture. IMPRESSION: 1. No pulmonary emboli identified. 2. Bronchial wall thickening suggestive of bronchitis or reactive airway disease with mild bibasilar mucous plugging. 3. Mild atelectasis with air trapping. 4. Stable scattered likely benign solid pulmonary nodules measuring up to 4 mm. ACT 112: Negative or not required by law. The above report was generated using voice recognition software. It may contain grammatical, syntax or spelling errors. Electronically signed by: Luiz Garcia M.D. 12/27/2023 10:45 AM Liver Ultrasound 12/29/23 08:00 US liver CLINICAL HISTORY: RUQ pain TECHNIQUE: Multiple real-time sonographic images of the right upper quadrant were obtained. Comparison: Comparison is made to CT abdomen pelvis 12/26/2023 FINDINGS: The liver is diffusely echogenic in appearance with poor ultrasound penetration, with normal contour, which is consistent with fatty infiltration. No focal mass lesions are seen. No intrahepatic ductal dilatation is seen. Patient is status post cholecystectomy. The common duct measures 0.5 cm in diameter at the level of the hepatic artery. The visualized portions of the pancreas appear normal. The right kidney shows normal echogenicity, cortical thickness and renal contour. The right kidney shows no evidence of hydronephrosis or mass. No ascites or free fluid is seen in Whatley's pouch. IMPRESSION: No acute abnormalities. Hepatic steatosis is seen. ACT 112: Negative or not required by law. Electronically signed by: Placido Velez M.D. 12/29/2023 8:35 AM PG Care Time/CCT Total # of Minutes Spent Total Time Spent with Patient: Total time spent is greater than 50% in coordination of care (as documented) at patient's floor/unit and/or counseling patient: Coding Level of Care Code 22296 INT INP/OBS CARE 3/75MIN Diagnoses Right upper quadrant abdominal pain R10.11
[2023-12-29] MEDS: LIDOCAINE 5% 1 PATCH TD SCH (11:56)
[2023-12-29] MEDS: PANTOprazole 40 MG TAB PO SCH (13:03)
--- NOTE | 2023-12-29 15:03 | Hospitalist Progress Note ---
Date of Service December 29, 2023 Assessment & Plan (1) Right upper quadrant abdominal pain: Plan: 53-year-old female with past medical history significant for hyperlipidemia, nonallergic rhinitis, sarcoidosis of lung, hypertension, morbid obesity, post gastric surgery syndrome, GERD, fatty liver, female stress incontinence, primary osteoarthritis of both knees, lumbago, depression, general anxiety disorder comes because of right upper quadrant abdominal pain started yesterday morning and radiating to right shoulder and neck region. Associated with some nausea. Pain is moderate to severe in nature. No fevers. Has shortness of breath when the pain is severe as she cannot take a deep breath. Denies any fevers. No cough. No headache. No dizziness. No runny nose or sore throat. RUQ abdominal pain history of cholecystectomy, appendectomy and Jayda-en-Y gastric bypass CT abdomen pelvis with IV contrast no acute findings, notes possible early cirrhosis LFTs wnl except alkaline phos mildly elevated 106 lipase wnl UA wnl Liver US noting only a fatty liver Pt declined GI consult on 12/27, agreeable on 12/28 -NPO after midnight for EGD in AM IV pain meds as needed, IV antiemetics as needed Continue to monitor pain management consulted as well Bronchitis Noted on CT chest ? cause of symptoms On doxycyline elevated D-dimer lower EXTR Doppler negative CT chest NEGATIVE for PE hypertension continue home lisinopril/hydrochlorothiazide monitor depression generalized anxiety disorder on bupropion and venlafaxine history of sleep apnea nontolerant of CPAP as per patient DVT prophylaxis: Lovenox Admission and Anticipated Discharge Date Admission Date: December 27, 2023 Subjective States pain still present States she discussed it with her family and is agreeable to GI consult Review of Systems Review of Systems: All systems reviewed & are unremarkable except as noted in Subjective Physical Exam Physical Exam: General: Alert, oriented Skin: No noted rashes or bruises Psych: Appropriate mood and affect Neuro: No gross deficits HEENT: NC/AT Chest: Nontender to palpation. CV: RRR, Normal s1, s2. No murmurs appreciated Resp: Breath sounds clear bilaterally, no increased effort of breathing. No crackles/rhonchi/rales. Abdomen: Soft, tender in RUQ, nondistended. No guarding. Extremities: No edema in lower extremities bilaterally. Results & Data Results & Data Vital Signs (Past 12 Hours) Vital Signs Temp Pulse Resp BP Pulse Ox O2 Del Method 12/29/23 07:05 36.7 C 90 16 131/73 94 Room Air
[2023-12-30 07:55] LABS: Basophils # (auto) 0.12 K/uL (0.00-0.20); Basophils % (auto) 1.7 %; Eosinophils # (auto) 0.44 K/uL (0.00-0.50); Eosinophils % (auto) 6.3 %; Hematocrit (blood only) 38.6 % (37.0-47.0); Immature Granulocytes # (auto) 0.03 K/uL (0.01-0.20); Immature Granulocytes % (auto) 0.4 %; Lymphocytes # (auto) 1.91 K/uL (1.20-3.40); Lymphocytes % (auto) 27.1 %; Mean Corpuscular Hemoglobin 25.2 pg (25.0-34.0); Mean Corpuscular Hgb Conc 31.1 g/dL (32.0-36.0); Mean Corpuscular Volume 81.1 fL (80.0-100.0); Mean Platelet Volume 10.5 fL (9.4-12.4); Monocytes # (auto) 0.79 K/uL (0.11-0.59); Monocytes % (auto) 11.2 %; Neutrophils # (auto) 3.75 K/uL (1.40-6.50); Neutrophils % (auto) 53.3 %; Platelet Count 245 K/uL (130-400); RDW Coefficient of Variation 18.4 % (11.5-14.5); RDW Standard Deviation 53.4 fL (36.4-46.3); Red Blood Count 4.76 M/uL (4.20-5.40); White Blood Count 7.04 K/ul (4.8-10.8)
--- NOTE | 2023-12-30 08:11 | Anesthesiology Consultation ---
Date of Service December 30, 2023 Assessment & Plan Chart Review Chart Review: Acceptable Risk for Surgery, Patient NOT seen in Pre Admission Testing and kohinoor operator initiated Consults Requested none Proposed Anesthesia Anesthesia Type: MAC History Surgery Operation Date: 12/30/23 16:30 Proposed Procedures p Esophagogastroduodenoscopy Dr David Gaspar Case, DO Height/Weight Height: 5 ft 11 in Weight: 168 kg Allergies Allergy/AdvReac Type Severity Reaction Status Date / Time No Known Allergies Allergy Verified 12/27/23 02:06 Medications Home Medications Medication Instructions Recorded Confirmed Last Taken cyclobenzaprine 10 mg tablet 10 mg PO TID PRN Pain 04/06/18 12/27/23 10/14/21 20:00 venlafaxine 150 mg 150 mg PO QAM 04/06/18 12/27/23 10/21/21 08:00 capsule,extended release 24 hr (Effexor XR) acetaminophen 650 mg 650 mg PO Q12H PRN Pain 10/23/18 12/27/23 10/20/21 21:00 tablet,extended release (Tylenol Arthritis Pain) fluticasone propionate 50 2 spray intranasal DAILY PRN Nasal 10/23/18 12/27/23 Unknown mcg/actuation nasal Congestion spray,suspension (Flonase Allergy Relief) bupropion HCl 300 mg 24 hr tablet, 300 mg PO QAM 02/07/19 12/27/23 10/19/21 08:00 extended release lisinopril 20 0.5 tab PO QAM #30 tabs 03/16/19 12/27/23 10/20/21 08:00 mg-hydrochlorothiazide 25 mg tablet venlafaxine 75 mg capsule,extended 75 mg PO QAM 02/27/20 12/27/23 10/21/21 08:00 release 24 hr (Effexor XR) biotin 1 mg tablet 1 mg PO QAM 08/14/20 12/27/23 10/20/21 08:00 meloxicam 15 mg tablet 15 mg PO DAILY 04/07/22 12/27/23 Unknown gabapentin 400 mg capsule 800 mg PO TID 04/07/23 12/27/23 Unknown dicyclomine 10 mg capsule 10 mg PO TID PRN abdominal pain 12/29/23 Unknown #90 caps Active Medications Generic Name Dose Route Start Last Admin Trade Name Freq PRN Reason Stop Dose Admin Acetaminophen 650 mg 12/27/23 09:28 12/29/23 15:09 Acetaminophen 325 Mg Tab PO 01/26/24 09:27 650 mg Q4H PRN Administration pain/fever Bupropion HCl 300 mg 12/27/23 09:28 12/29/23 08:53 Bupropion Xl 300 Mg Tabcr PO 01/26/24 09:27 300 mg QAM NAVI Administration Cyclobenzaprine HCl 10 mg 12/27/23 09:28 12/29/23 22:40 Cyclobenzaprine Hcl 10 Mg Tab PO 01/26/24 09:27 10 mg TID PRN Administration Pain Enoxaparin Sodium 40 mg 12/27/23 21:00 12/29/23 21:09 Enoxaparin Inj 40 Mg/0.4 Ml Syr SQ 01/26/24 20:59 40 mg Q12H NAVI Administration Gabapentin 800 mg 12/27/23 09:45 12/29/23 21:09 Gabapentin 400 Mg Cap PO 01/26/24 09:44 800 mg TID NAVI Administration Lisinopril/HCTZ 0.5 tab 12/27/23 09:28 12/29/23 08:54 Lisinopril/Hctz 20/25mg 1 Tab PO 01/26/24 09:27 0.5 tab QAM NAVI Administration Hydromorphone HCl 0.5 mg 12/27/23 09:28 12/30/23 01:29 Hydromorphone Inj 0.5 Mg/0.5 Ml Syr IV 01/10/24 09:27 0.5 mg Q4H PRN Administration Mod-Sev Pain (Scale 4-10) Famotidine 20 mg in 5 mls @ 2.5 mls/min 12/27/23 09:45 12/29/23 21:09 Pepcid 20mg Iv Push IV 01/26/24 09:44 2.5 mls/min Q12H NAVI Administration Doxycycline Hyclate 100 mg/ 100 mls @ 50 mls/hr 12/27/23 11:15 12/30/23 01:01 Dextrose IV 01/03/24 11:14 Infused Q12H NAVI Infusion Lidocaine 1 patch 12/29/23 11:00 12/29/23 11:56 Lidocaine 5% 1 Patch TD 01/28/24 10:59 1 patch QAM NAVI Administration Miscellaneous 1 each 12/29/23 21:00 12/29/23 21:10 Remove Lidoderm Patch N/A 01/28/24 20:59 1 each DAILY@2100 NAVI Administration Ondansetron HCl 4 mg 12/27/23 09:28 12/27/23 13:05 Ondansetron Inj 2 Mg/Ml 2 Ml Vial IV 01/26/24 09:27 4 mg Q6H PRN Administration Nausea Pantoprazole Sodium 40 mg 12/29/23 11:45 12/29/23 21:09 Pantoprazole 40 Mg Tab PO 01/28/24 11:44 40 mg BID NAVI Administration Polyethylene Glycol 17 gm 12/27/23 09:28 12/29/23 06:16 Polyethylene (Miralax) 17 Gm Pack PO 01/26/24 09:27 17 gm DAILY PRN Administration Constipation Venlafaxine HCl 75 mg 12/27/23 09:45 12/29/23 08:54 Venlafaxine Hcl Xr 75 Mg Capxr PO 01/26/24 09:44 75 mg QAM NAVI Administration Venlafaxine HCl 150 mg 12/27/23 09:45 12/29/23 08:54 Venlafaxine Hcl Xr 150 Mg Capxr PO 01/26/24 09:44 150 mg QAM NAVI Administration Past Medical History Medical History Morbid obesity with BMI of 50.0-59.9, adult History of COVID-19 04/2020; fever, body aches, congestion, cough, sob, loss of taste/smell; resolved. Herniated disc Spinal stenosis Urinary incontinence Enlargement of spleen Pancreatic cyst [facility] monitoring Diverticulosis GERD (gastroesophageal reflux disease) Encounter for pre-operative examination Past Family History Family History Mother Family history of diabetes mellitus Grandfather (Paternal) Family hx of colon cancer Other No family history of adverse response to anesthesia Past Surgical History Surgical History H/O spinal fusion History of incision and drainage Abdominal I&D (03/14/19): Grade 1 view, MAC#3, ETT 7.5 [address] [facility] History of lymph node biopsy History of esophagogastroduodenoscopy (EGD) History of colonoscopy Social History Smoking Status: Never smoker Do You Dip or Chew Tobacco: No Hx Alcohol Use: No Alcohol type: other alcohol intake frequency: other Hx Substance Use: No substance use type: does not use Physical Exam Vital Signs Last Vital Signs Temp 37 C 12/29/23 21:37 Pulse 97 H 12/29/23 21:37 Resp 20 12/29/23 21:37 BP 103/65 12/29/23 21:37 Pulse Ox 94 12/29/23 21:37 O2 Del Method Room Air 12/29/23 21:37 O2 Flow Rate 2 12/27/23 13:54 Testing Laboratory Results 12/30/23 07:29 PT 11.1 Seconds (9.0-12.0) 12/29/23 07:08 INR 1.0 (0.9-1.1) 12/29/23 07:08 Urine Color Yellow 12/26/23 21:40 Urine Appearance Clear (Clear) 12/26/23 21:40 Urine pH 6.0 (4.5-7.5) 12/26/23 21:40 Ur Specific [place] 1.018 (1.000-1.030) 12/26/23 21:40 Urine Protein Negative (Negative) 12/26/23 21:40 Urine Glucose (UA) Negative (Negative) 12/26/23 21:40 Urine Ketones Negative (Negative) 12/26/23 21:40 Urine Nitrite Negative (Negative) 12/26/23 21:40 Ur Leukocyte Esterase Negative (Negative) 12/26/23 21:40 12/27/23 07:32 Aerobic Blood Culture - Preliminary Blood No growth in Aerobic bottle after 48 hours. Anaerobic Blood Culture - Preliminary No growth in Anaerobic bottle after 48 hours. 12/27/23 07:37 Aerobic Blood Culture - Preliminary Blood No growth in Aerobic bottle after 48 hours. Anaerobic Blood Culture - Final Electrocardiogram Date: 03/24/22 Test Reason : Blood Pressure : / mmHG Vent. Rate : 093 BPM Atrial Rate : 093 BPM P-R Int : 168 ms QRS Dur : 078 ms QT Int : 372 ms P-R-T Axes : 042 043 032 degrees QTc Int : 462 ms Poor data quality, interpretation may be adversely affected Normal sinus rhythm Possible Left atrial enlargement Borderline ECG When compared with ECG of 07-OCT-2021 12:04, No significant change was found Confirmed by Miguel Jackson ([id number]) on 03/25/2022 8:52:20 AM Chest X-Ray Date: 12/27/23 XR chest 1V portable CLINICAL HISTORY: Right-sided abdominal pain. COMPARISON STUDY: Chest CT March 25, 2021. Chest radiograph March 24, 2022. FINDINGS: Lung volumes are at the lower limits of normal, unchanged. Lungs are clear. There is no pneumothorax or pleural effusion. Cardiac size is normal. Mediastinal contours are normal. There is no evidence for pulmonary edema. Old right fourth rib fractures incidentally noted. IMPRESSION: No acute cardiopulmonary findings.
[2023-12-30 08:24] LABS: Albumin Globulin Ratio 1.2 (0.9-2); Albumin Level 3.7 gm/dl (3.4-5.0); BUN Creatinine Ratio 16.2 (10-20); Bilirubin,Total 0.6 mg/dl (0.2-1.0); Calcium 9.3 mg/dl (8.6-10.3); Creatinine Clr Calc Pharmacy 111.2 ml/min; Est GFR (African American) 74.4 ml/min; Est GFR (Non-African American) 64.2 ml/min; Globulin 3.2 gm/dl (2.5-4.0); Phosphorus 4.9 mg/dl (2.5-4.9); Potassium 3.9 mmol/L (3.5-5.1); Total Protein 6.9 gm/dl (6.0-8.3)
--- NOTE | 2023-12-30 10:03 | History & Physical Bridge Note ---
Date of Service December 30, 2023 History & Physical Bridge Note I have examined the patient, reviewed the History & Physical and in the interval since the performance of the History & Physical I have noted the following changes of clinical significance: no changes noted Patient is NPO. She notes significant pain. Keep NPO & proceed with EGD today. Pain management per hospitalist team. Supervising Physician Co-Signing Physician Notes Agree with MAGDY Martinez as above Abd: Soft, NT, ND, +BS Continue current therapy and supportive care Proceed with EGD now
--- NOTE | 2023-12-30 11:07 | Pain Management Consultation ---
Date of Consultation December 30, 2023 Assessment & Plan (1) Right upper quadrant abdominal pain: (2) History of laparoscopic appendectomy: (3) History of cholecystectomy: (4) Morbid obesity with BMI of 50.0-59.9, adult: (5) History of gastric bypass: Plan 1. No pain management interventional procedures indicated or recommended at this time. 2. Follow through with EGD scheduled for later today. * Will follow the results of this, and if negative for ulcer or other GI cause to the patient's pain, will consider further exam/workup. Thank you for this consultation. Pain management service will continue to follow peripherally. History of Present Illness Reason for Consultation: RUQ pain, no cause on workup Requesting Physician: Debra Garvey MD Attending Physician: Debra Garvey MD History of Present Illness Patient is a 53-year-old female that presented to the [facility] on 12/27/2023 complaining of right upper quadrant abdominal pain. The pain started earlier that morning and was progressively worsening. The patient also noted associated symptoms of pain radiating from the right upper quadrant to the right shoulder and towards the right flank region. Pain is worsened with taking a deep breath but especially with palpation of the right upper quadrant. The patient has found no relieving factors. She was rating her pain in the ED as a 9/10. Patient has a history of gastric bypass, appendectomy, and cholecystectomy. She denied LOC, headache, fevers, chills, diaphoresis, visual changes, neck pain, chest pain, breathing difficulties, nausea, vomiting, leg swelling or pain, back pain, melena, hematochezia, urinary symptoms, numbness, weakness, lymphadenopathy, rash, or other complaints. She was treated with Dilaudid and Zofran, but did require additional dosing of the Dilaudid due to persistent pain. CT scan was obtained to further elucidate the cause of the pain, but it did not reveal any acute pathology. Laboratory testing revealed a mild leukocytosis, and chemistry panel LFTs and lipase were negative. In light of the negative abdominal scan, there was concern for possible embolism, and so D-dimer was ordered. This study was found to be elevated, but a lower extremity Doppler and chest CT scan were both negative. Liver ultrasound was also done, but demonstrated only a fatty liver. Patient was admitted for further pain control and workup, and the pain management service was curiously consulted due to pain of unknown origin. Today, the patient states continued pain to the areas as above. She admits that when she attempts to sit up or contract her abdominal muscles that she also has pain. It seems that basically any sort of movement for her can cause exacerbation of the pain. Patient was initially declining a GI consult, but they did eventually see her yesterday and an EGD was recommended to check for peptic ulcer disease, as she had been using NSAIDs in the setting of previous gastric bypass surgery. Patient is scheduled to undergo the EGD later today, and so she is currently NPO. The patient is previously known to the pain management service for her lumbar spine, and has undergone an L2-3 interlaminar SARAH in June 2023, but which provided the patient no perceivable relief. Case discussed with Dr. Ortiz. Pain Assessment Full Body Front + Back: 2 1. 2. 3. 4. Allergies Allergy/AdvReac Type Severity Reaction Status Date / Time No Known Allergies Allergy Verified 12/30/23 11:29 Home Medications Medication Instructions Recorded Confirmed Type cyclobenzaprine 10 mg tablet 10 mg PO TID PRN Pain 04/06/18 12/27/23 History venlafaxine 150 mg 150 mg PO QAM 04/06/18 12/27/23 History capsule,extended release 24 hr (Effexor XR) acetaminophen 650 mg 650 mg PO Q12H PRN Pain 10/23/18 12/27/23 History tablet,extended release (Tylenol Arthritis Pain) fluticasone propionate 50 2 spray intranasal DAILY PRN Nasal 10/23/18 12/27/23 History mcg/actuation nasal Congestion spray,suspension (Flonase Allergy Relief) bupropion HCl 300 mg 24 hr tablet, 300 mg PO QAM 02/07/19 12/27/23 History extended release lisinopril 20 0.5 tab PO QAM #30 tabs 03/16/19 12/27/23 Rx mg-hydrochlorothiazide 25 mg tablet venlafaxine 75 mg capsule,extended 75 mg PO QAM 02/27/20 12/27/23 History release 24 hr (Effexor XR) biotin 1 mg tablet 1 mg PO QAM 08/14/20 12/27/23 History meloxicam 15 mg tablet 15 mg PO DAILY 04/07/22 12/27/23 History gabapentin 400 mg capsule 800 mg PO TID 04/07/23 12/27/23 History dicyclomine 10 mg capsule 10 mg PO TID PRN abdominal pain 12/29/23 Rx #90 caps Pain History Chief Complaint Chief Complaint: Right side abdominal pain Previous Imaging and Results Imaging: Abdomen/Pelvis CT 12/26/23 23:12 Exam(s): CT ABDOMEN + PELVIS With Contrast IV Amt: 120 ml optiray 320 EXAM: CT Abdomen and Pelvis With Intravenous Contrast CLINICAL HISTORY: Reason for exam: RUQ abd pain, hx of [place]. TECHNIQUE: Axial computed tomography images of the abdomen and pelvis with intravenous contrast. CTDI is 35.66 mGy and DLP is 2007.36 mGy-cm. Automated exposure control was utilized for the study. A dose lowering technique was utilized adhering to the principles of ALARA. CONTRAST: Patient received 120 ml optiray 320 of IV contrast COMPARISON: CT abdomen pelvis March 24, 2022. FINDINGS: Lung bases: Unremarkable. No mass. No consolidation. ABDOMEN: Liver: Hepatic steatosis. Surface nodularity of the liver, correlate for early cirrhotic changes. Gallbladder and bile ducts: Cholecystectomy. No ductal dilation. Pancreas: Unremarkable. No mass. No ductal dilation. Spleen: Unremarkable. No splenomegaly. Adrenals: Unremarkable. No mass. Kidneys and ureters: Unremarkable. No hydronephrosis or delayed nephrogram. Stomach and bowel: Jayda-en-Y gastric bypass. No acute diverticulitis. No bowel obstruction. No free air. PELVIS: Appendix: Appendectomy. Bladder: Decompressed urinary bladder. Reproductive: Unremarkable as visualized. ABDOMEN and PELVIS: Intraperitoneal space: See above. Bones/joints: Posterior fusion at L3-4. No acute fracture. No dislocation. Soft tissues: Unremarkable. Vasculature: Unremarkable. No abdominal aortic aneurysm. Lymph nodes: Unremarkable. No enlarged lymph nodes. IMPRESSION: 1. No hydronephrosis or delayed nephrogram. 2. No acute diverticulitis. No bowel obstruction. No free air. 3. Hepatic steatosis. Surface nodularity of the liver, correlate for early cirrhotic changes. 4. Cholecystectomy. 5. Jayda-en-Y gastric bypass. 6. Appendectomy. Electronically signed by: Paulo Infante MD 12/27/23 01:52 AM Liver Ultrasound 12/29/23 08:00 US liver CLINICAL HISTORY: RUQ pain TECHNIQUE: Multiple real-time sonographic images of the right upper quadrant were obtained. Comparison: Comparison is made to CT abdomen pelvis 12/26/2023 FINDINGS: The liver is diffusely echogenic in appearance with poor ultrasound penetration, with normal contour, which is consistent with fatty infiltration. No focal mass lesions are seen. No intrahepatic ductal dilatation is seen. Patient is status post cholecystectomy. The common duct measures 0.5 cm in diameter at the level of the hepatic artery. The visualized portions of the pancreas appear normal. The right kidney shows normal echogenicity, cortical thickness and renal contour. The right kidney shows no evidence of hydronephrosis or mass. No ascites or free fluid is seen in Whatley's pouch. IMPRESSION: No acute abnormalities. Hepatic steatosis is seen. ACT 112: Negative or not required by law. Electronically signed by: Placido Velez M.D. 12/29/2023 8:35 AM Patient History Medical History Morbid obesity with BMI of 50.0-59.9, adult History of COVID-19 04/2020; fever, body aches, congestion, cough, sob, loss of taste/smell; resolved. Herniated disc Spinal stenosis Urinary incontinence Enlargement of spleen Pancreatic cyst [facility] GI monitoring Diverticulosis GERD (gastroesophageal reflux disease) Encounter for pre-operative examination Surgical History H/O spinal fusion History of incision and drainage Abdominal I&D (03/14/19): Grade 1 view, MAC#3, ETT 7.5 at [facility] History of lymph node biopsy History of esophagogastroduodenoscopy (EGD) History of colonoscopy Family History Mother Family history of diabetes mellitus Grandfather (Paternal) Family hx of colon cancer Other No family history of adverse response to anesthesia Social History Smoking Status: Never smoker Second Hand Exposure: No; Do You Dip or Chew Tobacco: No; Tobacco Cessation Education Requested by Patient: No Hx Alcohol Use: No Hx Substance Use: No Preferred Language: Portuguese Communication Ability: Effective Visual Impairment: No Limitations Thoracic Medicine Physician Required: No Beliefs That Will Affect Care: None marital status: Current Living Situation: Spouse current occupational status: unemployed 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 Other Information That Helps Us Care for You: No Feels Safe at Home: Yes Safety Concerns: Feels Safe At This Time Diet: Atkins Physical Activity Frequency: 3-4 Times per Week Physical Activity Frequency Comment: "PT 3 x weekly 2/2 recent back surgery Do you think of yourself as: straight/heterosexual Gender Identity: Female Assistive Devices: None Physical Exam 2 Constitutional: well nourished and + morbidly obese; no acute distress, no altered mental status, not in distress, not diaphoretic and not malnourished Gastrointestinal (Abdomen): Inspection/Auscultation: abdomen normal to inspection; abdomen not distended Percussion/Palpation: + abdomen tender (RUQ, inferior ribs, flank), + guarding and abdomen soft; abdomen not rigid and no hepatomegaly
--- NOTE | 2023-12-30 12:50 | Hospitalist Progress Note ---
Date of Service December 30, 2023 Assessment & Plan (1) Right upper quadrant abdominal pain: Plan: 53-year-old female with past medical history significant for hyperlipidemia, nonallergic rhinitis, sarcoidosis of lung, hypertension, morbid obesity, post gastric surgery syndrome, GERD, fatty liver, female stress incontinence, primary osteoarthritis of both knees, lumbago, depression, general anxiety disorder comes because of right upper quadrant abdominal pain started yesterday morning and radiating to right shoulder and neck region. Associated with some nausea. Pain is moderate to severe in nature. No fevers. Has shortness of breath when the pain is severe as she cannot take a deep breath. Denies any fevers. No cough. No headache. No dizziness. No runny nose or sore throat. RUQ abdominal pain history of cholecystectomy, appendectomy and Jayda-en-Y gastric bypass CT abdomen pelvis with IV contrast no acute findings, notes possible early cirrhosis LFTs wnl except alkaline phos mildly elevated 106 lipase wnl UA wnl Liver US noting only a fatty liver Pt declined GI consult on 12/27, agreeable on 12/28 -s/p EGD on 12/29 -EGD showed no abnormalities or reason for RUQ pain IV pain meds as needed, IV antiemetics as needed Continue to monitor pain management consulted as well -discussed with Pain management further after EGD results available -advised that since pain generalized and given pt's body habitus, would be difficult to do trigger injections. Would need to be US guided -advised followup outpatient for further evaluation Bronchitis Noted on CT chest Possible cause of symptoms On doxycycline, continue for 5 days of total treatment elevated D-dimer lower EXTR Doppler negative CT chest NEGATIVE for PE hypertension continue home lisinopril/hydrochlorothiazide monitor depression generalized anxiety disorder on bupropion and venlafaxine history of sleep apnea nontolerant of CPAP as per patient DVT prophylaxis: Lovenox Admission and Anticipated Discharge Date Admission Date: December 27, 2023 Subjective Pt was seen in the afternoon, after her EGD EGD did not show a cause of her pain. States that the pain is still there. Review of Systems Review of Systems: All systems reviewed & are unremarkable except as noted in Subjective Physical Exam Physical Exam: General: Alert, oriented Skin: No noted rashes or bruises Psych: Appropriate mood and affect Neuro: No gross deficits HEENT: NC/AT Chest: Nontender to palpation. CV: RRR, Normal s1, s2. No murmurs appreciated Resp: Breath sounds clear bilaterally, no increased effort of breathing. No crackles/rhonchi/rales. Abdomen: Soft, tender in RUQ, nondistended. No guarding. Extremities: No edema in lower extremities bilaterally. Results & Data Results & Data Vital Signs (Past 12 Hours) Vital Signs Temp Pulse Resp BP Pulse Ox O2 Del Method 12/30/23 11:30 36.5 C 87 18 136/78 95 Room Air 12/30/23 09:00 Room Air 12/30/23 08:36 36.4 C L 89 16 106/67 94 Room Air
--- NOTE | 2023-12-30 13:15 | GI REPORT ---
[facility] Patient: WALI MENDEZ : 1970 Sex at : Female Age: 53 Years Procedure: Upper GI endoscopy Date: 12/30/2023 Attending Physician: Camden Hernandez DO Referring MD: Debra Garvey Md Indications: - Abdominal pain in the right upper quadrant Medications: - Monitored Anesthesia Care Complications: - No immediate complications. Estimated Blood Loss: - Estimated blood loss: none. Procedure: - Prior to the procedure, a History and Physical was performed, and patient medications and allergies were reviewed. The patient's tolerance of previous anesthesia was also reviewed. The risks and benefits of the procedure and the sedation options and risks were discussed with the patient. All questions were answered, and informed consent was obtained. Prior Anticoagulants: The patient has taken Lovenox (enoxaparin), last dose was day of procedure. ASA Grade Assessment: III - A patient with severe systemic disease. After reviewing the risks and benefits, the patient was deemed in satisfactory condition to undergo the procedure. - The egd scope was introduced through the mouth and advanced to the jejunum. - The upper GI endoscopy was accomplished without difficulty. - The patient tolerated the procedure well. Findings: - The examined esophagus was normal. - Evidence of a gastric bypass was found. A gastric pouch with a normal size was found. The gastrojejunal anastomosis was characterized by healthy appearing mucosa. This was traversed. - The examined jejunum was normal. Impression: - Normal esophagus. - Gastric bypass with a normal-sized pouch. Gastrojejunal anastomosis characterized by healthy appearing mucosa. - Normal examined jejunum. - No specimens collected. Recommendation: - Return patient to [facility] for [facility] care. - Advance diet as tolerated. - Continue present medications. - Resume Lovenox (enoxaparin) at prior dose today. Procedure Code(s): - 75089, Esophagogastroduodenoscopy, flexible, transoral; diagnostic, including collection of specimen(s) by brushing or washing, when performed (separate procedure) Diagnosis Code(s): - R10.11, Right upper quadrant pain - Z98.84, Bariatric surgery status CPT(R) - 202 copyright [employer]. All Rights Reserved. The CPT codes, CCI edits and ICD codes generated are intended as suggestions and were generated based on input data. These codes are preliminary and upon waterproof coating machine tender review may be revised to meet current compliance and payer requirements. The provider is responsible for the final determination of appropriate codes, and modifiers. Dr. Hannah Case This document has been electronically signed. Note Initiated:12/30/2023 Note Completed:12/30/2023 1:14 PM [email or web address]\Data\Provation\Results\LIVE\[id number]
--- NOTE | 2023-12-30 13:57 | Anesthesiology Progress Note ---
Date of Service December 30, 2023 Anesthesia Post Procedure Vital Signs Vital Signs: Temp Pulse Resp BP Pulse Ox O2 Del Method 12/30/23 13:39 87 20 160/88 H 93 Room Air 12/30/23 13:25 86 18 138/64 94 Room Air 12/30/23 13:10 87 16 119/71 96 Room Air 12/30/23 11:30 36.5 C 87 18 136/78 95 Room Air 12/30/23 09:00 Room Air 12/30/23 08:36 36.4 C L 89 16 106/67 94 Room Air 12/29/23 21:37 37 C 97 H 20 103/65 94 Room Air 12/29/23 21:15 Room Air 12/29/23 15:26 36.6 C 98 H 20 116/73 93 Room Air Pain Intensity Right Abdomen: Pain Intensity: 7 Transfer of Care Handoff Completed per policy Notes Mental Status: alert / awake / arousable and participated in evaluation Patient Amnestic to Procedure: Yes Nausea / Vomiting: adequately controlled Pain: adequately controlled Airway Patency, RR, SpO2: stable & adequate BP & HR: stable & adequate Hydration State: stable & adequate Anesthetic Complications: no major complications apparent
[2023-12-30] MEDS: SODIUM CHLORIDE 0.9% 500 ML IV SCH (15:10)
[2023-12-30] MEDS: LIDOCAINE 2% 2 ML VIAL/AMP(20MG/ML) INFIL ONE ×2 (15:11)
[2023-12-30] MEDS: PROPOFOL IV EMULSION 10 MG/ML 20 ML VIAL IV ONE (15:11)
[2023-12-30] MEDS: fentaNYL citrate PF 100 MCG/2 ML VIAL ONE (15:13)
[2023-12-30] MEDS: ONDANSETRON INJ 2 MG/ML 2 ML VIAL ONE (15:13)
[2023-12-30] MEDS ORDERED: Nursing to Pharmacy Communication SCH (16:30)
[2023-12-30] MEDS: DICYCLOMINE HCL 10 MG CAP PO SCH (21:20)
[2023-12-31 06:40] LABS: Basophils # (auto) 0.13 K/uL (0.00-0.20); Basophils % (auto) 1.7 %; Eosinophils # (auto) 0.47 K/uL (0.00-0.50); Eosinophils % (auto) 6.1 %; Hematocrit (blood only) 38.1 % (37.0-47.0); Hemoglobin 11.8 g/dl (12.0-16.0); Immature Granulocytes # (auto) 0.04 K/uL (0.01-0.20); Immature Granulocytes % (auto) 0.5 %; Lymphocytes # (auto) 1.83 K/uL (1.20-3.40); Lymphocytes % (auto) 23.6 %; Mean Corpuscular Hemoglobin 25.1 pg (25.0-34.0); Mean Corpuscular Volume 80.9 fL (80.0-100.0); Mean Platelet Volume 10.5 fL (9.4-12.4); Monocytes # (auto) 0.84 K/uL (0.11-0.59); Monocytes % (auto) 10.9 %; Neutrophils # (auto) 4.43 K/uL (1.40-6.50); Neutrophils % (auto) 57.2 %; Platelet Count 237 K/uL (130-400); RDW Coefficient of Variation 18.6 % (11.5-14.5); RDW Standard Deviation 53.7 fL (36.4-46.3); Red Blood Count 4.71 M/uL (4.20-5.40); White Blood Count 7.74 K/ul (4.8-10.8)
[2023-12-31 07:05] LABS: Alanine Aminotransferase 24 U/L (7-52); Albumin Globulin Ratio 1.1 (0.9-2); Albumin Level 3.5 gm/dl (3.4-5.0); Alkaline Phosphatase 95 U/L (34-104); Anion Gap 6 (3-11); BUN Creatinine Ratio 17.4 (10-20); Bilirubin,Total 0.5 mg/dl (0.2-1.0); Blood Urea Nitrogen 15 mg/dl (6-23); Calcium 8.6 mg/dl (8.6-10.3); Carbon Dioxide 30 mmol/L (21-32); Chloride 99 mmol/L (98-107); Est GFR (African American) 88.1 ml/min; Est GFR (Non-African American) 76.1 ml/min; Globulin 3.1 gm/dl (2.5-4.0); Glucose 122 mg/dl (70-99(Fasting)); Phosphorus 4.6 mg/dl (2.5-4.9); Sodium 135 mmol/L (136-145); Total Protein 6.6 gm/dl (6.0-8.3)
[2023-12-31 07:34] LABS: Magnesium 2.1 mg/dl (1.7-2.4)
[2023-12-31 07:51] LABS: Potassium 3.9 mmol/L (3.5-5.1)
[2023-12-31 08:07] LABS: Prothrombin Time 10.9 Seconds (9.0-12.0)
--- NOTE | 2023-12-31 12:22 | Discharge Summary ---
Discharge Summary Date of Service December 31, 2023 Principal Dx & Hospital Course #1 = Principal Diagnosis (1) Right upper quadrant abdominal pain: 53-year-old female with past medical history significant for hyperlipidemia, nonallergic rhinitis, sarcoidosis of lung, hypertension, morbid obesity, post gastric surgery syndrome, GERD, fatty liver, female stress incontinence, primary osteoarthritis of both knees, lumbago, depression, general anxiety disorder comes because of right upper quadrant abdominal pain that started the day prior to arrival with radiation to the right shoulder and neck region. Associated with some nausea. Pain is moderate to severe in nature. No fevers. Has shortness of breath when the pain is severe as she cannot take a deep breath. No cough. No headache. No dizziness. No runny nose or sore throat. RUQ abdominal pain Acute on chronic Pain History of cholecystectomy, appendectomy and Jayda-en-Y gastric bypass CT abdomen pelvis with IV contrast no acute findings, notes possible early cirrh osis LFTs wnl except alkaline phos mildly elevated 106 lipase wnl UA wnl Liver US noting only a fatty liver Pt declined GI consult on 12/27, agreeable on 12/28 -s/p EGD on 12/29. Per GI was done to rule out Peptic ulcer disease given pt's chronic use of NSAIDs in setting of past gastric bypass -EGD showed no abnormalities or reason for RUQ pain IV pain meds as needed, IV antiemetics as needed pain management consulted as well -discussed with Pain management further after EGD results available -advised that since pain generalized and given pt's body habitus, would be difficult to do trigger injections in the hospital. Would need to be US guided. -Pain Medicine advised followup outpatient for further evaluation PCP followup after discharge for further evaluation, consider fibromyalgia. Extensive discussion with pt on day of discharge, emergent/urgent possible causes ruled out as noted above. Advised continued use of flexeril and Bentyl prescribed for pain. Pt notes she has prescriptions for flexeril and oxycodone at home for use. Would like to continue with the Lidocaine patch. Advised close pcp followup for continued evaluation and treatment. Advised close followup with Pain Management as well. Bronchitis Noted on CT chest Possible cause of symptoms On doxycycline, continue for 7 days of total treatment. Discharged with 2.5 days worth of abx. Elevated D-dimer Lower EXTR Doppler negative CT chest NEGATIVE for PE Hypertension Continue home lisinopril/hydrochlorothiazide monitor Depression Generalized anxiety disorder on bupropion and venlafaxine History of sleep apnea Intolerant of CPAP as per patient Notes For Next Care Provider Please ensure follow up with Pain Management Please encourage to avoid NSAIDs in setting of Hx of gastric bypass Medication Changes From Visit Doxycycline 100mg BID x 2.5 days Bentyl 10mg TID PRN for abdominal pain Lidocaine patch Continue with home Flexeril and oxycodone- pt agreeable, states she has prescriptions at home Pt counseled that NSAID use is not typically recommended in setting of gastric bypass. She states she will continue using her home meloxicam. Consider alternative treatments. Admission HPI Per Admitting Provider 53-year-old female with past medical history significant for hyperlipidemia, nonallergic rhinitis, sarcoidosis of lung, hypertension, morbid obesity, post gastric surgery syndrome, GERD, fatty liver, female stress incontinence, primary osteoarthritis of both knees, lumbago, depression, general anxiety disorder comes because of right upper quadrant abdominal pain started yesterday morning and radiating to right shoulder and neck region. Associated with some nausea. Pain is moderate to severe in nature. No fevers. Has short of breath when the pain is severe as she cannot take a deep breath. Denies any fevers. No cough. No headache. No dizziness. No runny nose or sore throat. No blurred visions. Normal bowel and bladder movements. Ambulating okay. Currently Hemodynamics are stable. Past medical History. As mentioned above. past surgical history. Right total knee arthroplasty. Colonoscopy with biopsy. For wisdom tooth extraction. EGD. EGD with biopsy. Gastric bypass for obesity. Lumbosacral spine injection. Single lumbar laminectomy. Laparoscopic cholecystectomy. Ligation/Strip GSV and LSV of right lower leg. Tonsillectomy. social history. . No smoking. Alcohol rarely. No drug use. Family history. Aunt had colon cancer. Paternal grandfather had colon cancer. Father had benign colon polyps. Mother had hypertension. Maternal grandmother had hypertension. Admission Exam Per Admitting Provider General- Not in distress Head- atraumatic Eyes- PERRL. ENT- oropharynx clear Neck- supple, no JVD. Lungs- clear to auscultation no wheezing or crackles. Heart- regular rate and rhythm; no murmur, no gallop. Abdomen- normal bowel sounds, soft, tenderness in RUQ no distension. Extremities-mild pretibial edema present, no erythema seen Neuro- alert, oriented , PERRL, no facial palsy; no dysarthria; moves extremities. Skin- warm & dry Discharge Exam General: Alert, oriented Skin: No noted rashes or bruises Psych: Appropriate mood and affect Neuro: No gross deficits HEENT: NC/AT Chest: Nontender to palpation. CV: RRR, Normal s1, s2. No murmurs appreciated Resp: Breath sounds clear bilaterally, no increased effort of breathing. No crackles/rhonchi/rales. Abdomen: Soft, tender in RUQ, nondistended. No guarding. Extremities: No edema in lower extremities bilaterally. Updated Medication List Medication Instructions Recorded Confirmed Type cyclobenzaprine 10 mg tablet 10 mg PO TID PRN Pain 04/06/18 12/27/23 History venlafaxine 150 mg 150 mg PO QAM 04/06/18 12/27/23 History capsule,extended release 24 hr (Effexor XR) acetaminophen 650 mg 650 mg PO Q12H PRN Pain 10/23/18 12/27/23 History tablet,extended release (Tylenol Arthritis Pain) fluticasone propionate 50 2 spray intranasal DAILY PRN Nasal 10/23/18 12/27/23 History mcg/actuation nasal Congestion spray,suspension (Flonase Allergy Relief) bupropion HCl 300 mg 24 hr tablet, 300 mg PO QAM 02/07/19 12/27/23 History extended release lisinopril 20 0.5 tab PO QAM #30 tabs 03/16/19 12/27/23 Rx mg-hydrochlorothiazide 25 mg tablet venlafaxine 75 mg capsule,extended 75 mg PO QAM 02/27/20 12/27/23 History release 24 hr (Effexor XR) biotin 1 mg tablet 1 mg PO QAM 08/14/20 12/27/23 History meloxicam 15 mg tablet 15 mg PO DAILY 04/07/22 12/27/23 History gabapentin 400 mg capsule 800 mg PO TID 04/07/23 12/27/23 History dicyclomine 10 mg capsule 10 mg PO TID PRN abdominal pain 12/29/23 Rx #90 caps doxycycline hyclate 100 mg tablet 100 mg PO BID #5 tabs 12/31/23 Rx lidocaine 4 % topical patch 1 patch topical DAILY #30 ea 12/31/23 Rx Hospital Stay Data Consultations 12/27/23 02:35 ED Decision to Admit Stat 12/27/23 02:42 ED Decision to Admit Stat 12/29/23 10:55 Consult Gastroenterology Routine 12/29/23 10:58 Consult Pain Management Routine Procedures Performed Operation Date: 12/30/23 16:30 Actual Procedures p Esophagogastroduodenoscopy(Not Applicable) - [place] Gaspar Case, DO Diagnostic Imagining Performed 12/26/23 23:12 CT Abd and Pelvis [CT abd pelvis IV con only] Stat 12/27/23 02:35 US venous doppler LE BI Stat 12/27/23 07:55 CT angio chest PE protocol Routine 12/29/23 08:00 US abdomen [US liver] Routine Abdomen/Pelvis CT 12/26/23 23:12 Exam(s): CT ABDOMEN + PELVIS With Contrast IV Amt: 120 ml optiray 320 EXAM: CT Abdomen and Pelvis With Intravenous Contrast CLINICAL HISTORY: Reason for exam: RUQ abd pain, hx of [place]. TECHNIQUE: Axial computed tomography images of the abdomen and pelvis with intravenous contrast. CTDI is 35.66 mGy and DLP is 2007.36 mGy-cm. Automated exposure control was utilized for the study. A dose lowering technique was utilized adhering to the principles of ALARA. CONTRAST: Patient received 120 ml optiray 320 of IV contrast COMPARISON: CT abdomen pelvis March 24, 2022. FINDINGS: Lung bases: Unremarkable. No mass. No consolidation. ABDOMEN: Liver: Hepatic steatosis. Surface nodularity of the liver, correlate for early cirrhotic changes. Gallbladder and bile ducts: Cholecystectomy. No ductal dilation. Pancreas: Unremarkable. No mass. No ductal dilation. Spleen: Unremarkable. No splenomegaly. Adrenals: Unremarkable. No mass. Kidneys and ureters: Unremarkable. No hydronephrosis or delayed nephrogram. Stomach and bowel: Jayda-en-Y gastric bypass. No acute diverticulitis. No bowel obstruction. No free air. PELVIS: Appendix: Appendectomy. Bladder: Decompressed urinary bladder. Reproductive: Unremarkable as visualized. ABDOMEN and PELVIS: Intraperitoneal space: See above. Bones/joints: Posterior fusion at L3-4. No acute fracture. No dislocation. Soft tissues: Unremarkable. Vasculature: Unremarkable. No abdominal aortic aneurysm. Lymph nodes: Unremarkable. No enlarged lymph nodes. IMPRESSION: 1. No hydronephrosis or delayed nephrogram. 2. No acute diverticulitis. No bowel obstruction. No free air. 3. Hepatic steatosis. Surface nodularity of the liver, correlate for early cirrhotic changes. 4. Cholecystectomy. 5. Jayda-en-Y gastric bypass. 6. Appendectomy. Electronically signed by: Paulo Infante MD 12/27/23 01:52 AM Venous Doppler Study 12/27/23 02:35 Exam(s): US VENOUS BILATERAL LOWER EXTREMITIES EXAM: US Duplex Bilateral Lower Extremities Veins CLINICAL HISTORY: Reason for exam: eval for DVT. TECHNIQUE: Real-time duplex ultrasound scan of the bilateral lower extremity veins integrating B-mode two-dimensional vascular structure, Doppler spectral analysis, color flow Doppler imaging and compression. COMPARISON: No relevant prior studies available. FINDINGS: Right deep veins: Unremarkable. No DVT in the right common femoral, femoral, proximal deep femoral or popliteal veins. The veins demonstrate normal color flow, are normally compressible, with normal phasic flow and/or augmentation response. Right superficial veins: Unremarkable. No thrombus in the visualized right great saphenous vein. Left deep veins: Unremarkable. No DVT in the left common femoral, femoral, proximal deep femoral or popliteal veins. The veins demonstrate normal color flow, are normally compressible, with normal phasic flow and/or augmentation response. Left superficial veins: Unremarkable. No thrombus in the visualized left great saphenous vein. Soft tissues: No acute findings. No popliteal cyst. IMPRESSION: Negative bilateral lower extremity duplex venous ultrasound. No evidence of DVT. Electronically signed by: Tanvir Sheldon MD 12/27/23 04:42 AM Chest X-Ray 12/27/23 02:47 XR chest 1V portable CLINICAL HISTORY: Right-sided abdominal pain. COMPARISON STUDY: Chest CT March 25, 2021. Chest radiograph March 24, 2022. FINDINGS: Lung volumes are at the lower limits of normal, unchanged. Lungs are clear. There is no pneumothorax or pleural effusion. Cardiac size is normal. Mediastinal contours are normal. There is no evidence for pulmonary edema. Old right fourth rib fractures incidentally noted. IMPRESSION: No acute cardiopulmonary findings. ACT 112: Negative or not required by law. Electronically signed by: Ede Rivera M.D. 12/27/2023 6:30 AM Chest CTA 12/27/23 07:55 CT angio chest PE protocol CT DOSE: 813.26 mGy.cm HISTORY: 53 years-old Female with PE. Acute shortness of breath with shoulder and chest pain TECHNIQUE: Multiple CTA images of the chest were obtained after the intravenous administration of 112 ml Optiray. Coronal and sagittal MIPS were obtained from the axial data set and were submitted for review. All measurements were obtai deo according to NASCET criteria. A dose lowering technique was utilized adhering to the principles of ALARA. COMPARISON: Duplex venous Doppler study of same day, chest CT 03/25/2021 FINDINGS: CTA: Moderate cardiomegaly. No pericardial effusion. Mild coronary artery calcifications. No thoracic aortic aneurysm or dissection. Patency of the imaged great vessels. No pulmonary emboli identified. CT CHEST: Unremarkable thyroid. Subcentimeter right cardiophrenic/epicardial lymph nodes are nonspecific measuring up to 9 mm, slightly increased in size from prior. Trace right pleural effusion. No pneumothorax. Bronchial wall thickening with mild mucous plugging. Mild patchy subsegmental groundglass opacities. Unchanged scattered subcentimeter solid pulmonary nodules measuring up to 4 mm. These are likely benign. Mild mosaic attenuation. Hepatosplenomegaly. Postoperative changes of the stomach. Cholecystectomy. Mild marginal nodularity of the liver. No acute fracture. IMPRESSION: 1. No pulmonary emboli identified. 2. Bronchial wall thickening suggestive of bronchitis or reactive airway disease with mild bibasilar mucous plugging. 3. Mild atelectasis with air trapping. 4. Stable scattered likely benign solid pulmonary nodules measuring up to 4 mm. ACT 112: Negative or not required by law. The above report was generated using voice recognition software. It may contain grammatical, syntax or spelling errors. Electronically signed by: Luiz Garcia M.D. 12/27/2023 10:45 AM Liver Ultrasound 12/29/23 08:00 US liver CLINICAL HISTORY: RUQ pain TECHNIQUE: Multiple real-time sonographic images of the right upper quadrant were obtained. Comparison: Comparison is made to CT abdomen pelvis 12/26/2023 FINDINGS: The liver is diffusely echogenic in appearance with poor ultrasound penetration, with normal contour, which is consistent with fatty infiltration. No focal mass lesions are seen. No intrahepatic ductal dilatation is seen. Patient is status post cholecystectomy. The common duct measures 0.5 cm in diameter at the level of the hepatic artery. The visualized portions of the pancreas appear nor mal. The right kidney shows normal echogenicity, cortical thickness and renal contour. The right kidney shows no evidence of hydronephrosis or mass. No ascites or free fluid is seen in Whatley's pouch. IMPRESSION: No acute abnormalities. Hepatic steatosis is seen. ACT 112: Negative or not required by law. Electronically signed by: Placido Velez M.D. 12/29/2023 8:35 AM Pending Results Patient Have Any Pending Studies at Discharge: No Discharge Instructions Given to Patient (Per Discharging Provider) [place], You were admitted with RUQ pain. However, abdominal imaging in the form of a CT and ultrasound has not shown a cause. You also had an EGD done which did not show a cause of your pain. Your liver enzymes and lipase as well as additional blood work has been unremarkable. You were also seen by Pain Management. After your EGD they recommend outpatient followup for consideration of trigger injections and/or further evaluation and management under ultrasound guidance. At this time you are stable for discharge and it appears we have ruled out urgent/emergent causes of your pain. Please keep close followup with your primary care provider to further discover the cause of your symptoms. It is possible that your abdominal pain is muscul oskeletal and would recommend that you continue with your home pain medications as well as the prescribed Bentyl to help. Also discharging you with about 2 days worth of antibiotics to complete a 7 day course for the bronchitis. Again, please keep close follow up with your primary care provider and Interventional Pain Management after discharge. Please do not hesitate to come back to the emergency room if your symptoms worsen or return. It was a pleasure taking care of you while you were here. Total Time Total Time Spent Total Time Spent (In Minutes): 75
== END 2023-12-31 14:33 | disposition home or self-care (01) | DRG 392 ==
LOC: ED 21:19 → SUATTDRO 12-27 05:44 → EDINP 12-27 05:44 → 3N 12-27 16:30